=== PATIENT | female | born 1955 | race Caucasian/White ===

== ENCOUNTER 2018-07-20 15:48 | Emergency (ER) | payer MEDICARE, OTHER ==
[~2018-07-20] VITALS: Ht 147.3 cm; Wt 90.7 kg
[~2018-07-20 15:48] MED LIST: ALBU17AE23; BP PILL; CELEXA; CYCL10TA9 PO; ESCI20TA2 PO; FLUT1DIS27 IH; GBPN100C PO; GUAI473L29 PO; HYDR-3583 PO; HYDR1TAB PO; LEVO125T; LEVO175T2 PO; LEXAPRO; LORA1TAB PO; MELO-195 PO; METH4TAB PO; METO25TA PO; MNTL10T PO; MORP15TA8 PO; OXYC-12 PO; PRD20T PO; SULF1TAB38 PO
[2018-07-20] MEDS ORDERED: RT-ALBUTEROL/IPRATROPIUM 3 ML (DUONEB) VIAL ONE (15:53)
[2018-07-20] MEDS ORDERED: methylPREDNISolone 125 MG (Solu-MEDROL) VIAL ONE (15:54)
--- NOTE | 2018-07-20 15:59 | ED Dyspnea ---
General Stated Complaint: SOA Source of Information: Patient Exam Limitations: No Limitations History of Present Illness Date Seen by Provider: Jul 20, 2018 Time Seen by Provider: 15:59 Initial Comments To ER by private vehicle with reports of shortness of breath productive cough for 3-4 days. She does not have a local physician, she "just moved here in [facility]". She took a albuterol nebulizer treatment at home at noon today. Timing/Duration: Increasing Severity: Moderate Associated Symptoms: Cough, Wheezing Allergies and Home Medications Allergies Coded Allergies: NKANo Known Allergies (Verified Allergy, Unknown, 09/29/05) Uncoded Allergies: RUBBING ALCOHOL (Allergy, Unknown, 08/26/05) Home Medications Cyclobenzaprine Hcl 10 Mg Tablet, 10 MG PO BID PRN, (Reported) Escitalopram Oxalate 20 Mg Tablet, 1 EACH PO DAILY, (Reported) Fluticasone/Salmeterol 1 Disk Inhp, 1 PUFF IH BID, (Reported) 1 PUFF IH BID Gabapentin 100 Mg Cap, 200 MG PO TID, (Reported) Levothyroxine Sodium 175 Mcg Tablet, 1 EACH PO DAILY, (Reported) Metoprolol Succinate 25 Mg Tab.sr.24h, 25 MG PO BID, (Reported) Montelukast Sodium 10 Mg Tablet, 1 TAB PO DAILY, (Reported) Morphine Sulfate 15 Mg Tablet, 1 EACH PO Q6HR PRN, (Reported) FOR PAIN Prednisone 20 Mg Tab, 3 TAB PO BID WITH MEALS, (Reported) TAKE THREE TABS TWICE A DAY FRIDAY, FRIDAY, FRIDAY. THEN 2 TABS, TWICE A DAY DAILY. Patient Home Medication List Home Medication List Reviewed: Yes Review of Systems Review of Systems Constitutional: see HPI EENTM: see HPI Respiratory: see HPI, cough, short of breath, wheezing Cardiovascular: no symptoms reported Genitourinary: no symptoms reported Musculoskeletal: no symptoms reported Skin: no symptoms reported Psychiatric/Neurological: No Symptoms Reported Endocrine: No Symptoms Reported Past Sjzqwbu-Fvlgmg-Ghwezu Hx Patient Social History Recent Foreign Travel: No Contact w/Someone Who Travel: No Past Medical History COPD Hepatitis Back Injury, Chronic Back Pain Physical Exam Vital Signs Vital Signs - First Documented 07/20/18 15:53 Temp 96.1 Pulse 74 Resp 20 B/P (MAP) 127/103 (111) Pulse Ox 96 O2 Delivery Room Air Capillary Refill : Height, Weight, BMI Height: 4'11.00" Weight: 154lbs. oz. 69.647955fe; BMI Method:Estimated General Appearance: No Apparent Distress, WD/WN HEENT: PERRL/EOMI, TMs Normal Neck: Full Range of Motion, Normal Inspection Respiratory: Accessory Muscle Use, Decreased Breath Sounds, Wheezing Cardiovascular: Regular Rate, Rhythm, Normal Peripheral Pulses Gastrointestinal: Non Tender, Soft Extremity: Normal Capillary Refill, Normal Inspection, Pedal Edema (1+) Neurologic/Psychiatric: Alert, Oriented x3 Skin: Normal Color, Warm/Dry Progress/Results/Core Measures Results/Orders Lab Results Laboratory Tests Test 07/20/18 16:05 07/20/18 16:40 Range/Units White Blood Count 5.1 4.3-11.0 10^3/uL Red Blood Count 3.61 L 4.35-5.85 10^6/uL Hemoglobin 14.0 11.5-16.0 G/DL Hematocrit 39 35-52 % Mean Corpuscular Volume 108 H 80-99 FL Mean Corpuscular Hemoglobin 39 H 25-34 PG Mean Corpuscular Hemoglobin Concent 36 32-36 G/DL Red Cell Distribution Width 13.7 10.0-14.5 % Platelet Count 118 L 130-400 10^3/uL Mean Platelet Volume 11.2 H 7.4-10.4 FL Neutrophils (%) (Auto) 42 42-75 % Lymphocytes (%) (Auto) 36 12-44 % Monocytes (%) (Auto) 13 H 0-12 % Eosinophils (%) (Auto) 6 0-10 % Basophils (%) (Auto) 3 0-10 % Neutrophils # (Auto) 2.1 1.8-7.8 X 10^3 Lymphocytes # (Auto) 1.8 1.0-4.0 X 10^3 Monocytes # (Auto) 0.7 0.0-1.0 X 10^3 Eosinophils # (Auto) 0.3 0.0-0.3 10^3/uL Basophils # (Auto) 0.2 H 0.0-0.1 10^3/uL Sodium Level 137 135-145 MMOL/L Potassium Level 4.0 3.6-5.0 MMOL/L Chloride Level 104 98-107 MMOL/L Carbon Dioxide Level 20 L 21-32 MMOL/L Anion Gap 13 5-14 MMOL/L Blood Urea Nitrogen 7 7-18 MG/DL Creatinine 1.29 0.60-1.30 MG/DL Estimat Glomerular Filtration Rate 42 BUN/Creatinine Ratio 5 Glucose Level 98 70-105 MG/DL Calcium Level 9.2 8.5-10.1 MG/DL Corrected Calcium 9.4 8.5-10.1 MG/DL Total Bilirubin 1.0 0.1-1.0 MG/DL Aspartate Amino Transf (AST/SGOT) 205 H 5-34 U/L Alanine Aminotransferase (ALT/SGPT) 67 H 0-55 U/L Alkaline Phosphatase 56 40-136 U/L Troponin I < 0.028 <0.028 NG/ML B-Type Natriuretic Peptide 65.4 <100.0 PG/ML Total Protein 8.2 6.4-8.2 GM/DL Albumin 3.8 3.2-4.5 GM/DL Blood Gas Puncture Site R RAD Blood Gas Patient Temperature 96.1 Arterial Blood pH 7.41 7.37-7.43 Arterial Blood Partial Pressure CO2 35 35-45 MMHG Arterial Blood Partial Pressure O2 59 L 79-93 MMHG Arterial Blood HCO3 22 L 23-27 MMOL/L Arterial Blood Total CO2 23.4 21.0-31.0 MMOL/L Arterial Blood Oxygen Saturation 92 L 94-100 % Arterial Blood Base Excess -1.9 -2.5-2.5 MMOL/L Ten Test YES-POS Blood Gas Ventilator Setting NO Blood Gas Inspired Oxygen UNKNOWN My Orders Orders - TONY GIFFORD [employer] TECHNICIAN Albuterol/Ipra Inhalation Soln (Duoneb I (07/20/18 16:00) Svn Small Volume Nebulizer (07/20/18 15:56) Methylprednisolone Sod Succ (Solu-Medrol (07/20/18 16:00) Cbc With Automated Diff (07/20/18 15:59) Comprehensive Metabolic Panel (07/20/18 15:59) BNP (07/20/18 15:59) Troponin I (07/20/18 15:59) Chest 1 View, Ap/Pa Only (07/20/18 15:59) Arterial Blood Gas (07/20/18 16:01) Albuterol Pre-Mix Nebs (Rt) (Proventil (07/20/18 16:30) Svn Small Volume Nebulizer (07/20/18 16:25) Ed Iv/Invasive Line Start (07/20/18 16:26) Ipratropium 0.02% Neb Solution (Atrovent (07/20/18 16:25) Medications Given in ED Current Medications Medications Dose Ordered Sig/Jose Antonio Route Start Time Stop Time Status Last Admin Dose Admin Albuterol/ Ipratropium 3 ml ONCE ONCE INH 07/20/18 16:00 07/20/18 16:01 DC 07/20/18 16:04 3 ML Ipratropium [place] 0.5 mg STK-MED ONCE IH 07/20/18 16:25 07/20/18 16:30 DC 07/20/18 16:41 0.5 MG Methylprednisolone Sodium Succinate 125 mg ONCE ONCE IVP 07/20/18 16:00 07/20/18 16:01 DC 07/20/18 16:05 125 MG Vital Signs/I&O 07/20/18 07/20/18 15:53 16:41 Temp 96.1 Pulse 74 Resp 20 B/P (MAP) 127/103 (111) Pulse Ox 96 92 O2 Delivery Room Air Room Air Departure Communication (Admissions) 1653-feeling much better, this is after an hour-long treatment. Oxygen saturation 89% on room air at this time, it was 96 on arrival. She does have supplemental oxygen to wear at home. I'll prescribe a steroid burst and doxy cycline. Impression Primary Impression: COPD exacerbation Disposition: HOME, SELF-CARE Condition: Stable Departure-Patient Inst. Decision time for Depature: 16:58 Referrals: [facility] [place] (PCP/Family) Primary Care Physician Patient Instructions: Exacerbation of COPD Add. Discharge Instructions: 1. Return to ER for any concerns 2. Steroids as directed 3. Take the albuterol nebulizer through the machine every 4 hours. Follow-up with your doctor later this week. Scripts Doxycycline Hyclate (Doxycycline Hyclate) 100 Mg Tablet 100 MG PO BID, #14 TAB 0 Refills Prov: TONY GIFFORD [employer] TECHNICIAN 07/20/18 Prednisone (Prednisone) 20 Mg Tab 40 MG PO DAILY, #8 TAB 0 Refills Prov: TONY GIFFORD [employer] RETR[employer]IT TECHNICIAN 07/20/18 TONY GIFFORD BUILDING [employer]ERGY RETROFIT TECHNICIAN Jul 20, 2018 15:59
[2018-07-20] MEDS ORDERED: RT-ALBUTEROL/IPRATROPIUM 3 ML (DUONEB) VIAL INH ONE (16:00)
[2018-07-20] MEDS ORDERED: methylPREDNISolone 125 MG (Solu-MEDROL) VIAL IVP ONE (16:00)
[2018-07-20 16:16] LABS: BASOPHILS # (AUTO) 0.2 10^3/uL (0.0-0.1); BASOPHILS % (AUTO) 3 % (0-10); EOSINOPHILS # (AUTO) 0.3 10^3/uL (0.0-0.3); EOSINOPHILS % (AUTO) 6 % (0-10); HEMATOCRIT 39 % (35-52); LYMPHOCYTES # (AUTO) 1.8 X 10^3 (1.0-4.0); LYMPHOCYTES % (AUTO) 36 % (12-44); MEAN CORPUSCULAR HEMOGLOBIN 39 PG (25-34); MEAN CORPUSCULAR HGB CONC 36 G/DL (32-36); MEAN CORPUSCULAR VOLUME 108 FL (80-99); MEAN PLATELET VOLUME 11.2 FL (7.4-10.4); MONOCYTES # (AUTO) 0.7 X 10^3 (0.0-1.0); MONOCYTES % (AUTO) 13 % (0-12); NEUTROPHILS # (AUTO) 2.1 X 10^3 (1.8-7.8); NEUTROPHILS % (AUTO) 42 % (42-75); PLATELET COUNT 118 10^3/uL (130-400); RED CELL DISTRIBUTION WIDTH 13.7 % (10.0-14.5); WHITE BLOOD COUNT 5.1 10^3/uL (4.3-11.0)
[2018-07-20] MEDS ORDERED: RT-IPRATROPIUM (ATROVENT) 0.5MG/2.5ML AMP IH ONE (16:25)
--- NOTE | 2018-07-20 16:25 | Diagnostic Imaging Report ---
INDICATION: Shortness of breath. EXAMINATION: Portable chest at 4:15 p.m. FINDINGS: Heart size and pulmonary vascularity are normal. Lungs are clear. There are no effusions or pneumothoraces. IMPRESSION: Negative chest. Dictated by: Dictated on workstation # [id number]
[2018-07-20] MEDS ORDERED: RT-ALBUTEROL SULF 2.5 MG/3 ML PRE-MIX VIAL INH SCH (16:30)
[2018-07-20 16:40] LABS: ALANINE AMINOTRANSFERASE 67 U/L (0-55); ALBUMIN 3.8 GM/DL (3.2-4.5); ALKALINE PHOSPHATASE 56 U/L (40-136); BUN/CREATININE RATIO 5; CALCIUM 9.2 MG/DL (8.5-10.1); CARBON DIOXIDE 20 MMOL/L (21-32); CHLORIDE 104 MMOL/L (98-107); CREATININE SERUM 1.29 MG/DL (0.60-1.30); GFR ESTIMATED 42; GLUCOSE 98 MG/DL (70-105); SODIUM 137 MMOL/L (135-145); TOTAL PROTEIN 8.2 GM/DL (6.4-8.2)
[2018-07-20 16:44] LABS: ABG BASE EXCESS -1.9 MMOL/L (-2.5-2.5); ABG OXYGEN SATURATION 92 % (94-100); ABG PCO2 35 MMHG (35-45); ABG PH 7.41 (7.37-7.43); ABG PO2 59 MMHG (79-93); ABG TCO2 23.4 MMOL/L (21.0-31.0); ALLENS TEST YES-POS; PATIENT TEMP 96.1; VENTILATOR NO
[2018-07-20] MEDS ORDERED: PRD20T PO (16:59)
[2018-07-20] MEDS ORDERED: DOXY100T2 PO (16:59)
[2018-07-20 18:00] VITALS: BP 112/74
== END 2018-07-20 18:00 | disposition home or self-care (01) ==
LOC: EDUNIT# 15:48 → ER 15:50
DX: J44.1 Chronic obstructive pulmonary disease with (acute) exacerbation (principal); Z87.19 Personal history of other diseases of the digestive system; Z88.8 Allergy status to other drugs, medicaments and biological substances; Z79.51 Long term (current) use of inhaled steroids
CPT/HCPCS: 36415; 71045; 80053; 82805; 83880; 84484; 85025; 94640; 94644; 96374

== ENCOUNTER → 2018-10-14 | Outpatient (CLI) | payer MEDICARE, MEDICAID ==
[~2018-10-14] MED LIST changes: +DOXY100T2 PO
--- NOTE | 2018-10-14 11:58 | Diagnostic Imaging Report ---
PROCEDURE: MRI lumbar spine. TECHNIQUE: Multiplanar/multisequence MRI of the lumbar spine was performed without contrast. INDICATION: Low back pain. FINDINGS: The previous MRI lumbar spine exam performed on 08/17/2014 noted a small 0.6 x 0.2 cm synovial cyst arising from the medial aspect of the L5-S1 facet joint on the left. That finding is again evident on this study although it has diminished in size and now measures only 1.6 x 2.4 cm. On the T2 axial series, there is a small amount of increased signal within the facet joint on the left at this level. This finding is nonspecific but may be related to mild inflammation. As noted on the previous exam, there is moderate degenerative disc disease throughout the lumbar spine. There is no evidence for a high grade central stenosis or significant neuroforaminal narrowing at any level. As noted previously, there is mild narrowing of the neural foramen bilaterally at L3-4, particularly on the right. This finding is quite similar to the prior exam. There is no abnormal signal arising from the cord or the vertebral bodies to indicate an acute abnormality. There is no sign of a paraspinal mass. IMPRESSION: 1. The synovial cyst on the left at L5-S1 seen previously has decreased in size; however, there is now a small amount of fluid within the facet joint itself. This does suggest that there is an element of mild inflammation present. 2. The remainder of the lumbar spine is unchanged when compared to the prior study. There is no new area of spinal stenosis or nerve root encroachment identified. Dictated by: Dictated on workstation # [id number]
== END ==
LOC: RAD 10:18
PROVIDERS: ATTEND Nurse Practitioner Family
DX: M51.37 Other intervertebral disc degeneration, lumbosacral region (principal); M71.38 Other bursal cyst, other site
CPT/HCPCS: 72148

== ENCOUNTER → 2018-11-26 | Outpatient (CLI) | payer MEDICARE, MEDICAID ==
[~2018-11-26] MED LIST changes: +CATHETER FLUSH 10 ML SYR IV PRN; +HOLD METFORMIN - RECEIVED CONTRAST 20 ML VIAL IV SCH; +IOHEXOL 350 MG/ML 100 ML (OMNIPAQUE 350) VIAL IV ONE; +NS 100 ML (IVPB) BAG IV ONE
[2018-11-26 14:29] LABS: ALANINE AMINOTRANSFERASE 43 U/L (0-55); ALBUMIN 3.5 GM/DL (3.2-4.5); ALKALINE PHOSPHATASE 74 U/L (40-136); BILIRUBIN,TOTAL 1.2 MG/DL (0.1-1.0); BUN/CREATININE RATIO 8; CALCIUM 8.8 MG/DL (8.5-10.1); CARBON DIOXIDE 21 MMOL/L (21-32); CHLORIDE 106 MMOL/L (98-107); CREATININE SERUM 0.79 MG/DL (0.60-1.30); GFR ESTIMATED > 60; GLUCOSE 93 MG/DL (70-105); POTASSIUM 3.9 MMOL/L (3.6-5.0); SODIUM 137 MMOL/L (135-145); TOTAL PROTEIN 7.4 GM/DL (6.4-8.2)
--- NOTE | 2018-11-26 15:34 | Diagnostic Imaging Report ---
PROCEDURE: CT neck soft tissue with contrast. TECHNIQUE: Multiple contiguous axial images were obtained through the neck after the administration of contrast. Auto Exposure Controls were utilized during the CT exam to meet ALARA standards for radiation dose reduction. INDICATION: Right-sided neck lump. Patient also complains of neck tenderness as well as hoarseness. A BB marker was placed at the areas of lump in the anterior neck as well as the right neck. COMPARISON: No prior studies are available for comparison. FINDINGS: There is a solid-appearing nodule along the inferior and posterior margin of the right parotid gland measuring 20 mm cephalocaudal x 50 mm AP x 9 mm transverse. This likely accounts for one of the palpable abnormalities. This may lie just outside of the parotid gland and could potentially represent a lymph node. Parotid glands are otherwise unremarkable. Submandibular glands are unremarkable. No thyroid mass is detected. No definite enlarged jugulodigastric or posterior cervical lymph nodes are seen. Posterior nasopharynx and oropharynx are unremarkable. Hypopharynx and larynx are unremarkable. No abnormality is seen at the second area of palpable abnormality in the anterior right paramidline lower neck. No underlying abnormality is seen. IMPRESSION: A solid nodule along the posterior and inferior margin of the parotid gland. This is likely outside of the parotid gland and may represent a slightly enlarged lymph node. Ultrasound would be useful for further evaluation. Remainder of the study is unremarkable. Dictated by: Dictated on workstation # [id number]
== END ==
LOC: RAD 13:45
PROVIDERS: ATTEND Nurse Practitioner Family
DX: K11.8 Other diseases of salivary glands (principal); R49.0 Dysphonia
CPT/HCPCS: 36415; 70491; 80053

== ENCOUNTER 2019-03-02 11:56 | Emergency (ER) | payer MEDICARE, MEDICAID ==
[~2019-03-02] VITALS: Ht 149 cm; Wt 85.0 kg
[~2019-03-02 11:56] MED LIST changes: -CATHETER FLUSH 10 ML SYR IV PRN; -HOLD METFORMIN - RECEIVED CONTRAST 20 ML VIAL IV SCH; -IOHEXOL 350 MG/ML 100 ML (OMNIPAQUE 350) VIAL IV ONE; -NS 100 ML (IVPB) BAG IV ONE
[2019-03-02] MEDS ORDERED: HYDR-4226 PO (12:24)
--- NOTE | 2019-03-02 12:24 | ED EENT ---
History of Present Illness General Chief Complaint: General Problems/Pain Stated Complaint: NECK PAIN Nursing Triage Note: STATES SHE HAD A BX OF HER NECK YESTERDAY AND PAIN IS NOT RELIEVED BY IBUPROFEN OR ALEVE. STATES SHE WOULD HAVE WENT TO THE CLINIC BUT SHE DID NOT THINK THEY WOULD PRESCRIBE ANYTHING FOR PAIN. Source: patient Exam Limitations: no limitations History of Present Illness Date Seen by Provider: Mar 02, 2019 Time Seen by Provider: 12:20 Initial Comments To ER with right sided neck pain. She had a fine-needle aspiration lymph node bi opsy yesterday ultrasound-guided here. She reports pain despite the infrequent use of NSAIDs and frequent use of cold compresses. She is able to swallow fine, states she cannot turn her head to the side without significant pain, when she chews she has a sharp pain that radiates into her ear. Timing/Duration: gradual Severity: moderate Location: other (neck) Prearrival Treatment: over the counter meds Allergies and Home Medications Allergies Coded Allergies: NKANo Known Allergies (Verified Allergy, Unknown, 09/29/05) Uncoded Allergies: RUBBING ALCOHOL (Allergy, Unknown, 08/26/05) Home Medications Cyclobenzaprine Hcl 10 Mg Tablet, 10 MG PO BID PRN, (Reported) Doxycycline Hyclate 100 Mg Tablet, 100 MG PO BID Prescribed by: TONY GIFFORD on 07/20/181658 Escitalopram Oxalate 20 Mg Tablet, 1 EACH PO DAILY, (Reported) Fluticasone/Salmeterol 1 Disk Inhp, 1 PUFF IH BID, (Reported) 1 PUFF IH BID Gabapentin 100 Mg Cap, 200 MG PO TID, (Reported) Levothyroxine Sodium 175 Mcg Tablet, 1 EACH PO DAILY, (Reported) Metoprolol Succinate 25 Mg Tab.sr.24h, 25 MG PO BID, (Reported) Montelukast Sodium 10 Mg Tablet, 1 TAB PO DAILY, (Reported) Morphine Sulfate 15 Mg Tablet, 1 EACH PO Q6HR PRN, (Reported) FOR PAIN Prednisone 20 Mg Tab, 3 TAB PO BID WITH MEALS, (Reported) TAKE THREE TABS TWICE A DAY FRIDAY, FRIDAY, FRIDAY. THEN 2 TABS, TWICE A DAY DAILY. Prednisone 20 Mg Tab, 40 MG PO DAILY Prescribed by: TONY GIFFORD on 07/20/181658 Patient Home Medication List Home Medication List Reviewed: Yes Review of Systems Review of Systems Constitutional: see HPI Eyes: No Symptoms Reported Ears: No Symptoms Reported Nose: no symptoms reported Mouth: no symptoms reported Throat: see HPI, other (right lateral neck) Respiratory: no symptoms reported Cardiovascular: no symptoms reported Gastrointestinal: no symptoms reported Musculoskeletal: no symptoms reported Skin: no symptoms reported Neurological: No Symptoms Reported Hematologic/Lymphatic: No Symptoms Reported Past Oiypahx-Uptata-Iptmoy Hx Patient Social History Alcohol Use: Occasionally Uses Recreational Drug Use: No Smoking Status: Current Everyday Smoker Type Used: Cigarettes Recent Foreign Travel: No Contact w/Someone Who Travel: No Recent Infectious Disease Expo: No Recent Hopitalizations: No Immunizations Up To Date Tetanus Booster (TDap): Unknown Past Medical History Surgeries: Yes (MULTIPLE) Respiratory: Yes COPD Cardiac: No Neurological: No Gastrointestinal: Yes (HEP C POSITIVE) Hepatitis Musculoskeletal: Yes Back Injury, Chronic Back Pain Endocrine: Yes Cancer: No Blood Disorders: Yes Physical Exam Vital Signs Vital Signs - First Documented 03/02/19 12:00 Temp 37.0 Pulse 84 Resp 16 B/P (MAP) 136/90 (105) Pulse Ox 96 O2 Delivery Room Air Height, Weight, BMI Height: 4'10.00" Weight: 200lbs. oz. 90.571917he; 38.00 BMI Method:Stated General Appearance: WD/WN, no apparent distress Eyes: bilateral eye normal inspection, bilateral eye PERRL, bilateral eye EOMI Ears: bilateral ear auricle normal, bilateral ear canal normal, bilateral ear TM normal Mouth/Throat: normal mouth inspection, pharynx normal Neck: non-tender, full range of motion, tender lateral, other (difficulty turning her head to the right side, there is a puncture wound to the lateral aspect of the neck without erythema ecchymosis or drainage, normal appearance. Soft around this without hematoma, tender to palpation.) Respiratory: no respiratory distress, no accessory muscle use Gastrointestinal: normal bowel sounds, non tender Neurologic/Psychiatric: alert, normal mood/affect, oriented x 3 Skin: normal color, warm/dry Progress/Results/Core Measures Results/Orders Vital Signs/I&O 03/02/19 12:00 Temp 37.0 Pulse 84 Resp 16 B/P (MAP) 136/90 (105) Pulse Ox 96 O2 Delivery Room Air Blood Pressure Mean: 105 Departure Impression Primary Impression: Postoperative pain Disposition: 01 HOME, SELF-CARE Condition: Stable Departure-Patient Inst. Decision time for Depature: 12:23 Referrals: [facility] (PCP/Family) Primary Care Physician Patient Instructions: Postoperative Pain (DC) Add. Discharge Instructions: 1. Follow-up with your doctor 2. All discharge instructions reviewed with patient and/or family. Voiced understanding. Scripts Hydrocodone/Acetaminophen ([place] 5-325 Tablet) 1 Each Tablet 1 TAB PO TID for Pain MDD 10 TABS for 7 Days, #5 TAB Prov: TONY GIFFORD APRN 03/02/19 TONY GIFFORD APRN Mar 02, 2019 12:24
[2019-03-02 12:30] VITALS: BP 136/90
== END 2019-03-02 12:30 | disposition home or self-care (01) ==
LOC: EDUNIT# 11:56 → ER 11:57
DX: G89.18 Other acute postprocedural pain (principal); M54.2 Cervicalgia; J44.9 Chronic obstructive pulmonary disease, unspecified; B19.20 Unspecified viral hepatitis C without hepatic coma; F17.210 Nicotine dependence, cigarettes, uncomplicated; Z79.51 Long term (current) use of inhaled steroids; Z79.52 Long term (current) use of systemic steroids
CPT/HCPCS: 99281

== ENCOUNTER 2019-03-09 22:40 | Inpatient (IN) | payer MEDICARE, MEDICAID ==
[~2019-03-09] VITALS: Ht 147.3 cm; Wt 85.7 kg
[~2019-03-09 22:40] MED LIST changes: +HYDR-4226 PO
[2019-03-09] MEDS ORDERED: RT-ALBUTEROL/IPRATROPIUM 3 ML (DUONEB) VIAL INH ONE ×2 (23:15→23:45)
[2019-03-09 23:24] LABS: BASOPHILS # (AUTO) 0.1 10^3/uL (0.0-0.1); BASOPHILS % (AUTO) 1 % (0-10); EOSINOPHILS # (AUTO) 0.1 10^3/uL (0.0-0.3); EOSINOPHILS % (AUTO) 1 % (0-10); HEMATOCRIT 43 % (35-52); HEMOGLOBIN 13.7 G/DL (11.5-16.0); LYMPHOCYTES # (AUTO) 1.4 X 10^3 (1.0-4.0); LYMPHOCYTES % (AUTO) 17 % (12-44); MEAN CORPUSCULAR HEMOGLOBIN 33 PG (25-34); MEAN CORPUSCULAR HGB CONC 32 G/DL (32-36); MEAN CORPUSCULAR VOLUME 103 FL (80-99); MEAN PLATELET VOLUME 10.7 FL (7.4-10.4); MONOCYTES # (AUTO) 0.8 X 10^3 (0.0-1.0); MONOCYTES % (AUTO) 9 % (0-12); NEUTROPHILS % (AUTO) 72 % (42-75); PLATELET COUNT 149 10^3/uL (130-400); RED CELL DISTRIBUTION WIDTH 14.4 % (10.0-14.5); WHITE BLOOD COUNT 8.4 10^3/uL (4.3-11.0)
[2019-03-09] MEDS ORDERED: RT-ALBUTEROL SULF 2.5 MG/3 ML PRE-MIX VIAL INH STA (23:33)
--- NOTE | 2019-03-09 23:41 | ED General ---
General Chief Complaint: General Problems/Pain Stated Complaint: SWALLOWING DIFFICULITY Nursing Triage Note: c/o pain and swelling in neck Nursing Sepsis Screen: No Definite Risk Source of Information: Patient, Old Records Exam Limitations: No Limitations History of Present Illness Date Seen by Provider: Mar 09, 2019 Time Seen by Provider: 23:55 Initial Comments This 64-year-old woman presents to the emergency room with complaints of pain along the lateral aspects of her jaw and into her neck bilaterally, greater on the left. She noticed swelling going up into the maxillary region. 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 She is seeing Dr. Balderas for this and has an appointment in early March for follow-up. Tonight she became frightened because of the worsening pain and swelling. She also felt some difficulty with swallowing. She also appears to be having a COPD exacerbation as she is very tight and wheezy despite taking a nebulizer treatment at home shortly before arrival. Patient also admits to drinking a 24 ounce can of beer tonight and taking two sleep aids. Allergies and Home Medications Allergies Coded Allergies: NKANo Known Allergies (Verified Allergy, Unknown, 09/29/05) Uncoded Allergies: RUBBING ALCOHOL (Allergy, Unknown, 08/26/05) Home Medications Cyclobenzaprine Hcl 10 Mg Tablet, 10 MG PO BID PRN, (Reported) Doxycycline Hyclate 100 Mg Tablet, 100 MG PO BID Prescribed by: TONY GIFFORD on 07/20/18 1659 Escitalopram Oxalate 20 Mg Tablet, 1 EACH PO DAILY, (Reported) Fluticasone/Salmeterol 1 Disk Inhp, 1 PUFF IH BID, (Reported) 1 PUFF IH BID Gabapentin 100 Mg Cap, 200 MG PO TID, (Reported) Hydrocodone/Acetaminophen 1 Each Tablet, 1 TAB PO TID Prescribed by: TONY GIFFORD on 03/02/19 1224 Levothyroxine Sodium 175 Mcg Tablet, 1 EACH PO DAILY, (Reported) Metoprolol Succinate 25 Mg Tab.sr.24h, 25 MG PO BID, (Reported) Montelukast Sodium 10 Mg Tablet, 1 TAB PO DAILY, (Reported) Morphine Sulfate 15 Mg Tablet, 1 EACH PO Q6HR PRN, (Reported) FOR PAIN Prednisone 20 Mg Tab, 3 TAB PO BID WITH MEALS, (Reported) TAKE THREE TABS TWICE A DAY FRIDAY, FRIDAY, FRIDAY. THEN 2 TABS, TWICE A DAY DAILY. Prednisone 20 Mg Tab, 40 MG PO DAILY Prescribed by: TONY GIFFORD on 07/20/18 2330 Patient Home Medication List Home Medication List Reviewed: Yes Review of Systems Review of Systems Constitutional: no symptoms reported EENTM: see HPI Respiratory: no symptoms reported Cardiovascular: no symptoms reported Gastrointestinal: no symptoms reported Genitourinary: no symptoms reported : No Musculoskeletal: no symptoms reported Skin: no symptoms reported Psychiatric/Neurological: See HPI Hematologic/Lymphatic: See HPI Immunological/Allergic: no symptoms reported All Other Systems Reviewed Negative Unless Noted: Yes Past Xmdtkcl-Zgispi-Ovyidw Hx Past Med/Social Hx: Reviewed and Corrections made Patient Social History Alcohol Use: Occasionally Uses Alcohol Beverage of Choice: Beer Type Used: Cigarettes Recent Foreign Travel: No Contact w/Someone Who Travel: No Recent Infectious Disease Expo: No Recent Hopitalizations: No Immunizations Up To Date Tetanus Booster (TDap): Unknown Past Medical History Surgeries: Yes (axillary gland removal) Gallbladder, Hysterectomy, Oophorectomy Respiratory: Yes (uses oxygen at 3 L by nasal cannula) COPD Cardiac: No Neurological: No Female Reproductive Disorders: Endometriosis Genitourinary: No Gastrointestinal: Yes (HEP C POSITIVE) Hepatitis Musculoskeletal: Yes Back Injury, Chronic Back Pain Endocrine: Yes Hypothyroidsim, Lupus Cancer: No Psychosocial: Yes Bipolar, Schizophrenia Blood Disorders: Yes Physical Exam Vital Signs Vital Signs - First Documented 03/09/19 03/09/19 23:00 23:46 Temp 37.6 Pulse 88 Resp 20 B/P (MAP) 154/94 (114) Pulse Ox 98 O2 Delivery Nasal Cannula O2 Flow Rate 3.00 Capillary Refill : Less Than 3 Seconds Height, Weight, BMI Height: 4'10.00" Weight: 200lbs. oz. 90.863410fr; 37.00 BMI Method:Stated General Appearance: WD/WN, Mild Distress, Other (Smells of alcohol) HEENT: PERRL/EOMI, Normal ENT Inspection, Other (swelling and tenderness along the angle of the jaw and extending up into the maxillary area and submandibular area bilaterally, left greater than right) Neck: Other (see above) Respiratory: No Accessory Muscle Use, No Respiratory Distress, Wheezing Cardiovascular: Regular Rate, Rhythm, No Edema, No Murmur Gastrointestinal: Normal Bowel Sounds, Non Tender, Soft Extremity: Normal Inspection, No Pedal Edema Neurologic/Psychiatric: Alert, Oriented x3, No Motor/Sensory Deficits, Normal 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, 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 Norm as Tested Skin: Normal Color, Warm/Dry Progress/Results/Core Measures Suspected Sepsis Recent Fever Within 48 Hours: No Infection Criteria Present: None New/Unexplained Altered Menta: No Sepsis Screen: No Definite Risk SIRS Temperature: Pulse: 88 Respiratory Rate: 20 Laboratory Tests 03/09/19 23:15: White Blood Count 8.4 Blood Pressure 154 /94 Mean: 114 Laboratory Tests 03/09/19 23:15: Creatinine 0.81, Platelet Count 149, Total Bilirubin 0.7 Results/Orders Lab Results Laboratory Tests Test 03/09/19 23:15 Range/Units White Blood Count 8.4 4.3-11.0 10^3/uL Red Blood Count 4.18 L 4.35-5.85 10^6/uL Hemoglobin 13.7 11.5-16.0 G/DL Hematocrit 43 35-52 % Mean Corpuscular Volume 103 H 80-99 FL Mean Corpuscular Hemoglobin 33 25-34 PG Mean Corpuscular Hemoglobin Concent 32 32-36 G/DL Red Cell Distribution Width 14.4 10.0-14.5 % Platelet Count 149 130-400 10^3/uL Mean Platelet Volume 10.7 H 7.4-10.4 FL Neutrophils (%) (Auto) 72 42-75 % Lymphocytes (%) (Auto) 17 12-44 % Monocytes (%) (Auto) 9 0-12 % Eosinophils (%) (Auto) 1 0-10 % Basophils (%) (Auto) 1 0-10 % Neutrophils # (Auto) 6.0 1.8-7.8 X 10^3 Lymphocytes # (Auto) 1.4 1.0-4.0 X 10^3 Monocytes # (Auto) 0.8 0.0-1.0 X 10^3 Eosinophils # (Auto) 0.1 0.0-0.3 10^3/uL Basophils # (Auto) 0.1 0.0-0.1 10^3/uL Sodium Level 139 135-145 MMOL/L Potassium Level 4.0 3.6-5.0 MMOL/L Chloride Level 108 H 98-107 MMOL/L Carbon Dioxide Level 21 21-32 MMOL/L Anion Gap 10 5-14 MMOL/L Blood Urea Nitrogen 10 7-18 MG/DL Creatinine 0.81 0.60-1.30 MG/DL Estimat Glomerular Filtration Rate > 60 BUN/Creatinine Ratio 12 Glucose Level 125 H 70-105 MG/DL Calcium Level 9.0 8.5-10.1 MG/DL Corrected Calcium 9.6 8.5-10.1 MG/DL Total Bilirubin 0.7 0.1-1.0 MG/DL Aspartate Amino Transf (AST/SGOT) 88 H 5-34 U/L Alanine Aminotransferase (ALT/SGPT) 62 H 0-55 U/L Alkaline Phosphatase 90 40-136 U/L Total Protein 7.0 6.4-8.2 GM/DL Albumin 3.3 3.2-4.5 GM/DL Thyroid Stimulating Hormone (TSH) 26.70 H 0.35-4.94 UIU/ML Free Thyroxine 0.69 L 0.70-1.48 NG/DL Serum Alcohol 32 H <10 MG/DL My Orders Orders - KHARI MALLORY MD Alcohol (03/09/19 23:08) Cbc With Automated Diff (03/09/19 23:08) Comprehensive Metabolic Panel (03/09/19 23:08) Ed Iv/Invasive Line Start (03/09/19 23:08) Albuterol/Ipra Inhalation Soln (Duoneb I (03/09/19 23:15) Svn Small Volume Nebulizer (03/09/19 23:08) Thyroid Stimulating Hormone (03/09/19 23:08) Free T4 (Free Thyroxine) (03/09/19 23:08) Chest 1 View, Ap/Pa Only (03/09/19 23:11) Methylprednisolone Sod Succ (Solu-Medrol (03/09/19 23:45) Albuterol Pre-Mix Nebs (Rt) (Proventil (03/09/19 23:33) Albuterol/Ipra Inhalation Soln (Duoneb I (03/09/19 23:45) Svn Small Volume Nebulizer (03/09/19 23:33) Svn Small Volume Nebulizer (03/09/19 23:33) Fentanyl Injection (Sublimaze Injection (03/09/19 23:45) Ketorolac Injection (Toradol Injection) (03/10/19 00:30) Lorazepam Injection (Ativan Injection) (03/10/19 00:30) Medications Given in ED Current Medications Medications Dose Ordered Sig/Jose Antonio Route Start Time Stop Time Status Last Admin Dose Admin Albuterol/ Ipratropium 3 ml ONCE ONCE INH 03/09/19 23:15 03/09/19 23:16 DC 03/09/19 23:45 3 ML Fentanyl Citrate 50 mcg ONCE ONCE IVP 03/09/19 23:45 03/09/19 23:46 DC 03/09/19 23:50 50 MCG Methylprednisolone Sodium Succinate 125 mg ONCE ONCE IVP 03/09/19 23:45 03/09/19 23:46 DC 03/09/19 23:50 125 MG Vital Signs/I&O 03/09/19 03/09/19 03/10/19 23:00 23:46 00:05 Temp 37.6 Pulse 88 Resp 20 B/P (MAP) 154/94 (114) Pulse Ox 98 98 98 O2 Delivery Nasal Cannula Nasal Cannula Nasal Cannula O2 Flow Rate 3.00 3.00 Capillary Refill : Less Than 3 Seconds Blood Pressure Mean: 114 Progress Note : Time: 23:53 Progress Note Patient was seen and examined shortly after arrival. She was very tight and wheezy. DuoNeb treatment was ordered and administered. She was still rather tight and wheezy with modest improvement after nebulizer treatment. An hour-long treatment was then ordered along with Solu-Medrol 125 mg IV. Patient did demonstrate ability to swallow water without choking or aspiration. Chart was reviewed. Labs are pending. Fentanyl was given for pain. Diagnostic Imaging Diagonstic Imaging: Xray Plain Films/CT/US/NM/MRI: chest Comments Chest x-ray viewed by me. Report not yet available. No acute abnormality appreciated. Departure Communication (Admissions) Time/Spoke to Admitting Phy: 00:40 Dr. Nunez Time/Spoke to Consulting Phy: 00:[address] Balderas Impression Primary Impression: COPD exacerbation Additional Impression: Salivary gland tumor Disposition: ADMITTED INPATIENT Condition: Improved Admissions Decision to Admit Reason: Admit from ER (General) Decision to Admit/Date: Mar 10, 2019 Time/Decision to Admit Time: 00:30 Departure-Patient Inst. Referrals: [facility] [place] (PCP/Family) Primary Care Physician KHARI MALLORY MD Mar 09, 2019 23:41
[2019-03-09 23:45] LABS: ALANINE AMINOTRANSFERASE 62 U/L (0-55); ALBUMIN 3.3 GM/DL (3.2-4.5); ALKALINE PHOSPHATASE 90 U/L (40-136); BILIRUBIN,TOTAL 0.7 MG/DL (0.1-1.0); BUN/CREATININE RATIO 12; CARBON DIOXIDE 21 MMOL/L (21-32); CHLORIDE 108 MMOL/L (98-107); CREATININE SERUM 0.81 MG/DL (0.60-1.30); GFR ESTIMATED > 60; GLUCOSE 125 MG/DL (70-105); SODIUM 139 MMOL/L (135-145)
[2019-03-09] MEDS ORDERED: fentaNYL INJECTION 100 MCG/2 ML AMP IVP ONE (23:45)
[2019-03-09] MEDS ORDERED: methylPREDNISolone 125 MG (Solu-MEDROL) VIAL IVP ONE (23:45)
[2019-03-10 00:09] LABS: FREE T4 (FREE THYROXINE) 0.69 NG/DL (0.70-1.48)
[2019-03-10] MEDS ORDERED: LORazepam INJ 2 MG/ML (ATIVAN) VIAL IVP ONE (00:30)
[2019-03-10] MEDS ORDERED: KETOROLAC 30 MG/ML VIAL IVP ONE (00:30)
[2019-03-10 01:47] VITALS: BP 134/73
[2019-03-10] MEDS: NICOTINE 21 MG (NICODERM) PATCH TD SCH ×2 (02:00→20:50)
[2019-03-10] MEDS ORDERED: RT-ALBUTEROL SULF 2.5 MG/3 ML PRE-MIX VIAL IH PRN (02:00)
[2019-03-10] MEDS ORDERED: RT-ALBUTEROL/IPRATROPIUM 3 ML (DUONEB) VIAL INH PRN (03:30)
[2019-03-10 04:00] VITALS: BP 113/77
[2019-03-10] MEDS ORDERED: RT-ALBUTEROL/IPRATROPIUM 3 ML (DUONEB) VIAL INH SCH (06:00)
[2019-03-10] MEDS: methylPREDNISolone 40 MG/ML (Solu-MEDROL) VIAL IV SCH ×3 (06:32→17:32)
[2019-03-10] MEDS: RT-ALBUTEROL/IPRATROPIUM 3 ML (DUONEB) VIAL IH SCH ×5 (06:35→22:48)
[2019-03-10] MEDS ORDERED: FLU QUADRIvalent (5+ YOA) 2019-2020 (AFLURIA) 0.5 ML IM ONE (06:45)
[2019-03-10] MEDS: KETOROLAC 15 MG/ML VIAL IVP PRN ×2 (06:54→12:57)
--- NOTE | 2019-03-10 07:56 | Diagnostic Imaging Report ---
EXAMINATION: Chest 1 view HISTORY: Chest pain COMPARISON: 07/20/2018 FINDINGS: The lungs are clear without edema or pneumonia. No pleural effusion or pneumothorax. Heart size is normal. IMPRESSION: 1. Clear lungs. Dictated by: Dictated on workstation # [id number]
[2019-03-10 08:00] VITALS: BP 116/66
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
[2019-03-10] MEDS ORDERED: IOHEXOL 350 MG/ML 100 ML (OMNIPAQUE 350) VIAL IV ONE (09:15)
[2019-03-10] MEDS ORDERED: HOLD METFORMIN - RECEIVED CONTRAST 20 ML VIAL IV SCH (09:15)
[2019-03-10] MEDS ORDERED: NS 100 ML (IVPB) BAG IV ONE (09:15)
[2019-03-10] MEDS ORDERED: BUDE10.2 INH (09:44)
[2019-03-10] MEDS ORDERED: LEVO112T55 PO (09:44)
[2019-03-10] MEDS ORDERED: RT-ALBUINH INH (09:44)
[2019-03-10] MEDS ORDERED: GABA-488 PO (09:44)
[2019-03-10] MEDS ORDERED: ALBU2.5V4 NEB (09:44)
[2019-03-10] MEDS ORDERED: MONT10TA24 PO (09:44)
[2019-03-10] MEDS ORDERED: DOXY25TA50 PO (09:46)
[2019-03-10] MEDS ORDERED: IBUP-30 PO (09:46)
[2019-03-10] MEDS: ENOXAPARIN 40 MG/0.4 ML (LOVENOX) SYR SC SCH (10:05)
--- NOTE | 2019-03-10 10:12 | History & Physical-Hospitalist ---
History of Present Illness HPI/Chief Complaint CC: SOB HPI: This is a 64yoWF Pt of Lynda Hess who just had a biopsy last week by Dr. Diaz (Interventional radiology at [facility]) for salivary gland mass who remains on 3 Liters of oxygen at home 02/09, but came in with SOB. Found to have exacerbation of COPD, Dr. Quispe was consulted and CT of the neck was obtained to evaluate the biopsy area. Overall he recommended steroids and nebulizer treatments to resume all of her home medication and to be monitored closely. Source: patient Exam Limitations: no limitations Date Seen 03/10/19 Time Seen by a Provider: 09:30 Attending Physician Jess Kim DO [facility] Referring Physician Date of Admission Mar 10, 2019 at 00:42 Home Medications & Allergies Home Medications Reviewed patient Home Medication Reconciliation performed by pharmacy medication reconciliations automotive maintenance technician and/or nursing. Patients Allergies have been reviewed. Allergies Allergies Coded Allergies NKANo Known Allergies (Verified Allergy, Unknown, 09/29/05) Uncoded Allergies RUBBING ALCOHOL ( Allergy, Unknown, 08/26/05) Past Ezcxszd-Deippb-Dcrmub Hx Past Med/Social Hx: Reviewed Nursing Past Med/Soc Hx, Reviewed and Corrections made Patient Social History Marrital Status: single Employed/Student: unemployed Alcohol Use: Occasionally Uses Alcohol Beverage of Choice: Beer Recreational Drug Use: Yes (FORMER ETOH USE OF 10 YRS AGO) Smoking Status: Former Smoker Type Used: Cigarettes Recent Foreign Travel: No Contact w/other who traveled: No Recent Hopitalizations: No Recent Infectious Disease Expo: No Immunizations Up To Date Tetanus Booster (TDap): Unknown Date of Pneumonia Vaccine: Mar 10, 2014 Date of Influenza Vaccine: Mar 10, 2018 Past Medical History Surgeries: Gallbladder, Hysterectomy, Oophorectomy Respiratory: Chronic Bronchitis, COPD, Emphysema, Pneumonia Cardiac: Hypertension Female Reproductive Disorders: Endometriosis Gastrointestinal: Hepatitis Musculoskeletal: Back Injury, Chronic Back Pain Endocrine: Hypothyroidsim, Lupus Psychosocial: Bipolar, Schizophrenia History of Blood Disorders: Yes Review of Systems Constitutional: see HPI EENTM: throat pain, throat swelling Respiratory: cough, dyspnea on exertion, wheezing Physical Exam Physical Exam Vital Signs Vital Signs - First Documented 03/09/19 03/09/19 23:00 23:46 Temp 37.6 Pulse 88 Resp 20 B/P (MAP) 154/94 (114) Pulse Ox 98 O2 Delivery Nasal Cannula O2 Flow Rate 3.00 Capillary Refill : Less Than 3 SecondsLess Than 3 Seconds Height, Weight, BMI Height: 4'10.00" Weight: 200lbs. oz. 90.040271tf; 39.49 BMI Method:Stated General Appearance: No Apparent Distress, Chronically ill Eyes: Right Eye Normal Inspection, Right Eye PERRL HEENT: PERRL/EOMI, Normal ENT Inspection, Pharynx Normal, Moist Mucous Membranes Neck: Full Range of Motion, Normal Inspection, Non Tender Respiratory: Chest Non Tender, No Respiratory Distress, Accessory Muscle Use (during conversation), Decreased Breath Sounds, Rales, Wheezing Cardiovascular: Regular Rate, Rhythm, No Edema, No Gallop, No JVD, No Murmur, Normal Peripheral Pulses Gastrointestinal: Normal Bowel Sounds, No Organomegaly, No Pulsatile Mass, Non Tender, Soft Back: Normal Inspection, No CVA Tenderness, No Vertebral Tenderness Extremity: Normal Capillary Refill, Normal Inspection, Normal Range of Motion, Non Tender, No Calf Tenderness, No Pedal Edema Neurologic/Psychiatric: Alert, Oriented x3, No Motor/Sensory Deficits, Normal Mood/Affect Skin: Normal Color, Warm/Dry Lymphatic: No Adenopathy Results Results/Procedures Labs Laboratory Tests 03/09/19 23:15 Patient resulted labs reviewed. Assessment/Plan Admission Diagnosis Assessment: AECOPD Former smoker SLE Salivary gland mass s/p biopsy Plan: IV steroids Pathology pending CT scan Dr Quispe Admission Status: Inpatient Order (span 2 midnights) Reason for Inpatient Admission: severe copd now with exacerbation Diagnosis/Problems Diagnosis/Problems (1) COPD exacerbation Status: Acute (2) Salivary gland tumor Status: Acute Clinical Quality Measures DVT/VTE Risk/Contraindication: Risk Factor Score Per Nursin RFS Level Per Nursing on Admit: 4+=Very High JESS KIM DO Mar 10, 2019 10:12
[2019-03-10] MEDS ORDERED: DOXYLAMINE SUCCINATE 50 MG PO PRN (10:15)
--- NOTE | 2019-03-10 10:18 | Diagnostic Imaging Report ---
CLINICAL INDICATION: Patient complains of swelling, redness and tenderness in the left neck mass inferior to left ear. EXAM: CT scan of the neck and chest performed with 75 mL of Omnipaque 350 IV contrast. Coronal and sagittal reformatted images are created. Auto Exposure Controls were utilized during the CT exam to meet ALARA standards for radiation dose reduction. All CT scans use one or more of the following dose optimizing techniques: automated exposure control, MA and/or KvP adjustment based on patient size and exam type or iterative reconstruction. COMPARISON: CT scan of the neck with contrast dated 11/26/2018. Chest x-ray dated 07/20/2018. FINDINGS: CT neck: There is interval development of mild prominence of the left parotid gland with mild adjacent fat stranding and thickening of the left platysmas muscle which has developed in the interim. There is no drainable fluid collection seen. This is beneath the left neck/face BB marker. There are no stones or dilated ducts seen. There is slight change in configuration of the lobulated mass in the superficial portion of the posterior aspect of right parotid gland or adjacent to the right parotid gland. This mass currently measures 1.5 cm x 1.3 cm x 1.8 cm (AP x Trans x CC) compared to the prior study measured at 1.5 cm x 0.9 cm x 1.9 cm (AP x Trans x CC). There is no adjacent fat stranding. Otherwise, the remainder of the salivary glands are unremarkable. Remainder of the neck soft tissue structures show no other significant abnormality. The nasopharynx, oropharynx, hypopharynx, and laryngeal soft tissue structures are relatively symmetric and unremarkable. Again seen is small thyroid gland which may be related to posttreatment and postoperative changes or medical condition. The visualized portions of the oral cavity, tongue, sublingual space, and submandibular regions are unremarkable. Limited visualization of intracranial structures are unremarkable. There is no lymphadenopathy. There is atherosclerotic disease involving the proximal bilateral cervical ICA. Cervical spine degenerative disease with vertebral body spurs and facet arthropathy seen. CT chest: There is emphysematous lung disease seen. There is a 4 mm nodule involving the periphery of the lateral aspect of the lingula which is seen on series 2, image 26. Small pleural tag seen in the periphery of the base of the lingula. There is a groundglass 4 mm nodule in the periphery of the middle lobe seen on series 2, image 25. There is mild atelectasis or scarring involving the posterior aspects of both lungs. There is no pneumothorax. There is no mediastinal or hilar lymphadenopathy. There is no axillary lymphadenopathy. A visualized portion of the thoracic aorta are unremarkable. There is diffuse low attenuation changes seen throughout the liver which may be related to fatty infiltration. There are numerous calcifications in the region of the pancreatic head which may be related to sequelae of chronic pancreatitis. Cholecystectomy changes are seen. Remainder of the visualized upper abdominal structures show no significant abnormality. There are degenerative spurs involving the thoracic spine. IMPRESSION: 1: There is an area of nonspecific mild fat stranding, mild prominence of the left parotid gland, and thickening of the left platysmas muscle. There is no drainable fluid collection. There are no parotid gland stones or mass seen. This finding may be related to mild left parotiditis versus cellulitis. 2: Given the differences in technique, there is no significant change to the lobulated mass either within or closely adjacent to the superficial portion of posterior aspect of right parotid gland. Considerations include a primary salivary gland neoplasm such as pleomorphic adenoma. Nonemergent ENT consultation is suggested. 3: The remainder of the neck soft tissue structures are stable and unremarkable for acute finding. 4: Emphysematous lung disease with small lung nodules, as described above. There is no lymphadenopathy. Follow-up chest CT scan in 12 months is suggested to evaluate for stability of the nodules. 5: There are multiple calcifications involving the pancreatic head region which may be related to sequelae of chronic pancreatitis. Dictated by: Dictated on workstation # [id number]
[2019-03-10 12:00] VITALS: BP 118/72
[2019-03-10] MEDS: GABAPENTIN 300 MG (NEURONTIN) CAP PO SCH ×2 (13:58→20:47)
--- NOTE | 2019-03-10 14:22 | Progress Note ---
Standard Progress Note Progress Notes/Assess & Plan Date Seen by a Provider: Mar 10, 2019 Time Seen by a Provider: 12:30 Progress/Assessment & Plan S-Was consulted by ER for left neck pain and swelling. Patient has a history of recent FNA of right neck mass results revealing possible [place] Tumor. Complaints today are of left neck pain and swelling present for multiple weeks that has been worsening. CT completed this morning and shows minimal changed to right mass-tumor. Left shows possible parotiditis with no drainable mass. O- Ears with out infections. Tympanic Membranes intact with no fluid or infection. Nose- Nasal canula in place, mucosa dry. Oral Cavity- dry, tonsils surgically absent. Neck- tenderness was noted to left lateral neck. mild redness and swelling in parotid area. Right side with no abnormality. A- Parotiditis P- The above findings were discussed with Dr. Balderas. The patient is scheduled for an appointment with our office on FNA results on March 20. Right mass is relatively unchanged. Will start Doxycycline 100mg 1 tab BID x 10 days for possible left parotiditis verse cellulitis. Patient states she is unable to take any other antibiotic due to side effects. Advised patient to consume adequate liquids. Follow up with our office as stated above. Final Diagnosis parotiditis verse cellulitis. ANDREY MCDANIELS APRN Mar 10, 2019 14:22
[2019-03-10] MEDS: LORazepam 0.5 MG (ATIVAN) TABLET PO PRN (14:58)
[2019-03-10 15:50] VITALS: BP 122/70
[2019-03-10] MEDS: DOXYCYCLINE 100 MG (VIBRAMYCIN) TABLET PO SCH (17:32)
[2019-03-10 20:00] VITALS: BP 114/64
[2019-03-10] MEDS: fentaNYL INJECTION 100 MCG/2 ML AMP IV PRN (20:47)
[2019-03-10] MEDS: IBUPROFEN TABLET 200 MG TAB PO PRN (20:48)
[2019-03-10] MEDS: RT-ADVAIR HFA 115/21 MCG PER PUFF IH SCH (20:49)
[2019-03-11] VITALS: BP 105/62
[2019-03-11] MEDS: methylPREDNISolone 40 MG/ML (Solu-MEDROL) VIAL IV SCH ×4 (00:20→17:44)
[2019-03-11] MEDS: KETOROLAC 15 MG/ML VIAL IVP PRN ×3 (00:20→17:50)
[2019-03-11] MEDS: RT-ALBUTEROL/IPRATROPIUM 3 ML (DUONEB) VIAL IH SCH ×6 (02:50→22:33)
[2019-03-11] MEDS: DOXYCYCLINE 100 MG (VIBRAMYCIN) TABLET PO SCH ×2 (04:34→17:44)
[2019-03-11 04:37] VITALS: BP_SYST 113; BP_SYST 198; BP_DIAS 61; BP_DIAS 86
[2019-03-11 05:57] LABS: BASOPHILS % (AUTO) 0 % (0-10); EOSINOPHILS % (AUTO) 0 % (0-10); HEMATOCRIT 39 % (35-52); HEMOGLOBIN 12.9 G/DL (11.5-16.0); LYMPHOCYTES # (AUTO) 0.4 X 10^3 (1.0-4.0); LYMPHOCYTES % (AUTO) 4 % (12-44); MEAN CORPUSCULAR HEMOGLOBIN 34 PG (25-34); MEAN CORPUSCULAR HGB CONC 33 G/DL (32-36); MEAN CORPUSCULAR VOLUME 103 FL (80-99); MEAN PLATELET VOLUME 11.2 FL (7.4-10.4); MONOCYTES # (AUTO) 0.4 X 10^3 (0.0-1.0); MONOCYTES % (AUTO) 4 % (0-12); NEUTROPHILS # (AUTO) 10.4 X 10^3 (1.8-7.8); NEUTROPHILS % (AUTO) 93 % (42-75); PLATELET COUNT 129 10^3/uL (130-400); RED CELL DISTRIBUTION WIDTH 14.3 % (10.0-14.5); WHITE BLOOD COUNT 11.2 10^3/uL (4.3-11.0)
[2019-03-11 06:14] LABS: BAND NEUTROPHILS 0 %; BASOPHILS % (MANUAL) 0 %; EOSINOPHILS % (MANUAL) 0 %; LYMPHOCYTES % (MANUAL) 3 %; MONOCYTES % (MANUAL) 2 %; NEUTROPHILS % (MANUAL) 93 %; RBC MORPH NORMAL; REACTIVE LYMPHOCYTES 2 %
[2019-03-11 06:34] LABS: ALBUMIN 3.1 GM/DL (3.2-4.5); BILIRUBIN,TOTAL 0.7 MG/DL (0.1-1.0); CREATININE SERUM 0.97 MG/DL (0.60-1.30); POTASSIUM 4.9 MMOL/L (3.6-5.0); TOTAL PROTEIN 6.6 GM/DL (6.4-8.2)
[2019-03-11] MEDS: fentaNYL INJECTION 100 MCG/2 ML AMP IV PRN ×2 (07:42→20:20)
[2019-03-11] MEDS: GABAPENTIN 300 MG (NEURONTIN) CAP PO SCH ×3 (07:42→20:20)
[2019-03-11] MEDS: MONTELUKAST 10 MG (SINGULAIR) TAB PO SCH (07:43)
[2019-03-11] MEDS: ENOXAPARIN 40 MG/0.4 ML (LOVENOX) SYR SC SCH (07:43)
[2019-03-11] MEDS: LEVOTHYROXINE 112 MCG (LEVOTHROID) TAB PO SCH (07:43)
[2019-03-11] MEDS: LORazepam 0.5 MG (ATIVAN) TABLET PO PRN ×3 (07:55→20:22)
[2019-03-11 08:00] VITALS: BP 130/82
--- NOTE | 2019-03-11 09:27 | Pulmonary Progress Note ---
Subjective Time Seen by a Provider: 09:22 Sepsis Event Evaluation Height, Weight, BMI Height: 4'10.00" Weight: 200lbs. oz. 90.038183ur; 39.49 BMI Method:Stated Exam Exam Vital Signs Date Time Temp Pulse Resp B/P (MAP) Pulse Ox O2 Delivery O2 Flow Rate FiO2 03/11/19 07:09 96 Nasal Cannula 3.00 03/11/19 05:12 36.7 03/11/19 04:37 36.7 66 20 113/61 (78) 96 Nasal Cannula 3.00 03/11/19 04:34 36.6 03/11/19 02:50 91 Nasal Cannula 3.00 03/11/19 01:05 36.6 03/11/19 00:20 36.6 03/11/19 00:00 36.6 84 18 105/62 (76) Nasal Cannula 3.00 03/10/19 22:51 95 Nasal Cannula 3.00 03/10/19 21:30 36.6 03/10/19 21:20 36.6 03/10/19 20:48 36.6 03/10/19 20:47 36.6 03/10/19 20:00 36.6 94 24 114/64 (81) 95 Nasal Cannula 3.00 03/10/19 20:00 95 Nasal Cannula 3.00 03/10/19 18:58 95 Nasal Cannula 3.00 03/10/19 15:50 36.4 87 24 122/70 (87) 96 Nasal Cannula 3.00 03/10/19 14:48 90 Nasal Cannula 3.00 03/10/19 12:00 36.6 88 22 118/72 (87) 94 Nasal Cannula 3.00 03/10/19 11:10 94 Nasal Cannula 3.00 I & O 03/11/19 07:00 Intake Total 3658 ml Output Total 2400 ml Balance 1258 ml Height & Weight Height: 4'10.00" Weight: 200lbs. oz. 90.098331qw; 39.49 BMI Method:Stated General Appearance: No Apparent Distress, Chronically ill HEENT: PERRL/EOMI, Normal ENT Inspection, Pharynx Normal, Moist Mucous Membranes Neck: Full Range of Motion, Normal Inspection, Non Tender Respiratory: Chest Non Tender, No Respiratory Distress, Accessory Muscle Use (during conversation), Decreased Breath Sounds, Rales, Wheezing Cardiovascular: Regular Rate, Rhythm, No Edema, No Gallop, No JVD, No Murmur, Normal Peripheral Pulses Capillary Refill: Less Than 3 Seconds Extremity: Normal Capillary Refill, Normal Inspection, Normal Range of Motion, Non Tender, No Calf Tenderness, No Pedal Edema Neurologic/Psychiatric: Alert, Oriented x3, No Motor/Sensory Deficits, Normal Mood/Affect Skin: Normal Color, Warm/Dry Lymphatic: No Adenopathy Results Lab Laboratory Tests 03/09/19 23:15 03/11/19 05:40 Assessment/Plan Assessment/Plan COPDAE -Solumedrol -Duonebs -oxygen Salivary gland tumer s/p bx -Following with Dr. Balderas Lung nodules -repeat CT in 1yr per radiology recommendations -Will have her f/u in my office 2-3wks after discharge for out pt workup. VERONICA JAY DO Mar 11, 2019 09:27
[2019-03-11] MEDS: RT-ADVAIR HFA 115/21 MCG PER PUFF IH SCH ×2 (10:14→18:00)
--- NOTE | 2019-03-11 10:22 | Progress Note - Hospitalist ---
Subjective HPI/CC On Admission Date Seen by Provider: Mar 11, 2019 Time Seen by Provider: 09:30 CC: SOB HPI: This is a 64yoWF Pt of Lynda Hess who just had a biopsy last week by Dr. Diaz (Interventional radiology at [facility]) for salivary gland mass who remains on 3 Liters of oxygen at home 02/09, but came in with SOB. Found to have exacerbation of COPD, Dr. Quispe was consulted and CT of the neck was obtained to evaluate the biopsy area. Overall he recommended steroids and nebulizer treatments to resume all of her home medication and to be monitored closely. Subjective/Events-last exam Neck pain still continues Exhibiting pain seeking behavior CT scans were obtained and will review those results Nose bleeds so will humidify oxygen now Home meds were all restarted Was still smoking at time of admit, I thought she had already quit, so the patch is maintained and doing pretty well Review of Systems General: Fatigue Pulmonary: Dyspnea, Cough Objective Exam Vital Signs Vital Signs Date Time Temp Pulse Resp B/P (MAP) Pulse Ox O2 Delivery O2 Flow Rate FiO2 03/11/19 20:20 36.6 03/11/19 16:15 85 22 132/61 (84) 97 Nasal Cannula 3.00 Capillary Refill : Less Than 3 SecondsLess Than 3 Seconds General Appearance: No Apparent Distress, WD/WN, Chronically ill Respiratory: No Accessory Muscle Use, No Respiratory Distress, Crackles, Decreased Breath Sounds, Wheezing Cardiovascular: Regular Rate, Rhythm Neurologic/Psychiatric: Alert, Oriented x3, No Motor/Sensory Deficits, Normal Mood/Affect Results/Procedures Lab Laboratory Tests 03/11/19 05:40 Patient resulted labs reviewed. Assessment/Plan Assessment and Plan Assess & Plan/Chief Complaint Assessment: AECOPD Current smoker SLE Salivary gland mass s/p biopsy Plan: IV steroids Pathology pending CT scan Dr Quispe Severe debility, PT/OT consulted Diagnosis/Problems Diagnosis/Problems (1) COPD exacerbation Status: Acute (2) Salivary gland tumor Status: Acute Clinical Quality Measures DVT/VTE Risk/Contraindication: Risk Factor Score Per Nursin RFS Level Per Nursing on Admit: 4+=Very High ANUSHA KIM DO Mar 11, 2019 10:22
[2019-03-11 12:00] VITALS: BP 111/74
[2019-03-11] MEDS: IBUPROFEN TABLET 200 MG TAB PO PRN (12:36)
[2019-03-11 16:15] VITALS: BP 132/61
[2019-03-11] MEDS: NICOTINE 21 MG (NICODERM) PATCH TD SCH (20:22)
[2019-03-12] VITALS: BP 112/59
[2019-03-12] MEDS: LORazepam 0.5 MG (ATIVAN) TABLET PO PRN ×3 (00:39→11:37)
[2019-03-12] MEDS: methylPREDNISolone 40 MG/ML (Solu-MEDROL) VIAL IV SCH ×3 (00:43→11:37)
[2019-03-12] MEDS: RT-ALBUTEROL/IPRATROPIUM 3 ML (DUONEB) VIAL IH SCH ×3 (02:41→10:35)
[2019-03-12] MEDS: DOXYCYCLINE 100 MG (VIBRAMYCIN) TABLET PO SCH (05:24)
[2019-03-12] MEDS: KETOROLAC 15 MG/ML VIAL IVP PRN ×2 (05:24→11:38)
[2019-03-12 05:53] LABS: BASOPHILS % (AUTO) 0 % (0-10); EOSINOPHILS % (AUTO) 0 % (0-10); HEMATOCRIT 38 % (35-52); HEMOGLOBIN 12.8 G/DL (11.5-16.0); LYMPHOCYTES # (AUTO) 0.3 X 10^3 (1.0-4.0); LYMPHOCYTES % (AUTO) 3 % (12-44); MEAN CORPUSCULAR HEMOGLOBIN 34 PG (25-34); MEAN CORPUSCULAR HGB CONC 34 G/DL (32-36); MEAN CORPUSCULAR VOLUME 102 FL (80-99); MONOCYTES # (AUTO) 0.3 X 10^3 (0.0-1.0); MONOCYTES % (AUTO) 3 % (0-12); NEUTROPHILS # (AUTO) 10.3 X 10^3 (1.8-7.8); NEUTROPHILS % (AUTO) 94 % (42-75); PLATELET COUNT 141 10^3/uL (130-400); RED CELL DISTRIBUTION WIDTH 14.5 % (10.0-14.5)
[2019-03-12 06:06] LABS: ALBUMIN 3.3 GM/DL (3.2-4.5); BILIRUBIN,TOTAL 0.6 MG/DL (0.1-1.0); CREATININE SERUM 1.05 MG/DL (0.60-1.30); POTASSIUM 4.5 MMOL/L (3.6-5.0); TOTAL PROTEIN 6.6 GM/DL (6.4-8.2)
--- NOTE | 2019-03-12 06:34 | Pulmonary Progress Note ---
Subjective Time Seen by a Provider: 06:33 Subjective/Events-last exam Pt is feeling better however still wheezy Sepsis Event Evaluation Height, Weight, BMI Height: 4'10.00" Weight: 200lbs. oz. 90.964086dq; 39.49 BMI Method:Stated Exam Exam Vital Signs Date Time Temp Pulse Resp B/P (MAP) Pulse Ox O2 Delivery O2 Flow Rate FiO2 03/12/19 05:51 36.6 03/12/19 05:24 36.6 03/12/19 02:40 96 Nasal Cannula 3.00 03/12/19 00:00 36.6 88 20 112/59 (76) 96 Nasal Cannula 3.00 03/11/19 22:33 95 Nasal Cannula 3.00 03/11/19 20:50 36.6 03/11/19 20:30 96 Nasal Cannula 3.00 03/11/19 20:20 36.6 03/11/19 16:15 36.6 85 22 132/61 (84) 97 Nasal Cannula 3.00 03/11/19 15:24 96 Nasal Cannula 3.00 03/11/19 12:00 36.4 91 20 111/74 (86) 97 Nasal Cannula 3.00 03/11/19 10:14 96 Nasal Cannula 3.00 03/11/19 09:00 97 Nasal Cannula 3.00 03/11/19 08:00 36.5 65 20 130/82 (98) 97 Nasal Cannula 3.00 03/11/19 07:09 96 Nasal Cannula 3.00 I & O 03/12/19 07:00 Intake Total 2860 ml Output Total 3350 ml Balance -490 ml Height & Weight Height: 4'10.00" Weight: 200lbs. oz. 90.390482er; 39.49 BMI Method:Stated General Appearance: No Apparent Distress, WD/WN, Chronically ill HEENT: PERRL/EOMI, Normal ENT Inspection, Pharynx Normal, Moist Mucous Membranes Neck: Full Range of Motion, Normal Inspection, Non Tender Respiratory: No Accessory Muscle Use, No Respiratory Distress, Crackles, Decreased Breath Sounds, Wheezing Cardiovascular: Regular Rate, Rhythm Capillary Refill: Less Than 3 Seconds Extremity: Normal Capillary Refill, Normal Inspection, Normal Range of Motion, Non Tender, No Calf Tenderness, No Pedal Edema Neurologic/Psychiatric: Alert, Oriented x3, No Motor/Sensory Deficits, Normal Mood/Affect Skin: Normal Color, Warm/Dry Lymphatic: No Adenopathy Results Lab Laboratory Tests 03/11/19 05:40 03/12/19 05:33 Assessment/Plan Assessment/Plan COPDAE -Solumedrol -Duonebs -oxygen Salivary gland tumer s/p bx -Following with Dr. Balderas Lung nodules -repeat CT in 1yr per radiology recommendations -Will have her f/u in my office 2-3wks after discharge for out pt workup. VERONICA JAY DO Mar 12, 2019 06:34
[2019-03-12] MEDS: GABAPENTIN 300 MG (NEURONTIN) CAP PO SCH (07:10)
[2019-03-12] MEDS: MONTELUKAST 10 MG (SINGULAIR) TAB PO SCH (07:12)
[2019-03-12] MEDS: LEVOTHYROXINE 112 MCG (LEVOTHROID) TAB PO SCH (07:12)
[2019-03-12] MEDS: ENOXAPARIN 40 MG/0.4 ML (LOVENOX) SYR SC SCH (07:12)
[2019-03-12 08:00] VITALS: BP 124/77
--- NOTE | 2019-03-12 09:29 | Physical Therapy Evaluation ---
PT Evaluation-General Medical Diagnosis Admission Date Mar 10, 2019 at 15:06 Medical Diagnosis: COPD Exacerbation/Salvary Gland Tumors Onset Date: Mar 10, 2019 Therapy Diagnosis Therapy Diagnosis: Deconditioning Height/Weight Height (Feet): 4 Height (Inches): 10.00 Weight (Pounds): 200 Precautions Precautions/Isolations: Fall Prevention, Standard Precautions Weight Bear Status Right Lower Extremity: Right Weight Bearing/Tolerated Left Lower Extremity: Left Weight Bearing/Tolerated Referral Physician: Mayra Reason for Referral: Evaluation/Treatment Medical History Pertinent Medical History: Alcoholism, Hypothroidism, Smoking Additional Medical History Hepatitis C, Schizophrenia, Lupus, Bipolar. Patient currently uses 3L of O2 at home. Current History Patient presented to ER with swallowing difficulties. Reviewed History: Yes Social History Home: Apartment Current Living Status: Alone Entry Into Home: Level Entry PT Steps Into Home: 0 PT Steps Inside Home: 0 Patient uses 3L of O2 at home. Prior Prior Level of Function SCALE: Activities may be completed with or without assistive devices. 0-Tnqdfositn-vywqikd completes the activity by him/herself with no assistance from a helper. 5-Set-up or Clean-up Assistance-helper sets up or cleans up; patient completes activity. Terril assists only prior to or following the activity. 4-Supervision or Touching Assistance-helper provides verbal cues and/or touching/steadying and/or contact guard assistance as patient completes activity. Assistance may be provided throughout the activity or intermittently. 3-Partial/Moderate Assistance-helper does LESS THAN HALF the effort. Terril lifts, holds or supports trunk or limbs, but provides less than half the effort. 2-Substantial/Maximal Assistance-helper does MORE THAN HALF the effort. Terril lifts or holds trunk or limbs and provides more than half the effort. 7-Xvmvzizgn-utynpj does ALL the effort. Patient does none of the effort to complete the activity. Or, the assistance of 2 or more helpers is required for the patient to complete the activity. If activity was not attempted, code reason: 7-Patient Refused. 9-Not Applicable-not attempted and the patient did not perform the activity before the current illness, exacerbation or injury. 10-Not Attempted due to Environmental Limitations-(lack of equipment, weather restraints, etc.). 88-Not Attempted due to Medical Conditions or Safety Concerns. Bed Mobility: 6 Transfers (B,C,W/C): 6 Gait: 6 Indoor Mobility (Ambulation): Independent Prior Device Use: Quad Cane has SK[employer] workers PT Evaluation-Current Subjective Patient is agreeable to therapy. Patient states that she is in the process of getting home health. Patient states that she has exercises eh does regularly in her chair to exercise her lungs and arms. Pain Numeric Pain Scale: 0-No Pain Objective Patient Orientation: Normal For Age Attachments: Oxygen (3L) ROM/Strength ROM Lower Extremities WFL BLE Strength Lower Extremities WFL BLE Integumentary/Posture Integumentary See nursing notes. Bowel Incontinence: No Bladder Incontinence: No Neuromuscular (Tone, Coordination, Reflexes) Grossly intact Sensory Vision: Functional Hearing: Functional Sensation Right Lower Extremit: Intact Sensation Left Lower Extremity: Intact Transfers Roll Left to Right (QC): 6 Sit to Lying (QC): 6 Lying to Sitting/Side of Bed(Q: 6 Sit to Stand (QC): 4 (CGA for safety) Chair/Nhn-vt-Tvclk Xfer(QC): 4 Gait Does the Patient Walk?: Yes Mode of Locomotion: Walk Anticipated Mode of Locomotion: Walk Walk 10 feet (QC): 4 Walk 50 ft with 2 Turns(QC): 4 Walk 150 ft (QC): 4 Distance: 200' Gait Assistive Device: Cane Large Base Quad Comments/Gait Description Patient was shaky during ambulation, patient states this due to not having any alcohol in four days. Patient fatigued quickly and needed multiple standing rest breaks and one seated rest break to catch her breath. Wheelchair Training Does the Pt Use a Wheelchair?: No Balance Sitting Static: Good Sitting Dynamic: Good Standing Static: Good Standing Dynamic: Good Assessment/Needs Patient is shaky during ambulation and fatigues quickly. Patient required multiple standing rest breaks and one seated rest break to catch her breath. Rehab Potential: Fair PT Halfway Goals Halfway Goals PT Video Production Engineer Goals Time Frame: Mar 19, 2019 Roll Left & Right (QC): 6 Sit to Lying (QC): 6 Lying-Sitting on Side/Bed(QC): 6 Sit to Stand (QC): 6 Chair/Bga-da-Xpcam Xfer(QC): 6 Toilet Transfer (QC): 6 Does the Patient Walk: Yes Walk 10 feet (QC): 6 Walk 50ft with 2 Turns (QC): 6 Walk 150 ft (QC): 6 PT Plan Problem List Problem List: Activity Tolerance, Safety, Balance, Gait, Transfer Treatment/Plan Treatment Plan: Continue Plan of Care Treatment Plan: Education, Functional Activity Franny, Gait, Safety, Therapeutic Exercise, Transfers Treatment Duration: Mar 19, 2019 Frequency: 6 times per week Estimated Hrs Per Day: .25 hour per day Patient and/or Family Agrees t: Yes Safety Risks/Education Patient Education: Gait Training, Transfer Techniques Teaching Recipient: Patient Teaching Methods: Discussion Response to Teaching: Reinforcement Needed Time/GCodes Time In: 857 Time Out: 914 Total Billed Treatment Time: 17 Total Billed Treatment 1 visit EVL 17 RAHEL BARNES PT Mar 12, 2019 09:28
--- NOTE | 2019-03-12 10:28 | Occupational Therapy Eval ---
OT Evaluation-General/PLF Medical Diagnosis Admission Date Mar 10, 2019 at 15:06 Medical Diagnosis: COPD Exacerbation/Salvary Gland Tumors Onset Date: Mar 10, 2019 Therapy Diagnosis Therapy Diagnosis: impaired ADLs/ debility Height/Weight Height (Feet): 4 Height (Inches): 10.00 Weight (Pounds): 200 Precautions Precautions/Isolations: Fall Prevention, Standard Precautions Safety Interventions: None Referral Physician: Mayra Referral Reason: Evaluation/Treatment Medical History Pertinent Medical History: Alcoholism, COPD, HTN, Hypothroidism, Smoking Additional Medical History HTN, chronic bronchitis, COPD, emphysema, pneumonia, lupus, hypothyroidism, hepatitis, hysterectomy, oophorectomy, gallbladder surgery, endometriosis, bipolar, schizophrenia, former smoker. Current History Pt had a salivary gland biopsy last week. She uses 3L O2 at home 02/09. She noticed SOB and came to ED on 03/10/2019, with dx of COPD exacerbation. Reviewed History: Yes Social History Home: Apartment ([place]) Current Living Status: Alone Entry Into Home: Level Entry Steps Into Home: 1 (step to sidewalk) Steps Inside Home: 0 ADL-Prior Level of Function SCALE: Activities may be completed with or without assistive devices. 7-Qenrgfabxi-xrzyobs completes the activity by him/herself with no assistance from a helper. 5-Set-up or Clean-up Assistance-helper sets up or cleans up; patient completes activity. Wesley assists only prior to or following the activity. 4-Supervision or Touching Assistance-helper provides verbal cues and/or touching/steadying and/or contact guard assistance as patient completes activity. Assistance may be provided throughout the activity or intermittently. 3-Partial/Moderate Assistance-helper does LESS THAN HALF the effort. Wesley lifts, holds or supports trunk or limbs, but provides less than half the effort. 2-Substantial/Maximal Assistance-helper does MORE THAN HALF the effort. Wesley lifts or holds trunk or limbs and provides more than half the effort. 1-Mldyoscqy-mruhst does ALL the effort. Patient does none of the effort to complete the activity. Or, the assistance of 2 or more helpers is required for the patient to complete the activity. If activity was not attempted, code reason: 7-Patient Refused. 9-Not Applicable-not attempted and the patient did not perform the activity before the current illness, exacerbation or injury. 10-Not Attempted due to Environmental Limitations-(lack of equipment, weather restraints, etc.). 88-Not Attempted due to Medical Conditions or Safety Concerns. ADL PLOF Comments Pt reports being able to complete all ADLs prior to hospitalization, although she experienced increased fatigue requiring multiple rest breaks. She uses O2 24/7 at 3L. She has acquired a hospital bed from a friend or family member. She reports having a tub/shower with a shower chair but she usually takes sponge baths due to her fear of falling when showering alone. Self Care: Needed Some Help Functional Cognition: Independent DME/Equipment: Bedside Commode, Tub/Shower DME/Equipment Comments cane, she also has a walker to use as needed. OT Current Status Subjective Pt laying in bed at start of session, agreeable to OT evaluation this AM. She did not report any pain. After discharge, pt said she is getting skilled workers to come to her house to assist her with showering, cooking, and cleaning. Mental Status/Objective Patient Orientation: Person, Place, Time, Situation Attachments: Oxygen Current Glasses/Contacts: Yes Hearing Aids: No Dentures/Partials: No Hand Dominance: Right Upper Extremity ROM WFL, BUE shoulder flexion to approx 120 degrees. Upper Extremity Coordination WFL, pt is able to shuffle deck of card Upper Extremity Sensation pt did not report any deficits Upper Extremity Strength grossly 3/5 MMT ADL-Treatment Toileting Hygiene (QC): 3 (Per pt report, she used the bathroom earlier this morning, requiring assistance with cleansing buttocks. She reports being able to manage clothing without assistance.) Other Treatments Pt laying in bed at start of session, shuffling a deck of cards on her tray table. She provided information about PLOF and home set up. Pt enjoyed telling stories about her life, difficulty redirecting pt back to evaluation questions. Pt reports completing ADLs this AM, declining further ADLs at this time. She reports being able to do her hair herself but required min A with toileting. Post OT session, pt laying in bed with call light in reach and all needs met with Dr gonzalez. Education OT Patient Education: Correct positioning, Energy conservation, Modified ADL techniques, Progress toward Goal/Update tx plan, Purpose of tx/functional activities Teaching Recipient: Patient Teaching Methods: Discussion Response to Teaching: Verbalize Understanding OT Cottage Parent Goals Assisted Goals Time Frame: Mar 19, 2019 Eating (QC): 6 Oral Hygiene (QC): 5 Toileting Hygiene (QC): 4 Shower/Bathe Self (QC): 4 Upper Body Dressing (QC): 5 Lower Body Dressing (QC): 4 On/Off Footwear (QC): 4 Additional Goals: 1-Demonstrate ADL Tasks, 2-Verbalize Understanding, 3- ImproveStrength/Franny 1=Demonstrate adherence to instructed precautions during ADL tasks. 2=Patient will verbalize/demonstrate understanding of assistive devices/modifications for ADL. 3=Patient will improve strength/tolerance for activity to enable patient to perform ADL's. OT Education/Plan Problem List/Assessment Assessment: Decreased Activ Tolerance, Decreased UE Strength, Impaired I ADL's, Impaired Self-Care Skills Discharge Recommendations Plan/Recommendations: Continue POC Treatment Plan/Plan of Care Treatment,Training & Education: Yes Patient would benefit from OT for education, treatment and training to promote independence in ADL's, mobility, safety and/or upper extremity function for ADL's. Plan of Care: ADL Retraining, Functional Mobility, UE Funct Exercise/Act Treatment Duration: Mar 19, 2019 Frequency: 5 times per week Estimated Hrs Per Day: .25 hour per day Rehab Potential: Fair Time/GCodes Start Time: 10:00 Stop Time: 10:18 Total Time Billed (hr/min): 18 Billed Treatment Time BethKARUNA ADDISON OT Mar 12, 2019 10:28
[2019-03-12] MEDS: RT-ADVAIR HFA 115/21 MCG PER PUFF IH SCH (10:35)
[2019-03-12] MEDS ORDERED: DIAZ2TAB PO (11:09)
[2019-03-12] MEDS ORDERED: NICO1PAT34 TD (11:09)
[2019-03-12] MEDS ORDERED: DOXY100T2 PO (11:09)
[2019-03-12] MEDS ORDERED: PRED10TA22 PO (11:09)
--- NOTE | 2019-03-12 11:10 | D/C HH Face to Face Order ---
D/C Face to Face Orders Reconcile Patient Problems Problems Reviewed?: Yes Instructions for Patient Via [facility], Patient Instructions/FollowUp: [facility] on 03/17/19 at 240 p.m. with Lynda Hess Physician to follow Patient: [facility] Discharge Diet for Home: No Restrictions Patient Problems: COPD Smoker Alcoholism Salivary gland enlargement Patient Data-Allergies,Ht & Wt Patient Allergies: Coded Allergies: NKANo Known Allergies (Verified Allergy, Unknown, 09/29/05) Uncoded Allergies: RUBBING ALCOHOL (Allergy, Unknown, 08/26/05) Height (Feet): 4 Height (Inches): 10.00 Weight (Pounds): 200 Home Health Need/Face to Face Date of Face to Face: Mar 12, 2019 Clinical Findings: Generalized weakness and fatigue, Muscle weakness, Shortness of breath I have seen Pt [id number]: Yes Discharged To: Home Diagnosis/Conditions: COPD Smoker Alcoholism Salivary gland enlargement Patient is Homebound due to: Patel fall risk due to instabilty, Muscle weakness, Shortness of breath/distress Homebound Status Due to the above stated illness, injury or surgical procedure (medical condition or diagnosis) and associated clinical findings, the patient is homebound because of his/her inability to leave home except with aid of a supportive device and/or person AND leaving the home requires a considerable and taxing effort or is medically contraindicated. Pt req the following assistanc: Walker Home Health Nursing Orders Home Health Services Order: Nursing Services, Prick Stitcher-Evaluate & Treat, Physical Therapy-Evaluate & Treat Home Health Infusion Therapy Line Start Date: Mar 09, 2019 Certify Stmt I certify that this patient is under my care and that I, a nurse practitioner or a physician; a assistant director of admissions working with me, had a face to face encounter that - meets the physician face to face encounter requirements with this patient as dated. ANUSHA KIM DO Mar 12, 2019 11:10
--- NOTE | 2019-03-12 11:11 | Discharge Summary ---
Discharge Summary Hospital Course Was the Problem List Reviewed?: Yes Problems/Dx: (1) COPD exacerbation Status: Acute (2) Salivary gland tumor Status: Acute Hospital Course Date of Admission: Mar 10, 2019 at 15:06 Admission Diagnosis : [facility] Date of [facility]charge: 03/12/19 Discharge Diagnosis: AECOPD, Chronic pain, ETOHism, neck soft tissue biopsy Hospital Course: Hospital course: This is a 64yoWF who had an uncomplicated hospital course when she was admitted for exacerbation of COPD, found to have evidence of bacterial bronchitis, Doxycycline and IV steroids were initiated and salivary biopsy was reviewed, no evidence of any cancer, but Dr. Balderas appointment was set up on 03/20/19. Pt required oxygen supplementation as she takes at home, all medications were sent to [facility] and she will have close follow up with Lynda Hess, she did require a little bit of Vallum since she was in a bit of an alcohol withdrawal status and was sent home on a small dose of Ultram for chronic pain. Labs and Pending Lab Test: Laboratory Tests 03/12/19 05:33: White Blood Count 11.0, Red Blood Count 3.76L, Hemoglobin 12.8, Hematocrit 38, Mean Corpuscular Volume 102H, Mean Corpuscular Hemoglobin 34, Mean Corpuscular Hemoglobin Concent 34, Red Cell Distribution Width 14.5, Platelet Count 141, Nneka n Platelet Volume 11.0H, Neutrophils (%) (Auto) 94H, Lymphocytes (%) (Auto) 3L, Monocytes (%) (Auto) 3, Eosinophils (%) (Auto) 0, Basophils (%) (Auto) 0, Neutrophils # (Auto) 10.3H, Lymphocytes # (Auto) 0.3L, Monocytes # (Auto) 0.3, Eosinophils # (Auto) 0.0, Basophils # (Auto) 0.0, Sodium Level 133L, Potassium Level 4.5, Chloride Level 105, Carbon Dioxide Level 21, Anion Gap 7, Blood Urea Nitrogen 22H, Creatinine 1.05, Estimat Glomerular Filtration Rate 53, BUN/Creatinine Ratio 21, Glucose Level 354H, Calcium Level 9.0, Corrected Calcium 9.6, Total Bilirubin 0.6, Aspartate Amino Transf (AST/SGOT) 39H, Alanine Aminotransferase (ALT/SGPT) 51, Alkaline Phosphatase 66, Total Protein 6.6, Albumin 3.3 Microbiology 03/10/19 MRSA Screen - Final, Complete MRSA not isolated Home Meds Active Valium (Diazepam) 2 Mg Tablet 2 Mg PO BID PRN Prednisone 10 Mg Tab.ds.pk 10 Mg PO DAILY Take 6 tabs(60mg)daily,decrease by 1 tab(10MG)daily. Nicoderm Cq (Nicotine) 1 Each Patch.td24 21 Mg TD Q24H Doxycycline Hyclate 100 Mg Tablet 100 Mg PO BID@,17 Reported Sleep Aid (Doxylamine Succinate) 25 Mg Tablet 25-50 Mg PO HS PRN Advil (Ibuprofen) 200 Mg Tablet 600 Mg PO Q8H PRN Albuterol Sulfate 2.5 Mg/3 Ml Vial.neb 2.5 Mg NEB Q2H PRN Proair Hfa (Albuterol Sulfate) 1 Puff Puff 2 Puff INH Q4H PRN Symbicort 160-4.5 Mcg Inhaler (Budesonide/Formoterol Fumarate) 10.2 Gm Hfa.aer.ad 2 Puff INH BID Montelukast Sodium 10 Mg Tablet 10 Mg PO DAILY Gabapentin 300 Mg Capsule 300 Mg PO TID Levothyroxine Sodium 112 Mcg Tablet 112 Mcg PO DAILY Assessment/Pt Instructions [facility] 1 week Discharge Planning: <30 minutes discharge planning Discharge Instructions Discharge Diet: No Restrictions Pneumonia Vaccine Order Indica: Yes Discharge Physical Examination Vital Signs Vital Signs Date Time Temp Pulse Resp B/P (MAP) Pulse Ox O2 Delivery O2 Flow Rate FiO2 03/12/19 10:36 96 Nasal Cannula 3.00 03/12/19 08:00 36.9 88 20 124/77 (93) General Appearance: No Apparent Distress, WD/WN Respiratory: No Accessory Muscle Use, No Respiratory Distress, Rales, Wheezing Cardiovascular: Regular Rate, Rhythm Neurologic/Psychiatric: Alert, Oriented x3, No Motor/Sensory Deficits, Normal Mood/Affect Allergies: Coded Allergies: NKANo Known Allergies (Verified Allergy, Unknown, 09/29/05) Uncoded Allergies: RUBBING ALCOHOL (Allergy, Unknown, 08/26/05) Discharge Summary Date of Admission Mar 10, 2019 at 15:06 Date of Discharge Discharge Date: Mar 12, 2019 Admission Diagnosis Assessment: AECOPD Former smoker SLE Salivary gland mass s/p biopsy Plan: IV steroids Pathology pending CT scan Dr Quispe Discharge Diagnosis Assessment: AECOPD Current smoker SLE Salivary gland mass s/p biopsy Plan: IV steroids Pathology pending CT scan Dr Quispe Severe debility, PT/OT consulted (1) COPD exacerbation Status: Acute (2) Salivary gland tumor Status: Acute Clinical Quality Measures DVT/VTE Risk/Contraindication: Risk Factor Score Per Nursin RFS Level Per Nursing on Admit: 4+=Very High ANUSHA KIM DO Mar 12, 2019 11:11
[2019-03-12] MEDS ORDERED: TRAM-42 PO (11:28)
[2019-03-12 12:15] VITALS: BP 124/77
== END 2019-03-12 12:15 | disposition home health service (06) | DRG 191 ==
LOC: EDUNIT# 22:40 → ER 22:41 → 4TH 03-10 00:42 → OBSVTOIN 03-10 15:06
PROVIDERS: ADMIT Internal Medicine; ATTEND Internal Medicine
DX: J43.9 Emphysema, unspecified (principal); F10.239 Alcohol dependence with withdrawal, unspecified; F17.210 Nicotine dependence, cigarettes, uncomplicated; M54.9 Dorsalgia, unspecified; G89.29 Other chronic pain; B19.20 Unspecified viral hepatitis C without hepatic coma; F31.9 Bipolar disorder, unspecified; F20.9 Schizophrenia, unspecified; E03.9 Hypothyroidism, unspecified; M32.9 Systemic lupus erythematosus, unspecified; R91.1 Solitary pulmonary nodule; D11.9 Benign neoplasm of major salivary gland, unspecified; K11.20 Sialoadenitis, unspecified; I10 Essential (primary) hypertension; J40 Bronchitis, not specified as acute or chronic; Z90.710 Acquired absence of both cervix and uterus; Z87.891 Personal history of nicotine dependence
CPT/HCPCS: 36415; 70491; 71045; 71260; 80053; 80320; 84439; 84443; 85007; 85025; 85027; 87081; 94640; 94760; 96374; 96375; G0378

== ENCOUNTER 2019-05-18 18:05 | Emergency (ER) | payer MEDICARE, MEDICAID ==
[~2019-05-18] VITALS: Ht 149 cm; Wt 93.0 kg
[~2019-05-18 18:05] MED LIST changes: +ALBU2.5V4 NEB; +BUDE10.2 INH; +DIAZ2TAB PO; +DOXY25TA50 PO; +GABA-488 PO; +IBUP-30 PO; +LEVO112T55 PO; +MONT10TA26 PO; +NICO1PAT34 TD; +PRED10TA22 PO; +RT-ALBUINH INH; +TRAM-42 PO
[2019-05-18 18:37] LABS: ABG BASE EXCESS 4.3 MMOL/L (-2.5-2.5); ABG OXYGEN SATURATION 100 % (94-100); ABG PCO2 38 MMHG (35-45); ABG PH 7.48 (7.37-7.43); ABG PO2 148 MMHG (79-93); ABG TCO2 28.9 MMOL/L (21.0-31.0)
[2019-05-18 18:39] LABS: ALLENS TEST YES-POS; BASOPHILS # (AUTO) 0.1 10^3/uL (0.0-0.1); BASOPHILS % (AUTO) 1 % (0-10); EOSINOPHILS # (AUTO) 0.2 10^3/uL (0.0-0.3); EOSINOPHILS % (AUTO) 3 % (0-10); HEMATOCRIT 40 % (35-52); HEMOGLOBIN 13.7 G/DL (11.5-16.0); LYMPHOCYTES # (AUTO) 2.1 X 10^3 (1.0-4.0); LYMPHOCYTES % (AUTO) 25 % (12-44); MEAN CORPUSCULAR HEMOGLOBIN 34 PG (25-34); MEAN CORPUSCULAR HGB CONC 34 G/DL (32-36); MEAN CORPUSCULAR VOLUME 100 FL (80-99); MEAN PLATELET VOLUME 10.8 FL (7.4-10.4); MONOCYTES # (AUTO) 0.8 X 10^3 (0.0-1.0); MONOCYTES % (AUTO) 9 % (0-12); NEUTROPHILS # (AUTO) 5.4 X 10^3 (1.8-7.8); NEUTROPHILS % (AUTO) 63 % (42-75); PLATELET COUNT 122 10^3/uL (130-400); RED CELL DISTRIBUTION WIDTH 15.8 % (10.0-14.5); WHITE BLOOD COUNT 8.6 10^3/uL (4.3-11.0)
[2019-05-18 18:40] LABS: INSPIRED O2 ROOM AIR; PATIENT TEMP 37.2; VENTILATOR NO
--- NOTE | 2019-05-18 18:41 | ED GI ---
General Chief Complaint: Abdominal/GI Problems Stated Complaint: SOB, HX COPD, INTESTINAL ISSUES Nursing Triage Note: PT CO OF ABD PAIN, PT HAS HX OF COPD AND IS SOA. PT STATES ABD DISTENDED AND HURTING. PT STATES HAS BLOOD NOTED IN URINE AND PHLEGM IN BOWEL FOR A FEW DAYS. PT VERY ANXIOUS AT THIS X Sepsis Screen: No Definite Risk Source of Information: Patient Exam Limitations: No Limitations History of Present Illness Date Seen by Provider: May 18, 2019 Time Seen by Provider: 18:09 Initial Comments To ER by private vehicle with reports of abdominal distention and abdominal pain as well as "phlegm" in her bowel movements for a few days. She is reporting some hematuria for a few days as well. No fever no chills, history of COPD and she does seem short of breath but denies being any more short of breath than usual. Timing/Duration: 1-2 Days Severity/Quality: Moderate Location: Generalized Abdomen Radiation: No Radiation Activities at Onset: None Allergies and Home Medications Allergies Coded Allergies: NKANo Known Allergies (Verified Allergy, Unknown, 09/29/05) Uncoded Allergies: RUBBING ALCOHOL (Allergy, Unknown, 08/26/05) Home Medications Albuterol Sulfate 1 Puff Puff, 2 PUFF INH Q4H PRN for SHORTNESS OF BREATH, (Reported) Albuterol Sulfate 2.5 Mg/3 Ml Vial.neb, 2.5 MG NEB Q2H PRN for SHORTNESS OF BREATH, (Reported) Amoxicillin/Potassium Clav 1 Each Tablet, 1 EACH PO BID Prescribed by: TONY GIFFORD on 05/18/191999 Budesonide/Formoterol Fumarate 10.2 Gm Hfa.aer.ad, 2 PUFF INH BID, (Reported) Diazepam 2 Mg Tablet, 2 MG PO BID PRN for ANXIETY Prescribed by: ANUSHA KIM on 03/12/191108 Doxycycline Hyclate 100 Mg Tablet, 100 MG PO BID@ Prescribed by: ANUSHA KIM on 03/12/191108 Doxylamine Succinate 25 Mg Tablet, 25-50 MG PO HS PRN for SLEEP, (Reported) Gabapentin 300 Mg Capsule, 300 MG PO TID, (Reported) Ibuprofen 200 Mg Tablet, 600 MG PO Q8H PRN for PAIN-MILD (1-4), (Reported) Levothyroxine Sodium 112 Mcg Tablet, 112 MCG PO DAILY, (Reported) Montelukast Sodium 10 Mg Tablet, 10 MG PO DAILY, (Reported) Nicotine 1 Each Patch.td24, 21 MG TD Q24H Prescribed by: ANUSHA KIM on 03/12/191108 Oxycodone HCl 5 Mg Tablet, 5 MG PO Q6H PRN for abdominal pain Prescribed by: TONY GIFFORD on 05/18/192000 Prednisone 10 Mg Tab.ds.pk, 10 MG PO DAILY Take 6 tabs(60mg)daily,decrease by 1 tab(10MG)daily. Prescribed by: ANUSHA KIM on 03/12/191108 Tramadol HCl 50 Mg Tablet, 50 MG PO TID PRN for PAIN-MILD (1-4) Prescribed by: ANUSHA KIM on 03/12/19 1128 Patient Home Medication List Home Medication List Reviewed: Yes Review of Systems Review of Systems Constitutional: see HPI; No fever EENTM: No Symptoms Reported Respiratory: See HPI, Cough (chronic and unchanged) Cardiovascular: No Symptoms Reported Gastrointestinal: See HPI, Abdominal Pain, Nausea Genitourinary: No Symptoms Reported Musculoskeletal: no symptoms reported Skin: no symptoms reported Psychiatric/Neurological: No Symptoms Reported Endocrine: No Symptoms Reported Hematologic/Lymphatic: No Symptoms Reported Past Nzdxjgk-Bbozhu-Dvpgtn Hx Patient Social History Alcohol Beverage of Choice: Beer Type Used: Cigarettes Recent Foreign Travel: No Contact w/Someone Who Travel: No Recent Infectious Disease Expo: No Recent Hopitalizations: No Immunizations Up To Date Tetanus Booster (TDap): Unknown Date of Pneumonia Vaccine: Mar 10, 2014 Date of Influenza Vaccine: Mar 10, 2018 Past Medical History Surgeries: Yes (axillary gland removal) Gallbladder, Hysterectomy, Oophorectomy Respiratory: Yes (uses oxygen at 3 L by nasal cannula) COPD Cardiac: No Hypertension Neurological: No Female Reproductive Disorders: Endometriosis Genitourinary: No Gastrointestinal: Yes (HEP C POSITIVE) Hepatitis Musculoskeletal: Yes Back Injury, Chronic Back Pain Endocrine: Yes Hypothyroidsim, Lupus HEENT: No Cancer: No Psychosocial: Yes Bipolar, Schizophrenia Integumentary: No Blood Disorders: Yes Physical Exam Vital Signs Vital Signs - First Documented 05/18/19 18:05 Temp 37.2 Pulse 90 Resp 40 B/P (MAP) 173/102 (125) Pulse Ox 100 O2 Delivery Nasal Cannula O2 Flow Rate 3.00 Capillary Refill : Less Than 3 Seconds Height/Weight/BMI Height: 4'10.00" Weight: 200lbs. oz. [id number]; 41.00 BMI Method:Stated General Appearance: WD/WN, no apparent distress HEENT: PERRL/EOMI, normal ENT inspection Respiratory: normal breath sounds, no respiratory distress, no accessory muscle use Cardiovascular: regular rate, rhythm, no murmur Gastrointestinal: normal bowel sounds, other (firm, tender) Extremities: normal range of motion, non-tender, other (pitting edema 2+ bilateral lower extremities) Neurologic/Psychiatric: alert, normal mood/affect, oriented x 3 Skin: normal color, warm/dry Progress/Results/Core Measures Results/Orders Lab Results Laboratory Tests Test 05/18/19 18:25 05/18/19 19:50 Range/Units White Blood Count 8.6 4.3-11.0 10^3/uL Red Blood Count 3.99 L 4.35-5.85 10^6/uL Hemoglobin 13.7 11.5-16.0 G/DL Hematocrit 40 35-52 % Mean Corpuscular Volume 100 H 80-99 FL Mean Corpuscular Hemoglobin 34 25-34 PG Mean Corpuscular Hemoglobin Concent 34 32-36 G/DL Red Cell Distribution Width 15.8 H 10.0-14.5 % Platelet Count 122 L 130-400 10^3/uL Mean Platelet Volume 10.8 H 7.4-10.4 FL Neutrophils (%) (Auto) 63 42-75 % Lymphocytes (%) (Auto) 25 12-44 % Monocytes (%) (Auto) 9 0-12 % Eosinophils (%) (Auto) 3 0-10 % Basophils (%) (Auto) 1 0-10 % Neutrophils # (Auto) 5.4 1.8-7.8 X 10^3 Lymphocytes # (Auto) 2.1 1.0-4.0 X 10^3 Monocytes # (Auto) 0.8 0.0-1.0 X 10^3 Eosinophils # (Auto) 0.2 0.0-0.3 10^3/uL Basophils # (Auto) 0.1 0.0-0.1 10^3/uL Blood Gas Puncture Site RIGHT RADIAL Blood Gas Patient Temperature 37.2 Arterial Blood pH 7.48 H 7.37-7.43 Arterial Blood Partial Pressure CO2 38 35-45 MMHG Arterial Blood Partial Pressure O2 148 H 79-93 MMHG Arterial Blood HCO3 28 H 23-27 MMOL/L Arterial Blood Total CO2 28.9 21.0-31.0 MMOL/L Arterial Blood Oxygen Saturation 100 94-100 % Arterial Blood Base Excess 4.3 H -2.5-2.5 MMOL/L Ten Test YES-POS Blood Gas Ventilator Setting NO Blood Gas Inspired Oxygen ROOM AIR Sodium Level 136 135-145 MMOL/L Potassium Level 3.9 3.6-5.0 MMOL/L Chloride Level 102 98-107 MMOL/L Carbon Dioxide Level 23 21-32 MMOL/L Anion Gap 11 5-14 MMOL/L Blood Urea Nitrogen 6 L 7-18 MG/DL Creatinine 1.03 0.60-1.30 MG/DL Estimat Glomerular Filtration Rate 54 BUN/Creatinine Ratio 6 Glucose Level 122 H 70-105 MG/DL Calcium Level 8.0 L 8.5-10.1 MG/DL Corrected Calcium 9.0 8.5-10.1 MG/DL Total Bilirubin 2.7 H 0.1-1.0 MG/DL Aspartate Amino Transf (AST/SGOT) 129 H 5-34 U/L Alanine Aminotransferase (ALT/SGPT) 51 0-55 U/L Alkaline Phosphatase 68 40-136 U/L Total Protein 6.9 6.4-8.2 GM/DL Albumin 2.7 L 3.2-4.5 GM/DL Lipase 162 H 8-78 U/L Serum Alcohol < 10 <10 MG/DL My Orders Orders - TONY GIFFORD APRN Alcohol (05/18/19 18:32) Cbc With Automated Diff (05/18/19 18:32) Arterial Blood Gas (05/18/19 18:32) Comprehensive Metabolic Panel (05/18/19 18:32) Lipase (05/18/19 18:32) Ua Culture If Indicated (05/18/19 18:32) Ed Iv/Invasive Line Start (05/18/19 18:32) Ct Abd/Pelvis Wo(Kidney Stone) (05/18/19 18:32) Chest Pa/Lat (2 View) (05/18/19 18:32) Lorazepam Injection (Ativan Injection) (05/18/19 18:45) Lipase (05/18/19 18:51) Oxycodone Immediate Rel Tablet (Oxyir Ta (05/18/19 20:15) Amoxicillin/Clavulanate Tablet (Augmenti (05/18/19 20:15) Vital Signs/I&O 05/18/19 18:05 Temp 37.2 Pulse 90 Resp 40 B/P (MAP) 173/102 (125) Pulse Ox 100 O2 Delivery Nasal Cannula O2 Flow Rate 3.00 Blood Pressure Mean: 125 Departure Communication (Admissions) Family Conversation 29/11-I discussed with her the lab results, colitis, kidney stone and need for follow-up with urology. I was going to use Augmentin but she states that that makes the back of her legs hurt. I then suggested Levaquin and she states "oh that doesn't work for me". We'll avoid metronidazole in addition to that because of her alcohol use, she states she is a history of alcoholism and has been drinking a small amount of alcohol in her orange juice in the mornings. NAME: PORFIRIO FELIZ [facility] REC#: [id number] PT STATUS: REG ER : 1955 PHYSICIAN: TONY GIFFORD RESERVATIONIST ADMIT DATE: 05/18/19/ER Draft Date of Exam:05/18/19 CT ABD/PELVIS WO(KIDNEY STONE) PROCEDURE: CT urinary tract, rule out kidney stone. TECHNIQUE: Multiple contiguous axial images were obtained through the abdomen and pelvis without the use of intravenous contrast. Auto Exposure Controls were utilized during the CT exam to meet ALARA standards for radiation dose reduction. INDICATION: Abdominal distention. Shortness of breath. History of COPD. Abdominal pain. Hematuria. FINDINGS: Lung bases are clear. There is moderate ascites present. The liver is contracted and nodular consistent with cirrhosis. No focal masses are seen. The spleen is not enlarged. Pancreas does show several coarse calcifications within the head and uncinate process. No pancreatic masses are seen. Gallbladder is absent. Bile ducts are not dilated. The adrenal glands are normal. Kidneys show a large stone on the right within the renal pelvis measuring approximately 2.5 cm. There is no hydronephrosis. Renal outlines are smooth. The stomach and small bowel are not distended. No bowel wall thickening. The colon shows normal stool and gas pattern. No evidence of constipation. There are multiple diverticula in the sigmoid colon. There is thickening of the proximal sigmoid colon bowel wall with mild adjacent mesenteric edema. This could represent diverticulitis or infiltrative mass. There is diffuse subcutaneous edema. No intra-abdominal adenopathy. No blastic or lytic bony lesion. There is a small hernia laterally in the right mid abdomen containing a small amount of abdominal fat. There are 2 small periumbilical hernias containing abdominal fat. IMPRESSION: 1. Large nonobstructing calculus right kidney and renal pelvis measuring 2.5 cm. 2. Cirrhotic appearing liver with moderate ascites. 3. Coarse calcifications in the head and uncinate process of the pancreas consistent with chronic pancreatitis. 4. Marked thickening of the proximal sigmoid colon bowel wall. There are multiple diverticula. There is adjacent mesenteric edema. This could represent diverticulitis though infiltrative neoplasm cannot be excluded from this exam. 5. There are several small ventral hernias with intra-abdominal fat present in the hernia sac. Dictated on workstation # [id number] Dict: 05/18/191945 Trans: 05/18/191953 [facility] [id number] Interpreted by: TRESSA OJEDA MD Electronically signed by: Impression Primary Impression: Hematuria Qualified Codes: R31.9 - Hematuria, unspecified Additional Impressions: Ascites Qualified Codes: R18.8 - Other ascites COPD (chronic obstructive pulmonary disease) Qualified Codes: J44.9 - Chronic obstructive pulmonary disease, unspecified Cirrhosis Right renal stone Colitis History of alcoholism Disposition: 01 HOME, SELF-CARE Condition: Stable Departure-Patient Inst. Decision time for Depature: 19:58 Referrals: [facility] [place] Primary Care Physician IQRA OLIVARES MD Patient Instructions: Cirrhosis, Colitis (DC) Add. Discharge Instructions: . 1. Return to ER for any concerns 2. Follow-up with your doctor next week 3. Antibiotics and pain medication as directed. 4. He had a large stone in the right kidney which is likely contributing to the blood in her urine. Call Dr. Olivares tomorrow to make an appointment to be seen. Scripts Levofloxacin (Levaquin) 500 Mg Tablet 500 MG PO DAILY, #5 TAB Prov: TONY GIFFORD RESERVATIONIST 05/18/19 Oxycodone HCl (Oxycodone IR) 5 Mg Tablet 5 MG PO Q6H PRN for abdominal pain for 7 Days, #14 TAB Prov: TONY GIFFORD RESERVATIONIST 05/18/19 Copy Copies To 1: PATRICE MATT PETER J APRN May 18, 2019 18:41
[2019-05-18 18:42] LABS: ALBUMIN 2.7 GM/DL (3.2-4.5); CHLORIDE 102 MMOL/L (98-107); POTASSIUM 3.9 MMOL/L (3.6-5.0); SODIUM 136 MMOL/L (135-145)
[2019-05-18 18:44] LABS: GLUCOSE 122 MG/DL (70-105); TOTAL PROTEIN 6.9 GM/DL (6.4-8.2)
[2019-05-18 18:45] LABS: CARBON DIOXIDE 23 MMOL/L (21-32)
[2019-05-18] MEDS ORDERED: LORazepam INJ 2 MG/ML (ATIVAN) VIAL IVP PRN (18:45)
[2019-05-18 18:46] LABS: BILIRUBIN,TOTAL 2.7 MG/DL (0.1-1.0)
[2019-05-18 18:47] LABS: ALKALINE PHOSPHATASE 68 U/L (40-136)
[2019-05-18 18:48] LABS: CREATININE SERUM 1.03 MG/DL (0.60-1.30); GFR ESTIMATED 54
[2019-05-18 18:49] LABS: BUN/CREATININE RATIO 6
[2019-05-18 18:51] LABS: ALANINE AMINOTRANSFERASE 51 U/L (0-55); LIPASE 164 U/L (8-78)
--- NOTE | 2019-05-18 19:42 | Diagnostic Imaging Report ---
INDICATION: Abdominal pain. COMPARISON with 03/09/2019. FINDINGS: PA and lateral views. The lungs are well-aerated and clear. There is no air-trapping. The heart is not enlarged. No pulmonary edema or hilar adenopathy. No pneumothorax or pleural effusion. No bony abnormalities. IMPRESSION: Normal PA and lateral chest. Dictated by: Dictated on workstation # [id number]
--- NOTE | 2019-05-18 19:55 | Diagnostic Imaging Report ---
PROCEDURE: CT urinary tract, rule out kidney stone. TECHNIQUE: Multiple contiguous axial images were obtained through the abdomen and pelvis without the use of intravenous contrast. Auto Exposure Controls were utilized during the CT exam to meet ALARA standards for radiation dose reduction. INDICATION: Abdominal distention. Shortness of breath. History of COPD. Abdominal pain. Hematuria. FINDINGS: Lung bases are clear. There is moderate ascites present. The liver is contracted and nodular consistent with cirrhosis. No focal masses are seen. The spleen is not enlarged. Pancreas does show several coarse calcifications within the head and uncinate process. No pancreatic masses are seen. Gallbladder is absent. Bile ducts are not dilated. The adrenal glands are normal. Kidneys show a large stone on the right within the renal pelvis measuring approximately 2.5 cm. There is no hydronephrosis. Renal outlines are smooth. The stomach and small bowel are not distended. No bowel wall thickening. The colon shows normal stool and gas pattern. No evidence of constipation. There are multiple diverticula in the sigmoid colon. There is thickening of the proximal sigmoid colon bowel wall with mild adjacent mesenteric edema. This could represent diverticulitis or infiltrative mass. There is diffuse subcutaneous edema. No intra-abdominal adenopathy. No blastic or lytic bony lesion. There is a small hernia laterally in the right mid abdomen containing a small amount of abdominal fat. There are 2 small periumbilical hernias containing abdominal fat. IMPRESSION: 1. Large nonobstructing calculus right kidney and renal pelvis measuring 2.5 cm. 2. Cirrhotic appearing liver with moderate ascites. 3. Coarse calcifications in the head and uncinate process of the pancreas consistent with chronic pancreatitis. 4. Marked thickening of the proximal sigmoid colon bowel wall. There are multiple diverticula. There is adjacent mesenteric edema. This could represent diverticulitis though infiltrative neoplasm cannot be excluded from this exam. 5. There are several small ventral hernias with intra-abdominal fat present in the hernia sac. Dictated by: Dictated on workstation # [id number]
[2019-05-18 19:56] LABS: BILIRUBIN,URINE 2+ (NEGATIVE); CLARITY,URINE TURBID; COLOR,URINE RED; GLUCOSE, URINE (UA) TRACE (NEGATIVE); KETONES,URINE TRACE (NEGATIVE); LEUKOCYTE ESTERASE ,URINE 2+ (NEGATIVE); NITRITE,URINE POSITIVE (NEGATIVE); PH,URINE 6.5 (5-9); PROTEIN,URINE 2+ (NEGATIVE)
[2019-05-18] MEDS ORDERED: OXYC5TAB96 PO (20:00)
[2019-05-18] MEDS ORDERED: AMOX-358 PO (20:00)
[2019-05-18] MEDS ORDERED: LEVO500T2 PO (20:13)
[2019-05-18] MEDS ORDERED: LEVOFLOXACIN 500 MG TAB (LEVAQUIN) PO ONE (20:15)
[2019-05-18] MEDS ORDERED: FUROSEMIDE 40 MG (LASIX) TAB PO ONE (20:15)
[2019-05-18] MEDS ORDERED: AUGMENTIN 875 MG TAB (AMOXICILLIN/CLAVULANATE) PO SCH (20:15)
[2019-05-18 20:27] LABS: RBC,URINE TNTC /HPF
[2019-05-18 20:32] LABS: BACTERIA,URINE TRACE /HPF
[2019-05-18 20:41] VITALS: BP 136/87
== END 2019-05-18 20:42 | disposition home or self-care (01) ==
LOC: EDUNIT# 18:05 → ER 18:08
DX: N20.0 Calculus of kidney (principal); R18.8 Other ascites; J44.9 Chronic obstructive pulmonary disease, unspecified; K74.60 Unspecified cirrhosis of liver; K52.9 Noninfective gastroenteritis and colitis, unspecified; I10 Essential (primary) hypertension; E03.9 Hypothyroidism, unspecified; F31.9 Bipolar disorder, unspecified; Z86.59 Personal history of other mental and behavioral disorders; Z79.52 Long term (current) use of systemic steroids; Z99.81 Dependence on supplemental oxygen
CPT/HCPCS: 36415; 71046; 74176; 80053; 80320; 81000; 82805; 83690; 85025; 87077; 87088

== ENCOUNTER → 2019-05-26 | Outpatient (CLI) | payer MEDICARE, MEDICAID ==
[~2019-05-26] MED LIST changes: +AMOX-358 PO; +FURO20TA4 PO; +HYDR50TA76 PO; +LEVO500T2 PO; +OXYC5TAB96 PO
--- NOTE | 2019-05-26 13:33 | Diagnostic Imaging Report ---
INDICATION: Kidney stone. TECHNIQUE: Abdominal film obtained at 01:14 p.m[address] and compared to CT study of 05/18/2019. FINDINGS: The calcification overlying the right renal pelvis is unchanged compared to the CT study, and measures about 2.8 cm. There are no radiopaque calculi overlying the left renal shadow. There are multiple calcifications overlying the pancreatic head, compatible with chronic pancreatitis. There are surgical clips in the right upper quadrant. The abdominal bowel gas pattern is unremarkable. There are phleboliths in the right side of the pelvis. IMPRESSION: Unremarkable bowel gas pattern. 2.8 cm stone overlying the location of the right renal pelvis has not changed compared to the CT study. There are calcifications overlying the pancreatic head, compatible with chronic pancreatitis. The patient has had previous cholecystectomy. Dictated by: Dictated on workstation # [id number]
== END ==
LOC: RAD 12:56
PROVIDERS: ATTEND Urology
DX: N20.0 Calculus of kidney (principal); K86.89 Other specified diseases of pancreas
CPT/HCPCS: 74018

== ENCOUNTER 2019-05-27 08:26 | Outpatient (CLI) | payer MEDICARE, MEDICAID ==
[~2019-05-27] VITALS: Ht 149.8 cm; Wt 91.8 kg
[~2019-05-27 08:26] MED LIST changes: -FURO20TA4 PO; -HYDR50TA76 PO
[2019-05-27] MEDS ORDERED: FURO20TA4 PO (10:01)
[2019-05-27] MEDS ORDERED: HYDR50TA76 PO (10:01)
== END 2019-05-27 10:44 ==
LOC: PREOP 08:26
PROVIDERS: ATTEND Urology
DX: Z01.818 Encounter for other preprocedural examination (principal)

== ENCOUNTER 2019-06-02 06:30 | Day surgery (SDC) | payer MEDICARE, MEDICAID ==
[2019-06-02] VITALS (10 sets, daily range): BP systolic 86–110; BP diastolic 54–78
[~2019-06-02] VITALS: Ht 149.8 cm; Wt 91.8 kg
[~2019-06-02 06:30] MED LIST changes: +FURO20TA4 PO; +HYDR50TA76 PO
--- OUTSIDE RECORDS SUMMARY | 2019-06-02 06:35 | XMS REPORT ---
Author Author Magaly Muñoz Doctor Organization [facility] Address Unknown Phone Unavailable Care Team Providers Care Surtass Analyst Name Role Phone Migration, Doctor Unavailable Unavailable PROBLEMS Type Condition ICD9-CM Code BHJ06-HB Code Onset Dates Condition S tatus SNOMED Code Problem Cannabis dependence, unspecified abuse 304.30 Active 03718380 Problem Anxiety state, unspecified 300.00 Act vianney [id number] Problem Unspecified hypothyroidism 244.9 Act vianney 00862514 Problem Chronic pancreatitis 577.1 Active 457169575 Problem Chronic kidney disease 585.9 Active 124524473 Problem Other chronic pain 338.29 Active 8 6814183 Problem Hepatitis C 070.70 Active 90351197 Problem Essential hypertension, benign 401.1 Active 3342011 Problem Tear of left glenoid labrum 840.8 Ac tive 354482387 Problem Arthritis 716.90 Active 7304154 Problem Chronic pain 338.29 Active 4436910 1 Problem COPD (chronic obstructive pulmonary disease) 496 Active 42400151 ALLERGIES No Information ENCOUNTERS Encounter Location Date Diagnosis [facility] [address] [id number] [address] [place] [address] Aug, [facility] [address] [id number] [address] [place] [address] Jul, COPD exacerbation J44.1 and Pneumonia due to infectious organism, unspecified laterality, unspecified part of lung J18.9 [facility] [address] [id number] [address] [place] [address] Oct, Shoulder impingement 726.2 [facility] [address] [id number] [address] [place] [address] Aug, SLAP (superior glenoid labru m lesion) 840.7 and Shoulder impingement 726.2 [facility] [address] [id number] [address] [place] [address] Jul, Type 2 superior labrum exten ding from anterior to posterior (SLAP) lesion of left shoulder 840.7 [facility] [address] [id number] [address] [place] [address] June, Unspecified hypothyroidism 2 44.9 [facility] [address] [id number] [address] [place] [address] June, Unspecified hypothyroidism 2 44.9 ; Chronic pain 338.29 ; Arthritis 716.90 ; Chronic kidney disease 585.9 ; Hepatitis C 070.70 ; Tear of left glenoid labrum 840.8 and COPD (chronic obstructive pulmonary disease) 496 [facility] [address] [id number] [address] [place] [address] June, Laceration 879.8 [facility] [address] [facility] [id number] [address] [place] [address] June, Osteoarthritis 715.90 and Ch ronic obstructive airway disease 496 [facility] [address] [id number] [address] [place] [address] May, [facility] [address] [id number] [address] [place] [address] May, [facility] [address] [id number] [address] [place] [address] Apr, [facility] [address] [id number] [address] [place] [address] Apr, [facility] [address] [id number] [address] [place] [address] Apr, [facility] [address] [id number] [address] [place] [phone] Apr, [facility] [address] [facility] [id number] [address] [place] [address] Oct, [facility] [address] [id number] [address] [place] [phone] Oct, [facility] [address] [id number] [address] [place] [address], [place] [address] 10 Nov, 2012 [facility] [address] [id number] [address] [place] [address], [place] [address] Nov, [facility] [address] [id number] [address] [place] [address], [place] [address] 10 Nov, 2012 [facility] [address] [id number] [address] [place] [address], [place] [address] Nov, [facility] [address] [id number] [address] [place] [address], [place] [address] 16 Sep, 2012 [facility] [address] [id number] [address] [place] [address], [place] [address] May, [facility] [address] [id number] [address] [place] [address], [place] [address] Mar, [facility] [address] [id number] [address] [place] [address], [place] [address] Feb, [facility] [address] [id number] [address] [place] [address], [place] [address] Feb, [facility] [address] [id number] [address] [place] [address], [place] [address] Feb, [facility] [address] [id number] [address] [place] [address], [place] [address] Jan, [facility] [address] [id number] [address] [place] [address], [place] [address] Jan, [facility] [address] [id number] [address] [place] [address], [place] [address] Dec, [facility] [address] [id number] [address] [place] [address], [place] [address] Dec, [facility] [address] [id number] [address] [place] [address], [place] [address] Nov, [facility] [address] [id number] [address] [place] [address], [place] [address] Nov, [facility] [address] [id number] [address] [place] [address], [place] [address] 23 Nov, 2011 [facility] [address] [id number] [address] [place] [address], [place] [address] 19 Nov, 2011 [facility] [address] [id number] [address] [place] [address], [place] [address] 19 Nov, 2011 [facility] [address] [id number] [address] [place] [address], [place] [address] 18 Nov, 2011 [facility] [address] [id number] [address] [place] [address], [place] [address] 10 Nov, 2011 [facility] [address] [id number] [address] [place] [address], [place] [address] 10 Nov, 2011 [facility] [address] [id number] [address] [place] [address], [place] [address] 03 Nov, 2011 [facility] [address] [id number] [address] [place] [address], [place] [address] 27 Sep, 2011 [facility] [address] [id number] [address] [place] [address], [place] [address] 17 Sep, 2011 [facility] [address] [id number] [address] [place] [address], [place] [address] 10 Oct, 2011 [facility] [address] [id number] [address] [place] [address], [place] [address] 07 Sep, 2011 [facility] [address] [id number] [address] [place] [address] 06 Oct, 2011 [facility] [address] [id number] [address] [place] [address], [place] [address] 29 Sep, 2011 [facility] [address] [id number] [address] [place] [address], [place] [address] 22 Sep, 2011 [facility] [address] [id number] [address] [place] [address], [place] [address] 16 Sep, 2011 [facility] [address] [id number] [address] [place] [address] Sep, [facility] [address] [id number] [address] [place] [address], [place] [address] Sep, [facility] [address] [id number] [address] [place] [address], [place] [address] Sep, [facility] [address] [id number] [address] [place] [address], [place] [address] Sep, [facility] [address] [id number] [address] [place] [address], [place] [address] Sep, [facility] [address] [id number] [address] [place] [address], [place] [address] Sep, [facility] [address] [id number] [address] [place] [address], [place] [address] June, [facility] [address] [id number] [address] [place] [address], [place] [address] June, [facility] [address] [id number] [address] [place] [address], [place] [address] Mar, [facility] [address] [id number] [address] [place] [address], [place] [address] Feb, [facility] [address] [id number] [address] [place] [address], [place] [address] Feb, [facility] [address] [id number] [address] [place] [address], [place] [address] Feb, [facility] [address] [id number] [address] [place] [address], [place] [address] Feb, [facility] [address] [id number] [address] [place] [address], [place] [address] Oct, [facility] [address] [id number] [address] [place] [address], [place] [address] Jul, [facility] [address] [id number] [address] [place] [address], [place] [address] Dec, [facility] [address] [facility] [id number] [address] [place] [address] 11 Mar, 2009 [facility] [address] [facility] [id number] [address] [place] [address] Nov, [facility] [address] [facility] [id number] [address] [place] [address] Nov, [facility] [address] [facility] [id number] [address] [place] [address] Oct, IMMUNIZATIONS No Known Immunizations SOCIAL HISTORY Never Assessed REASON FOR VISIT PLAN OF CARE VITAL SIGNS Height 60 in 2014-04-19 Weight 169.38 lbs 2014-04-19 Temperature 97.7 degrees Fahrenheit 2014-04-19 Heart Rate 79 bpm 2014-04-19 Respiratory Rate 20 2014-04-19 Blood pressure systolic 131 mmHg 2014-04-19 Blood pressure diastolic 78 mmHg 2014-04-19 MEDICATIONS Unknown Medications RESULTS No Results PROCEDURES No Known procedures INSTRUCTIONS MEDICATIONS ADMINISTERED No Known Medications MEDICAL (GENERAL) HISTORY Type Description Date Medical History hepatitis C- no prior treatment (Genoty pe 3 per pt) Medical History Hypothyroidism-1992 Medical History chronic pain-- knees and lower back oste oarthritis Medical History hx Lupus Medical History hx of pancreatitis Medical History COPD Medical History HTN Medical History Bipolar Disorder/Schizophrenia Medical History Gout Medical History Staghorn calculus R kidney Medical History Colon polyps Medical History R shoulder pain - rotator cu ff impingement; Type 2 slap tear of the glenoid labrum w/ partial tearing of the L biceps tendon anchor Surgical History hysterectomy, total with heron ateral salpingo-oophorectomy (BSO) - for endometriosis 1995 Surgical History Sweat Glands removed (axillary) Surgical History Colonoscopy w/ polypectomy x3 02/16/14 Surgical History cholecytectomy ([facility]) 2005 Hospitalization History Excaberation of COPD 10/2010
--- OUTSIDE RECORDS SUMMARY | 2019-06-02 06:35 | XMS REPORT ---
Author Author Magaly MCMANUS Organization [facility] [place] Address [address] [place] [address] Care Team Providers Care Repair Cameraman Name Role Phone SUE MCMANUS Unavailable PROBLEMS Type Condition ICD9-CM Code JWP42-JF Code Onset Dates Condition S tatus SNOMED Code Problem Chronic obstructive pulmonary disease, unspecified COPD ty pe J44.9 Active 91986573 Problem Hepatitis C virus infection without hepatic coma, unspecified chronicity B19.20 Active 23778251 Problem Tobacco abuse Z72.0 Active 659149 000 Problem Acquired hypothyroidism E03.9 Active 822044024 Problem Degenerative disc disease at L5-S1 level M51.36 Active 38557373 Problem Alcohol abuse F10.10 Active 753701 05 Problem Other chronic pain G89.29 Active 8 6600872 Problem Chronic diastolic congestive heart failure I50.32 Active 284160266 Problem Lupus M32.9 Active 499217218 Problem Chronic kidney disease, unspecified N18.9 Active 154141975 Problem Hypothyroidism, unspecified E03.9 Ac tive 12844598 Problem Primary osteoarthritis of right knee M17.11 Active [id number] Problem Anxiety F41.9 Active 74778973 ALLERGIES No Information ENCOUNTERS Encounter Location Date Diagnosis [facility] [place] [address] [facility] [id number] [address] [place] [phone] 07 May, 2019 [facility] [place] [address] [facility] [id number] [address] [place] [phone] May, [facility] [place] [address] [facility] [id number] [address] [place] [phone] Apr, Chronic diastolic congestive heart failure I50.32 [facility] [place] [address] [facility] [id number] [address] [place] [phone] 04 Apr, 2019 [facility] [place] [address] [facility] [id number] [address] [place] [phone] 28 Mar, 2019 Chronic diastolic congestive heart failure I50.32 ; Tobacco abuse Z72.0 and Alcohol abuse F10.10 [facility] [place] [address] [facility] [id number] [address] [place] [phone] 12 Mar, 2019 Bronchitis J40 and Edema, un specified type R60.9 [facility] [place] [address] [place] [id number] [address] [place] [phone] 07 Mar, 2019 Chronic obstructive pulmonar y disease, unspecified COPD type J44.9 ; Peripheral edema R60.9 ; 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 ; Anxiety F41.9 ; Chronic kidney disease, unspecified N18.9 and Alcohol abuse F10.10 [place] [address] [facility] [id number] [address] [place] [phone] 05 Mar, 2019 [facility] [place] [address] [place] [id number] [place] [address] Mar, [facility] [place] [address] [place] [id number] [address] [place] [phone] Feb, [facility] [place] [address] [place] [id number] [address] [place] [phone] Feb, Bronchitis J40 and Chronic o bstructive pulmonary disease, unspecified COPD type J44.9 [facility] [place] [address] [place] [id number] [address] [place] [phone] Feb, Anxiety F41.9 [facility] [address] [facility] [id number] [address] [place] [phone] Jan, Bronchitis J40 and Edema, un specified type R60.9 [facility] [place] [address] [facility] [id number] [address] [place] [phone] Jan, [facility] [place] [address] [place] [id number] [address] [place] [phone] Dec, [facility] [place] [address] [place] [id number] [address] [place] [phone] Dec, Neck swelling R22.1 [facility] [place] [address] [facility] [id number] [address] [place] [phone] Nov, Neck swelling R22.1 [facility] [place] [address] [facility] [id number] [address] [place] [phone] Nov, Neck swelling R22.1 [facility] [place] [address] [facility] [id number] [address] [place] [phone] Nov, [facility] [place] [address] [facility] [id number] [address] [place] [phone] Nov, [facility] [place] [address] [facility] [id number] [address] [place] [phone] Nov, Chronic kidney disease, unsp ecified N18.9 [facility] [place] [address] [facility] [id number] [address] [place] [phone] Nov, Degenerative disc disease at L5-S1 level M51.36 ; Acquired hypothyroidism E03.9 ; Hepatitis C virus infection without hepatic coma, unspecified chronicity B19.20 ; Hoarseness, persistent R49.0 and Primary osteoarthritis of right knee M17.11 [facility] [place] [address] [facility] [id number] [address] [place] [phone] Oct, Neck swelling R22.1 ; Acquir ed hypothyroidism E03.9 ; Chronic obstructive pulmonary disease, unspecified COPD type J44.9 ; Degenerative disc disease at L5-S1 level M51.36 and Lupus M32.9 [facility] [place] [address] [facility] [id number] [address] [place] [phone] Oct, Lupus M32.9 ; Hypothyroidism , unspecified E03.9 and Unspecified viral hepatitis C without hepatic coma B19.20 [facility] [place] [address] [facility] [id number] [address] [place] [phone] Oct, [facility] [place] [address] [facility] [id number] [address] [place] [phone] Sep, [facility] [place] [address] [facility] [id number] [address] [place] [phone] Sep, Acquired hypothyroidism E03. 9 ; Chronic obstructive pulmonary disease, unspecified COPD type J44.9 ; Degenerative disc disease at L5-S1 level M51.36 ; Lupus M32.9 and Neck swelling R22.1 [place] [address] [address] Sep, Hypothyroidism, unspecified E03.9 ; Unspecified viral hepatitis C without hepatic coma B19.20 and Chronic kidney disease, unspecified N18.9 [place] [address] [address] Aug, Chronic obstructive pulmonar y disease, unspecified COPD type J44.9 ; Acquired hypothyroidism E03.9 ; Long-term use of high-risk medication Z79.899 ; Hepatitis C virus infection without hepatic coma, unspecified chronicity B19.20 and Tobacco abuse Z72.[address] [phone] Aug, Chronic obstructive pulmonar y disease, unspecified COPD type J44.9 ; Tobacco abuse Z72.0 ; Acquired hypothyroidism E03.9 ; Long-term use of high- risk medication Z79.899 and Hepatitis C virus infection without hepatic coma, unspecified chronicity B19.20 [facility] [address] [place] [id number] [address] [place] [phone] Jul, COPD exacerbation J44.1 and Pneumonia due to infectious organism, unspecified laterality, unspecified part of lung J18.9 [place] [address] [phone] Oct, Shoulder impingement 726.[address] [address] Aug, SLAP (superior glenoid labru m lesion) 840.7 and Shoulder impingement 726.[address] [address] Jul, Type 2 superior labrum exten ding from anterior to posterior (SLAP) lesion of left shoulder 840.7 [facility] [place] [address] [id number] [address] [place] [phone] June, Unspecified hypothyroidism 2 44.9 [facility] [place] [address] [id number] [address] [place] [phone] June, Unspecified hypothyroidism 2 44.9 ; Chronic pain 338.29 ; Arthritis 716.90 ; Chronic kidney disease 585.9 ; Hepatitis C 070.70 ; Tear of left glenoid labrum 840.8 and COPD (chronic obstructive pulmonary disease) 496 [facility] [place] [address] [id number] [address] [place] [phone] June, Laceration 879.8 [facility] [place] [address] [id number] [address] [place] [phone] June, Osteoarthritis 715.90 and Ch ronic obstructive airway disease 496 [facility] [place] [address] [id number] [address] [place] [phone] May, [facility] [place] [address] [id number] [address] [place] [phone] May, [facility] [place] [address] [id number] [address] [place] [phone] Apr, [facility] [place] [address] [id number] [address] [place] [phone] Apr, [facility] [place] [address] [id number] [address] [place] [phone] Apr, [facility] [place] [address] [id number] [address] [place] [phone] Apr, [facility] [place] [address] [id number] [address] [place] [phone] Oct, [facility] [place] [address] [id number] [address] [place] [phone] Oct, [facility] [place] [address] [id number] [address] [place] [phone] Nov, [facility] [address] [id number] [address] [place] [address], [place] [address] Nov, [facility] [address] [id number] [address] [place] [address], [place] [address] Nov, [facility] [address] [id number] [address] [place] [address], [place] [address] Nov, [facility] [address] [id number] [address] [place] [address], [place] [address] Sep, [facility] [address] [id number] [address] [place] [address], [place] [address] May, [facility] [address] [id number] [address] [place] [address], [place] [address] Mar, [facility] [address] [id number] [address] [place] [address], [place] [address] Feb, [facility] [address] [id number] [address] [place] [address], [place] [address] Feb, [facility] [address] [id number] [address] [place] [address], [place] [address] Feb, [facility] [address] [id number] [address] [place] [address], [place] [address] Jan, [facility] [address] [id number] [address] [place] [address], [place] [address] Jan, [facility] [address] [id number] [address] [place] [address], [place] [address] Dec, [facility] [address] [id number] [address] [place] [address], [place] [address] Dec, [facility] [address] [id number] [address] [place] [address], [place] [address] Nov, [facility] [address] [id number] [address] [place] [address], [place] [address] Nov, [facility] [address] [id number] [address] [place] [address], [place] [address] 23 Nov, 2011 [facility] [address] [id number] [address] [place] [address], [place] [address] 19 Nov, 2011 [facility] [address] [id number] [address] [place] [address], [place] [address] 19 Nov, 2011 [facility] [address] [id number] [address] [place] [address], [place] [address] 18 Nov, 2011 [facility] [address] [id number] [address] [place] [address], [place] [address] 10 Nov, 2011 [facility] [address] [id number] [address] [place] [address], [place] [address] 10 Nov, 2011 [facility] [address] [id number] [address] [place] [address], [place] [address] 03 Nov, 2011 [facility] [address] [id number] [address] [place] [address], [place] [address] 27 Sep, 2011 [facility] [address] [id number] [address] [place] [address], [place] [address] 17 Sep, 2011 [facility] [address] [id number] [address] [place] [address], [place] [address] 10 Oct, 2011 [facility] [address] [id number] [address] [place] [address], [place] [address] 07 Sep, 2011 [facility] [address] [id number] [address] [place] [address], [place] [address] 06 Oct, 2011 [facility] [address] [id number] [address] [place] [address], [place] [address] 29 Sep, 2011 [facility] [address] [id number] [address] [place] [address], [place] [address] 22 Sep, 2011 [facility] [address] [id number] [address] [place] [address], [place] [address] 16 Sep, 2011 [facility] [address] [id number] [address] [place] [address], [place] [address] Sep, [facility] [address] [id number] [address] [place] [address], [place] [address] Sep, [facility] [address] [id number] [address] [place] [address], [place] [address] Sep, [facility] [address] [id number] [address] [place] [address], [place] [address] Sep, [facility] [address] [id number] [address] [place] [address], [place] [address] Sep, [facility] [address] [id number] [address] [place] [address], [place] [address] Sep, [facility] [address] [id number] [address] [place] [address], [place] [address] June, [facility] [address] [id number] [address] [place] [address], [place] [address] June, [facility] [address] [id number] [address] [place] [address], [place] [address] Mar, [facility] [address] [id number] [address] [place] [address], [place] [address] Feb, [facility] [address] [id number] [address] [place] [address], [place] [address] Feb, [facility] [address] [id number] [address] [place] [address], [place] [address] Feb, [facility] [address] [id number] [address] [place] [address], [place] [address] Feb, [facility] [address] [id number] [address] [place] [address], [place] [address] Oct, [facility] [address] [id number] [address] [place] [address], [place] [address] Jul, [facility] [address] [id number] [address] [place] [address], [place] [address] Dec, [facility] [address] [id number] [address] [place] [phone] 11 Mar, 2009 [facility] [place] [address] [facility] [id number] [address] [place] [phone] 13 Nov, 2008 [facility] [place] [address] [facility] [id number] [address] [place] [phone] 13 Nov, 2008 [facility] [place] [address] [facility] [id number] [address] [place] [address] 10 Oct, 2008 IMMUNIZATIONS No Known Immunizations SOCIAL HISTORY Never Assessed REASON FOR VISIT PLAN OF CARE VITAL SIGNS MEDICATIONS Unknown Medications RESULTS No Results PROCEDURES [...] tearing of the L biceps tendon anchor Medical History COPD Surgical History hysterectomy, total with heron ateral salpingo-oophorectomy (BSO) - for endometriosis 1995 Surgical History Sweat Glands removed (axillary) Surgical History Colonoscopy w/ polypectomy x3 02/16/14 Surgical History cholecytectomy ([facility]) 2005 Hospitalization History Excaberation of COPD 10/2010 Hospitalization History COPD and salavary gland tumors 03/01 19
--- OUTSIDE RECORDS SUMMARY | 2019-06-02 06:35 | XMS REPORT ---
Author Author Magaly Muñoz Doctor Organization [facility] Address Unknown Phone Unavailable Care Team Providers Care Foreman/[employer] Name Role Phone Migration, Doctor Unavailable Unavailable PROBLEMS Type Condition ICD9-CM Code ZGU59-MB Code Onset Dates Condition S tatus SNOMED Code Problem Cannabis dependence, unspecified abuse 304.30 Active 60819043 Problem Anxiety state, unspecified 300.00 Act vianney 523787346 Problem Unspecified hypothyroidism 244.9 Act vianney 33208838 Problem Chronic pancreatitis 577.1 Active 077254807 Problem Chronic kidney disease 585.9 Active 169788620 Problem Other chronic pain 338.29 Active 8 2970079 Problem Hepatitis C 070.70 Active 59827134 Problem Essential hypertension, benign 401.1 Active 2202855 Problem Tear of left glenoid labrum 840.8 Ac tive 219620400 Problem Arthritis 716.90 Active 2208950 Problem Chronic pain 338.29 Active 8929906 1 Problem COPD (chronic obstructive pulmonary disease) 496 Active 07240137 ALLERGIES No Information ENCOUNTERS Encounter Location Date Diagnosis [facility] [address] [id number] [address] [place] [address] Aug, [facility] [address] [id number] [address] [place] [address] Jul, COPD exacerbation J44.1 and Pneumonia due to infectious organism, unspecified laterality, unspecified part of lung J18.9 [facility] [address] [id number] [address] [place] [address] Oct, Shoulder impingement 726.2 [facility] [address] [id number] [address] [place] [address] Aug, SLAP (superior glenoid labru m lesion) 840.7 and Shoulder impingement 726.2 [facility] [address] [id number] [address] [place] [address] Jul, Type 2 superior labrum exten ding from anterior to posterior (SLAP) lesion of left shoulder 840.7 [facility] [address] [id number] [address] [place] [address] June, Unspecified hypothyroidism 2 44.9 [facility] [address] [id number] [address] [place] [address] June, Unspecified hypothyroidism 2 44.9 ; Chronic pain 338.29 ; Arthritis 716.90 ; Chronic kidney disease 585.9 ; Hepatitis C 070.70 ; Tear of left glenoid labrum 840.8 and COPD (chronic obstructive pulmonary disease) 496 [facility] [address] [id number] [address] [place] [address] June, Laceration 879.8 [facility] [address] [facility] [id number] [address] [place] [address] June, Osteoarthritis 715.90 and Ch ronic obstructive airway disease 496 [facility] [address] [id number] [address] [place] [address] May, [facility] [address] [id number] [address] [place] [address] May, [facility] [address] [id number] [address] [place] [address] Apr, [facility] [address] [id number] [address] [place] [address] Apr, [facility] [address] [id number] [address] [place] [address] Apr, [facility] [address] [id number] [address] [place] [address] Apr, [facility] [address] [facility] [id number] [address] [place] [address] Oct, [facility] [address] [id number] [address] [place] [address] Oct, [facility] [address] [id number] [address] [place] [address], [place] [address] 10 Nov, 2012 [facility] [address] [id number] [address] [place] [address], [place] [address] Nov, [facility] [address] [id number] [address] [place] [address], [place] [address] 10 Nov, 2012 [facility] [address] [id number] [address] [place] [address], [place] [address] Nov, [facility] [address] [id number] [address] [place] [address], [place] [address] 16 Sep, 2012 [facility] [address] [id number] [address] [place] [address], [place] [address] May, [facility] [address] [id number] [address] [place] [address], [place] [address] Mar, [facility] [address] [id number] [address] [place] [address], [place] [address] Feb, [facility] [address] [id number] [address] [place] [address], [place] [address] Feb, [facility] [address] [id number] [address] [place] [address], [place] [address] Feb, [facility] [address] [id number] [address] [place] [address], [place] [address] Jan, [facility] [address] [id number] [address] [place] [address], [place] [address] Jan, [facility] [address] [id number] [address] [place] [address], [place] [address] Dec, [facility] [address] [id number] [address] [place] [address], [place] [address] Dec, [facility] [address] [id number] [address] [place] [address], [place] [address] Nov, [facility] [address] [id number] [address] [place] [address], [place] [address] Nov, [facility] [address] [id number] [address] [place] [address], [place] [address] 23 Nov, 2011 [facility] [address] [id number] [address] [place] [address], [place] [address] 19 Nov, 2011 [facility] [address] [id number] [address] [place] [address], [place] [address] 19 Nov, 2011 [facility] [address] [id number] [address] [place] [address], [place] [address] 18 Nov, 2011 [facility] [address] [id number] [address] [place] [address], [place] [address] 10 Nov, 2011 [facility] [address] [id number] [address] [place] [address], [place] [address] 10 Nov, 2011 [facility] [address] [id number] [address] [place] [address], [place] [address] 03 Nov, 2011 [facility] [address] [id number] [address] [place] [address], [place] [address] 27 Sep, 2011 [facility] [address] [id number] [address] [place] [address], [place] [address] 17 Sep, 2011 [facility] [address] [id number] [address] [place] [address], [place] [address] 10 Oct, 2011 [facility] [address] [id number] [address] [place] [address], [place] [address] 07 Sep, 2011 [facility] [address] [id number] [address] [place] [address] 06 Oct, 2011 [facility] [address] [id number] [address] [place] [address], [place] [address] 29 Sep, 2011 [facility] [address] [id number] [address] [place] [address], [place] [address] 22 Sep, 2011 [facility] [address] [id number] [address] [place] [address], [place] [address] 16 Sep, 2011 [facility] [address] [id number] [address] [place] [address] Sep, [facility] [address] [id number] [address] [place] [address], [place] [address] Sep, [facility] [address] [id number] [address] [place] [address], [place] [address] Sep, [facility] [address] [id number] [address] [place] [address], [place] [address] Sep, [facility] [address] [id number] [address] [place] [address], [place] [address] Sep, [facility] [address] [id number] [address] [place] [address], [place] [address] Sep, [facility] [address] [id number] [address] [place] [address], [place] [address] June, [facility] [address] [id number] [address] [place] [address], [place] [address] June, [facility] [address] [id number] [address] [place] [address], [place] [address] Mar, [facility] [address] [id number] [address] [place] [address], [place] [address] Feb, [facility] [address] [id number] [address] [place] [address], [place] [address] Feb, [facility] [address] [id number] [address] [place] [address], [place] [address] Feb, [facility] [address] [id number] [address] [place] [address], [place] [address] Feb, [facility] [address] [id number] [address] [place] [address], [place] [address] Oct, [facility] [address] [id number] [address] [place] [address], [place] [address] Jul, [facility] [address] [id number] [address] [place] [address], [place] [address] Dec, [facility] [address] [facility] [id number] [address] [place] [address] 11 Mar, 2009 [facility] [address] [facility] [id number] [address] [place] [address] Nov, [facility] [address] [facility] [id number] [address] [place] [address] Nov, [facility] [address] [facility] [id number] [address] [place] [address] 10 Oct, 2008 IMMUNIZATIONS No Known Immunizations [...]
--- OUTSIDE RECORDS SUMMARY | 2019-06-02 06:35 | XMS REPORT ---
Author Author Magaly Muñoz Doctor Organization [facility] Address Unknown Phone Unavailable Care Team Providers Care Counsellors Name Role Phone Migration, Doctor Unavailable Unavailable PROBLEMS Type Condition ICD9-CM Code [id number] Code Onset Dates Condition S tatus SNOMED Code Problem Chronic obstructive pulmonary disease, unspecified COPD ty pe J44.9 Active 24037004 Problem Hepatitis C virus infection without hepatic coma, unspecified chronicity B19.20 Active 39437358 Problem Tobacco abuse Z72.0 Active 001529 000 Problem Acquired hypothyroidism E03.9 Active 952081272 Problem Degenerative disc disease at L5-S1 level M51.36 Active 76244465 Problem Alcohol abuse F10.10 Active 519103 05 Problem Other chronic pain G89.29 Active 8 7013409 Problem Chronic diastolic congestive heart failure I50.32 Active 658787627 Problem Lupus M32.9 Active 471278295 Problem Chronic kidney disease, unspecified N18.9 Active 623686407 Problem Hypothyroidism, unspecified E03.9 Ac tive 87469932 Problem Primary osteoarthritis of right knee M17.11 Active 712343129200574 Problem Anxiety F41.9 Active 53799230 ALLERGIES No Information ENCOUNTERS Encounter Location Date Diagnosis [place] [address] [address] 09 Apr, 2019 Chronic diastolic congestive heart failu re I50.32 [place] [address] [address] 04 Apr, 2019 [place] [address] [address] 28 Mar, 2019 Chronic diastolic congestive heart failu re I50.32 ; Tobacco abuse Z72.0 and Alcohol abuse F10.10 [place] [address] [address] 12 Mar, 2019 Bronchitis J40 and Edema, unspecified ty pe R60.9 [place] [address] [address] 07 Mar, 2019 Chronic obstructive pulmonary disease, u nspecified COPD type J44.9 ; Peripheral edema R60.9 ; 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 [address] [address] 05 Mar, 2019 [facility] [address] [address] [address], [address] [facility] [address] [address] Feb, [place] [address] [address] 14 Feb, 2019 Bronchitis J40 and Chronic obstructive p ulmonary disease, unspecified COPD type J44.9 [place] [address] [address] Feb, Anxiety F41.9 [facility] [address] [facility] [id number] [address] [place] [address] Jan, Bronchitis J40 and Edema, un specified type R60.9 [place] [address] [address] Jan, [place] [address] [address] Dec, [place] [address] [address] Dec, Neck swelling R22.1 [place] [address] [address] Nov, Neck swelling R22.1 [place] [address] [address] Nov, Neck swelling R22.1 [place] [address] [address] Nov, [place] [address] [address] 15 Nov, 2018 [place] [address] [address] Nov, Chronic kidney disease, unspecified N18. 9 [place] [address] [address] Nov, Degenerative disc disease at L5-S1 level M51.36 ; Acquired hypothyroidism E03.9 ; Hepatitis C virus infection without hepatic coma, unspecified chronicity B19.20 ; Hoarseness, persistent R49.0 and Primary osteoarthritis of right knee M17.11 [place] [address] [address] Oct, Neck swelling R22.1 ; Acquired hypothyro idism E03.9 ; Chronic obstructive pulmonary disease, unspecified COPD type J44.9 ; Degenerative disc disease at L5-S1 level M51.36 and Lupus M32.9 [place] [address] [address] Oct, Lupus M32.9 ; Hypothyroidism, unspecifie d E03.9 and Unspecified viral hepatitis C without hepatic coma B19.20 [place] [address] [address] Oct, [place] [address] [address] Sep, [place] [address] [address] Sep, Acquired hypothyroidism E03.9 ; Chronic obstructive pulmonary disease, unspecified COPD type J44.9 ; Degenerative disc disease at L5-S1 level M51.36 ; Lupus M32.9 and Neck swelling R22.1 [place] [address] [address] Sep, Hypothyroidism, unspecified E03.9 ; Unsp ecified viral hepatitis C without hepatic coma B19.20 and Chronic kidney disease, unspecified N18.9 [place] [address] [address] Aug, Chronic obstructive pulmonary disease, u nspecified COPD type J44.9 ; Acquired hypothyroidism E03.9 ; Long-term use of high-risk medication Z79.899 ; Hepatitis C virus infection without hepatic coma, unspecified chronicity B19.20 and Tobacco abuse Z72.0 [facility] [address] [place] [address] Aug, Chronic obstructive pulmonary disease, u nspecified COPD type J44.9 ; Tobacco abuse Z72.0 ; Acquired hypothyroidism E03.9 ; Long-term use of high-risk medication Z79.899 and Hepatitis C virus infection without hepatic coma, unspecified chronicity B19.20 [facility] [address] [facility] [id number] [address] [place] [address] Jul, COPD exacerbation J44.1 and Pneumonia due to infectious organism, unspecified laterality, unspecified part of lung J18.[address] [address] Oct, Shoulder impingement 726.[address] [address] Aug, SLAP (superior glenoid labrum lesion) 84 0.7 and Shoulder impingement 726.[address] [address] Jul, Type 2 superior labrum extending from an terior to posterior (SLAP) lesion of left shoulder 840.7 [place] [address] [address] June, Unspecified hypothyroidism 244.[address] [address] June, Unspecified hypothyroidism 244.9 ; Chron ic pain 338.29 ; Arthritis 716.90 ; Chronic kidney disease 585.9 ; Hepatitis C 070.70 ; Tear of left glenoid labrum 840.8 and COPD (chronic obstructive pulmonary disease) [address] [id number] [place] [address] 14 Jun, 2014 Laceration 879.8 [facility] [address] [id number] [place] [address] June, Osteoarthritis 715.90 and Chronic obstru ctive airway disease 496 [facility] [address] [id number] [place] [address] 14 May, 2014 [facility] [address] [id number] [place] [address] 13 May, 2014 [facility] [address] [id number] [place] [address] 10 Apr, 2014 [facility] [address] [id number] [place] [address] 10 Apr, 2014 [facility] [address] [id number] [place] [address] 10 Apr, 2014 [facility] [id number] [place] [address] 10 Apr, 2014 [facility] [address] [id number] [place] [address] 11 Oct, 2013 [facility] [id number] [place] [address] 11 Oct, 2013 [facility] [address] [id number] [place] [address] 10 Nov, 2012 [facility] [id number] [place] [address] 10 Nov, 2012 [facility] [address] [id number] [place] [address] 10 Nov, 2012 [facility] [id number] [place] [address] 10 Nov, 2012 [facility] [address] [id number] [place] [address] 16 Sep, 2012 [facility] [address] [id number] [place] [address] 30 May, 2012 [facility] [address] [id number] [place] [address] Mar, [facility] [address] [id number] [place] [address] Feb, [facility] [address] [id number] [place] [address] Feb, [facility] [address] [id number] [place] [address] Feb, [facility] [address] [id number] [place] [address] Jan, [facility] [address] [id number] [place] [address] Jan, [facility] [address] [id number] [place] [address] Dec, [facility] [address] [place] [id number] [place] [address] Dec, [facility] [id number] [place] [address] Nov, [facility] [address] [id number] [place] [address] 30 Nov, 2011 [facility] [id number] [place] [address] Nov, [facility] [address] [id number] [place] [address] Nov, [facility] [address] [id number] [place] [address] Nov, [facility] [address] [id number] [place] [address] 18 Nov, 2011 [facility] [address] [id number] [place] [address] Nov, [facility] [address] [id number] [place] [address] Nov, [facility] [address] [place] [id number] [place] [address] Nov, [facility] [address] [id number] [place] [address] 27 Oct, 2011 [facility] [address] [id number] [place] [address] 17 Oct, 2011 [facility] [address] [id number] [place] [address] 10 Oct, 2011 [facility] [address] [id number] [place] [address] 07 Oct, 2011 [facility] [address] [facility] [id number] [place] [address] 06 Oct, 2011 [facility] [address] [id number] [place] [address] 29 Sep, 2011 [facility] [address] [id number] [place] [address] Sep, [facility] [address] [id number] [place] [address] 16 Sep, 2011 [facility] [address] [id number] [place] [address] 15 Sep, 2011 [facility] [address] [id number] [place] [address] 13 Sep, 2011 [facility] [address] [id number] [place] [address] 08 Sep, 2011 [facility] [address] [id number] [place] [address] Sep, [facility] [address] [id number] [place] [address] Sep, [facility] [address] [id number] [place] [address] Sep, [facility] [address] [id number] [place] [address] June, [facility] [address] [id number] [place] [address] June, [facility] [address] [place] [address] [id number] [place] [address] [address], [address] [facility] [address] [address] Feb, [facility] [address] [address] Feb, [facility] [address] [address] Feb, [facility] [address] [address] Feb, [facility] [address] [address] Oct, [facility] [address] [address] Jul, [facility] [address] [address] Dec, [facility] [address] [address] Mar, [facility] [address] [address] Nov, [facility] [address] [address] Nov, [facility] [address] [address] 10 Oct, 2008 IMMUNIZATIONS No Known Immunizations [...] History COPD and salavary gland tumors 03/01 20
--- OUTSIDE RECORDS SUMMARY | 2019-06-02 06:35 | XMS REPORT ---
Author Author [employer] Organization [employer]. Address [address] [address] Care Team Providers Care Loan Closer Name Role Phone JENNIFER BEARD Unavailable Unavailable Migration, Doctor Unavailable Unavailable Migration, Doctor Unavailable Unavailable Migration, Doctor Unavailable Unavailable Migration, Doctor Unavailable Unavailable Migration, Doctor Unavailable Unavailable Migration, Doctor Unavailable Unavailable Migration, Doctor Unavailable Unavailable Migration, Doctor Unavailable Unavailable Migration, Doctor Unavailable Unavailable Migration, Doctor Unavailable Unavailable Migration, Doctor Unavailable Unavailable Migration, Doctor Unavailable Unavailable Migration, Doctor Unavailable Unavailable TONY GIFFORD APRN Unavailable Unavailable SHAWNEE RAY, KHARI Fuentes Unavailable Unavailable TONY GIFFORD APRN Unavailable Unavailable MADCHARLEE Bravo Unavailable Unavailable DOUGLAS RENAE Unavailable Unavailable DOUGLAS RENAE PREPRESS MANAGER Unavailable Unavailable DARYL RAY, MATT Raygoza Unavailable Unavailable JONATHON RAY, IZABELLA Silva Unavailable Unavailable KIM DO, ANUSHA S Unavailable Unavailable KIM DO, ANUSHA S Unavailable Unavailable Unavailable Unavailable FAUSTINO DODSON, KHARI Eller Unavailable Unavailable SUE POTTS Unavailable Unavailable NOLVIA RAY, ORTIZ Bravo Unavailable Unavailable SHAKA MCGRATH, PATRICE Yo Unavailable Unavailable SUNNY RAY, KALPESH Bravo Unavailable Unavailable ELIO RAY, DAVIE Mckeon Unavailable Unavailable Migration, Doctor Unavailable Unavailable SUE MCMANUS Unavailable Allergies Normalized Allergy Reported Date of Reaction(s) Care Provider Facility Allergy Type classification allergen Allergy Onset MA (8 Unclassified NKANo Known 09-29-2005 - no information LEONARDO CARDENAS [facility] Via sources.) Allergies [facility] (62682) no information Unclassified RUBBING 08-26-2005 - no informatio kelly GIFFORD [facility] Via (20 sources.) ALCOHOL [facility] (27339) Medications The data below is from unstructured sourcesNo Known Medications Unknown Medications Unknown Medications Unknown Medications Unknown Medications Unknown Medications Unknown Medications Unknown Medications Unknown Medications Unknown Medications Unknown Medications Unknown Medications Unknown Medications Unknown Medications Unknown Medications Unknown Medications Unknown Medications Unknown Medications Unknown Medications Unknown Medications Unknown Medications Unknown Medications Unknown Medications Unknown Medications No Known Medications No Known Medications No Known Medications No Known Medications No Known Medications No Known Medications No Known Medications No Known Medications No Known Medications No Known Medications No Known Medications No Known Medications No Known Medications No Known Medications No Known Medications No Known Medications No Known Medications No Known Medications No Known Medications No Known Medications No Known Medications No Known Medications Unknown Medications No Known Medications Problems Problem Normalized Date of Normalized Normalized Provider Fac ility Classification Problem(s) Problem Problem Problem Sta tus Onset/Resoluti Duration on Abdominal pain Abdominal 04-13-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 ORTIZ BAILEY [facility] Via (2 sources.) pain, other , [facility] [place] specified site Hospital - [place] ([id number]) Residual Acquired 03-18-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 ANUSHA KIM [facility] Via codes; absence of DO [place] unclassified both cervix Hospital - (18 sources.) and uterus [place] (75098) Alcohol-relate Alcohol 03-18-2019 - Chronic Active ANUSHA COLLINS [facility] Via d disorders dependence DO [facility] (20 sources.) with Hospital - withdrawal, [place] unspecified ([address]37) Translations: [ Alcohol abuse, - Alcohol abuse F10.10] Allergic Allergy status 03-22-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 TONY LEDEZMA [facility] Via reactions (20 to other [place] sources.) drugs, Hospital - medicaments [place] and biological (12890) substances status Other and Benign 03-18-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 ANUSHA KIM [facility] Via 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 (18 gland, [place] sources.) unspecified (20225) Mood disorders Bipolar 03-18-2019 - Chronic Active PATRICE Garcias , [facility] Via (19 sources.) disorder, DO [place] unspecified Hospital - Translations: [place] [ BIPOLAR ([id number]) DISORDER, UNSPECIFIED] Chronic Bronchitis, 03-18-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 ANUSHA KIM [facility] Via obstructive not specified DO [place] pulmonary as acute or Hospital - disease and chronic [place] bronchiectasis Translations: (72542) (20 sources.) [ - Bronchitis J40] Other nervous Chronic pain 03-22-2019 - Chronic Active MATT BRITO [facility] Via system syndrome [facility] [place] disorders (20 Hospital - sources.) [place] ([id number]) Other bone Disorder of 04-13-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 KHARI [place] [facility] Via disease and bone and , [place] musculoskeleta cartilage, Hospital - l deformities unspecified [place] (1 source.) (51293) Lymphadenitis Localized 03-22-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 IZABELLA LOPEZ [facility] Via (13 sources.) enlarged lymph , [facility] [place] nodes Hospital - [place] (33021) Other lobsterman 03-22-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 TONY GIFFORD [facility] Via aftercare (20 (current) use [place] sources.) of inhaled Hospital - steroids [place] (04893) Other lobsterman 03-22-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 TONY GIFFORD , [facility] Via aftercare (13 (current) use PREPRESS MANAGER [place] sources.) of systemic Hospital - steroids [place] (31047) Other Long-term 03-22-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 MATT BRITO [facility] Via aftercare (20 (current) use [place] sources.) of other Hospital - medications [place] (41771) Spondylosis; Lumbago 03-18-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 MATT Barclay , [facility] Via intervertebral Translations: MD [place] morgan [ BACKACHE Hospital - disorders; NOS, [place] other back CERVICALGIA, (58572) problems (20 DORSALGIA, sources.) UNSPECIFIED] Other nervous Other acute 03-22-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 TONY SOLARES , [facility] Via system postprocedural PREPRESS MANAGER [place] disorders (13 pain Hospital - sources.) [place] (28920) Other Other bursal 03-22-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 DOUGLAS OC , [facility] Via connective cyst, other PREPRESS MANAGER [place] tissue disease site Hospital - (17 sources.) [place] (53712) Other nervous Other chronic 03-18-2019 - Chronic Active ANUSHA KIM , [facility] Via system pain DO [place] disorders (18 Hospital - sources.) [place] (85431) Diseases of Other diseases 03-18-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 DOUGLAS OC , [facility] Via mouth; of salivary PREPRESS MANAGER [place] excluding glands Hospital - dental (30 Translations: [place] sources.) [ (72528) SIALOADENITIS, UNSPECIFIED] Spondylosis; Other 03-22-2019 - Chronic Active MATT Barclay , [facility] Via intervertebral intervertebral MD [place] morgan disc Hospital - disorders; degeneration, [place] other back lumbosacral (89283) problems (37 region sources.) Translations: [ LUMB/LUMBOSAC DISC DEGEN, LUMBOSACRAL SPONDYLOSIS, Degenerative disc disease at L5-S1 level, - Degenerative disc disease at L5-S1 level M51.36] Other Pain in joint, 04-13-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 SUE JEFFREYL , [facility] Via non-traumatic pelvic region PRINTING SCREEN ASSEMBLER [facility] joint and thigh Hospital - disorders (1 [place] source.) (15732) Other Pain in joint, 03-22-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 TONY LEDEZMA , [facility] Via non-traumatic shoulder PREPRESS MANAGER [facility] joint region Hospital - disorders (20 [place] sources.) (02624) Screening and Personal 03-18-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 ANUSHA GRIFFITH ER , [facility] Via history of history of DO [facility] mental health nicotine Hospital - and substance dependence [place] abuse codes (26415) (18 sources.) Other Personal 03-22-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 TONY GIFFORD [facility] Via gastrointestin history of [place] al disorders other diseases Hospital - (20 sources.) of the [place] digestive (54721) system Schizophrenia Schizophrenia, 03-18-2019 - Chronic Active NORI MATT , [facility] Via and other unspecified DO [place] psychotic Translations: Hospital - disorders (19 [ [place] sources.) SCHIZOPHRENIA (12300) NOS-UNSPEC] Other lower Shortness of 04-13-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 DAVIE BONILLAOR , [facility] Via respiratory breath [place] disease (1 Hospital - source.) [place] (06422) Other lower Shortness of 03-22-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 TONY IBRAHIM [facility] Via respiratory breath [place] disease (20 Hospital - sources.) [place] (79136) Other lower Solitary 03-18-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 ANUSHA KIM , [facility] Via respiratory pulmonary DO [place] disease (18 nodule Hospital - sources.) [place] (67196) Other Synovial cyst, 03-22-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 MATT OLIVAREZ , [facility] Via connective unspecified MD [place] tissue disease Hospital - (20 sources.) [place] (73268) Systemic lupus Systemic lupus 03-18-2019 - Chronic Active ERAN QUINTANILLA , [facility] Via erythematosus erythematosus, DO [place] and connective unspecified Hospital - tissue Translations: [place] disorders (20 [ SYST LUPUS (43912) sources.) ERYTHEMATOSIS, - Lupus M32.9] Urinary tract Urinary tract 04-13-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 ORTIZ DE SOUZA [facility] Via infections (2 infection, , [place] sources.) site not Hospital - specified [place] Translations: (76637) [ PYELONEPHRITIS NOS] Procedures The data below is from unstructured sources No Known procedures No Known procedures No Known procedures No Known procedures No Known procedures No Known procedures No Known procedures No Known procedures No Known procedures No Known procedures No Known procedures No Known procedures No Known procedures No Known procedures No Known procedures No Known procedures No Known procedures No Known procedures No Known procedures No Known procedures No Known procedures No Known procedures No Known procedures No Known procedures No Known procedures Immunizations The data below is from unstructured sources No Known Immunizations No Known Immunizations No Known Immunizations No Known Immunizations No Known Immunizations No Known Immunizations No Known Immunizations No Known Immunizations No Known Immunizations No Known Immunizations No Known Immunizations No Known Immunizations No Known Immunizations No Known Immunizations No Known Immunizations No Known Immunizations No Known Immunizations No Known Immunizations No Known Immunizations No Known Immunizations No Known Immunizations No Known Immunizations No Known Immunizations No Known Immunizations No Known Immunizations Results Test Name Value Interpretation Reference Range Date Time Fa cility (Normalized) (Normalized) (Medline Reference) No panel information on 2019-04-09 Albumin 3.1 g/dL (L) 3.4 - 5.4 g/dL [facility] [Mass/Vol] [facility] (79369) Albumin/Globulin 0.9 {ratio} (L) 1 - 2.5 {ratio} [facility] [Mass ratio] [facility] (21843) ALP [Catalytic 82 U/L (N) 44 - 147 U/L [facility] activity/Vol] [facility] (11294) ALT [Catalytic 44 U/L (H) 4 - 40 U/L [facility] activity/Vol] [facility] (29699) AST [Catalytic 88 U/L (H) 10 - 34 U/L [facility] activity/Vol] [facility] (37215) Bilirubin 1.4 mg/dL (H) 0.1 - 1.2 mg/dL [facility] [Mass/Vol] [facility] (47791) Calcium 9.0 mg/dL (N) 8.5 - 10.2 mg/dL [facility] [Mass/Vol] [facility] (70688) Chloride 103 mmol/L (N) 95 - 106 mmol/L [facility] [Moles/Vol] [facility] (14180) CO2 [Moles/Vol] 28 mmol/L (N) 23 - 29 mmol/L [facility] (71880) Creatinine 0.85 mg/dL (N) [facility] [Mass/Vol] [facility] (15362) GFR/1.73 sq M 85 (N) 90 - 120 [facility] predicted among mL/min/{1.73_m2} mL/min/{1.73_m2} [facility] f [facility] blacks MDRD [facility] (S/P/Bld) [Vol (40877) rate/Area] GFR/1.73 sq 73 (N) 90 - 120 [facility] M.predicted MDRD mL/min/{1.73_m2} mL/min/{1.73_m2} [facility] (S/P/Bld) [Vol [facility] rate/Area] (37869) Globulin (S) 3.4 g/dL (N) 2 - 3.5 g/dL [facility] [Mass/Vol] [facility] (05838) Glucose 143 mg/dL (H) 60 - 125 mg/dL [facility] [Mass/Vol] [facility] (72723) Natriuretic 262 pg/mL (H) 0 - 100 pg/mL [facility] peptide B (Bld) [facility] [Mass/Vol] [facility] (41947) Potassium 4.0 mmol/L (N) 3.7 - 5.2 mmol/L [facility] [Moles/Vol] [facility] (40111) Protein 6.5 g/dL (N) 6.4 - 8.3 g/dL [facility] [Mass/Vol] [facility] (66023) Sodium 138 mmol/L (N) 135 - 145 mmol/L [facility] [Moles/Vol] [facility] (80837) Urea nitrogen 6 mg/dL (L) 7 - 20 mg/dL [facility] [Mass/Vol] [facility] (35144) Urea 7 mg/mg (N) 6 - 22 mg/mg [facility] nitrogen/Creatin [facility] [Mass ratio] [facility] (60118) No panel information on 2019-03-19 Albumin 3.4 g/dL (L) 3.4 - 5.4 g/dL [facility] [Mass/Vol] [facility] (03784) Albumin/Globulin 1.3 {ratio} (N) 1 - 2.5 {ratio} Comm [facility] [Mass ratio] [facility] (53879) ALP [Catalytic 79 U/L (N) 44 - 147 U/L [facility] activity/Vol] [facility] (27071) ALT [Catalytic 77 U/L (H) 4 - 40 U/L [facility] activity/Vol] [facility] (06964) AST [Catalytic 87 U/L (H) 10 - 34 U/L [facility] activity/Vol] [facility] (11812) Bilirubin 1.0 mg/dL (N) 0.1 - 1.2 mg/dL [facility] [Mass/Vol] [facility] (72309) Calcium 9.0 mg/dL (N) 8.5 - 10.2 mg/dL [facility] [Mass/Vol] [facility] (11966) Chloride 102 mmol/L (N) 95 - 106 mmol/L [facility] [Moles/Vol] [facility] (68702) CO2 [Moles/Vol] 28 mmol/L (N) 23 - 29 mmol/L [facility] (53816[facility] Creatinine 1.11 mg/dL (H) [facility] [Mass/Vol] [facility] (27918) GFR/1.73 sq M 61 (N) 90 - 120 [facility] predicted among mL/min/{1.73_m2} mL/min/{1.73_m2} [place] MDRD [facility] (S/P/Bld) [Vol (71827) rate/Area] GFR/1.73 sq 53 (L) 90 - 120 [facility] M.predicted MDRD mL/min/{1.73_m2} mL/min/{1.73_m2} [facility] (S/P/Bld) [Vol [facility] rate/Area] (76264) Globulin (S) 2.6 g/dL (N) 2 - 3.5 g/dL [facility] [Mass/Vol] [facility] (96323) Glucose 129 mg/dL (H) 60 - 125 mg/dL [facility] [Mass/Vol] [facility] (36211) Natriuretic 210 pg/mL (H) 0 - 100 pg/mL [facility] peptide B (Bld) [facility] [Mass/Vol] [facility] (85463) Potassium 3.7 mmol/L (N) 3.7 - 5.2 mmol/L [facility] [Moles/Vol] [facility] (55612) Protein 6.0 g/dL (L) 6.4 - 8.3 g/dL [facility] [Mass/Vol] [facility] (85659) Sodium 137 mmol/L (N) 135 - 145 mmol/L [facility] [Moles/Vol] [facility] (92316) Urea nitrogen 20 mg/dL (N) 7 - 20 mg/dL [facility] [Mass/Vol] [facility] (30026) Urea 18 mg/mg (N) 6 - 22 mg/mg [facility] nitrogen/Creatin [facility] [Mass ratio] [facility] (69249) No panel information on 2018-11-02 COMMENT no information (no code) [facility] (54781) CRP [Mass/Vol] 4.8 mg/L (N) 0 - 8 mg/L [facility] (81244) ESR (Bld) 25 mm/h (N) [facility] [Velocity] [facility] (28042) HAV IgM IA Ql NON-REACTIVE (N) [facility] (23934) HBV core IgM IA NON-REACTIVE (N) [facility] (79555) HBV surface Ag NON-REACTIVE (N) [facility] IA Ql [facility] (71293) HCV Ab IA Ql REACTIVE (A) [facility] (87937) HCV Ab 24.90 {ratio} (H) 0 - 3 {ratio} [facility] Signal/Cutoff IA [facility] [Rel units/Vol] [facility] (94921) HCV genotype 3 (no code) [facility] HIPOLITO+probe Nom [facility] (91425) HCV RNA 4.87 (H) [facility] HIPOLITO+probe [[facility] units/Vol] [facility] (16196) HCV RNA 5.36 (H) [facility] HIPOLITO+probe [[facility] units/Vol] [facility] (08505) HCV RNA 01060 (H) [facility] HIPOLITO+probe Qn [facility] (73737) HCV RNA 651785 (H) [facility] HIPOLITO+probe Qn [facility] (22965) Nuclear Ab IF Ql no information (N) [facility] (S) [facility] (57317) Rheumatoid [IU]/mL (N) 0 - 15 [IU]/mL [facility] factor Qn [facility] (16830) TSH Qn 53.93 m[IU]/L (H) 0.4 - 4 m[IU]/L [facility] (77589) No panel information on 2018-09-03 Albumin 3.9 g/dL (N) 3.4 - 5.4 g/dL [facility] [Mass/Vol] [facility] (53426) Albumin/Globulin 1.1 {ratio} (N) 1 - 2.5 {ratio} Comm [facility] [Mass ratio] [facility] (98076) ALP [Catalytic 59 U/L (N) 44 - 147 U/L [facility] activity/Vol] [facility] (02485) ALT [Catalytic 64 U/L (H) 4 - 40 U/L [facility] activity/Vol] [facility] (69289) AST [Catalytic 162 U/L (H) 10 - 34 U/L [facility] activity/Vol] [facility] (32707) Bilirubin 1.5 mg/dL (H) 0.1 - 1.2 mg/dL [facility] [Mass/Vol] [facility] (41584) Calcium 9.5 mg/dL (N) 8.5 - 10.2 mg/dL [facility] [Mass/Vol] [facility] (44959) Chloride 106 mmol/L (N) 95 - 106 mmol/L [facility] [Moles/Vol] [facility] (34947) Cholesterol 170 mg/dL (N) 180 - 200 mg/dL [facility] [Mass/Vol] [facility] (31818) Cholesterol in 50 mg/dL (L) [facility] HDL [Mass/Vol] [facility] (23828) Cholesterol in 105 mg/dL (H) 0 - 100 mg/dL [facility] LDL [Mass/Vol] [facility] (04524) Cholesterol non 120 mg/dL (N) [facility] HDL [Mass/Vol] [facility] (92247) Cholesterol.tota 3.4 {ratio} (N) [facility] lt l/Cholesterol in [facility] HDL [Mass ratio] [facility] (28542) CO2 [Moles/Vol] 26 mmol/L (N) 23 - 29 mmol/L [facility] (60781) Creatinine 1.18 mg/dL (H) [facility] h [Mass/Vol] [facility] (13932) Free T4 0.1 ng/dL (L) 0.9 - 2.2 ng/dL [facility] [Mass/Vol] [facility] (47499) GFR/1.73 sq M 57 (L) 90 - 120 [facility] predicted among mL/min/{1.73_m2} mL/min/{1.73_m2} [place] MDRD [facility] (S/P/Bld) [Vol (98825) rate/Area] GFR/1.73 sq 49 (L) 90 - 120 [facility] M.predicted MDRD mL/min/{1.73_m2} mL/min/{1.73_m2} [facility] (S/P/Bld) [Vol [facility] rate/Area] (92410) Globulin (S) 3.5 g/dL (N) 2 - 3.5 g/dL [facility] [Mass/Vol] [facility] (60437) Glucose 99 mg/dL (N) 60 - 125 mg/dL [facility] [Mass/Vol] [facility] (58744) Potassium 4.2 mmol/L (N) 3.7 - 5.2 mmol/L [facility] [Moles/Vol] [facility] (17073) Protein 7.4 g/dL (N) 6.4 - 8.3 g/dL [facility] [Mass/Vol] [facility] (05117) Sodium 139 mmol/L (N) 135 - 145 mmol/L [facility] [Moles/Vol] [facility] (68200) Triglyceride 63 mg/dL (N) 0 - 150 mg/dL [facility] [Mass/Vol] [facility] (01812) TSH Qn 145.76 m[IU]/L (H) 0.4 - 4 m[IU]/L [facility] (65101[facility] Urea nitrogen 9 mg/dL (N) 7 - 20 mg/dL [facility] [Mass/Vol] [facility] (76042) Urea 8 mg/mg (N) 6 - 22 mg/mg [facility] alth nitrogen/Creatin [facility] [Mass ratio] [facility] (57946) Vital Signs No Information Interventions No Information Plan of Treatment No Information Goals No Information Social History No Information Functional Status No Information Mental Status No Information Encounters Encounter Normalized Encounter Encounter Diagnosis Care Provi chrissie Organization Date Type 03-09-2019 Emergency department no information no name (no danilo ne) no organization name patient visit (no phone) 03-02-2019 Emergency department no information TONY MAZA (no [facility] [place] - patient visit phone) [facility] 03-02-2019 (no phone) 07-20-2018 Emergency department no information no name (no danilo ne) no organization name - patient visit (no phone) 07-20-2018 07-20-2018 Emergency department no information TONY KEYN (no [facility] Via [place] - patient visit phone) [facility] 07-20-2018 (no phone) 06-10-2014 Emergency department no information no name (no danilo ne) no organization name - patient visit (no phone) 06-10-2014 06-10-2014 Emergency department no information TONY KEYN (no [facility] [place] - patient visit phone) [facility] 06-10-2014 (no phone) 11-19-2011 Emergency department no information DAVIE BALLARD MD (no [facility] [place] - patient visit phone) [facility] 11-19-2011 (no phone) 10-30-2010 Emergency department no information DAVIE BALLARD MD (no [facility] [place] - patient visit phone) [facility] 10-30-2010 (no phone) 06-28-2010 Emergency department no information ORTIZ DE SOUZA MD (no [facility] [place] - patient visit phone) [facility] 06-28-2010 (no phone) 03-10-2019 Evaluation and no information ANUSHA KIM DO (no [facility] Via [place] - management of phone) [facility] 03-12-2019 inpatient (no phone) 03-09-2019 Evaluation and no information ANUSHA KIM DO (no [facility] Via [place] management of phone) [facility] inpatient (no phone) 03-09-2019 Evaluation and no information ANUSHA KIM DO (no [facility] Via [place] management of phone) [facility] inpatient (no phone) 11-02-2010 Evaluation and no information PATRICE MATT DO (no [facility] Via [place] - management of phone) [facility] 11-07-2010 inpatient (no phone) 04-09-2019 Patient encounter no information DOUGLAS D OC (no [facility] phone[facility] (no phone) (no [facility] [place] (no phone) 03-19-2019 Patient encounter no information DOUGLAS D OC (no [facility] procedure phone) (no phone) (no [facility] phone) [place] (no phone) 03-10-2019 Patient encounter no information ANUSHA KIM DO (no [facility] [place] - procedure phone) [facility] 03-12-2019 (no phone) 03-02-2019 Patient encounter no information no name (no phone) no organization name procedure (no phone) 03-01-2019 Patient encounter no information IZABELLA HOLT MD (no [facility] [place] procedure phone) [facility] (no phone) 12-17-2018 Patient encounter no information no name (no phone) no organization name procedure (no phone) 11-26-2018 Patient encounter no information no name (no phone) no organization name procedure (no phone) 11-26-2018 Patient encounter no information DOUGLAS Ioana RENAE PREPRESS MANAGER (no [facility] procedure phone) [facility] (no phone) 11-17-2018 Patient encounter no information no name (no phone) no organization name procedure (no phone) 11-02-2018 Patient encounter no information no name (no phone) no organization name procedure (no phone) 11-02-2018 Patient encounter no information no name (no phone) no organization name procedure (no phone) 10-14-2018 Patient encounter no information no name (no phone) no organization name procedure (no phone) 10-14-2018 Patient encounter no information DOUGLAS Ioana RENAE PREPRESS MANAGER (no [facility] procedure phone) [facility] (no phone) 09-29-2018 Patient encounter no information no name (no phone) no organization name procedure (no phone) 09-03-2018 Patient encounter no information no name (no phone) no organization name procedure (no phone) 09-03-2018 Patient encounter no information no name (no phone) no organization name procedure (no phone) 08-25-2018 Patient encounter no information no name (no phone) no organization name procedure (no phone) 07-20-2018 Patient encounter no information no name (no phone) no organization name procedure (no phone) 07-20-2018 Patient encounter no information no name (no phone) no organization name procedure (no phone) 07-20-2018 Patient encounter no information no name (no phone) no organization name procedure (no phone) 09-26-2014 Patient encounter no information MATT BRITO MD (no [facility] - procedure phone) [facility] 09-26-2014 (no phone) 08-17-2014 Patient encounter no information no name (no phone) no organization name procedure (no phone) 08-17-2014 Patient encounter no information MATT BRITO MD (no [facility] procedure phone) [facility] (no phone) 02-16-2014 Patient encounter no information (no phone) Edi pressley [facility] (no phone) 09-18-2011 Patient encounter no information KHARI DODSON (no [facility] procedure phone) [facility] damian PRINTING 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 ASSEMBLER (no phone) (no phone) Medical Equipment No Information Payers No Information History general Narrative - Reported Note Type Note Facility History general Narrative - Reported Type Medical hepatitis C- no prior treat ment (Genotype 3 per pt) History Medical Hypothyroidism-1992 History Medical chronic pain-- knees and lo wer back osteoarthritis History Medical hx Lupus History Medical hx of pancreatitis History Medical COPD History Medical HTN History Medical Bipolar Disorder/Schizophre marisa History Medical Gout History Medical Staghorn calculus R kidney History Medical Colon polyps History Medical R shoulder pain - rotator c uff impingement; Type 2 slap tear of the glenoid History labrum w/ partial tearing o f the L biceps tendon anchor Medical COPD History Surgical hysterectomy, total with bilateral salp ingo-oophorectomy (BSO) - for 1995 History endometriosis Surgical Sweat Glands removed (axill annabelle) History Surgical Colonoscopy w/ polypectomy x3 02/16/14 History Surgical cholecytectomy ([facility]) 2005 History Hospitaliz Excaberation of COPD 10/2010 ation History Hospitaliz 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 FOR RECORDS PERTAINING TO PATIENTS WHO ARE OR HAVE BEEN ENROLLED IN A CHEMICAL D EPENDENCY/SUBSTANCE ABUSE PROGRAM, SOME INFORMATION MAY BE OMITTED. This clinica l summary was aggregated from multiple sources. Caution should be exercised in using it in the provision of clinical care. This summary normalizes information from multiple sources, and as a consequence, information in this document may ma terially change the coding, format and clinical context of patient data. In ania tion, data may be omitted in some cases. CLINICAL DECISIONS SHOULD BE BASED ON T HE PRIMARY CLINICAL RECORDS. [employer] provides no warranty or guara ntee of the accuracy or completeness of information in this document.The followi information is based on time limited clinical information UNRECOGNIZED CONTENT PROVIDED BELOW FOR UNRECOGNIZED SECTION REASON FOR VISIT PTO-YltCZD-YsnPEF-FlgHTU-OzxDLE-QbeHAP-VerDDB-IrgAXY-LoqFON-FupXGV-VxhQUG-Odb UNRECOGNIZED CONTENT PROVIDED BELOW FOR UNRECOGNIZED SECTION MEDICAL (GENERAL) HISTORY Type Description Date Medical History hepatitis C- no prio r treatment (Genotype 3 per pt) Medical History Hypothyroidism-1992 Medical History chronic pain-- knees and lower back osteoarthritis Medical History hx Lupus Medical History hx of pancreatitis Medical History COPD Medical History HTN Medical History Bipolar Disorder/Jose Antonio izophrenia Medical History Gout Medical History Staghorn calculus R kidney Medical History Colon polyps Medical History R shoulder pain - ro tator cuff impingement; Type 2 slap tear of the glenoid labrum w/ partial tearing of the L biceps tendon anchor Surgical History hysterectomy, total with bilateral salpingo- oophorectomy (BSO) - for endometriosis 1995 Surgical History Sweat Glands remove d (axillary) Surgical History Colonoscopy w/ poly pectomy x3 02/16/14 Surgical History cholecytectomy ([facility]) 2005 Hospitalization History Excaberation of COPD 10/2010
--- OUTSIDE RECORDS SUMMARY | 2019-06-02 06:35 | XMS REPORT ---
Author Author Magaly Muñoz Doctor Organization [facility] Address Unknown Phone Unavailable Care Team Providers Care Fish Hatchery Laborer Name Role Phone Migration, Doctor Unavailable Unavailable PROBLEMS Type Condition ICD9-CM Code BDI13-RX Code Onset Dates Condition S tatus SNOMED Code Problem Cannabis dependence, unspecified abuse 304.30 Active 84681087 Problem Anxiety state, unspecified 300.00 Act vianney 311092029 Problem Unspecified hypothyroidism 244.9 Act vianney 82235466 Problem Chronic pancreatitis 577.1 Active 427616911 Problem Chronic kidney disease 585.9 Active 512545796 Problem Other chronic pain 338.29 Active 8 3613366 Problem Hepatitis C 070.70 Active 10011386 Problem Essential hypertension, benign 401.1 Active 7416627 Problem Tear of left glenoid labrum 840.8 Ac tive 463420000 Problem Arthritis 716.90 Active 5236790 Problem Chronic pain 338.29 Active 2346581 1 Problem COPD (chronic obstructive pulmonary disease) 496 Active 47977398 ALLERGIES No Information ENCOUNTERS Encounter Location Date Diagnosis [place] [address] [place] [id number] [place] [id number] Oct, Shoulder impingement 726.2 [place] [address] [place] [id number] [address] [place] [id number] Aug, SLAP (superior glenoid labru m lesion) 840.7 and Shoulder impingement 726.[address] [place] [address] [facility] [id number] [address] [place] [id number] Jul, Type 2 superior labrum exten ding from anterior to posterior (SLAP) lesion of left shoulder 840.7 [place] [address] [place] [id number] [address] [place] [id number] June, Unspecified hypothyroidism 2 44.9 [place] [address] [place] [id number] [address] [place] [id number] June, Unspecified hypothyroidism 2 44.9 ; Chronic pain 338.29 ; Arthritis 716.90 ; Chronic kidney disease 585.9 ; Hepatitis C 070.70 ; Tear of left glenoid labrum 840.8 and COPD (chronic obstructive pulmonary disease) 496 [facility] [address] [id number] [address] [place] [address] June, Laceration 879.8 [facility] [address] [id number] [address] [place] [phone] June, Osteoarthritis 715.90 and Ch ronic obstructive airway disease 496 [facility] [address] [id number] [address] [place] [address] May, [facility] [address] [id number] [address] [place] [phone] May, [facility] [address] [id number] [address] [place] [phone] Apr, [facility] [address] [id number] [address] [place] [address] Apr, [facility] [address] [id number] [address] [place] [phone] Apr, [facility] [address] [facility] [id number] [address] [place] [address] Apr, [facility] [address] [id number] [address] [place] [id number] Oct, [facility] [address] [id number] [address] [place] [id number] Oct, [facility] [address] [id number] [address] [place] [address] Nov, [facility] [address] [id number] [address] [place] [phone] Nov, [facility] [address] [facility] [id number] [address] [place] [address] Nov, [facility] [address] [id number] [address] [place] [address], [place] [id number] 10 Nov, 2012 [facility] [address] [id number] [address] [place] [address], [place] [address] Sep, [facility] [address] [id number] [address] [place] [address], [place] [address] May, [facility] [address] [id number] [address] [place] [address], [place] [address] Mar, [facility] [address] [id number] [address] [place] [address], [place] [address] Feb, [facility] [address] [id number] [address] [place] [address], [place] [address] Feb, [facility] [address] [id number] [address] [place] [address], [place] [address] Feb, [facility] [address] [id number] [address] [place] [address], [place] [address] Jan, [facility] [address] [id number] [address] [place] [address], [place] [address] Jan, [facility] [address] [id number] [address] [place] [address], [place] [address] Dec, [facility] [address] [id number] [address] [place] [address], [place] [address] Dec, [facility] [address] [id number] [address] [place] [address], [place] [address] Nov, [facility] [address] [id number] [address] [place] [address], [place] [address] Nov, [facility] [address] [id number] [address] [place] [address], [place] [address] Nov, [facility] [address] [id number] [address] [place] [address], [place] [address] Nov, [facility] [address] [id number] [address] [place] [address], [place] [id number] 19 Nov, 2011 [facility] [address] [id number] [address] [place] [address], [place] [address] 18 Nov, 2011 [facility] [address] [id number] [address] [place] [address], [place] [id number] 10 Nov, 2011 [facility] [address] [id number] [address] [place] [address], [place] [id number] 10 Nov, 2011 [facility] [address] [id number] [address] [place] [address], [place] [id number] 03 Nov, 2011 [facility] [address] [id number] [address] [place] [address], [place] [id number] 27 Sep2011 [facility] [address] [id number] [address] [place] [address], [place] [id number] 17 Oct, 2011 [facility] [address] [id number] [address] [place] [address], [place] [id number] 10 Oct, 2011 [facility] [address] [id number] [address] [place] [address], [place] [id number] 07 Oct, 2011 [facility] [address] [id number] [address] [place] [address], [place] [id number] 06 Oct, 2011 [facility] [address] [id number] [address] [place] [address], [place] [id number] 29 Sep, 2011 [facility] [address] [id number] [address] [place] [address], [place] [id number] 22 Sep, 2011 [facility] [address] [id number] [address] [place] [address], [place] [id number] 16 Sep, 2011 [facility] [address] [id number] [address] [place] [address], [place] [id number] 15 Sep, 2011 [facility] [address] [id number] [address] [place] [address], [place] [id number] 13 Sep, 2011 [facility] [address] [id number] [address] [place] [address], [place] [id number] 08 Sep, 2011 [facility] [address] [id number] [address] [place] [address], [place] [address] Sep, [facility] [address] [id number] [address] [place] [address], [place] [address] Sep, [facility] [address] [id number] [address] [place] [address], [place] [address] Sep, [facility] [address] [id number] [address] [place] [address], [place] [address] June, [facility] [address] [id number] [address] [place] [address], [place] [address] June, [facility] [address] [id number] [address] [place] [address], [place] [address] Mar, [facility] [address] [id number] [address] [place] [address], [place] [id number] Feb, [facility] [address] [id number] [address] [place] [address], [place] [address] Feb, [facility] [address] [id number] [address] [place] [address], [place] [id number] Feb, [facility] [address] [id number] [address] [place] [address], [place] [address] Feb, [facility] [address] [id number] [address] [place] [address], [place] [address] Oct, [facility] [address] [id number] [address] [place] [address], [place] [id number] Jul, [facility] [address] [id number] [address] [place] [address], [place] [address] Dec, [facility] [address] [id number] [address] [place] [address], [place] [id number] 11 Mar, 2009 [facility] [address] [id number] [address] [place] [address], [place] [id number] 13 Nov, 2008 [facility] [address] [id number] [address] [place] [address], [place] [id number] 13 Nov, 2008 [facility] [address] [facility] [id number] [address] [place] [address] 10 Oct, 2008 IMMUNIZATIONS No Known Immunizations SOCIAL HISTORY Never Assessed REASON FOR VISIT EMR-[facility] PLAN OF CARE VITAL SIGNS MEDICATIONS Unknown [...]
--- OUTSIDE RECORDS SUMMARY | 2019-06-02 06:36 | XMS REPORT ---
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 Name Role Phone Migration, Doctor Unavailable Unavailable PROBLEMS Type Condition ICD9-CM Code DVP88-XI Code Onset Dates Condition S tatus SNOMED Code Problem Cannabis dependence, unspecified abuse 304.30 Active [id number] Problem Anxiety state, unspecified 300.00 Act vianney 989291957 Problem Unspecified hypothyroidism 244.9 Act vianney 55802922 Problem Chronic pancreatitis 577.1 Active 192246415 Problem Chronic kidney disease 585.9 Active 312464605 Problem Other chronic pain 338.29 Active 8 7282566 Problem Hepatitis C 070.70 Active 61235281 Problem Essential hypertension, benign 401.1 Active 1051930 Problem Tear of left glenoid labrum 840.8 Ac tive 008668449 Problem Arthritis 716.90 Active 1031609 Problem Chronic pain 338.29 Active 5529290 1 Problem COPD (chronic obstructive pulmonary disease) 496 Active 02698225 ALLERGIES No Information ENCOUNTERS Encounter Location Date Diagnosis [place] [address] [address] [place] [id number] [address] [place] [address] Oct, Shoulder impingement 726.2 [place] [address] [place] [id number] [address] [place] [address] Aug, SLAP (superior glenoid labru m lesion) 840.7 and Shoulder impingement 726.2 [place] [address] [address] [facility] [id number] [address] [place] [address] Jul, Type 2 superior labrum exten ding from anterior to posterior (SLAP) lesion of left shoulder 840.7 [place] [address] [address] [place] [id number] [address] [place] [address] June, Unspecified hypothyroidism 2 44.9 [place] [address] [address] [place] [id number] [address] [place] [address] June, Unspecified hypothyroidism 2 44.9 ; Chronic pain 338.29 ; Arthritis 716.90 ; Chronic kidney disease 585.9 ; Hepatitis C 070.70 ; Tear of left glenoid labrum 840.8 and COPD (chronic obstructive pulmonary disease) 496 [facility] [address] [id number] [address] [place] [address] June, Laceration 879.8 [facility] [address] [id number] [address] [place] [address] June, Osteoarthritis 715.90 and Ch ronic obstructive airway disease 496 [facility] [address] [id number] [address] [place] [address] May, [facility] [address] [id number] [address] [place] [address] May, [facility] [address] [id number] [address] [place] [address] Apr, [facility] [address] [id number] [address] [place] [address] Apr, [facility] [address] [id number] [address] [place] [address] Apr, [facility] [address] [facility] [id number] [address] [place] [address] Apr, [facility] [address] [id number] [address] [place] [address] Oct, [facility] [address] [id number] [address] [place] [address] Oct, [facility] [address] [id number] [address] [place] [address] Nov, [facility] [address] [id number] [address] [place] [address] Nov, [facility] [address] [facility] [id number] [address] [place] [address] Nov, [facility] [address] [id number] [address] [place] [address], [place] [address] 10 Nov, 2012 [facility] [address] [id number] [address] [place] [address], [place] [address] Sep, [facility] [address] [id number] [address] [place] [address], [place] [address] May, [facility] [address] [id number] [address] [place] [address], [place] [address] Mar, [facility] [address] [id number] [address] [place] [address], [place] [address] Feb, [facility] [address] [id number] [address] [place] [place] [address], [place] [address] Feb, [facility] [address] [id number] [address] [place] [address], [place] [address] Feb, [facility] [address] [id number] [address] [place] [address], [place] [address] Jan, [facility] [address] [id number] [address] [place] [address], [place] [address] Jan, [facility] [address] [id number] [address] [place] [address], [place] [address] Dec, [facility] [address] [id number] [address] [place] [address], [place] [address] Dec, [facility] [address] [id number] [address] [place] [address], [place] [address] Nov, [facility] [address] [id number] [address] [place] [place] [address], [place] [address] Nov, [facility] [address] [id number] [address] [place] [address], [place] [address] Nov, [facility] [address] [id number] [address] [place] [address], [place] [address] Nov, [facility] [address] [id number] [address] [place] [address], [place] [address] 19 Nov, 2011 [facility] [address] [id number] [address] [place] [address], [place] [address] 18 Nov, 2011 [facility] [address] [id number] [address] [place] [address], [place] [address] 10 Nov, 2011 [facility] [address] [id number] [address] [place] [address], [place] [address] 10 Nov, 2011 [facility] [address] [id number] [address] [place] [address], [place] [address] 03 Nov, 2011 [facility] [address] [id number] [address] [place] [place] [address], [place] [address] 27 Sep2011 [facility] [address] [id number] [address] [place] [address], [place] [address] 17 Oct, 2011 [facility] [address] [id number] [address] [place] [address], [place] [address] 10 Oct, 2011 [facility] [address] [id number] [address] [place] [address], [place] [address] 07 Oct, 2011 [facility] [address] [id number] [address] [place] [address], [place] [address] 06 Oct, 2011 [facility] [address] [id number] [address] [place] [address], [place] [address] 29 Sep, 2011 [facility] [address] [id number] [address] [place] [address], [place] [address] 22 Sep, 2011 [facility] [address] [id number] [address] [place] [address], [place] [address] 16 Sep, 2011 [facility] [address] [id number] [address] [place] [address], [place] [address] 15 Sep, 2011 [facility] [address] [id number] [address] [place] [address], [place] [address] 13 Sep, 2011 [facility] [address] [id number] [address] [place] [address], [place] [address] 08 Sep, 2011 [facility] [address] [id number] [address] [place] [address], [place] [address] Sep, [facility] [address] [id number] [address] [place] [address], [place] [address] Sep, [facility] [address] [id number] [address] [place] [address], [place] [address] Sep, [facility] [address] [id number] [address] [place] [address], [place] [address] June, [facility] [address] [id number] [address] [place] [address], [place] [address] June, [facility] [address] [id number] [address] [place] [address], [place] [address] Mar, [facility] [address] [id number] [address] [place] [address], [place] [address] Feb, [facility] [address] [id number] [address] [place] [address], [place] [address] Feb, [facility] [address] [id number] [address] [place] [address], [place] [address] Feb, [facility] [address] [id number] [address] [place] [address], [place] [address] Feb, [facility] [address] [id number] [address] [place] [address], [place] [address] Oct, [facility] [address] [id number] [address] [place] [address], [place] [address] Jul, [facility] [address] [id number] [address] [place] [address], [place] [address] Dec, [facility] [address] [id number] [address] [place] [address], [place] [address] 11 Mar, 2009 [facility] [address] [id number] [address] [place] [address], [place] [address] 13 Nov, 2008 [facility] [address] [id number] [address] [place] [address], [place] [address] 13 Nov, 2008 [facility] [address] [facility] [id number] [address] [place] [address] 10 Oct, 2008 IMMUNIZATIONS No Known Immunizations SOCIAL HISTORY Never Assessed REASON FOR VISIT [place] [place] VITAL SIGNS MEDICATIONS Unknown [...]
--- OUTSIDE RECORDS SUMMARY | 2019-06-02 06:36 | XMS REPORT ---
Author Author Magaly Muñoz Doctor Organization [facility] Address Unknown Phone Unavailable Care Team Providers Care Junior Staff Accountant Name Role Phone Migration, Doctor Unavailable Unavailable PROBLEMS Type Condition ICD9-CM Code GMN13-VY Code Onset Dates Condition S tatus SNOMED Code Problem Cannabis dependence, unspecified abuse 304.30 Active 24412419 Problem Anxiety state, unspecified 300.00 Act vianney 280044502 Problem Unspecified hypothyroidism 244.9 Act vianney 71935924 Problem Chronic pancreatitis 577.1 Active 623651880 Problem Chronic kidney disease 585.9 Active 742168141 Problem Other chronic pain 338.29 Active 8 3203022 Problem Hepatitis C 070.70 Active 85368973 Problem Essential hypertension, benign 401.1 Active 7482953 Problem Tear of left glenoid labrum 840.8 Ac tive 769932335 Problem Arthritis 716.90 Active 0383200 Problem Chronic pain 338.29 Active 8901571 1 Problem COPD (chronic obstructive pulmonary disease) 496 Active 59281543 ALLERGIES No Information ENCOUNTERS Encounter Location Date Diagnosis [place] [address] [address] [place] [id number] [address] [place] [address] Oct, Shoulder impingement 726.2 [place] [address] [address] [place] [id number] [address] [place] [address] Aug, SLAP (superior glenoid labru m lesion) 840.7 and Shoulder impingement 726.2 [place] [address] [address] [facility] [id number] [address] [place] [address] Jul, Type 2 superior labrum exten ding from anterior to posterior (SLAP) lesion of left shoulder 840.7 [place] [address] [address] [place] [id number] [address] [place] [address] June, Unspecified hypothyroidism 2 44.9 [place] [address] [address] [place] [id number] [address] [place] [address] June, Unspecified hypothyroidism 2 44.9 ; Chronic pain 338.29 ; Arthritis 716.90 ; Chronic kidney disease 585.9 ; Hepatitis C 070.70 ; Tear of left glenoid labrum 840.8 and COPD (chronic obstructive pulmonary disease) [address] [facility] [address] [id number] [address] [place] [address] June, Laceration 879.8 [facility] [address] [id number] [address] [place] [address] June, Osteoarthritis 715.90 and Ch ronic obstructive airway disease [address] [facility] [address] [id number] [address] [place] [address] May, [facility] [address] [id number] [address] [place] [address] May, [facility] [address] [id number] [address] [place] [address] Apr, [facility] [address] [id number] [address] [place] [address] Apr, [facility] [address] [id number] [address] [place] [address] Apr, [facility] [address] [facility] [id number] [address] [place] [address] Apr, [facility] [address] [id number] [address] [place] [address] Oct, [facility] [address] [id number] [address] [place] [address] Oct, [facility] [address] [id number] [address] [place] [address] Nov, [facility] [address] [id number] [address] [place] [address] Nov, [facility] [address] [facility] [id number] [address] [place] [address] Nov, [facility] [address] [id number] [address] [place] [address], [place] [address] 10 Nov, 2012 [facility] [address] [id number] [address] [place] [address], [place] [address] Sep, [facility] [address] [id number] [address] [place] [address], [place] [address] May, [facility] [address] [id number] [address] [place] [address], [place] [address] Mar, [facility] [address] [id number] [address] [place] [address], [place] [address] Feb, [facility] [address] [id number] [address] [place] [address], [place] [address] Feb, [facility] [address] [id number] [address] [place] [address], [place] [address] Feb, [facility] [address] [id number] [address] [place] [address], [place] [address] Jan, [facility] [address] [id number] [address] [place] [address], [place] [address] Jan, [facility] [address] [id number] [address] [place] [address], [place] [address] Dec, [facility] [address] [id number] [address] [place] [address], [place] [address] Dec, [facility] [address] [id number] [address] [place] [address], [place] [address] Nov, [facility] [address] [id number] [address] [place] [address], [place] [address] Nov, [facility] [address] [id number] [address] [place] [address], [place] [address] Nov, [facility] [address] [id number] [address] [place] [address], [place] [address] Nov, [facility] [address] [id number] [address] [place] [address], [place] [address] 19 Nov, 2011 [facility] [address] [id number] [address] [place] [address], [place] [address] 18 Nov, 2011 [facility] [address] [id number] [address] [place] [address], [place] [address] 10 Nov, 2011 [facility] [address] [id number] [address] [place] [address], [place] [address] 10 Nov, 2011 [facility] [address] [id number] [address] [place] [address], [place] [address] 03 Nov, 2011 [facility] [address] [id number] [address] [place] [address], [place] [address] 27 Sep2011 [facility] [address] [id number] [address] [place] [address], [place] [address] 17 Oct, 2011 [facility] [address] [id number] [address] [place] [address], [place] [address] 10 Oct, 2011 [facility] [address] [id number] [address] [place] [address], [place] [address] 07 Oct, 2011 [facility] [address] [id number] [address] [place] [address], [place] [address] 06 Oct, 2011 [facility] [address] [id number] [address] [place] [address], [place] [address] 29 Sep, 2011 [facility] [address] [id number] [address] [place] [address], [place] [address] 22 Sep, 2011 [facility] [address] [id number] [address] [place] [address], [place] [address] 16 Sep, 2011 [facility] [address] [id number] [address] [place] [address], [place] [address] 15 Sep, 2011 [facility] [address] [id number] [address] [place] [address], [place] [address] 13 Sep, 2011 [facility] [address] [id number] [address] [place] [address], [place] [address] 08 Sep, 2011 [facility] [address] [id number] [address] [place] [address], [place] [address] Sep, [facility] [address] [id number] [address] [place] [address], [place] [address] Sep, [facility] [address] [id number] [address] [place] [address], [place] [address] Sep, [facility] [address] [id number] [address] [place] [address], [place] [address] June, [facility] [address] [id number] [address] [place] [address], [place] [address] June, [facility] [address] [id number] [address] [place] [address], [place] [address] Mar, [facility] [address] [id number] [address] [place] [address], [place] [address] Feb, [facility] [address] [id number] [address] [place] [address], [place] [address] Feb, [facility] [address] [id number] [address] [place] [address], [place] [address] Feb, [facility] [address] [id number] [address] [place] [address], [place] [address] Feb, [facility] [address] [id number] [address] [place] [address], [place] [address] Oct, [facility] [address] [id number] [address] [place] [address], [place] [address] Jul, [facility] [address] [id number] [address] [place] [address], [place] [address] Dec, [facility] [address] [id number] [address] [place] [address], [place] [address] 11 Mar, 2009 [facility] [address] [id number] [address] [place] [address], [place] [address] 13 Nov, 2008 [facility] [address] [id number] [address] [place] [address], [place] [address] [address], [address] [facility] [address] [facility] [id number] [address] [place] [address] 10 Oct, 2008 IMMUNIZATIONS No Known Immunizations SOCIAL HISTORY Never Assessed REASON FOR VISIT EMR-[facility] [place] PLAN OF CARE VITAL SIGNS MEDICATIONS Unknown [...]
--- OUTSIDE RECORDS SUMMARY | 2019-06-02 06:36 | XMS REPORT ---
Author Author Magaly Muñoz Doctor Organization [facility] Address Unknown Phone Unavailable Care Team Providers Care Supervising Editor Trailer Name Role Phone Migration, Doctor Unavailable Unavailable PROBLEMS Type Condition ICD9-CM Code AUT09-RN Code Onset Dates Condition S tatus SNOMED Code Problem Cannabis dependence, unspecified abuse 304.30 Active 54673697 Problem Anxiety state, unspecified 300.00 Act vianney [id number] Problem Unspecified hypothyroidism 244.9 Act vianney 01437129 Problem Chronic pancreatitis 577.1 Active 031462942 Problem Chronic kidney disease 585.9 Active 256125669 Problem Other chronic pain 338.29 Active 8 4253928 Problem Hepatitis C 070.70 Active 49315888 Problem Essential hypertension, benign 401.1 Active 7723207 Problem Tear of left glenoid labrum 840.8 Ac tive 501464704 Problem Arthritis 716.90 Active 2923154 Problem Chronic pain 338.29 Active 4736374 1 Problem COPD (chronic obstructive pulmonary disease) 496 Active 46621596 ALLERGIES No Information ENCOUNTERS Encounter Location Date Diagnosis [place] [address] [place] [id number] [address] [place] [address] Oct, Shoulder impingement 726.2 [place] [address] [place] [id number] [address] [place] [address] Aug, SLAP (superior glenoid labru m lesion) 840.7 and Shoulder impingement 726.2 [place] [address] [address] [facility] [id number] [address] [place] [address] Jul, Type 2 superior labrum exten ding from anterior to posterior (SLAP) lesion of left shoulder 840.7 [place] [address] [place] [id number] [address] [place] [address] June, Unspecified hypothyroidism 2 44.9 [place] [address] [place] [id number] [address] [place] [address] June, Unspecified hypothyroidism 2 44.9 ; Chronic pain 338.29 ; Arthritis 716.90 ; Chronic kidney disease 585.9 ; Hepatitis C 070.70 ; Tear of left glenoid labrum 840.8 and COPD (chronic obstructive pulmonary disease) 496 [facility] [address] [id number] [address] [place] [address] June, Laceration 879.8 [facility] [address] [id number] [address] [place] [address] June, Osteoarthritis 715.90 and Ch ronic obstructive airway disease 496 [facility] [address] [id number] [address] [place] [address] May, [facility] [address] [id number] [address] [place] [address] May, [facility] [address] [id number] [address] [place] [address] Apr, [facility] [address] [id number] [address] [place] [address] Apr, [facility] [address] [id number] [address] [place] [address] Apr, [facility] [address] [facility] [id number] [address] [place] [address] Apr, [facility] [address] [id number] [address] [place] [address] Oct, [facility] [address] [id number] [address] [place] [address] Oct, [facility] [address] [id number] [address] [place] [address] Nov, [facility] [address] [id number] [address] [place] [address] Nov, [facility] [address] [facility] [id number] [address] [place] [address] Nov, [facility] [address] [id number] [address] [place] [address], [place] [address] 10 Nov, 2012 [facility] [address] [id number] [address] [place] [address], [place] [address] Sep, [facility] [address] [id number] [address] [place] [address], [place] [address] May, [facility] [address] [id number] [address] [place] [address], [place] [address] Mar, [facility] [address] [id number] [address] [place] [address], [place] [address] Feb, [facility] [address] [id number] [address] [place] [address], [place] [address] Feb, [facility] [address] [id number] [address] [place] [address], [place] [address] Feb, [facility] [address] [id number] [address] [place] [address], [place] [address] Jan, [facility] [address] [id number] [address] [place] [address], [place] [address] Jan, [facility] [address] [id number] [address] [place] [address], [place] [address] Dec, [facility] [address] [id number] [address] [place] [address], [place] [address] Dec, [facility] [address] [id number] [address] [place] [address], [place] [address] Nov, [facility] [address] [id number] [address] [place] [address], [place] [address] Nov, [facility] [address] [id number] [address] [place] [address], [place] [address] Nov, [facility] [address] [id number] [address] [place] [address], [place] [address] Nov, [facility] [address] [id number] [address] [place] [address], [place] [address] 19 Nov, 2011 [facility] [address] [id number] [address] [place] [address], [place] [address] 18 Nov, 2011 [facility] [address] [id number] [address] [place] [address], [place] [address] 10 Nov, 2011 [facility] [address] [id number] [address] [place] [address], [place] [address] 10 Nov, 2011 [facility] [address] [id number] [address] [place] [address], [place] [address] 03 Nov, 2011 [facility] [address] [id number] [address] [place] [address], [place] [address] 27 Sep2011 [facility] [address] [id number] [address] [place] [address], [place] [address] 17 Oct, 2011 [facility] [address] [id number] [address] [place] [address], [place] [address] 10 Oct, 2011 [facility] [address] [id number] [address] [place] [address], [place] [address] 07 Oct, 2011 [facility] [address] [id number] [address] [place] [address], [place] [address] 06 Oct, 2011 [facility] [address] [id number] [address] [place] [address], [place] [address] 29 Sep, 2011 [facility] [address] [id number] [address] [place] [address], [place] [address] 22 Sep, 2011 [facility] [address] [id number] [address] [place] [address], [place] [address] 16 Sep, 2011 [facility] [address] [id number] [address] [place] [address], [place] [address] 15 Sep, 2011 [facility] [address] [id number] [address] [place] [address], [place] [address] 13 Sep, 2011 [facility] [address] [id number] [address] [place] [address], [place] [address] 08 Sep, 2011 [facility] [address] [id number] [address] [place] [address], [place] [address] Sep, [facility] [address] [id number] [address] [place] [address], [place] [address] Sep, [facility] [address] [id number] [address] [place] [address], [place] [address] Sep, [facility] [address] [id number] [address] [place] [address], [place] [address] June, [facility] [address] [id number] [address] [place] [address], [place] [address] June, [facility] [address] [id number] [address] [place] [address], [place] [address] Mar, [facility] [address] [id number] [address] [place] [address], [place] [address] Feb, [facility] [address] [id number] [address] [place] [address], [place] [address] Feb, [facility] [address] [id number] [address] [place] [address], [place] [address] Feb, [facility] [address] [id number] [address] [place] [address], [place] [address] Feb, [facility] [address] [id number] [address] [place] [address], [place] [address] Oct, [facility] [address] [id number] [address] [place] [address], [place] [address] Jul, [facility] [address] [id number] [address] [place] [address], [place] [address] Dec, [facility] [address] [id number] [address] [place] [address], [place] [address] 11 Mar, 2009 [facility] [address] [id number] [address] [place] [address], [place] [address] 13 Nov, 2008 [facility] [address] [id number] [address] [place] [address], [place] [address] 13 Nov, 2008 [facility] [address] [facility] [id number] [address] [place] [address] 10 Oct, 2008 IMMUNIZATIONS No Known Immunizations SOCIAL HISTORY Never Assessed REASON FOR VISIT EMR-[facility] PLAN OF CARE VITAL [...]
--- OUTSIDE RECORDS SUMMARY | 2019-06-02 06:36 | XMS REPORT ---
Author Author Magaly Muñoz Doctor Organization [facility] Address Unknown Phone Unavailable Care Team Providers Care Director Drug Safety Name Role Phone Migration, Doctor Unavailable Unavailable PROBLEMS Type Condition ICD9-CM Code WDX36-DA Code Onset Dates Condition S tatus SNOMED Code Problem Cannabis dependence, unspecified abuse 304.30 Active 19911798 Problem Anxiety state, unspecified 300.00 Act vianney [id number] Problem Unspecified hypothyroidism 244.9 Act vianney 97429376 Problem Chronic pancreatitis 577.1 Active 020133805 Problem Chronic kidney disease 585.9 Active 717654686 Problem Other chronic pain 338.29 Active 8 7159236 Problem Hepatitis C 070.70 Active 07108723 Problem Essential hypertension, benign 401.1 Active 9319724 Problem Tear of left glenoid labrum 840.8 Ac tive 485152581 Problem Arthritis 716.90 Active 7722596 Problem Chronic pain 338.29 Active 9701655 1 Problem COPD (chronic obstructive pulmonary disease) 496 Active 13141978 ALLERGIES No Information ENCOUNTERS Encounter Location Date Diagnosis [place] [address] [place] [id number] [address] [place] [address] Oct, Shoulder impingement 726.2 [place] [address] [place] [id number] [address] [place] [address] Aug, SLAP (superior glenoid labru m lesion) 840.7 and Shoulder impingement 726.2 [place] [address] [address] [facility] [id number] [address] [place] [address] Jul, Type 2 superior labrum exten ding from anterior to posterior (SLAP) lesion of left shoulder 840.7 [place] [address] [place] [id number] [address] [place] [address] June, Unspecified hypothyroidism 2 44.9 [place] [address] [place] [id number] [address] [place] [address] June, Unspecified hypothyroidism 2 44.9 ; Chronic pain 338.29 ; Arthritis 716.90 ; Chronic kidney disease 585.9 ; Hepatitis C 070.70 ; Tear of left glenoid labrum 840.8 and COPD (chronic obstructive pulmonary disease) 496 [facility] [address] [id number] [address] [place] [address] June, Laceration 879.8 [facility] [address] [id number] [address] [place] [address] June, Osteoarthritis 715.90 and Ch ronic obstructive airway disease 496 [facility] [address] [id number] [address] [place] [address] May, [facility] [address] [id number] [address] [place] [address] May, [facility] [address] [id number] [address] [place] [address] Apr, [facility] [address] [id number] [address] [place] [address] Apr, [facility] [address] [id number] [address] [place] [address] Apr, [facility] [address] [facility] [id number] [address] [place] [address] Apr, [facility] [address] [id number] [address] [place] [address] Oct, [facility] [address] [id number] [address] [place] [address] Oct, [facility] [address] [id number] [address] [place] [address] Nov, [facility] [address] [id number] [address] [place] [address] Nov, [facility] [address] [facility] [id number] [address] [place] [address] Nov, [facility] [address] [id number] [address] [place] [address], [place] [address] 10 Nov, 2012 [facility] [address] [id number] [address] [place] [address], [place] [address] Sep, [facility] [address] [id number] [address] [place] [address], [place] [address] May, [facility] [address] [id number] [address] [place] [address], [place] [address] Mar, [facility] [address] [id number] [address] [place] [address], [place] [address] Feb, [facility] [address] [id number] [address] [place] [address], [place] [address] Feb, [facility] [address] [id number] [address] [place] [address], [place] [address] Feb, [facility] [address] [id number] [address] [place] [address], [place] [address] Jan, [facility] [address] [id number] [address] [place] [address], [place] [address] Jan, [facility] [address] [id number] [address] [place] [address], [place] [address] Dec, [facility] [address] [id number] [address] [place] [address], [place] [address] Dec, [facility] [address] [id number] [address] [place] [address], [place] [address] Nov, [facility] [address] [id number] [address] [place] [address], [place] [address] Nov, [facility] [address] [id number] [address] [place] [address], [place] [address] Nov, [facility] [address] [id number] [address] [place] [address], [place] [address] Nov, [facility] [address] [id number] [address] [place] [address], [place] [address] 19 Nov, 2011 [facility] [address] [id number] [address] [place] [address], [place] [address] 18 Nov, 2011 [facility] [address] [id number] [address] [place] [address], [place] [address] 10 Nov, 2011 [facility] [address] [id number] [address] [place] [address], [place] [address] 10 Nov, 2011 [facility] [address] [id number] [address] [place] [address], [place] [address] 03 Nov, 2011 [facility] [address] [id number] [address] [place] [address], [place] [address] 27 Sep2011 [facility] [address] [id number] [address] [place] [address], [place] [address] 17 Oct, 2011 [facility] [address] [id number] [address] [place] [address], [place] [address] 10 Oct, 2011 [facility] [address] [id number] [address] [place] [address], [place] [address] 07 Oct, 2011 [facility] [address] [id number] [address] [place] [address], [place] [address] 06 Oct, 2011 [facility] [address] [id number] [address] [place] [address], [place] [address] 29 Sep, 2011 [facility] [address] [id number] [address] [place] [address], [place] [address] 22 Sep, 2011 [facility] [address] [id number] [address] [place] [address], [place] [address] 16 Sep, 2011 [facility] [address] [id number] [address] [place] [address], [place] [address] 15 Sep, 2011 [facility] [address] [id number] [address] [place] [address], [place] [address] 13 Sep, 2011 [facility] [address] [id number] [address] [place] [address], [place] [address] 08 Sep, 2011 [facility] [address] [id number] [address] [place] [address], [place] [address] Sep, [facility] [address] [id number] [address] [place] [address], [place] [address] Sep, [facility] [address] [id number] [address] [place] [address], [place] [address] Sep, [facility] [address] [id number] [address] [place] [address], [place] [address] June, [facility] [address] [id number] [address] [place] [address], [place] [address] June, [facility] [address] [id number] [address] [place] [address], [place] [address] Mar, [facility] [address] [id number] [address] [place] [address], [place] [address] Feb, [facility] [address] [id number] [address] [place] [address], [place] [address] Feb, [facility] [address] [id number] [address] [place] [address], [place] [address] Feb, [facility] [address] [id number] [address] [place] [address], [place] [address] Feb, [facility] [address] [id number] [address] [place] [address], [place] [address] Oct, [facility] [address] [id number] [address] [place] [address], [place] [address] Jul, [facility] [address] [id number] [address] [place] [address], [place] [address] Dec, [facility] [address] [id number] [address] [place] [address], [place] [address] 11 Mar, 2009 [facility] [address] [id number] [address] [place] [address], [place] [address] 13 Nov, 2008 [facility] [address] [id number] [address] [place] [address], [place] [address] 13 Nov, 2008 [facility] [address] [facility] [id number] [address] [place] [address] 10 Oct, 2008 IMMUNIZATIONS No Known Immunizations SOCIAL HISTORY Never Assessed REASON FOR VISIT [place] [place] VITAL SIGNS MEDICATIONS Unknown [...]
--- OUTSIDE RECORDS SUMMARY | 2019-06-02 06:36 | XMS REPORT ---
Author Author Magaly BEARD Organization [employer] Address Unknown Phone Unavailable Care Team Providers Care Nuclear Medical Technologist Name Role Phone JENNIFER BEARD CP Unavailable Allergies No Known Allergies Problems Problem Type Condition ICD-9 Code Onset Dates Condition Statu s Problem Unspecified hypothyroidism 244.9 A ctive Problem Anxiety state, unspecified 300.00 A ctive Problem Chronic pancreatitis 577.1 Active Problem Arthritis 716.90 Active Problem Chronic kidney disease 585.9 Activ e Problem Chronic pain 338.29 Active Problem COPD (chronic obstructive pulmonary disease) 496 Active Problem Essential hypertension, benign 401.1 Active Problem Hepatitis C 070.70 Active Problem Tear of left glenoid labrum 840.8 Active Assessment Shoulder impingement 726.2 Active Problem Other chronic pain 338.29 Active Problem Cannabis dependence, unspecified abuse 304.30 Active Medications No Known Medications Procedures Procedure Coding System Code Date DEPO MEDROL 80 MG/ML CPT-4 J1040 Oct 20 15 Office Visit, Est Pt., Level 2 CPT-4 40863 S ept 2014 DRAIN/INJECT, JOINT/BURSA CPT-4 06669 Oct 112014 Vital Signs Date/Time: Oct 20, 2014 Blood Pressure Diastolic 86 mmHg Blood Pressure Systolic 124 mmHg Height 60 in Results Name Result Date Reference Range Unit Abnormali ty Flag JOINT INJECTION-INTERMEDIATE JOINT (specify site) Summary Purpose [employer] Submission
--- OUTSIDE RECORDS SUMMARY | 2019-06-02 06:36 | XMS REPORT ---
Author Author Magaly Muñoz Doctor Organization [facility] Address Unknown Phone Unavailable Care Team Providers Care Cellophane Worker Name Role Phone Migration, Doctor Unavailable Unavailable PROBLEMS Type Condition ICD9-CM Code [id number] Code Onset Dates Condition S tatus SNOMED Code Problem Cannabis dependence, unspecified abuse 304.30 Active 86022457 Problem Anxiety state, unspecified 300.00 Act vianney [id number] Problem Unspecified hypothyroidism 244.9 Act vianney 08529282 Problem Chronic pancreatitis 577.1 Active 626972650 Problem Chronic kidney disease 585.9 Active 809367211 Problem Other chronic pain 338.29 Active 8 0343647 Problem Hepatitis C 070.70 Active 36506267 Problem Essential hypertension, benign 401.1 Active 4647341 Problem Tear of left glenoid labrum 840.8 Ac tive 423785762 Problem Arthritis 716.90 Active 2065915 Problem Chronic pain 338.29 Active 8376148 1 Problem COPD (chronic obstructive pulmonary disease) 496 Active 17544840 ALLERGIES No Information ENCOUNTERS Encounter Location Date Diagnosis [place] [address] [address] [place] [id number] [address] [place] [address] Oct, Shoulder impingement 726.2 [place] [address] [address] [place] [id number] [address] [place] [address] Aug, SLAP (superior glenoid labru m lesion) 840.7 and Shoulder impingement 726.2 [place] [address] [address] [facility] [id number] [address] [place] [address] Jul, Type 2 superior labrum exten ding from anterior to posterior (SLAP) lesion of left shoulder 840.7 [place] [address] [address] [place] [id number] [address] [place] [address] June, Unspecified hypothyroidism 2 44.9 [place] [address] [address] [place] [id number] [address] [place] [address] June, Unspecified hypothyroidism 2 44.9 ; Chronic pain 338.29 ; Arthritis 716.90 ; Chronic kidney disease 585.9 ; Hepatitis C 070.70 ; Tear of left glenoid labrum 840.8 and COPD (chronic obstructive pulmonary disease) 496 [facility] [address] [id number] [address] [place] [address] June, Laceration 879.8 [facility] [address] [id number] [address] [place] [address] June, Osteoarthritis 715.90 and Ch ronic obstructive airway disease 496 [facility] [address] [id number] [address] [place] [address] May, [facility] [address] [id number] [address] [place] [address] May, [facility] [address] [id number] [address] [place] [address] Apr, [facility] [address] [id number] [address] [place] [address] Apr, [facility] [address] [id number] [address] [place] [address] Apr, [facility] [address] [facility] [id number] [address] [place] [address] Apr, [facility] [address] [id number] [address] [place] [address] Oct, [facility] [address] [id number] [address] [place] [address] Oct, [facility] [address] [id number] [address] [place] [address] Nov, [facility] [address] [id number] [address] [place] [address] Nov, [facility] [address] [facility] [id number] [address] [place] [address] Nov, [facility] [address] [id number] [address] [place] [address], [place] [address] 10 Nov, 2012 [facility] [address] [id number] [address] [place] [address], [place] [address] Sep, [facility] [address] [id number] [address] [place] [address], [place] [address] May, [facility] [address] [id number] [address] [place] [address], [place] [address] Mar, [facility] [address] [id number] [address] [place] [address], [place] [address] Feb, [facility] [address] [id number] [address] [place] [address], [place] [address] Feb, [facility] [address] [id number] [address] [place] [address], [place] [address] Feb, [facility] [address] [id number] [address] [place] [address], [place] [address] Jan, [facility] [address] [id number] [address] [place] [address], [place] [address] Jan, [facility] [address] [id number] [address] [place] [address], [place] [address] Dec, [facility] [address] [id number] [address] [place] [address], [place] [address] Dec, [facility] [address] [id number] [address] [place] [address], [place] [address] Nov, [facility] [address] [id number] [address] [place] [address], [place] [address] Nov, [facility] [address] [id number] [address] [place] [address], [place] [address] Nov, [facility] [address] [id number] [address] [place] [address], [place] [address] Nov, [facility] [address] [id number] [address] [place] [address], [place] [address] 19 Nov, 2011 [facility] [address] [id number] [address] [place] [address], [place] [address] 18 Nov, 2011 [facility] [address] [id number] [address] [place] [address], [place] [address] 10 Nov, 2011 [facility] [address] [id number] [address] [place] [address], [place] [address] 10 Nov, 2011 [facility] [address] [id number] [address] [place] [address], [place] [address] 03 Nov, 2011 [facility] [address] [id number] [address] [place] [address], [place] [address] 27 Sep2011 [facility] [address] [id number] [address] [place] [address], [place] [address] 17 Oct, 2011 [facility] [address] [id number] [address] [place] [address], [place] [address] 10 Oct, 2011 [facility] [address] [id number] [address] [place] [address], [place] [address] 07 Oct, 2011 [facility] [address] [id number] [address] [place] [address], [place] [address] 06 Oct, 2011 [facility] [address] [id number] [address] [place] [address], [place] [address] 29 Sep, 2011 [facility] [address] [id number] [address] [place] [address], [place] [address] 22 Sep, 2011 [facility] [address] [id number] [address] [place] [address], [place] [address] 16 Sep, 2011 [facility] [address] [id number] [address] [place] [address], [place] [address] 15 Sep, 2011 [facility] [address] [id number] [address] [place] [address], [place] [address] 13 Sep, 2011 [facility] [address] [id number] [address] [place] [address], [place] [address] 08 Sep, 2011 [facility] [address] [id number] [address] [place] [address], [place] [address] Sep, [facility] [address] [id number] [address] [place] [address], [place] [address] Sep, [facility] [address] [id number] [address] [place] [address], [place] [address] Sep, [facility] [address] [id number] [address] [place] [address], [place] [address] June, [facility] [address] [id number] [address] [place] [address], [place] [address] June, [facility] [address] [id number] [address] [place] [address], [place] [address] Mar, [facility] [address] [id number] [address] [place] [address], [place] [address] Feb, [facility] [address] [id number] [address] [place] [address], [place] [address] Feb, [facility] [address] [id number] [address] [place] [address], [place] [address] Feb, [facility] [address] [id number] [address] [place] [address], [place] [address] Feb, [facility] [address] [id number] [address] [place] [address], [place] [address] Oct, [facility] [address] [id number] [address] [place] [address], [place] [address] Jul, [facility] [address] [id number] [address] [place] [address], [place] [address] Dec, [facility] [address] [id number] [address] [place] [address], [place] [address] 11 Mar, 2009 [facility] [address] [id number] [address] [place] [address], [place] [address] 13 Nov, 2008 [facility] [address] [id number] [address] [place] [address], [place] [address] 13 Nov, 2008 [facility] [address] [facility] [id number] [address] [place] [address] 10 Oct, 2008 IMMUNIZATIONS No Known Immunizations SOCIAL HISTORY Never Assessed REASON FOR VISIT [place] [place] VITAL [...]
--- OUTSIDE RECORDS SUMMARY | 2019-06-02 06:36 | XMS REPORT ---
Author Author Magaly Muñoz Doctor Organization [facility] Address Unknown Phone Unavailable Care Team Providers Care Clinical Genetics Laboratory Chief Name Role Phone Migration, Doctor Unavailable Unavailable PROBLEMS Type Condition ICD9-CM Code SZT43-VV Code Onset Dates Condition S tatus SNOMED Code Problem Cannabis dependence, unspecified abuse 304.30 Active 00107826 Problem Anxiety state, unspecified 300.00 Act vianney [id number] Problem Unspecified hypothyroidism 244.9 Act vianney 94208442 Problem Chronic pancreatitis 577.1 Active 059848828 Problem Chronic kidney disease 585.9 Active 975340201 Problem Other chronic pain 338.29 Active 8 0931562 Problem Hepatitis C 070.70 Active 26534017 Problem Essential hypertension, benign 401.1 Active 9648513 Problem Tear of left glenoid labrum 840.8 Ac tive 328111868 Problem Arthritis 716.90 Active 8981527 Problem Chronic pain 338.29 Active 9873627 1 Problem COPD (chronic obstructive pulmonary disease) 496 Active 38685382 ALLERGIES No Information ENCOUNTERS Encounter Location Date Diagnosis [place] [address] [address] [place] [id number] [address] [place] [address] Oct, Shoulder impingement 726.2 [place] [address] [address] [place] [id number] [address] [place] [address] Aug, SLAP (superior glenoid labru m lesion) 840.7 and Shoulder impingement 726.2 [place] [address] [facility] [id number] [address] [place] [address] Jul, Type 2 superior labrum exten ding from anterior to posterior (SLAP) lesion of left shoulder 840.7 [place] [address] [address] [place] [id number] [address] [place] [address] June, Unspecified hypothyroidism 2 44.9 [place] [address] [address] [place] [id number] [address] [place] [address] June, Unspecified hypothyroidism 2 44.9 ; Chronic pain 338.29 ; Arthritis 716.90 ; Chronic kidney disease 585.9 ; Hepatitis C 070.70 ; Tear of left glenoid labrum 840.8 and COPD (chronic obstructive pulmonary disease) 496 [facility] [address] [id number] [address] [place] [address] June, Laceration 879.8 [facility] [address] [id number] [address] [place] [address] June, Osteoarthritis 715.90 and Ch ronic obstructive airway disease 496 [facility] [address] [id number] [address] [place] [address] May, [facility] [address] [id number] [address] [place] [address] May, [facility] [address] [id number] [address] [place] [address] Apr, [facility] [address] [id number] [address] [place] [address] Apr, [facility] [address] [id number] [address] [place] [address] Apr, [facility] [address] [id number] [address] [place] [address] Apr, [facility] [address] [id number] [address] [place] [address] Oct, [facility] [address] [id number] [address] [place] [address] Oct, [facility] [address] [id number] [address] [place] [address] Nov, [facility] [address] [id number] [address] [place] [address] Nov, [facility] [address] [facility] [id number] [address] [place] [address] Nov, [facility] [address] [id number] [address] [place] [address], [place] [address] 10 Nov, 2012 [facility] [address] [id number] [address] [place] [address], [place] [address] Sep, [facility] [address] [id number] [address] [place] [address], [place] [address] May, [facility] [address] [id number] [address] [place] [address], [place] [address] Mar, [facility] [address] [id number] [address] [place] [address], [place] [address] Feb, [facility] [address] [id number] [address] [place] [address], [place] [address] Feb, [facility] [address] [id number] [address] [place] [address], [place] [address] Feb, [facility] [address] [id number] [address] [place] [address], [place] [address] Jan, [facility] [address] [id number] [address] [place] [address], [place] [address] Jan, [facility] [address] [id number] [address] [place] [address], [place] [address] Dec, [facility] [address] [id number] [address] [place] [address], [place] [address] Dec, [facility] [address] [id number] [address] [place] [address], [place] [address] Nov, [facility] [address] [id number] [address] [place] [address], [place] [address] Nov, [facility] [address] [id number] [address] [place] [address], [place] [address] Nov, [facility] [address] [id number] [address] [place] [address], [place] [address] Nov, [facility] [address] [id number] [address] [place] [address], [place] [address] 19 Nov, 2011 [facility] [address] [id number] [address] [place] [address], [place] [address] 18 Nov, 2011 [facility] [address] [id number] [address] [place] [address], [place] [address] 10 Nov, 2011 [facility] [address] [id number] [address] [place] [address], [place] [address] 10 Nov, 2011 [facility] [address] [id number] [address] [place] [address], [place] [address] 03 Nov, 2011 [facility] [address] [id number] [address] [place] [address], [place] [address] 27 Sep2011 [facility] [address] [id number] [address] [place] [address], [place] [address] 17 Oct, 2011 [facility] [address] [id number] [address] [place] [address], [place] [address] 10 Oct, 2011 [facility] [address] [id number] [address] [place] [address], [place] [address] 07 Oct, 2011 [facility] [address] [id number] [address] [place] [address], [place] [address] 06 Oct, 2011 [facility] [address] [id number] [address] [place] [address], [place] [address] 29 Sep, 2011 [facility] [address] [id number] [address] [place] [address], [place] [address] 22 Sep, 2011 [facility] [address] [id number] [address] [place] [address], [place] [address] 16 Sep, 2011 [facility] [address] [id number] [address] [place] [address], [place] [address] 15 Sep, 2011 [facility] [address] [id number] [address] [place] [address], [place] [address] 13 Sep, 2011 [facility] [address] [id number] [address] [place] [address], [place] [address] 08 Sep, 2011 [facility] [address] [id number] [address] [place] [address], [place] [address] Sep, [facility] [address] [id number] [address] [place] [address], [place] [address] Sep, [facility] [address] [id number] [address] [place] [address], [place] [address] Sep, [facility] [address] [id number] [address] [place] [address], [place] [address] June, [facility] [address] [id number] [address] [place] [address], [place] [address] June, [facility] [address] [id number] [address] [place] [address], [place] [address] Mar, [facility] [address] [id number] [address] [place] [address], [place] [address] Feb, [facility] [address] [id number] [address] [place] [address], [place] [address] Feb, [facility] [address] [id number] [address] [place] [address], [place] [address] Feb, [facility] [address] [id number] [address] [place] [address], [place] [address] Feb, [facility] [address] [id number] [address] [place] [address], [place] [address] Oct, [facility] [address] [id number] [address] [place] [address], [place] [address] Jul, [facility] [address] [id number] [address] [place] [address], [place] [address] Dec, [facility] [address] [id number] [address] [place] [address], [place] [address] 11 Mar, 2009 [facility] [address] [id number] [address] [place] [address], [place] [address] 13 Nov, 2008 [facility] [address] [id number] [address] [place] [address], [place] [address] 13 Nov, 2008 [facility] [address] [id number] [address] [place] [address] 10 Oct, 2008 IMMUNIZATIONS No Known Immunizations SOCIAL HISTORY Never Assessed REASON FOR VISIT EMR-[facility] [place] PLAN OF CARE VITAL SIGNS MEDICATIONS Unknown [...]
--- OUTSIDE RECORDS SUMMARY | 2019-06-02 06:36 | XMS REPORT ---
Author Author Magaly Muñoz Doctor Organization [facility] Address Unknown Phone Unavailable Care Team Providers Care Aluminum Boat Assembly Supervisor Name Role Phone Migration, Doctor Unavailable Unavailable PROBLEMS Type Condition ICD9-CM Code OBV95-GP Code Onset Dates Condition S tatus SNOMED Code Problem Cannabis dependence, unspecified abuse 304.30 Active 31795959 Problem Anxiety state, unspecified 300.00 Act vianney [id number] Problem Unspecified hypothyroidism 244.9 Act vianney 55948853 Problem Chronic pancreatitis 577.1 Active 013655916 Problem Chronic kidney disease 585.9 Active 511998115 Problem Other chronic pain 338.29 Active 8 0152698 Problem Hepatitis C 070.70 Active 13988782 Problem Essential hypertension, benign 401.1 Active 5180570 Problem Tear of left glenoid labrum 840.8 Ac tive 493648803 Problem Arthritis 716.90 Active 2202981 Problem Chronic pain 338.29 Active 0660618 1 Problem COPD (chronic obstructive pulmonary disease) 496 Active 12465521 ALLERGIES No Information ENCOUNTERS Encounter Location Date Diagnosis [place] [address] [address] [place] [id number] [address] [place] [address] Oct, Shoulder impingement 726.2 [place] [address] [address] [place] [id number] [address] [place] [address] Aug, SLAP (superior glenoid labru m lesion) 840.7 and Shoulder impingement 726.2 [place] [address] [address] [facility] [id number] [address] [place] [address] Jul, Type 2 superior labrum exten ding from anterior to posterior (SLAP) lesion of left shoulder 840.7 [place] [address] [address] [place] [id number] [address] [place] [address] June, Unspecified hypothyroidism 2 44.9 [place] [address] [address] [place] [id number] [address] [place] [address] June, Unspecified hypothyroidism 2 44.9 ; Chronic pain 338.29 ; Arthritis 716.90 ; Chronic kidney disease 585.9 ; Hepatitis C 070.70 ; Tear of left glenoid labrum 840.8 and COPD (chronic obstructive pulmonary disease) 496 [facility] [address] [id number] [address] [place] [address] June, Laceration 879.8 [facility] [address] [id number] [address] [place] [address] June, Osteoarthritis 715.90 and Ch ronic obstructive airway disease 496 [facility] [address] [id number] [address] [place] [address] May, [facility] [address] [id number] [address] [place] [address] May, [facility] [address] [id number] [address] [place] [address] Apr, [facility] [address] [id number] [address] [place] [address] Apr, [facility] [address] [id number] [address] [place] [address] Apr, [facility] [address] [facility] [id number] [address] [place] [address] Apr, [facility] [address] [id number] [address] [place] [address] Oct, [facility] [address] [id number] [address] [place] [address] Oct, [facility] [address] [id number] [address] [place] [address] Nov, [facility] [address] [id number] [address] [place] [address] Nov, [facility] [address] [facility] [id number] [address] [place] [address] Nov, [facility] [address] [id number] [address] [place] [address], [place] [address] 10 Nov, 2012 [facility] [address] [id number] [address] [place] [address], [place] [address] Sep, [facility] [address] [id number] [address] [place] [address], [place] [address] May, [facility] [address] [id number] [address] [place] [address], [place] [address] Mar, [facility] [address] [id number] [address] [place] [address], [place] [address] Feb, [facility] [address] [id number] [address] [place] [address], [place] [address] Feb, [facility] [address] [id number] [address] [place] [address], [place] [address] Feb, [facility] [address] [id number] [address] [place] [address], [place] [address] Jan, [facility] [address] [id number] [address] [place] [address], [place] [address] Jan, [facility] [address] [id number] [address] [place] [address], [place] [address] Dec, [facility] [address] [id number] [address] [place] [address], [place] [address] Dec, [facility] [address] [id number] [address] [place] [address], [place] [address] Nov, [facility] [address] [id number] [address] [place] [address], [place] [address] Nov, [facility] [address] [id number] [address] [place] [address], [place] [address] Nov, [facility] [address] [id number] [address] [place] [address], [place] [address] Nov, [facility] [address] [id number] [address] [place] [address], [place] [address] 19 Nov, 2011 [facility] [address] [id number] [address] [place] [address], [place] [address] 18 Nov, 2011 [facility] [address] [id number] [address] [place] [address], [place] [address] 10 Nov, 2011 [facility] [address] [id number] [address] [place] [address], [place] [address] 10 Nov, 2011 [facility] [address] [id number] [address] [place] [address], [place] [address] 03 Nov, 2011 [facility] [address] [id number] [address] [place] [address], [place] [address] 27 Sep2011 [facility] [address] [id number] [address] [place] [address], [place] [address] 17 Oct, 2011 [facility] [address] [id number] [address] [place] [address], [place] [address] 10 Oct, 2011 [facility] [address] [id number] [address] [place] [address], [place] [address] 07 Oct, 2011 [facility] [address] [id number] [address] [place] [address], [place] [address] 06 Oct, 2011 [facility] [address] [id number] [address] [place] [address], [place] [address] 29 Sep, 2011 [facility] [address] [id number] [address] [place] [address], [place] [address] 22 Sep, 2011 [facility] [address] [id number] [address] [place] [address], [place] [address] 16 Sep, 2011 [facility] [address] [id number] [address] [place] [address], [place] [address] 15 Sep, 2011 [facility] [address] [id number] [address] [place] [address], [place] [address] 13 Sep, 2011 [facility] [address] [id number] [address] [place] [address], [place] [address] 08 Sep, 2011 [facility] [address] [id number] [address] [place] [address], [place] [address] Sep, [facility] [address] [id number] [address] [place] [address], [place] [address] Sep, [facility] [address] [id number] [address] [place] [address], [place] [address] Sep, [facility] [address] [id number] [address] [place] [address], [place] [address] June, [facility] [address] [id number] [address] [place] [address], [place] [address] June, [facility] [address] [id number] [address] [place] [address], [place] [address] Mar, [facility] [address] [id number] [address] [place] [address], [place] [address] Feb, [facility] [address] [id number] [address] [place] [address], [place] [address] Feb, [facility] [address] [id number] [address] [place] [address], [place] [address] Feb, [facility] [address] [id number] [address] [place] [address], [place] [address] Feb, [facility] [address] [id number] [address] [place] [address], [place] [address] Oct, [facility] [address] [id number] [address] [place] [address], [place] [address] Jul, [facility] [address] [id number] [address] [place] [address], [place] [address] Dec, [facility] [address] [id number] [address] [place] [address], [place] [address] 11 Mar, 2009 [facility] [address] [id number] [address] [place] [address], [place] [address] 13 Nov, 2008 [facility] [address] [id number] [address] [place] [address], [place] [address] 13 Nov, 2008 [facility] [address] [facility] [id number] [address] [place] [address] 10 Oct, 2008 IMMUNIZATIONS No Known Immunizations SOCIAL HISTORY Never Assessed [place]IT [place] [place]
--- OUTSIDE RECORDS SUMMARY | 2019-06-02 06:36 | XMS REPORT ---
Author Author Magaly Muñoz Doctor Organization [facility] Address Unknown Phone Unavailable Care Team Providers Care Oil Recovery Unit Operator Name Role Phone Migration, Doctor Unavailable Unavailable PROBLEMS Type Condition ICD9-CM Code ULQ26-QI Code Onset Dates Condition S tatus SNOMED Code Problem Cannabis dependence, unspecified abuse 304.30 Active 34987077 Problem Anxiety state, unspecified 300.00 Act vianney [id number] Problem Unspecified hypothyroidism 244.9 Act vianney 03576602 Problem Chronic pancreatitis 577.1 Active 434300396 Problem Chronic kidney disease 585.9 Active 767294203 Problem Other chronic pain 338.29 Active 8 8772238 Problem Hepatitis C 070.70 Active 83599162 Problem Essential hypertension, benign 401.1 Active 2645796 Problem Tear of left glenoid labrum 840.8 Ac tive 448105587 Problem Arthritis 716.90 Active 3291918 Problem Chronic pain 338.29 Active 1947149 1 Problem COPD (chronic obstructive pulmonary disease) 496 Active 26135439 ALLERGIES No Information ENCOUNTERS Encounter Location Date Diagnosis [place] [address] [address] [place] [id number] [address] [place] [address] Oct, Shoulder impingement 726.2 [place] [address] [address] [place] [id number] [address] [place] [address] Aug, SLAP (superior glenoid labru m lesion) 840.7 and Shoulder impingement 726.2 [place] [address] [address] [facility] [id number] [address] [place] [address] Jul, Type 2 superior labrum exten ding from anterior to posterior (SLAP) lesion of left shoulder 840.7 [place] [address] [place] [id number] [address] [place] [address] June, Unspecified hypothyroidism 2 44.9 [place] [address] [place] [id number] [address] [place] [address] June, Unspecified hypothyroidism 2 44.9 ; Chronic pain 338.29 ; Arthritis 716.90 ; Chronic kidney disease 585.9 ; Hepatitis C 070.70 ; Tear of left glenoid labrum 840.8 and COPD (chronic obstructive pulmonary disease) 496 [facility] [address] [id number] [address] [place] [address] June, Laceration 879.8 [facility] [address] [id number] [address] [place] [address] June, Osteoarthritis 715.90 and Ch ronic obstructive airway disease 496 [facility] [address] [id number] [address] [place] [address] May, [facility] [address] [id number] [address] [place] [address] May, [facility] [address] [id number] [address] [place] [address] Apr, [facility] [address] [id number] [address] [place] [address] Apr, [facility] [address] [id number] [address] [place] [address] Apr, [facility] [address] [facility] [id number] [address] [place] [address] Apr, [facility] [address] [id number] [address] [place] [address] Oct, [facility] [address] [id number] [address] [place] [address] Oct, [facility] [address] [id number] [address] [place] [address] Nov, [facility] [address] [id number] [address] [place] [address] Nov, [facility] [address] [facility] [id number] [address] [place] [address] Nov, [facility] [address] [id number] [address] [place] [address], [place] [address] 10 Nov, 2012 [facility] [address] [id number] [address] [place] [address], [place] [address] Sep, [facility] [address] [id number] [address] [place] [address], [place] [address] May, [facility] [address] [id number] [address] [place] [address], [place] [address] Mar, [facility] [address] [id number] [address] [place] [address], [place] [address] Feb, [facility] [address] [id number] [address] [place] [address], [place] [address] Feb, [facility] [address] [id number] [address] [place] [address], [place] [address] Feb, [facility] [address] [id number] [address] [place] [address], [place] [address] Jan, [facility] [address] [id number] [address] [place] [address], [place] [address] Jan, [facility] [address] [id number] [address] [place] [address], [place] [address] Dec, [facility] [address] [id number] [address] [place] [address], [place] [address] Dec, [facility] [address] [id number] [address] [place] [address], [place] [address] Nov, [facility] [address] [id number] [address] [place] [address], [place] [address] Nov, [facility] [address] [id number] [address] [place] [address], [place] [address] Nov, [facility] [address] [id number] [address] [place] [address], [place] [address] Nov, [facility] [address] [id number] [address] [place] [address], [place] [address] 19 Nov, 2011 [facility] [address] [id number] [address] [place] [address], [place] [address] 18 Nov, 2011 [facility] [address] [id number] [address] [place] [address], [place] [address] 10 Nov, 2011 [facility] [address] [id number] [address] [place] [address], [place] [address] 10 Nov, 2011 [facility] [address] [id number] [address] [place] [address], [place] [address] 03 Nov, 2011 [facility] [address] [id number] [address] [place] [address], [place] [address] 27 Sep2011 [facility] [address] [id number] [address] [place] [address], [place] [address] 17 Oct, 2011 [facility] [address] [id number] [address] [place] [address], [place] [address] 10 Oct, 2011 [facility] [address] [id number] [address] [place] [address], [place] [address] 07 Oct, 2011 [facility] [address] [id number] [address] [place] [address], [place] [address] 06 Oct, 2011 [facility] [address] [id number] [address] [place] [address], [place] [address] 29 Sep, 2011 [facility] [address] [id number] [address] [place] [address], [place] [address] 22 Sep, 2011 [facility] [address] [id number] [address] [place] [address], [place] [address] 16 Sep, 2011 [facility] [address] [id number] [address] [place] [address], [place] [address] 15 Sep, 2011 [facility] [address] [id number] [address] [place] [address], [place] [address] 13 Sep, 2011 [facility] [address] [id number] [address] [place] [address], [place] [address] 08 Sep, 2011 [facility] [address] [id number] [address] [place] [address], [place] [address] Sep, [facility] [address] [id number] [address] [place] [address], [place] [address] Sep, [facility] [address] [id number] [address] [place] [address], [place] [address] Sep, [facility] [address] [id number] [address] [place] [address], [place] [address] June, [facility] [address] [id number] [address] [place] [address], [place] [address] June, [facility] [address] [id number] [address] [place] [address], [place] [address] Mar, [facility] [address] [id number] [address] [place] [address], [place] [address] Feb, [facility] [address] [id number] [address] [place] [address], [place] [address] Feb, [facility] [address] [id number] [address] [place] [address], [place] [address] Feb, [facility] [address] [id number] [address] [place] [address], [place] [address] Feb, [facility] [address] [id number] [address] [place] [address], [place] [address] Oct, [facility] [address] [id number] [address] [place] [address], [place] [address] Jul, [facility] [address] [id number] [address] [place] [address], [place] [address] Dec, [facility] [address] [id number] [address] [place] [address], [place] [address] 11 Mar, 2009 [facility] [address] [id number] [address] [place] [address], [place] [address] 13 Nov, 2008 [facility] [address] [id number] [address] [place] [address], [place] [address] 13 Nov, 2008 [facility] [address] [facility] [id number] [address] [place] [address] 10 Oct, 2008 IMMUNIZATIONS No Known Immunizations SOCIAL HISTORY Never Assessed REASON FOR VISIT EMR-[facility] [place] C[place] VITAL SIGNS MEDICATIONS Unknown [...]
--- OUTSIDE RECORDS SUMMARY | 2019-06-02 06:36 | XMS REPORT ---
Author Author Magaly Muñoz Doctor Organization [facility] Address Unknown Phone Unavailable Care Team Providers Care Brazer Electronic Name Role Phone Migration, Doctor Unavailable Unavailable PROBLEMS Type Condition ICD9-CM Code [id number] Code Onset Dates Condition S tatus SNOMED Code Problem Cannabis dependence, unspecified abuse 304.30 Active 58740241 Problem Anxiety state, unspecified 300.00 Act vianney 379052110 Problem Unspecified hypothyroidism 244.9 Act vianney 75568351 Problem Chronic pancreatitis 577.1 Active 527809862 Problem Chronic kidney disease 585.9 Active 088463267 Problem Other chronic pain 338.29 Active 8 4339140 Problem Hepatitis C 070.70 Active 27381224 Problem Essential hypertension, benign 401.1 Active 6979631 Problem Tear of left glenoid labrum 840.8 Ac tive 939803578 Problem Arthritis 716.90 Active 0781777 Problem Chronic pain 338.29 Active 4118984 1 Problem COPD (chronic obstructive pulmonary disease) 496 Active 37422774 ALLERGIES No Information ENCOUNTERS Encounter Location Date Diagnosis [place] [address] [address] [place] [id number] [address] [place] [address] Oct, Shoulder impingement 726.2 [place] [address] [address] [place] [id number] [address] [place] [address] Aug, SLAP (superior glenoid labru m lesion) 840.7 and Shoulder impingement 726.2 [place] [address] [address] [facility] [id number] [address] [place] [phone] Jul, Type 2 superior labrum exten ding from anterior to posterior (SLAP) lesion of left shoulder 840.7 [place] [address] [address] [place] [id number] [address] [place] [phone] June, Unspecified hypothyroidism 2 44.9 [place] [address] [address] [place] [id number] [address] [place] [address] June, Unspecified hypothyroidism 2 44.9 ; Chronic pain 338.29 ; Arthritis 716.90 ; Chronic kidney disease 585.9 ; Hepatitis C 070.70 ; Tear of left glenoid labrum 840.8 and COPD (chronic obstructive pulmonary disease) 496 [facility] [address] [id number] [address] [place] [address] June, Laceration 879.8 [facility] [address] [id number] [address] [place] [address] June, Osteoarthritis 715.90 and Ch ronic obstructive airway disease 496 [facility] [address] [id number] [address] [place] [phone] May, [facility] [address] [id number] [address] [place] [address] May, [facility] [address] [id number] [address] [place] [phone] Apr, [facility] [address] [id number] [address] [place] [address] Apr, [facility] [address] [id number] [address] [place] [id number] Apr, [facility] [address] [facility] [id number] [address] [place] [address] Apr, [facility] [address] [id number] [address] [place] [phone] Oct, [facility] [address] [id number] [address] [place] [phone] Oct, [facility] [address] [id number] [address] [place] [phone] Nov, [facility] [address] [id number] [address] [place] [phone] Nov, [facility] [address] [facility] [id number] [address] [place] [phone] Nov, [facility] [address] [id number] [address] [place] [address], [place] [address] 10 Nov, 2012 [facility] [address] [id number] [address] [place] [address], [place] [address] Sep, [facility] [address] [id number] [address] [place] [address], [place] [address] May, [facility] [address] [id number] [address] [place] [address], [place] [address] Mar, [facility] [address] [id number] [address] [place] [address], [place] [address] Feb, [facility] [address] [id number] [address] [place] [address], [place] [address] Feb, [facility] [address] [id number] [address] [place] [address], [place] [address] Feb, [facility] [address] [id number] [address] [place] [address], [place] [address] Jan, [facility] [address] [id number] [address] [place] [address], [place] [address] Jan, [facility] [address] [id number] [address] [place] [address], [place] [address] Dec, [facility] [address] [id number] [address] [place] [address], [place] [address] Dec, [facility] [address] [id number] [address] [place] [address], [place] [address] Nov, [facility] [address] [id number] [address] [place] [address], [place] [address] Nov, [facility] [address] [id number] [address] [place] [address], [place] [address] Nov, [facility] [address] [id number] [address] [place] [address], [place] [address] Nov, [facility] [address] [id number] [address] [place] [address], [place] [address] 19 Nov, 2011 [facility] [address] [id number] [address] [place] [address], [place] [address] 18 Nov, 2011 [facility] [address] [id number] [address] [place] [address], [place] [address] 10 Nov, 2011 [facility] [address] [id number] [address] [place] [address], [place] [address] 10 Nov, 2011 [facility] [address] [id number] [address] [place] [address], [place] [address] 03 Nov, 2011 [facility] [address] [id number] [address] [place] [address], [place] [address] 27 Sep2011 [facility] [address] [id number] [address] [place] [address], [place] [address] 17 Oct, 2011 [facility] [address] [id number] [address] [place] [address], [place] [address] 10 Oct, 2011 [facility] [address] [id number] [address] [place] [address], [place] [address] 07 Oct, 2011 [facility] [address] [id number] [address] [place] [address], [place] [address] 06 Oct, 2011 [facility] [address] [id number] [address] [place] [address], [place] [address] 29 Sep, 2011 [facility] [address] [id number] [address] [place] [address], [place] [address] 22 Sep, 2011 [facility] [address] [id number] [address] [place] [address], [place] [address] 16 Sep, 2011 [facility] [address] [id number] [address] [place] [address], [place] [address] 15 Sep, 2011 [facility] [address] [id number] [address] [place] [address], [place] [address] 13 Sep, 2011 [facility] [address] [id number] [address] [place] [address], [place] [address] 08 Sep, 2011 [facility] [address] [id number] [address] [place] [address], [place] [address] Sep, [facility] [address] [id number] [address] [place] [address], [place] [address] Sep, [facility] [address] [id number] [address] [place] [address], [place] [address] Sep, [facility] [address] [id number] [address] [place] [address], [place] [address] June, [facility] [address] [id number] [address] [place] [address], [place] [address] June, [facility] [address] [id number] [address] [place] [address], [place] [address] Mar, [facility] [address] [id number] [address] [place] [address], [place] [address] Feb, [facility] [address] [id number] [address] [place] [address], [place] [address] Feb, [facility] [address] [id number] [address] [place] [address], [place] [address] Feb, [facility] [address] [id number] [address] [place] [address], [place] [address] Feb, [facility] [address] [id number] [address] [place] [address], [place] [address] Oct, [facility] [address] [id number] [address] [place] [address], [place] [address] Jul, [facility] [address] [id number] [address] [place] [address], [place] [address] Dec, [facility] [address] [id number] [address] [place] [address], [place] [address] 11 Mar, 2009 [facility] [address] [id number] [address] [place] [address], [place] [address] 13 Nov, 2008 [facility] [address] [id number] [address] [place] [address], [place] [address] 13 Nov, 2008 [facility] [address] [facility] [id number] [address] [place] [address] 10 Oct, 2008 IMMUNIZATIONS No Known Immunizations SOCIAL HISTORY Never Assessed REASON FOR VISIT [facility] PLAN OF CARE [...]
--- OUTSIDE RECORDS SUMMARY | 2019-06-02 06:36 | XMS REPORT ---
Author Author Magaly Muñoz Doctor Organization [facility] Address Unknown Phone Unavailable Care Team Providers Care Cleaning Maid Name Role Phone Migration, Doctor Unavailable Unavailable PROBLEMS Type Condition ICD9-CM Code CCO99-UL Code Onset Dates Condition S tatus SNOMED Code Problem Cannabis dependence, unspecified abuse 304.30 Active 19162021 Problem Anxiety state, unspecified 300.00 Act vianney [id number] Problem Unspecified hypothyroidism 244.9 Act vianney 38086224 Problem Chronic pancreatitis 577.1 Active 705158235 Problem Chronic kidney disease 585.9 Active 338646148 Problem Other chronic pain 338.29 Active 8 8777110 Problem Hepatitis C 070.70 Active 55903511 Problem Essential hypertension, benign 401.1 Active 0489764 Problem Tear of left glenoid labrum 840.8 Ac tive 605639138 Problem Arthritis 716.90 Active 6644220 Problem Chronic pain 338.29 Active 3983340 1 Problem COPD (chronic obstructive pulmonary disease) 496 Active 49622348 ALLERGIES No Information ENCOUNTERS Encounter Location Date Diagnosis [place] [address] [address] [place] [id number] [address] [place] [address] Oct, Shoulder impingement 726.2 [place] [address] [address] [place] [id number] [address] [place] [address] Aug, SLAP (superior glenoid labru m lesion) 840.7 and Shoulder impingement 726.2 [place] [address] [address] [facility] [id number] [address] [place] [address] Jul, Type 2 superior labrum exten ding from anterior to posterior (SLAP) lesion of left shoulder 840.7 [place] [address] [address] [place] [id number] [address] [place] [address] June, Unspecified hypothyroidism 2 44.9 [place] [address] [address] [place] [id number] [address] [place] [address] June, Unspecified hypothyroidism 2 44.9 ; Chronic pain 338.29 ; Arthritis 716.90 ; Chronic kidney disease 585.9 ; Hepatitis C 070.70 ; Tear of left glenoid labrum 840.8 and COPD (chronic obstructive pulmonary disease) 496 [facility] [address] [id number] [address] [place] [address] June, Laceration 879.8 [facility] [address] [id number] [address] [place] [address] June, Osteoarthritis 715.90 and Ch ronic obstructive airway disease 496 [facility] [address] [id number] [address] [place] [address] May, [facility] [address] [id number] [address] [place] [address] May, [facility] [address] [id number] [address] [place] [address] Apr, [facility] [address] [id number] [address] [place] [address] Apr, [facility] [address] [id number] [address] [place] [address] Apr, [facility] [address] [facility] [id number] [address] [place] [address] Apr, [facility] [address] [id number] [address] [place] [address] Oct, [facility] [address] [id number] [address] [place] [address] Oct, [facility] [address] [id number] [address] [place] [address] Nov, [facility] [address] [id number] [address] [place] [address] Nov, [facility] [address] [facility] [id number] [address] [place] [address] Nov, [facility] [address] [id number] [address] [place] [address], [place] [address] 10 Nov, 2012 [facility] [address] [id number] [address] [place] [address], [place] [address] Sep, [facility] [address] [id number] [address] [place] [address], [place] [address] May, [facility] [address] [id number] [address] [place] [address], [place] [address] Mar, [facility] [address] [id number] [address] [place] [address], [place] [address] Feb, [facility] [address] [id number] [address] [place] [address], [place] [address] Feb, [facility] [address] [id number] [address] [place] [address], [place] [address] Feb, [facility] [address] [id number] [address] [place] [address], [place] [address] Jan, [facility] [address] [id number] [address] [place] [address], [place] [address] Jan, [facility] [address] [id number] [address] [place] [address], [place] [address] Dec, [facility] [address] [id number] [address] [place] [address], [place] [address] Dec, [facility] [address] [id number] [address] [place] [address], [place] [address] Nov, [facility] [address] [id number] [address] [place] [address], [place] [address] Nov, [facility] [address] [id number] [address] [place] [address], [place] [address] Nov, [facility] [address] [id number] [address] [place] [address], [place] [address] Nov, [facility] [address] [id number] [address] [place] [address], [place] [address] 19 Nov, 2011 [facility] [address] [id number] [address] [place] [address], [place] [address] 18 Nov, 2011 [facility] [address] [id number] [address] [place] [address], [place] [address] 10 Nov, 2011 [facility] [address] [id number] [address] [place] [address], [place] [address] 10 Nov, 2011 [facility] [address] [id number] [address] [place] [address], [place] [address] 03 Nov, 2011 [facility] [address] [id number] [address] [place] [address], [place] [address] 27 Sep2011 [facility] [address] [id number] [address] [place] [address], [place] [address] 17 Oct, 2011 [facility] [address] [id number] [address] [place] [address], [place] [address] 10 Oct, 2011 [facility] [address] [id number] [address] [place] [address], [place] [address] 07 Oct, 2011 [facility] [address] [id number] [address] [place] [address], [place] [address] 06 Oct, 2011 [facility] [address] [id number] [address] [place] [address], [place] [address] 29 Sep, 2011 [facility] [address] [id number] [address] [place] [address], [place] [address] 22 Sep, 2011 [facility] [address] [id number] [address] [place] [address], [place] [address] 16 Sep, 2011 [facility] [address] [id number] [address] [place] [address], [place] [address] 15 Sep, 2011 [facility] [address] [id number] [address] [place] [address], [place] [address] 13 Sep, 2011 [facility] [address] [id number] [address] [place] [address], [place] [address] 08 Sep, 2011 [facility] [address] [id number] [address] [place] [address], [place] [address] Sep, [facility] [address] [id number] [address] [place] [address], [place] [address] Sep, [facility] [address] [id number] [address] [place] [address], [place] [address] Sep, [facility] [address] [id number] [address] [place] [address], [place] [address] June, [facility] [address] [id number] [address] [place] [address], [place] [address] June, [facility] [address] [id number] [address] [place] [address], [place] [address] Mar, [facility] [address] [id number] [address] [place] [address], [place] [address] Feb, [facility] [address] [id number] [address] [place] [address], [place] [address] Feb, [facility] [address] [id number] [address] [place] [address], [place] [address] Feb, [facility] [address] [id number] [address] [place] [address], [place] [address] Feb, [facility] [address] [id number] [address] [place] [address], [place] [address] Oct, [facility] [address] [id number] [address] [place] [address], [place] [address] Jul, [facility] [address] [id number] [address] [place] [address], [place] [address] Dec, [facility] [address] [id number] [address] [place] [address], [place] [address] 11 Mar, 2009 [facility] [address] [id number] [address] [place] [address], [place] [address] 13 Nov, 2008 [facility] [address] [id number] [address] [place] [address], [place] [address] Nov, [facility] [address] [facility] [id number] [address] [place] [address] Oct, IMMUNIZATIONS No Known Immunizations SOCIAL HISTORY Never Assessed REASON FOR VISIT [facility] PLAN OF CARE VITAL SIGNS MEDICATIONS Medication Instructions Dosage Frequency Start Date End Date Duration S tatus Singulair 10 mg 1 tablet by Oral route 1 time per day Apr, Active Allopurinol 100 mg 1 tablet by Oral route 1 time per day Apr, Active Synthroid 175 mcg 1 tablet by Oral route 1 time per day Nov, Active Clindamycin HCl 300 mg 1 capsule by Oral route every 1 2 hours for 7 day(s) Nov, Active Doxycycline Hyclate 100 mg take 1 tablet (100 mg) by oral route 2 times per day for 7 days Oct, Active Advair Diskus 250 mcg-50 mcg 1 puffs by Inhalation route every 12 hoursonce a day Nov, Active MS Contin 30 mg 0.5-1 Tablet by Oral route 2 times per day 1/2 im the a.m. and 1 tablet at bedtime. Apr, Active RESULTS No Results PROCEDURES No Known procedures [...]
--- OUTSIDE RECORDS SUMMARY | 2019-06-02 06:37 | XMS REPORT | Continuity of Care Document ---
Author Organization Unknown Address Unknown Phone Unavailable Allergies Active Description Code Type Severity Reaction Onset Reported/Identified Relationship to Patient Clinical Status Yes RUBBING ALCOHOL RUBBING ALCOHOL Unknown N/A 08/26/2005 Yes NKANo Known Allergies NKA Miscellaneous Allergy Unknown N/A 09/29/2005 Yes rubbing alcohol OA 10/20/2008 Yes rubbing alcohol OA N/A N/A 10/20/2008 Yes amoxicillin [id number] Drug Aller gy Unknown Hives 05/27/2019 Yes clavulanic acid [id number] D rug Allergy Unknown Hives 05/27/2019 Yes levofloxacin [id number] Drug Allergy Unknown Hives 05/27/2019 Yes theophylline [id number] Drug Allergy Unknown Hives 05/27/2019 Medications There is no data. Problems Date Dx Coded Attending Type Code Diagnosis Diagnosed By 10/20/2008 PATRICE MATT DO 070.54 HEPATITIS, C VIRUS - CHRONIC 10/20/2008 PATRICE MATT DO 305.1 NICOTINE DEPENDENCE 10/20/2008 PATRICE MATT DO 493.90 ASTHMA 10/20/2008 PATRICE MATT DO 786.2 Cough 10/20/2008 070.54 HEP ATITIS, C VIRUS - CHRONIC 10/20/2008 305.1 MIKI DONG DEPENDENCE 10/20/2008 493.90 ASTHMA 10/20/2008 786.2 Cough 10/20/2008 PATRICE MATT DO 070.54 HEPATITIS, C VIRUS - CHRONIC 10/20/2008 PATRICE MATT DO 305.1 NICOTINE DEPENDENCE 10/20/2008 PATRICE MATT DO 493.90 ASTHMA 10/20/2008 PATRICE MATT DO 786.2 Cough 11/22/2008 PATRICE MATT DO 338 PAIN, NOT ELSEWHERE CLASSIFIED 11/22/2008 338 PAIN, NOT ELSEWHERE CLASSIFIED 11/22/2008 PATRICE MATT DO 338 PAIN, NOT ELSEWHERE CLASSIFIED 03/23/2009 PATRICE MATT DO 070.70 Unspecified Viral Hepatitis C Without Hepatic Coma 03/23/2009 070.70 Uns pecified Viral Hepatitis C Without Hepatic Coma 03/23/2009 PATRICE MATT DO 070.70 Unspecified Viral Hepatitis C Without Hepatic Coma 05/03/2009 PATRICE MATT DO 477.9 Rhinitis 05/03/2009 PATRICE MATT DO 709.9 Skin Lesions 05/03/2009 477.9 Rhinitis 05/03/2009 709.9 Skin Lesions 05/03/2009 PATRICE MATT DO 477.9 Rhinitis 05/03/2009 PATRICE MATT DO 709.9 Skin Lesions 04/06/2010 PATRICE MATT DO 311 DEPRESSIVE DISORDER NOT ELSEWHERE CLASSIFIED 04/06/2010 311 DEPRES SIVE DISORDER NOT ELSEWHERE CLASSIFIED 04/06/2010 PATRICE MATT DO 311 DEPRESSIVE DISORDER NOT ELSEWHERE CLASSIFIED 04/08/2010 PATRICE MATT DO 304.30 Cannabis Dependence Unspecified Use 04/08/2010 304.30 Can nabis Dependence Unspecified Use 04/08/2010 PATRICE MATT DO 304.30 Cannabis Dependence Unspecified Use 06/28/2010 Ot 599.0 URIN TRACT INFECTION NOS 06/28/2010 Ot 789.09 ABD OMINAL PAIN, OTHER SPECIFIED SITE 07/05/2010 PATRICE MATT DO 599.0 Urinary Tract Infection Site Not Specified 07/05/2010 599.0 Urin crys Tract Infection Site Not Specified 07/05/2010 PATRICE MATT DO 599.0 Urinary Tract Infection Site Not Specified 07/25/2010 PATRICE MATT DO 491.9 BRONCHITIS, CHRONIC UNSPEC 07/25/2010 PATRICE MATT DO 724.3 Sciatica 07/25/2010 491.9 BRON CHITIS, CHRONIC UNSPEC 07/25/2010 724.3 Sciatica 07/25/2010 PATRICE MATT DO 491.9 BRONCHITIS, CHRONIC UNSPEC 07/25/2010 PATRICE MATT DO 724.3 Sciatica 09/12/2010 PATRICE MATT DO 110.4 Dermatophytosis Of Foot 09/12/2010 PATRICE MATT DO 789.01 Abdominal Pain Right Upper Quadrant 09/12/2010 110.4 Derm atophytosis Of Foot 09/12/2010 789.01 Abd ominal Pain Right Upper Quadrant 09/12/2010 PATRICE MATT DO 110.4 Dermatophytosis Of Foot 09/12/2010 PATRICE MATT DO 789.01 Abdominal Pain Right Upper Quadrant 10/30/2010 Ot 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 10/30/2010 Ot 491.21 OBS TR CHRONIC BRONCHITIS, W (ACUTE) EXAC 10/30/2010 Ot 786.05 DEMOND RTNESS OF BREATH 11/07/2010 Ot 070.70 UNS PECIFIED VIRAL HEPATITIS C WITHOUT HE 11/07/2010 Ot 244.9 HYPO THYROIDISM NOS 11/07/2010 Ot 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 11/07/2010 Ot 296.80 BIP OLAR DISORDER, UNSPECIFIED 11/07/2010 Ot 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 11/07/2010 Ot 401.9 HYPE RTENSION NOS 11/07/2010 Ot 491.21 OBS TR CHRONIC BRONCHITIS, W (ACUTE) EXAC 11/07/2010 Ot 710.0 SYST LUPUS ERYTHEMATOSIS 03/08/2011 PATRICE MATT DO 244.9 HYPOTHYROIDISM 03/08/2011 PATRICE MATT DO 304.30 Cannabis Dependence Unspecified Use 03/08/2011 PATRICE MATT DO 728.85 Muscle Spasm 03/08/2011 244.9 HYPO THYROIDISM 03/08/2011 304.30 Can nabis Dependence Unspecified Use 03/08/2011 728.85 Mus alexis Spasm 03/08/2011 PATRICE MATT DO 244.9 HYPOTHYROIDISM 03/08/2011 PATRICE MATT DO 304.30 Cannabis Dependence Unspecified Use 03/08/2011 PATRICE MATT DO 728.85 Muscle Spasm 09/14/2011 PATRICE MATT DO 300.00 ANXIETY STATE UNSPECIFIED 09/14/2011 PATRICE MATT DO 401.1 HYPERTENSION, BENIGN ESSENTIAL 09/14/2011 PATRICE MATT DO 709.9 Unspecified Disorder Of Skin And Subcutaneous Tissue 09/14/2011 PATRICE MATT DO 719.45 PAIN IN JOINT INVOLVING PELVIC REGION AND THIGH 09/14/2011 PATRICE MATT DO V58.69 LONG-TERM (CURRENT) USE OF OTHER MEDICATIONS 09/14/2011 300.00 ANX IETY STATE UNSPECIFIED 09/14/2011 401.1 HYPE RTENSION, BENIGN ESSENTIAL 09/14/2011 709.9 Unsp ecified Disorder Of Skin And Subcutaneous Tissue 09/14/2011 719.45 EARL N IN JOINT INVOLVING PELVIC REGION AND THIGH 09/14/2011 V58.69 LUNA G-TERM (CURRENT) USE OF OTHER MEDICATIONS 09/14/2011 PATRICE MATT DO 300.00 ANXIETY STATE UNSPECIFIED 09/14/2011 PATRICE MATT DO K 401.1 HYPERTENSION, BENIGN ESSENTIAL 09/14/2011 MATT PATRICE MCGRATH K 709.9 Unspecified Disorder Of Skin And Subcutaneous Tissue 09/14/2011 PATRICE MATT DO K 719.45 PAIN IN JOINT INVOLVING PELVIC REGION AND THIGH 09/14/2011 MATT PATRICE MCGRATH V58.69 LONG-TERM (CURRENT) USE OF OTHER MEDICATIONS 09/25/2011 PATRICE MATT DO K 577.1 CHRONIC PANCREATITIS 09/25/2011 577.1 FAST FOOD FRY COOK SADIA PANCREATITIS 09/25/2011 PATRICE MATT DO K 577.1 CHRONIC PANCREATITIS 11/19/2011 Ot 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 11/19/2011 Ot 789.09 ABD OMINAL PAIN, OTHER SPECIFIED SITE 02/07/2012 PATRICE MATT DO K 338.29 OTHER CHRONIC PAIN 02/07/2012 NORI MATT DOA K 599.70 HEMATURIA UNSPECIFIED 02/07/2012 NORI MATT DOA K 787.91 DIARRHEA 02/07/2012 NORI MATT DOA K V65.42 COUNSELING - SMOKING CESSATION 02/07/2012 SHAKA MCGRATH PATRICE K 338.29 OTHER CHRONIC PAIN 02/07/2012 SHAKA MCGRATH PATRICE K 599.70 HEMATURIA UNSPECIFIED 02/07/2012 NORI MATT DOA K 787.91 DIARRHEA 02/07/2012 NORI MATT DOA K V65.42 COUNSELING - SMOKING CESSATION 06/10/2014 Ot 733.90 06/10/2014 Ot 719.45 06/10/2014 Ot V58.69 06/10/2014 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[employer]MODULE ASSEMBLY Ot 070.70 UNSPECIFIED VIRAL HEPATITIS C WITHOUT HE 06/10/2014 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[employer] ASSEMBLY Ot 304.90 DRUG DEPEND NOS-UNSPEC 06/10/2014 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[employer]MODULE ASSEMBLY Ot 719.41 JOINT PAIN-SHLDER 06/10/2014 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[employer]MODULE ASSEMBLY Ot 724 .5 BACKACHE NOS 07/29/2014 Ot 733.90 07/29/2014 Ot 719.45 07/29/2014 Ot V58.69 09/26/2014 MATT BRITO MD Ot 338. 4 CHRONIC PAIN SYNDROME 09/26/2014 MATT BRITO MD Ot 721. 3 LUMBOSACRAL SPONDYLOSIS 09/26/2014 MATT BRITO MD Ot 722. 52 LUMB/LUMBOSAC DISC DEGEN 09/26/2014 MATT BRITO MD, Ot V58. 69 OTH MED,LT,CURRENT USE 07/20/2018 MATT BRITO MD Ot 724. 2 LUMBAGO 07/20/2018 MATT BRITO MD Ot 727. 40 SYNOVIAL CYST NOS 07/20/2018 MATT BRITO MD Ot 724. 2 LUMBAGO 07/20/2018 MATT BRITO MD, Ot 727. 40 SYNOVIAL CYST NOS 07/20/2018 TONY GIFFORD APRN Ot J44 .1 CHRONIC OBSTRUCTIVE PULMONARY DISEASE W 07/20/2018 TONY GIFFORD APRN Ot R06.02 SHORTNESS OF BREATH 07/20/2018 TONY GIFFORD APRN Ot Z79.51 DIRECTOR ORACLE (CURRENT) USE OF INHALED STERO 07/20/2018 TONY GIFFORD APRN Ot Z87.19 PERSONAL HISTORY OF OTHER DISEASES OF 07/20/2018 TONY GIFFORD APRN Ot Z88 .8 ALLERGY STATUS TO OTH DRUG/MEDS/BIOL SUB 07/20/2018 MATT BRITO MD Ot 724. 2 LUMBAGO 07/20/2018 MATT BRITO MD Ot 727. 40 SYNOVIAL CYST NOS 07/23/2018 TONY GIFFORD APRN Ot J44 .1 CHRONIC OBSTRUCTIVE PULMONARY DISEASE W 07/23/2018 TONY GIFFORD APRN Ot R06.02 SHORTNESS OF BREATH 07/23/2018 TONY GIFFORD APRN Ot Z79.51 [facility] (CURRENT) USE OF INHALED STERO 07/23/2018 TONY GIFFORD APRN Ot Z87.19 PERSONAL HISTORY OF OTHER DISEASES OF TH 07/23/2018 TONY GIFFORD APRN Ot Z88 .8 ALLERGY STATUS TO OTH DRUG/MEDS/BIOL SUB 09/11/2018 MATT BRITO MD Ot 724. 2 LUMBAGO 09/11/2018 MATT BRITO MD Ot 727. 40 SYNOVIAL CYST NOS 10/07/2018 MATT BRITO MD Ot 724. 2 LUMBAGO 10/07/2018 MATT BRITO MD Ot 727. 40 SYNOVIAL CYST NOS 10/16/2018 OC, DOUGLAS D SUPERVISOR [employer]MODULE ASSEMBLY Ot M51.37 OTHER INTERVERTEBRAL DISC DEGENERATION, 10/16/2018 OC, DOUGLAS D SUPERVISOR [employer]MODULE ASSEMBLY Ot M71.38 OTHER BURSAL CYST, OTHER SITE 11/06/2018 OC, DOUGLAS D SUPERVISOR [employer] ASSEMBLY Ot M51.37 OTHER INTERVERTEBRAL DISC DEGENERATION, 11/06/2018 OC, DOUGLAS D SUPERVISOR [employer]MODULE ASSEMBLY Ot M71.38 OTHER BURSAL CYST, OTHER SITE 11/19/2018 MATT BRITO MD Ot 724. 2 LUMBAGO 11/19/2018 MATT BRITO MD Ot 727. 40 SYNOVIAL CYST NOS 11/19/2018 OC, DOUGLAS D SUPERVISOR [employer]MODULE ASSEMBLY Ot M51.37 OTHER INTERVERTEBRAL DISC DEGENERATION, 11/19/2018 OC, DOUGLAS D SUPERVISOR [employer]MODULE ASSEMBLY Ot M71.38 OTHER BURSAL CYST, OTHER SITE 11/30/2018 OC, DOUGLAS D SUPERVISOR [employer]MODULE ASSEMBLY Ot K11 .8 OTHER DISEASES OF SALIVARY GLANDS 11/30/2018 OC, DOUGLAS D SUPERVISOR [employer]MODULE ASSEMBLY Ot R49 .0 DYSPHONIA 12/10/2018 OC, DOUGLAS D SUPERVISOR [employer]MODULE ASSEMBLY Ot K11 .8 OTHER DISEASES OF SALIVARY GLANDS 12/10/2018 OC, DOUGLAS D SUPERVISOR [employer]MODULE ASSEMBLY Ot R49 .0 DYSPHONIA 03/01/2019 MATT BRITO MD Ot 724. 2 LUMBAGO 03/01/2019 MATT BRITO MD Ot 727. 40 SYNOVIAL CYST NOS 03/01/2019 OC, DOUGLAS D SUPERVISOR KEYMODULE ASSEMBLY Ot M51.37 OTHER INTERVERTEBRAL DISC DEGENERATION, 03/01/2019 OC, DOUGLAS D SUPERVISOR KEYMODULE ASSEMBLY Ot M71.38 OTHER BURSAL CYST, OTHER SITE 03/01/2019 OC, DOUGLAS D SUPERVISOR KEYMODULE ASSEMBLY Ot K11 .8 OTHER DISEASES OF SALIVARY GLANDS 03/01/2019 OC, DOUGLAS D SUPERVISOR KEYMODULE ASSEMBLY Ot R49 .0 DYSPHONIA 03/01/2019 MATT BRITO MD Ot 724. 2 LUMBAGO 03/01/2019 MATT BRITO MD Ot 727. 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 2 LUMBAGO 03/01/2019 MATT BRITO MD Ot 727. 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 2 LUMBAGO 03/02/2019 MATT BRITO MD Ot 727. 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 DISC DEGENERATION, 03/02/2019 KING DOUGLAS D SUPERVISOR KEYMODULE ASSEMBLY Ot M71.38 OTHER BURSAL CYST, OTHER SITE 03/02/2019 KING DOUGLAS D SUPERVISOR KEYMODULE ASSEMBLY Ot K11 .8 OTHER DISEASES OF SALIVARY GLANDS 03/02/2019 OC DOUGLAS D SUPERVISOR KEYMODULE ASSEMBLY Ot R49 .0 DYSPHONIA 03/02/2019 OTNY GIFFORD APRN Ot B19.20 UNSPECIFIED VIRAL HEPATITIS C WITHOUT HE 03/02/2019 TONY GIFFORD APRN Ot F17.210 NICOTINE DEPENDENCE, CIGARETTES, UNCOMPL 03/02/2019 TONY GIFFORD APRN Ot G89.18 OTHER ACUTE POSTPROCEDURAL PAIN 03/02/2019 TONY GIFFORD APRN Ot J44 .9 CHRONIC OBSTRUCTIVE PULMONARY DISEASE, U 03/02/2019 TONY GIFFORD APRN Ot M54 .2 CERVICALGIA 03/02/2019 TONY GIFFORD APRN Ot Z79.51 [facility] (CURRENT) USE OF INHALED STERO 03/02/2019 TONY GIFFORD APRN Ot Z79.52 DIRECTOR ORACLE (CURRENT) USE OF SYSTEMIC STER 03/02/2019 MATT BRITO MD Ot 724. 2 LUMBAGO 03/02/2019 MATT BRTIO MD Ot 727. 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 DISC DEGENERATION, 03/02/2019 DIO RENAETA D SUPERVISOR KEYMODULE ASSEMBLY Ot M71.38 OTHER BURSAL CYST, OTHER SITE 03/02/2019 DIO RENAETA D SUPERVISOR KEYMODULE ASSEMBLY Ot K11 .8 OTHER DISEASES OF SALIVARY GLANDS 03/02/2019 DIO RENAETA D SUPERVISOR KEYMODULE ASSEMBLY Ot R49 .0 DYSPHONIA 03/08/2019 TONY GIFFORD APRN Ot B19.20 UNSPECIFIED VIRAL HEPATITIS C WITHOUT HE 03/08/2019 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KEYMODULE ASSEMBLY Ot F17.210 NICOTINE DEPENDENCE, CIGARETTES, UNCOMPL 03/08/2019 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KEYMODULE ASSEMBLY Ot G89.18 OTHER ACUTE POSTPROCEDURAL PAIN 03/08/2019 TONY GIFFORD APRN Ot J44 .9 CHRONIC OBSTRUCTIVE PULMONARY DISEASE, U 03/08/2019 TONY GIFFORD APRN Ot M54 .2 CERVICALGIA 03/08/2019 TONY GIFFORD APRN Ot Z79.51 [facility] (CURRENT) USE OF INHALED STERO 03/08/2019 TONY GIFFORD APRN Ot Z79.52 DIRECTOR ORACLE (CURRENT) USE OF SYSTEMIC STER 03/09/2019 IZABELLA HOLT MD Ot R59 .0 LOCALIZED ENLARGED LYMPH NODES 03/09/2019 MATT BRITO MD Ot 724. 2 LUMBAGO 03/09/2019 MATT BRITO MD Ot 727. 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 2 LUMBAGO 03/10/2019 MATT BRITO MD Ot 727. 40 SYNOVIAL CYST NOS 03/10/2019 DIO RENAETA D SUPERVISOR KEYMODULE ASSEMBLY Ot M51.37 OTHER INTERVERTEBRAL DISC DEGENERATION, 03/10/2019 OCDIOTA D SUPERVISOR KEYMODULE ASSEMBLY Ot M71.38 OTHER BURSAL CYST, OTHER SITE 03/10/2019 OC, DOUGLAS D SUPERVISOR KEYMODULE ASSEMBLY Ot K11 .8 OTHER DISEASES OF SALIVARY GLANDS 03/10/2019 OC, DOUGLAS D SUPERVISOR KEYMODULE ASSEMBLY Ot R49 .0 DYSPHONIA 03/10/2019 IZABELLA HOLT MD P Ot R59 .0 LOCALIZED ENLARGED LYMPH NODES 03/10/2019 MATT BRITO MD Ot 724. 2 LUMBAGO 03/10/2019 MATT BRITO MD Ot 727. 40 SYNOVIAL CYST NOS 03/10/2019 OC, DOUGLAS D SUPERVISOR KEYMODULE ASSEMBLY Ot M51.37 OTHER INTERVERTEBRAL DISC DEGENERATION, 03/10/2019 OC, DOUGLAS D SUPERVISOR KEYMODULE ASSEMBLY Ot M71.38 OTHER BURSAL CYST, OTHER SITE 03/10/2019 OC, DOUGLAS D SUPERVISOR KEYMODULE ASSEMBLY Ot K11 .8 OTHER DISEASES OF SALIVARY GLANDS 03/10/2019 OC, DOUGLAS D SUPERVISOR KEYMODULE ASSEMBLY Ot R49 .0 DYSPHONIA 03/10/2019 IZABELLA HOLT MD Ot R59 .0 LOCALIZED ENLARGED LYMPH NODES 03/10/2019 MATT BRITO MD Ot 724. 2 LUMBAGO 03/10/2019 MATT BRITO MD Ot 727. 40 SYNOVIAL CYST NOS 03/10/2019 OC, DOUGLAS D SUPERVISOR KEYMODULE ASSEMBLY Ot M51.37 OTHER INTERVERTEBRAL DISC DEGENERATION, 03/10/2019 OC, DOUGLAS D SUPERVISOR KEYMODULE ASSEMBLY Ot M71.38 OTHER BURSAL CYST, OTHER SITE 03/10/2019 OC, DOUGLAS D SUPERVISOR KEYMODULE ASSEMBLY Ot K11 .8 OTHER DISEASES OF SALIVARY GLANDS 03/10/2019 OC, DOUGLAS D SUPERVISOR KEYMODULE ASSEMBLY Ot R49 .0 DYSPHONIA 03/10/2019 IZABELLA HOLT MD P Ot R59 .0 LOCALIZED ENLARGED LYMPH NODES 03/10/2019 IZABELLA HOLT MD P Ot R59 .0 LOCALIZED ENLARGED LYMPH NODES 03/10/2019 IZABELLA HOLT MD P Ot R59 .0 LOCALIZED ENLARGED LYMPH NODES 03/11/2019 MATT BRITO MD Ot 724. 2 LUMBAGO 03/11/2019 MATT BRITO MD Ot 727. 40 SYNOVIAL CYST NOS 03/11/2019 OC, DOUGLAS D SUPERVISOR KEYMODULE ASSEMBLY Ot M51.37 OTHER INTERVERTEBRAL DISC DEGENERATION, 03/11/2019 OC, DOUGLAS D SUPERVISOR KEYMODULE ASSEMBLY Ot M71.38 OTHER BURSAL CYST, OTHER SITE 03/11/2019 OC, DOUGLAS D SUPERVISOR KEYMODULE ASSEMBLY Ot K11 .8 OTHER DISEASES OF SALIVARY GLANDS 03/11/2019 OC, DOUGLAS D SUPERVISOR KEYMODULE ASSEMBLY Ot R49 .0 DYSPHONIA 03/11/2019 IZABELLA HOLT MD Ot R59 .0 LOCALIZED ENLARGED LYMPH NODES 03/11/2019 MATT BRITO MD Ot 724. 2 LUMBAGO 03/11/2019 DARYL RAY, MATT Raygoza Ot 727. 40 SYNOVIAL CYST NOS 03/11/2019 DIO RENAETA D SUPERVISOR KEYMODULE ASSEMBLY Ot M51.37 OTHER INTERVERTEBRAL DISC DEGENERATION, 03/11/2019 KING DOUGLAS D SUPERVISOR KEYMODULE ASSEMBLY Ot M71.38 OTHER BURSAL CYST, OTHER SITE 03/11/2019 KING DOUGLAS D SUPERVISOR KEYMODULE ASSEMBLY Ot K11 .8 OTHER DISEASES OF SALIVARY GLANDS 03/11/2019 OC DOUGLAS D SUPERVISOR KEYMODULE ASSEMBLY Ot R49 .0 DYSPHONIA 03/11/2019 IZABELLA HOLT MD Ot R59 .0 LOCALIZED ENLARGED LYMPH NODES 03/11/2019 MATT BRITO MD Ot 724. 2 LUMBAGO 03/11/2019 MATT BRITO MD Ot 727. 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, 03/12/2019 JULIO DO, ANUSHA Ot E03.9 HYPOTHYROIDISM, UNSPECIFIED 03/12/2019 JULIO DO, ANUSHA Ot F10.23 9 ALCOHOL DEPENDENCE WITH WITHDRAWAL, UNSP 03/12/2019 JULIO DO, ANUSHA Ot F17.21 0 NICOTINE DEPENDENCE, CIGARETTES, UNCOMPL 03/12/2019 JULIO DO, ANUSHA Ot F20.9 SCHIZOPHRENIA, UNSPECIFIED 03/12/2019 KIM DO, ANUSHA Ot F31.9 BIPOLAR DISORDER, UNSPECIFIED 03/12/2019 JULIO MCGRATH, ANUSHA Ot G89.29 OTHER CHRONIC PAIN 03/12/2019 JULIO DO, ANUSHA Ot I10 ESSENTIAL (PRIMARY) HYPERTENSION 03/12/2019 KIM DO, ANUSHA Ot J40 BRONCHITIS, NOT SPECIFIED ACUTE OR CH 03/12/2019 JULIO DO ANUSHA Ot J43.9 EMPHYSEMA, UNSPECIFIED 03/12/2019 KIM DO, ANUSHA Ot K11.20 SIALOADENITIS, UNSPECIFIED 03/12/2019 KIM DO, ANUSHA Ot M32.9 SYSTEMIC LUPUS ERYTHEMATOSUS, UNSPECIFIE 03/12/2019 KIM DO ANUSHA Ot M54.9 DORSALGIA, UNSPECIFIED 03/12/2019 KIM DO, ANUSHA Ot R91.1 SOLITARY PULMONARY NODULE 03/12/2019 JULIO DO, ANUSHA Ot Z87.89 1 PERSONAL HISTORY OF NICOTINE DEPENDENCE 03/12/2019 JULIO MCGRATH ANUSHA Ot Z90.71 0 ACQUIRED ABSENCE OF BOTH CERVIX AND UTER 03/16/2019 DARYL RAY, MATT Raygoza Ot 724. 2 LUMBAGO 03/16/2019 DARYL RAY, MATT Raygoza Ot 727. 40 SYNOVIAL CYST NOS 03/16/2019 DOUGLAS RENAE SUPERVISOR KEYMODULE ASSEMBLY Ot M51.37 OTHER INTERVERTEBRAL DISC DEGENERATION, 03/16/2019 DOUGLAS RENAE SUPERVISOR KEYMODULE ASSEMBLY Ot M71.38 OTHER BURSAL CYST, OTHER SITE 03/16/2019 DOUGLAS RENAE SUPERVISOR KEYMODULE ASSEMBLY Ot K11 .8 OTHER DISEASES OF SALIVARY GLANDS 03/16/2019 DOUGLAS RENAE SUPERVISOR KEYMODULE ASSEMBLY Ot R49 .0 DYSPHONIA 03/16/2019 JONATHON RAY, IZABELLA Silva Ot R59 .0 LOCALIZED ENLARGED LYMPH NODES 03/16/2019 JONATHON RAY, IZABELLA Silva Ot R59 .0 LOCALIZED ENLARGED LYMPH NODES 03/22/2019 JULIO MCGRATH ANUSHA Ot B19.20 UNSPECIFIED VIRAL HEPATITIS C WITHOUT HE 03/22/2019 JULIO MCGRATH, ANUSHA Ot 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, 03/22/2019 JULIO MCGRATH, ANUSHA Ot E03.9 HYPOTHYROIDISM, UNSPECIFIED 03/22/2019 JULIO DO ANUSHA Ot F10.23 9 ALCOHOL DEPENDENCE WITH WITHDRAWAL, UNSP 03/22/2019 JULIO DO, ANUSHA Ot F17.21 0 NICOTINE DEPENDENCE, CIGARETTES, UNCOMPL 03/22/2019 JULIO DO ANUSHA Ot F20.9 SCHIZOPHRENIA, UNSPECIFIED 03/22/2019 JULIO DO ANUSHA Ot F31.9 BIPOLAR DISORDER, UNSPECIFIED 03/22/2019 KIM DO, ANUSHA Ot G89.29 OTHER CHRONIC PAIN 03/22/2019 KIM DO, ANUSHA Ot I10 ESSENTIAL (PRIMARY) HYPERTENSION 03/22/2019 KIM DO, ANUSHA Ot J40 BRONCHITIS, NOT SPECIFIED ACUTE OR CH 03/22/2019 KIM DO, ANUSHA Ot J43.9 EMPHYSEMA, UNSPECIFIED 03/22/2019 KIM DO, ANUSHA Ot K11.20 SIALOADENITIS, UNSPECIFIED 03/22/2019 KIM DO, ANUSHA Ot M32.9 SYSTEMIC LUPUS ERYTHEMATOSUS, UNSPECIFIE 03/22/2019 KIM DO, ANUSHA Ot M54.9 DORSALGIA, UNSPECIFIED 03/22/2019 KIM DO, ANUSHA Ot R91.1 SOLITARY PULMONARY NODULE 03/22/2019 KIM DO, ANUSHA Ot Z87.89 1 PERSONAL HISTORY OF NICOTINE DEPENDENCE 03/22/2019 KIM DO, ANUSHA Ot Z90.71 0 ACQUIRED ABSENCE OF BOTH CERVIX AND UTER 03/22/2019 DARYL RAY, MATT Raygoza Ot 724. 2 LUMBAGO 03/22/2019 DARYL RAY, MATT Raygoza Ot 727. 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, 03/22/2019 KIM DO, ANUSHA Ot E03.9 HYPOTHYROIDISM, UNSPECIFIED 03/22/2019 KIM DO, ANUSHA Ot F10.23 9 ALCOHOL DEPENDENCE WITH WITHDRAWAL, UNSP 03/22/2019 KIM DO, ANUSHA Ot F17.21 0 NICOTINE DEPENDENCE, CIGARETTES, UNCOMPL 03/22/2019 KIM DO, ANUSHA Ot F20.9 SCHIZOPHRENIA, UNSPECIFIED 03/22/2019 KIM DO, ANUSHA Ot F31.9 BIPOLAR DISORDER, UNSPECIFIED 03/22/2019 KIM DO, ANUSHA Ot G89.29 OTHER CHRONIC PAIN 03/22/2019 KIM DO, ANUSHA Ot I10 ESSENTIAL (PRIMARY) HYPERTENSION 03/22/2019 KIM DO, ANUSHA Ot J40 BRONCHITIS, NOT SPECIFIED ACUTE OR CH 03/22/2019 KIM DO, ANUSHA Ot J43.9 EMPHYSEMA, UNSPECIFIED 03/22/2019 KIM DO, ANUSHA Ot K11.20 SIALOADENITIS, UNSPECIFIED 03/22/2019 KIM DO, ANUSHA Ot M32.9 SYSTEMIC LUPUS ERYTHEMATOSUS, UNSPECIFIE 03/22/2019 KIM DO, ANUSHA Ot M54.9 DORSALGIA, UNSPECIFIED 03/22/2019 KIM DO, ANUSHA Ot R91.1 SOLITARY PULMONARY NODULE 03/22/2019 KIM DO, ANUSHA Ot Z87.89 1 PERSONAL HISTORY OF NICOTINE DEPENDENCE 03/22/2019 KIM DO, ANUSHA Ot Z90.71 0 ACQUIRED ABSENCE OF BOTH CERVIX AND UTER 03/22/2019 KIM DO, ANUSHA Ot B19.20 UNSPECIFIED VIRAL HEPATITIS C WITHOUT HE 03/22/2019 KIM DO, ANUSHA Ot 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, 03/22/2019 KIM DO, ANUSHA Ot E03.9 HYPOTHYROIDISM, UNSPECIFIED 03/22/2019 KIM DO, ANUSHA Ot F10.23 9 ALCOHOL DEPENDENCE WITH WITHDRAWAL, UNSP 03/22/2019 KIM DO, ANUSHA Ot F17.21 0 NICOTINE DEPENDENCE, CIGARETTES, UNCOMPL 03/22/2019 KIM DO, ANUSHA Ot F20.9 SCHIZOPHRENIA, UNSPECIFIED 03/22/2019 KIM DO, ANUSHA Ot F31.9 BIPOLAR DISORDER, UNSPECIFIED 03/22/2019 KIM DO, ANUSHA Ot G89.29 OTHER CHRONIC PAIN 03/22/2019 KIM DO, ANUSHA Ot I10 ESSENTIAL (PRIMARY) HYPERTENSION 03/22/2019 KIM DO, ANUSHA Ot J40 BRONCHITIS, NOT SPECIFIED ACUTE OR CH 03/22/2019 KIM DO, ANUSHA Ot J43.9 EMPHYSEMA, UNSPECIFIED 03/22/2019 KIM DO, ANUSHA Ot K11.20 SIALOADENITIS, UNSPECIFIED 03/22/2019 KIM DO, ANUSHA Ot M32.9 SYSTEMIC LUPUS ERYTHEMATOSUS, UNSPECIFIE 03/22/2019 KIM DO, ANUSHA Ot M54.9 DORSALGIA, UNSPECIFIED 03/22/2019 KIM DO, ANUSHA Ot R91.1 SOLITARY PULMONARY NODULE 03/22/2019 JULIO MCGRATH, ANUSHA Ot Z87.89 1 PERSONAL HISTORY OF NICOTINE DEPENDENCE 03/22/2019 JULIO MCGRATH, ANUSHA Ot Z90.71 0 ACQUIRED ABSENCE OF BOTH CERVIX AND UTER 04/13/2019 Ot 733.90 BON E CARTILAGE DIS NOS 04/13/2019 Ot 719.45 LEXIE NT PAIN-PELVIS 04/13/2019 Ot V58.69 OTH MED,LT,CURRENT USE 04/13/2019 DARYL RAY, MATT Raygoza Ot 724. 2 LUMBAGO 04/13/2019 DARYL RAY, MATT Raygoza Ot 727. 40 SYNOVIAL CYST NOS 05/20/2019 TONY GIFFORD APRN Ot E03 .9 HYPOTHYROIDISM, UNSPECIFIED 05/20/2019 TONY GIFFORD APRN Ot F31 .9 BIPOLAR DISORDER, UNSPECIFIED 05/20/2019 TONY GIFFORD APRN Ot I10 ESSENTIAL (PRIMARY) HYPERTENSION 05/20/2019 TONY GIFFORD APRN Ot J44 .9 CHRONIC OBSTRUCTIVE PULMONARY DISEASE, U 05/20/2019 TONY GIFFORD APRN Ot K52 .9 NONINFECTIVE GASTROENTERITIS AND COLITIS 05/20/2019 TONY GIFFORD APRN Ot K74.60 UNSPECIFIED CIRRHOSIS OF LIVER 05/20/2019 TONY GIFFORD APRN Ot N20 .0 CALCULUS OF KIDNEY 05/20/2019 TONY GIFFORD APRN Ot R18 .8 OTHER ASCITES 05/20/2019 TONY GIFFORD APRN Ot R31 .9 HEMATURIA, UNSPECIFIED 05/20/2019 TONY GIFFORD APRN Ot Z79.52 [facility] (CURRENT) USE OF SYSTEMIC STER 05/20/2019 TONY GIFFORD APRN Ot Z86.59 PERSONAL HISTORY OF OTHER MENTAL AND BEH 05/20/2019 TONY GIFFORD APRN Ot Z99.81 DEPENDENCE ON SUPPLEMENTAL OXYGEN 05/27/2019 IQRA OLIVARES MD Ot 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 05/27/2019 IQRA OLIVARES MD Ot N20.0 CALCULUS OF KIDNEY 05/28/2019 IQRA OLIVARES MD, Ot Z01.8 18 ENCOUNTER FOR OTHER PREPROCEDURAL EXAMIN 05/31/2019 IQRA OLIVARES MD, Ot 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 05/31/2019 IQRA OLIVARES MD, Ot N20.0 CALCULUS OF KIDNEY Procedures Code Description Performed By Per formed On 51.23 LAPA ROSCOPIC CHOLECYSTECTOMY 08/30/2005 87.53 INTR AOPER CHOLANGIOGRAM 08/30/2005 94.65 DRUG DETOXIFICATION 09/28/2005 94.62 ALCO HOL DETOXIFICATION 09/29/2005 52770 UA W / CULTURE IF INDICATED 02/07/2012 IQRA WHITESIDE 02/09/2012 Results Test Result Range Complete blood count (CBC) with automate d white blood cell (WBC) differential - 07/20/18 16:05 Blood leukocytes automated count (number/volume) 5.1 10*3/uL 4.3-11.0 Blood erythrocytes automated count (number/volume) 3.61 10*6/uL 4.35-5.85 Venous blood hemoglobin measurement (mass/volume) 14.0 g/dL 11.5-16.0 Blood hematocrit (volume fraction) 39 % 35-52 Automated erythrocyte mean corpuscular volume 108 [foz_us] 80-99 Automated erythrocyte mean corpuscular h emoglobin (mass per erythrocyte) 39 pg 25-34 Automated erythrocyte mean corpuscular h emoglobin concentration measurement (mass/volume) 36 g/dL 32-36 Automated erythrocyte distribution width ratio 13. 7 % 10.0- 14.5 Automated blood platelet count (count/volume) 118 10*3/uL 130-400 Automated blood platelet mean volume measurement 11.2 [foz_us] 7.4-10.4 Automated blood neutrophils/100 leukocytes 42 % 42-75 Automated blood lymphocytes/100 leukocytes 36 % 12-44 Blood monocytes/100 leukocytes 13 % 0-12 Automated blood eosinophils/100 leukocytes 6 % 0-10 Automated blood basophils/100 leukocytes 3 % 0-10 Blood neutrophils automated count (number/volume) 2.1 10*3 1.8-7.8 Blood lymphocytes automated count (number/volume) 1.8 10*3 1.0-4.0 Blood monocytes automated count (number/volume) 0. 7 10*3 0.0-1.0 Automated eosinophil count 0.3 10*3/uL 0 .0-0.3 Automated blood basophil count (count/volume) 0.2 10*3/uL 0.0-0.1 Comprehensive metabolic panel - 07/20/18 16:05 Serum or plasma sodium measurement (moles/volume) 137 mmol/L 135-145 Serum or plasma potassium measurement (moles/volume) 4.0 mmol/L 3.6-5.0 Serum or plasma chloride measurement (moles/volume) 104 mmol/L 98-107 Carbon dioxide 20 mmol/L 21-32 Serum or plasma anion gap determination (moles/volume) 13 mmol/L 5-14 Serum or plasma urea nitrogen measurement (mass/volume ) 7 mg/dL 7-18 Serum or plasma creatinine measurement (mass/volume) 1.29 mg/dL 0.60-1.30 Serum or plasma urea nitrogen/creatinine mass ratio 5 NRG Serum or plasma creatinine measurement w ith calculation of estimated glomerular filtration rate 42 NRG Serum or plasma glucose measurement (mass/volume) 98 mg/dL 70-105 Serum or plasma calcium measurement (mass/volume) 9.2 mg/dL 8.5-10.1 Serum or plasma total bilirubin measurement (mass/volu me) 1.0 mg/dL 0.1-1.0 Serum or plasma alkaline phosphatase jhony surement (enzymatic activity/volume) 56 U/L 40-136 Serum or plasma aspartate aminotransfera se measurement (enzymatic activity/volume) 205 U/L 5-34 Serum or plasma alanine aminotransferase measurement (enzymatic activity/volume) 67 U/L 0-55 Serum or plasma protein measurement (mass/volume) 8.2 g/dL 6.4-8.2 Serum or plasma albumin measurement (mass/volume) 3.8 g/dL 3.2-4.5 CALCIUM CORRECTED 9.4 mg/dL 8.5-10.1 Serum or plasma troponin i.cardiac measu rement (mass/volume) - 07/20/18 16:05 Serum or plasma troponin i.cardiac measurement (mass/v olume) < ng/mL <0.028 Serum or plasma lithium measurement (mol es/volume) - 07/20/18 16:05 BNP level 65.4 pg/mL <100.0 Arterial blood gas measurement - 9 16:40 Blood pCO2 35 mm[Hg] 35-45 Blood pO2 59 mm[Hg] 79-93 Arterial blood bicarbonate measurement (moles/volume) 22 mmol/L 23-27 Arterial blood base excess by calculation -1.9 mmo l/L -2.5-2.5 Arterial blood oxygen saturation measurement 92 % 94-100 * Inhaled oxygen flow rate UNKNOWN NRG Arterial blood pH measurement with patient temperature correction 7.41 7.37-7.43 Arterial blood carbon dioxide, total measurement (mole s/volume) 23.4 mmol/L 21.0-31.0 Body site R RAD NRG Assessment of wrist artery patency prior to arterial p uncture YES-POS NRG Setting of ventilation mode NO NR G Measurement of body temperature 96.1 NRG CMP - 09/03/18 11:25 GLUCOSE 99 mg/dL 65-99 UREA NITROGEN (BUN) 9 mg/dL 7-25 CREATININE 1.18 mg/dL 0.50-0.99 eGFR NON-AFR. CITIZEN [place] 49 mL/min/1.73m2 > OR = 60 eGFR 57 mL/min/1.73m2 > OR = 60 BUN/CREATININE RATIO 8 (calc) 6-22 SODIUM 139 mmol/L 135-146 POTASSIUM 4.2 mmol/L 3.5-5.3 CHLORIDE 106 mmol/L 98-110 CARBON DIOXIDE 26 mmol/L 20-32 CALCIUM 9.5 mg/dL 8.6-10.4 PROTEIN, TOTAL 7.4 g/dL 6.1-8.1 ALBUMIN 3.9 g/dL 3.6-5.1 GLOBULIN 3.5 g/dL (calc) 1.9-3.7 ALBUMIN/GLOBULIN RATIO 1.1 (calc) 1.0-2. 5 BILIRUBIN, TOTAL 1.5 mg/dL 0.2-1.2 ALKALINE PHOSPHATASE 59 U/L 33-130 AST 162 U/L 10-35 ALT 64 U/L 6-29 HCV RNA, QUANTITATIVE REAL TIME PCR - 13:14 HCV RNA, QUANTITATIVE REAL TIME PCR 56638 IU/mL NOT DETECTED HCV RNA, QUANTITATIVE REAL TIME PCR 4.87 Log IU/mL NOT DETECTED COMMENT NRG HEP C, GENOTYPE-APPROVAL REQUIRED - 10/12 04/28 13:14 HEPATITIS C VIRAL RNA GENOTYPE, LIPA(R) 3 See Report Comprehensive metabolic panel - 11/26/18 14:05 Serum or plasma sodium measurement (moles/volume) 137 mmol/L 135-145 Serum or plasma potassium measurement (moles/volume) 3.9 mmol/L 3.6-5.0 Serum or plasma chloride measurement (moles/volume) 106 mmol/L 98-107 Carbon dioxide 21 mmol/L 21-32 Serum or plasma anion gap determination (moles/volume) 10 mmol/L 5-14 Serum or plasma urea nitrogen measurement (mass/volume ) 6 mg/dL 7-18 Serum or plasma creatinine measurement (mass/volume) 0.79 mg/dL 0.60-1.30 Serum or plasma urea nitrogen/creatinine mass ratio 8 NRG Serum or plasma creatinine measurement w ith calculation of estimated glomerular filtration rate > NRG Serum or plasma glucose measurement (mass/volume) 93 mg/dL 70-105 Serum or plasma calcium measurement (mass/volume) 8.8 mg/dL 8.5-10.1 Serum or plasma total bilirubin measurement (mass/volu me) 1.2 mg/dL 0.1-1.0 Serum or plasma alkaline phosphatase jhony surement (enzymatic activity/volume) 74 U/L 40-136 Serum or plasma aspartate aminotransfera se measurement (enzymatic activity/volume) 105 U/L 5-34 Serum or plasma alanine aminotransferase measurement (enzymatic activity/volume) 43 U/L 0-55 Serum or plasma protein measurement (mass/volume) 7.4 g/dL 6.4-8.2 Serum or plasma albumin measurement (mass/volume) 3.5 g/dL 3.2-4.5 CALCIUM CORRECTED 9.2 mg/dL 8.5-10.1 PT panel in platelet poor plasma by coag ulation assay - 03/01/19 13:30 Prothrombin time (PT) in platelet poor plasma by coagu lation assay 16.3 s 12.2-14.7 INR in platelet poor plasma or blood by coagulation as say 1.3 0.8-1.4 Complete blood count (CBC) with automate d white blood cell (WBC) differential - 03/09/19 23:15 Blood leukocytes automated count (number/volume) 8.4 10*3/uL 4.3-11.0 Blood erythrocytes automated count (number/volume) 4.18 10*6/uL 4.35-5.85 Venous blood hemoglobin measurement (mass/volume) 13.7 g/dL 11.5-16.0 Blood hematocrit (volume fraction) 43 % 35-52 Automated erythrocyte mean corpuscular volume 103 [foz_us] 80-99 Automated erythrocyte mean corpuscular h emoglobin (mass per erythrocyte) 33 pg 25-34 Automated erythrocyte mean corpuscular h emoglobin concentration measurement (mass/volume) 32 g/dL 32-36 Automated erythrocyte distribution width ratio 14. 4 % 10.0- 14.5 Automated blood platelet count (count/volume) 149 10*3/uL 130-400 Automated blood platelet mean volume measurement 10.7 [foz_us] 7.4-10.4 Automated blood neutrophils/100 leukocytes 72 % 42-75 Automated blood lymphocytes/100 leukocytes 17 % 12-44 Blood monocytes/100 leukocytes 9 % 0-12 Automated blood eosinophils/100 leukocytes 1 % 0-10 Automated blood basophils/100 leukocytes 1 % 0-10 Blood neutrophils automated count (number/volume) 6.0 10*3 1.8-7.8 Blood lymphocytes automated count (number/volume) 1.4 10*3 1.0-4.0 Blood monocytes automated count (number/volume) 0. 8 10*3 0.0-1.0 Automated eosinophil count 0.1 10*3/uL 0 .0-0.3 Automated blood basophil count (count/volume) 0.1 10*3/uL 0.0-0.1 Comprehensive metabolic panel - 03/09/19 23:15 Serum or plasma sodium measurement (moles/volume) 139 mmol/L 135-145 Serum or plasma potassium measurement (moles/volume) 4.0 mmol/L 3.6-5.0 Serum or plasma chloride measurement (moles/volume) 108 mmol/L 98-107 Carbon dioxide 21 mmol/L 21-32 Serum or plasma anion gap determination (moles/volume) 10 mmol/L 5-14 Serum or plasma urea nitrogen measurement (mass/volume ) 10 mg/dL 7-18 Serum or plasma creatinine measurement (mass/volume) 0.81 mg/dL 0.60-1.30 Serum or plasma urea nitrogen/creatinine mass ratio 12 NRG Serum or plasma creatinine measurement w ith calculation of estimated glomerular filtration rate > NRG Serum or plasma glucose measurement (mass/volume) 125 mg/dL 70-105 Serum or plasma calcium measurement (mass/volume) 9.0 mg/dL 8.5-10.1 Serum or plasma total bilirubin measurement (mass/volu me) 0.7 mg/dL 0.1-1.0 Serum or plasma alkaline phosphatase jhony surement (enzymatic activity/volume) 90 U/L 40-136 Serum or plasma aspartate aminotransfera se measurement (enzymatic activity/volume) 88 U/L 5-34 Serum or plasma alanine aminotransferase measurement (enzymatic activity/volume) 62 U/L 0-55 Serum or plasma protein measurement (mass/volume) 7.0 g/dL 6.4-8.2 Serum or plasma albumin measurement (mass/volume) 3.3 g/dL 3.2-4.5 CALCIUM CORRECTED 9.6 mg/dL 8.5-10.1 THYROID STIMULATING HORMONE - 03/09/19 2 3:15 THYROID STIMULATING HORMONE 26.70 u[iU]/mL 0.35-4.94 Serum or plasma thyroxine (T4) free bashir urement (mass/volume) - 03/09/19 23:15 Serum or plasma thyroxine (T4) free measurement (mass/ volume) 0.69 ng/dL 0.70-1.48 Serum or plasma ethanol measurement (mas s/volume) - 03/09/19 23:15 Serum or plasma ethanol measurement (mass/volume) 32 mg/dL <10 Methicillin resistant Staphylococcus aur eus (MRSA) screening culture - 03/10/19 10:15 Methicillin resistant Staphylococcus aureus (MRSA) scr eening culture NEG NRG Complete blood count (CBC) with automate d white blood cell (WBC) differential - 03/11/19 05:40 Blood leukocytes automated count (number/volume) 11.2 10*3/uL 4.3-11.0 Blood erythrocytes automated count (number/volume) 3.81 10*6/uL 4.35-5.85 Venous blood hemoglobin measurement (mass/volume) 12.9 g/dL 11.5-16.0 Blood hematocrit (volume fraction) 39 % 35-52 Automated erythrocyte mean corpuscular volume 103 [foz_us] 80-99 Automated erythrocyte mean corpuscular h emoglobin (mass per erythrocyte) 34 pg 25-34 Automated erythrocyte mean corpuscular h emoglobin concentration measurement (mass/volume) 33 g/dL 32-36 Automated erythrocyte distribution width ratio 14. 3 % 10.0- 14.5 Automated blood platelet count (count/volume) 129 10*3/uL 130-400 Automated blood platelet mean volume measurement 11.2 [foz_us] 7.4-10.4 Automated blood neutrophils/100 leukocytes 93 % 42-75 Automated blood lymphocytes/100 leukocytes 4 % 12-44 Blood monocytes/100 leukocytes 4 % 0-12 Automated blood eosinophils/100 leukocytes 0 % 0-10 Automated blood basophils/100 leukocytes 0 % 0-10 Blood neutrophils automated count (number/volume) 10.4 10*3 1.8-7.8 Blood lymphocytes automated count (number/volume) 0.4 10*3 1.0-4.0 Blood monocytes automated count (number/volume) 0. 4 10*3 0.0-1.0 Automated eosinophil count 0.0 10*3/uL 0 .0-0.3 Automated blood basophil count (count/volume) 0.0 10*3/uL 0.0-0.1 Manual absolute plasma cell count - 02/12 05:40 Blood monocytes/100 leukocytes 2 % NRG Manual blood segmented neutrophils/100 leukocytes 93 % NRG Blood band neutrophils/100 leukocytes 0 % NRG Manual blood lymphocytes/100 leukocytes 3 % NRG Manual eosinophils/100 leukocytes in nose 0 % NRG Manual blood basophils/100 leukocytes 0 % NRG Blood lymphocytes variant/100 leukocytes 2 % NRG Blood erythrocyte morphology finding identification [facility] Comprehensive metabolic panel - 03/11/19 05:40 Serum or plasma sodium measurement (moles/volume) 131 mmol/L 135-145 Serum or plasma potassium measurement (moles/volume) 4.9 mmol/L 3.6-5.0 Serum or plasma chloride measurement (moles/volume) 104 mmol/L 98-107 Carbon dioxide 17 mmol/L 21-32 Serum or plasma anion gap determination (moles/volume) 10 mmol/L 5-14 Serum or plasma urea nitrogen measurement (mass/volume ) 16 mg/dL 7-18 Serum or plasma creatinine measurement (mass/volume) 0.97 mg/dL 0.60-1.30 Serum or plasma urea nitrogen/creatinine mass ratio 16 NRG Serum or plasma creatinine measurement w ith calculation of estimated glomerular filtration rate 58 NRG Serum or plasma glucose measurement (mass/volume) 342 mg/dL 70-105 Serum or plasma calcium measurement (mass/volume) 9.0 mg/dL 8.5-10.1 Serum or plasma total bilirubin measurement (mass/volu me) 0.7 mg/dL 0.1-1.0 Serum or plasma alkaline phosphatase jhony surement (enzymatic activity/volume) 69 U/L 40-136 Serum or plasma aspartate aminotransfera se measurement (enzymatic activity/volume) 56 U/L 5-34 Serum or plasma alanine aminotransferase measurement (enzymatic activity/volume) 55 U/L 0-55 Serum or plasma protein measurement (mass/volume) 6.6 g/dL 6.4-8.2 Serum or plasma albumin measurement (mass/volume) 3.1 g/dL 3.2-4.5 CALCIUM CORRECTED 9.7 mg/dL 8.5-10.1 Complete blood count (CBC) with automate d white blood cell (WBC) differential - 03/12/19 05:33 Blood leukocytes automated count (number/volume) 11.0 10*3/uL 4.3-11.0 Blood erythrocytes automated count (number/volume) 3.76 10*6/uL 4.35-5.85 Venous blood hemoglobin measurement (mass/volume) 12.8 g/dL 11.5-16.0 Blood hematocrit (volume fraction) 38 % 35-52 Automated erythrocyte mean corpuscular volume 102 [foz_us] 80-99 Automated erythrocyte mean corpuscular h emoglobin (mass per erythrocyte) 34 pg 25-34 Automated erythrocyte mean corpuscular h emoglobin concentration measurement (mass/volume) 34 g/dL 32-36 Automated erythrocyte distribution width ratio 14. 5 % 10.0- 14.5 Automated blood platelet count (count/volume) 141 10*3/uL 130-400 Automated blood platelet mean volume measurement 11.0 [foz_us] 7.4-10.4 Automated blood neutrophils/100 leukocytes 94 % 42-75 Automated blood lymphocytes/100 leukocytes 3 % 12-44 Blood monocytes/100 leukocytes 3 % 0-12 Automated blood eosinophils/100 leukocytes 0 % 0-10 Automated blood basophils/100 leukocytes 0 % 0-10 Blood neutrophils automated count (number/volume) 10.3 10*3 1.8-7.8 Blood lymphocytes automated count (number/volume) 0.3 10*3 1.0-4.0 Blood monocytes automated count (number/volume) 0. 3 10*3 0.0-1.0 Automated eosinophil count 0.0 10*3/uL 0 .0-0.3 Automated blood basophil count (count/volume) 0.0 10*3/uL 0.0-0.1 Comprehensive metabolic panel - 03/12/19 05:33 Serum or plasma sodium measurement (moles/volume) 133 mmol/L 135-145 Serum or plasma potassium measurement (moles/volume) 4.5 mmol/L 3.6-5.0 Serum or plasma chloride measurement (moles/volume) 105 mmol/L 98-107 Carbon dioxide 21 mmol/L 21-32 Serum or plasma anion gap determination (moles/volume) 7 mmol/L 5-14 Serum or plasma urea nitrogen measurement (mass/volume ) 22 mg/dL 7-18 Serum or plasma creatinine measurement (mass/volume) 1.05 mg/dL 0.60-1.30 Serum or plasma urea nitrogen/creatinine mass ratio 21 NRG Serum or plasma creatinine measurement w ith calculation of estimated glomerular filtration rate 53 NRG Serum or plasma glucose measurement (mass/volume) 354 mg/dL 70-105 Serum or plasma calcium measurement (mass/volume) 9.0 mg/dL 8.5-10.1 Serum or plasma total bilirubin measurement (mass/volu me) 0.6 mg/dL 0.1-1.0 Serum or plasma alkaline phosphatase jhony surement (enzymatic activity/volume) 66 U/L 40-136 Serum or plasma aspartate aminotransfera se measurement (enzymatic activity/volume) 39 U/L 5-34 Serum or plasma alanine aminotransferase measurement (enzymatic activity/volume) 51 U/L 0-55 Serum or plasma protein measurement (mass/volume) 6.6 g/dL 6.4-8.2 Serum or plasma albumin measurement (mass/volume) 3.3 g/dL 3.2-4.5 CALCIUM CORRECTED 9.6 mg/dL 8.5-10.1 CMP - 03/19/19 15:50 GLUCOSE 129 mg/dL 65-99 UREA NITROGEN (BUN) 20 mg/dL 7-25 CREATININE 1.11 mg/dL 0.50-0.99 eGFR NON-AFR. CITIZEN [place] 53 mL/min/1.73m2 > OR = 60 eGFR 61 mL/min/1.73m2 > OR = 60 BUN/CREATININE RATIO 18 (calc) 6-22 SODIUM 137 mmol/L 135-146 POTASSIUM 3.7 mmol/L 3.5-5.3 CHLORIDE 102 mmol/L 98-110 CARBON DIOXIDE 28 mmol/L 20-32 CALCIUM 9.0 mg/dL 8.6-10.4 PROTEIN, TOTAL 6.0 g/dL 6.1-8.1 ALBUMIN 3.4 g/dL 3.6-5.1 GLOBULIN 2.6 g/dL (calc) 1.9-3.7 ALBUMIN/GLOBULIN RATIO 1.3 (calc) 1.0-2. 5 BILIRUBIN, TOTAL 1.0 mg/dL 0.2-1.2 ALKALINE PHOSPHATASE 79 U/L 37-153 AST 87 U/L 10-35 ALT 77 U/L - BNP - 03/19/19 15:50 B TYPE NATRIURETIC PEPTIDE (BNP) 210 pg/mL <100 CMP - 04/09/19 11:37 GLUCOSE 143 mg/dL 65-99 UREA NITROGEN (BUN) 6 mg/dL 7-25 CREATININE 0.85 mg/dL 0.50-0.99 eGFR NON-AFR. CITIZ[place] 73 mL/min/1.73m2 > OR = 60 eGFR 85 mL/min/1.73m2 > OR = 60 BUN/CREATININE RATIO 7 (calc) 6-22 SODIUM 138 mmol/L 135-146 POTASSIUM 4.0 mmol/L 3.5-5.3 CHLORIDE 103 mmol/L 98-110 CARBON DIOXIDE 28 mmol/L 20-32 CALCIUM 9.0 mg/dL 8.6-10.4 PROTEIN, TOTAL 6.5 g/dL 6.1-8.1 ALBUMIN 3.1 g/dL 3.6-5.1 GLOBULIN 3.4 g/dL (calc) 1.9-3.7 ALBUMIN/GLOBULIN RATIO 0.9 (calc) 1.0-2. 5 BILIRUBIN, TOTAL 1.4 mg/dL 0.2-1.2 ALKALINE PHOSPHATASE 82 U/L 37-153 AST 88 U/L 10-35 ALT 44 U/L - BNP - 04/09/19 11:37 B TYPE NATRIURETIC PEPTIDE (BNP) 262 pg/mL <100 Arterial blood gas measurement - 0 18:25 Blood pCO2 38 mm[Hg] 35-45 Blood pO2 148 mm[Hg] 79-93 Arterial blood bicarbonate measurement (moles/volume) 28 mmol/L 23-27 Arterial blood base excess by calculation 4.3 mmol /L -2.5-2.5 Arterial blood oxygen saturation measurement 100 % 94-100 * Inhaled oxygen flow rate ROOM AIR NRG Arterial blood pH measurement with patient temperature correction 7.48 7.37-7.43 Arterial blood carbon dioxide, total measurement (mole s/volume) 28.9 mmol/L 21.0-31.0 Body site RIGHT RADIAL NRG Assessment of wrist artery patency prior to arterial p uncture YES-POS NRG Setting of ventilation mode NO NR G Measurement of body temperature 37.2 NRG Comprehensive metabolic panel - 05/18/19 18:25 Serum or plasma sodium measurement (moles/volume) 136 mmol/L 135-145 Serum or plasma potassium measurement (moles/volume) 3.9 mmol/L 3.6-5.0 Serum or plasma chloride measurement (moles/volume) 102 mmol/L 98-107 Carbon dioxide 23 mmol/L 21-32 Serum or plasma anion gap determination (moles/volume) 11 mmol/L 5-14 Serum or plasma urea nitrogen measurement (mass/volume ) 6 mg/dL 7-18 Serum or plasma creatinine measurement (mass/volume) 1.03 mg/dL 0.60-1.30 Serum or plasma urea nitrogen/creatinine mass ratio 6 NRG Serum or plasma creatinine measurement w ith calculation of estimated glomerular filtration rate 54 NRG Serum or plasma glucose measurement (mass/volume) 122 mg/dL 70-105 Serum or plasma calcium measurement (mass/volume) 8.0 mg/dL 8.5-10.1 Serum or plasma total bilirubin measurement (mass/volu me) 2.7 mg/dL 0.1-1.0 Serum or plasma alkaline phosphatase jhony surement (enzymatic activity/volume) 68 U/L 40-136 Serum or plasma aspartate aminotransfera se measurement (enzymatic activity/volume) 129 U/L 5-34 Serum or plasma alanine aminotransferase measurement (enzymatic activity/volume) 51 U/L 0-55 Serum or plasma protein measurement (mass/volume) 6.9 g/dL 6.4-8.2 Serum or plasma albumin measurement (mass/volume) 2.7 g/dL 3.2-4.5 CALCIUM CORRECTED 9.0 mg/dL 8.5-10.1 Complete blood count (CBC) with automate d white blood cell (WBC) differential - 05/18/19 18:25 Blood leukocytes automated count (number/volume) 8.6 10*3/uL 4.3-11.0 Blood erythrocytes automated count (number/volume) 3.99 10*6/uL 4.35-5.85 Venous blood hemoglobin measurement (mass/volume) 13.7 g/dL 11.5-16.0 Blood hematocrit (volume fraction) 40 % 35-52 Automated erythrocyte mean corpuscular volume 100 [foz_us] 80-99 Automated erythrocyte mean corpuscular h emoglobin (mass per erythrocyte) 34 pg 25-34 Automated erythrocyte mean corpuscular h emoglobin concentration measurement (mass/volume) 34 g/dL 32-36 Automated erythrocyte distribution width ratio 15. 8 % 10.0- 14.5 Automated blood platelet count (count/volume) 122 10*3/uL 130-400 Automated blood platelet mean volume measurement 10.8 [foz_us] 7.4-10.4 Automated blood neutrophils/100 leukocytes 63 % 42-75 Automated blood lymphocytes/100 leukocytes 25 % 12-44 Blood monocytes/100 leukocytes 9 % 0-12 Automated blood eosinophils/100 leukocytes 3 % 0-10 Automated blood basophils/100 leukocytes 1 % 0-10 Blood neutrophils automated count (number/volume) 5.4 10*3 1.8-7.8 Blood lymphocytes automated count (number/volume) 2.1 10*3 1.0-4.0 Blood monocytes automated count (number/volume) 0. 8 10*3 0.0-1.0 Automated eosinophil count 0.2 10*3/uL 0 .0-0.3 Automated blood basophil count (count/volume) 0.1 10*3/uL 0.0-0.1 Lipase - 05/18/19 18:25 Lipase 164 U/L 8-78 Serum or plasma ethanol measurement (mas s/volume) - 05/18/19 18:25 Serum or plasma ethanol measurement (mass/volume) < mg/dL <10 Lipase - 05/18/19 18:25 Lipase 162 U/L 8-78 Complete urinalysis with reflex to cultu re - 05/18/19 19:50 Urine color determination RED NRG Urine clarity determination TURBID NR G Urine pH measurement by test strip 6.5 5-9 Specific gravity of urine by test strip 1.025 1.016-1.022 Urine protein assay by test strip, semi-quantitative 2+ NEGATIVE Urine glucose detection by automated test strip TR DARLING NEGATIVE Erythrocytes detection in urine sediment by light micr oscopy 3+ NEGATIVE Urine ketones detection by automated test strip TR DARLING NEGATIVE Urine nitrite detection by test strip POSITIVE NEGATIVE Urine total bilirubin detection by test strip 2+ NEGATIVE Urine urobilinogen measurement by automated test strip (mass/volume) >= mg/dL < = 1.0 Urine leukocyte esterase detection by dipstick 2+ NEGATIVE Automated urine sediment erythrocyte cou nt by microscopy (number/high power field) TNTC NRG Automated urine sediment leukocyte count by microscopy (number/high power field) [HPF] NRG Bacteria detection in urine sediment by light microsco py TRACE NRG Crystals detection in urine sediment by light microsco py NONE NRG Casts detection in urine sediment by light microscopy NONE NRG Mucus detection in urine sediment by light microscopy NEGATIVE NRG Complete urinalysis with reflex to culture YES NRG Bacterial urine culture - 05/18/19 19:50 Bacterial urine culture [id number] NRG COLONY COUNT 50,000 CFU/ML NRG SUSCEPTIBILITY NO FURTHER TESTING NRG Encounters ACCT No. Visit Date/Time Discharge Status Pt. Type Provider Facility Loc./Unit Complaint [id number] 04/09/2019 11:00:00 04/09/2019 23:59: 59 CLS Outpatient DOUGLAS RENAE [facility] [id number] 04/09/2019 11:00:00 Document Registration [id number] 03/19/2019 14:40:00 Document Registration [id number] 11/02/2018 12:20:00 Document Registration [id number] 09/03/2018 10:20:00 Document Registration [id number] 05/27/2019 08:26:00 10:44:00 DIS Outpatient IQRA OLIVARES MD [facility] PREOP RIGHT RENAL STONE [id number] 05/26/2019 12:56:00 23:59:59 CLS Outpatient IQRA OLIVARES MD [facility] RAD RT RENAL STONES [id number] 05/18/2019 18:08:00 20:42:00 DIS Outpatient TONY GIFFORD APRN [facility] ER SOB, HX COPD, INTESTINA L ISSUES [id number] 03/10/2019 15:06:00 12:15:00 DIS Inpatient JULIO MCGRATH, ANUSHA [facility] 4TH COPD EXACERBATION,SALAV CRYS GLAND TUMORS [id number] 03/02/2019 11:57:00 12:30:00 DIS Emergency 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 [facility] ER NECK PAIN [id number] 03/01/2019 12:19:00 23:59:59 CLS Outpatient JONATHON RAY, IZABELLA Silva [facility] SDC ENLARGED RT UPPER CERVI SENAIT LYMPH NODE [id number] 11/26/2018 13:45:00 23:59:59 CLS Outpatient DOUGLAS RENAE [employer] [facility] RAD HOARSENESS [id number] 10/14/2018 10:18:00 23:59:59 CLS Outpatient DOUGLAS RENAE [employer] [facility] RAD DEGENERATIVE DISC DISEA SE [id number] 07/20/2018 15:50:00 019 18:00:00 DIS Emergency 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 [facility] ER SOA [id number] 09/26/2014 13:11:00 015 14:34:00 DIS Outpatient MATT BRITO MD [facility] CARD DDD [id number] 08/17/2014 09:39:00 015 23:59:59 CLS Outpatient MATT BRITO MD [facility] RAD LOW BACK PAIN [id number] 06/10/2014 14:30:00 015 15:24:00 DIS Emergency 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[employer] [facility] ER ALL OVER PAIN, OUT OF M EDS [id number] 06/02/2019 07:30:00 P DEANN OLIVARES MD, IQRA Mckeon [facility] SDC RIGHT RENAL STONE [id number] 04/13/2019 07:07:00 Document Registration [id number] 04/13/2019 07:07:00 Document Registration [id number] 04/13/2019 07:07:00 Document Registration [id number] 11/19/2011 15:51:00 Document Registration [id number] 09/18/2011 12:23:00 Document Registration [id number] 09/18/2011 12:15:00 Document Registration [id number] 11/02/2010 09:28:00 Document Registration [id number] 10/30/2010 18:57:00 Document Registration [id number] 06/28/2010 20:22:00 Document Registration [id number] 09/29/2005 14:30:00 Document Registration [id number] 09/28/2005 20:41:00 Document Registration [id number] 08/26/2005 08:29:00 Document Registration [id number] 04/19/2014 15:32:00 04/19/2014 23:59: 59 CLS Outpatient PATRICE MATT DO [id number] 02/07/2012 14:26:00 02/07/2012 23:59: 59 CLS Outpatient PATRICE MATT DO [id number] 10/28/2011 18:13:00 10/28/2011 23:59:5 9 CLS Outpatient
[2019-06-02] MEDS ORDERED: LACTATED RINGERS 1,000 ML IV PRN (06:39)
[2019-06-02] MEDS ORDERED: cefTRIAXone FOR IV USE 1,000 MG in WATER (STERILE) FOR INJECTION 10 ML IV ONE (06:45)
[2019-06-02] MEDS ORDERED: proPOfol 200 MG/20 ML (DIPRIVAN) VIAL IV ONE (06:50)
[2019-06-02] MEDS ORDERED: ONDANSETRON 4 MG/2 ML (SDV) Z0FRAN ONE (06:50)
[2019-06-02] MEDS ORDERED: ROCURONIUM 10 MG/ML 5 ML SYRINGE IV ONE (06:50)
[2019-06-02] MEDS ORDERED: LIDOCAINE PF 2% 5 ML (XYLOCAINE) VIAL ONE (06:50)
[2019-06-02] MEDS ORDERED: MIDAZOLAM 2 MG/2 ML (VERSED) VIAL ONE (06:51)
[2019-06-02] MEDS ORDERED: SEVOFLURANE (ULTANE) 15 ML INHAL SOLN ONE ×4 (06:51→07:32)
[2019-06-02] MEDS ORDERED: fentaNYL INJECTION 100 MCG/2 ML AMP ONE (06:51)
--- NOTE | 2019-06-02 07:00 | NUR ---
dr. madrigal on floor and informed of amoxicillin and levaquin allergies. states to just watch patient. patients states amoxicillin makes legs itch.
--- NOTE | 2019-06-02 07:01 | Progress Note-Pre Operative ---
Pre-Operative Progress Note H&P Reviewed The H&P was reviewed, patient examined and no changes noted. Date Seen by Provider: Jun 02, 2019 Time Seen by Provider: 07: Date H&P Reviewed: Jun 02, 2019 Time H&P Reviewed: 07:01 Pre-Operative Diagnosis: RT RENAL PELVIC STONE IQRA OLIVARES MD Jun 02, 2019 07:01
[2019-06-02] MEDS ORDERED: cefTRIAXone 1,000 MG IV (ROCEPHIN) VIAL ONE ×2 (07:04)
[2019-06-02] MEDS ORDERED: WATER (STERILE) FOR INJECTION 10 ML ONE (07:04)
[2019-06-02] MEDS ORDERED: CATHETER FLUSH 10 ML SYR IV PRN (07:30)
--- NOTE | 2019-06-02 07:42 | Progress Note-Post Operative ---
Post-Operative Progess Note Surgeon (s)/Clinical Research Manager (s) Surgeon IQRA OLIVARES MD Clinical Research Manager: NONE Pre-Operative Diagnosis RT RENAL PELVIC STONE Post-Operative Diagnosis SAME Procedure & Operative Findings Date of Procedure 06/02/19 Procedure Performed/Findings CYSTOSCOPY, RT RENAL STONE MANIPULATION, INSERTION OF STENT AND RT ESWL Anesthesia Type GENERAL Estimated Blood Loss Estimated blood loss (mL): NONE Specimens/Packing Specimens Removed NONE Packing: NONE IQRA OLIVARES MD Jun 02, 2019 07:42
--- NOTE | 2019-06-02 07:44 | Discharge Inst-Urology ---
Discharge Inst-Urology Reconcile Patient Problems Problems Reviewed?: Yes Final Diagnosis RT RENAL STONE Patient Instructions/Follow Up Plan/Assessment/Instructions Please make appointment to been seen in office Tuesday 06/13, KUB prior to it KUB on way home Post ESWL instructions Increase oral fluids for 48 hours and then as needed. Diet and Activity as tolerated. If questions or concerns contact your physician Or seek help at emergency department. IQRA OLIVARES MD Jun 02, 2019 07:44
[2019-06-02] MEDS ORDERED: SUGAMMADEX 500 MG/5 ML VIAL (BRIDION) IV ONE (07:57)
[2019-06-02] MEDS ORDERED: KETOROLAC 30 MG/ML VIAL ONE (07:58)
[2019-06-02] MEDS ORDERED: FUROSEMIDE 40 MG/4 ML INJ (LASIX) ONE (07:58)
--- NOTE | 2019-06-02 08:07 | OPERATIVE REPORT ---
DATE OF SERVICE: 06/02/2019 PREOPERATIVE DIAGNOSIS: Right renal pelvic stone. POSTOPERATIVE DIAGNOSIS: Right renal pelvic stone. OPERATIONS PERFORMED: Cystoscopy, right renal stone manipulation and insertion of right stent and right ESWL. SURGEON: Junaid Olivares MD. ANESTHESIA: General. COMPLICATIONS: None. DESCRIPTION OF PROCEDURE: Under satisfactory general anesthesia, the patient in lithotomy position on the ESWL table, genitalia were prepped and draped in the usual sterile fashion. Cystoscope was introduced in the bladder. The right ureteral orifice was visualized. A 6-Jamaican 26 cm double-J stent was passed all the way past the stone. The guidewire was removed and a stent was seen Jeing nicely proximally fluoroscopically and distally endoscopically. Bladder was evacuated and the patient was put supine. The stone was localized and shocks were delivered at kV of 6, a total of 3000 shocks were given. There was some evidence of fragmentation on the outside of the stone working our way inside. The patient received 40 mg of Lasix and 30 mg of Toradol IV. She tolerated the procedure and anesthesia well and was sent to the recovery room in stable condition. PLAN: We will see her back in a couple of weeks to get a KUB and if we have good results, we will proceed for a second ESWL the following day. Job ID: [id number] DocumentID: [id number] Dictated Date: 06/02/2019 07:57:47 Appointment Manager Date: 06/02/2019 08:07:03 Dictated By: JUNAID OLIVARES MD [facility]
[2019-06-02] MEDS ORDERED: ONDANSETRON 4 MG/2 ML (SDV) Z0FRAN IVP PRN (08:30)
[2019-06-02] MEDS ORDERED: MEPERIDINE (DEMEROL) INJ 50 MG/ML IVP ONE (08:30)
[2019-06-02] MEDS ORDERED: morphine INJ 10 MG/ML 1ML (SYR OR VIAL) IVP ONE (08:30)
[2019-06-02] MEDS ORDERED: PHENAZOPYRIDINE 100 MG (PYRIDIUM) TABLET ONE (09:20)
[2019-06-02] MEDS ORDERED: PHENAZOPYRIDINE 100 MG (PYRIDIUM) TABLET PO ONE (09:30)
[2019-06-02] MEDS ORDERED: TMSL.4C PO (09:35)
[2019-06-02] MEDS ORDERED: TRM50T PO (09:35)
[2019-06-02] MEDS ORDERED: NITR-65 PO ×2 (09:35→11:19)
[2019-06-02] MEDS ORDERED: PHEN-640 PO (09:35)
--- NOTE | 2019-06-02 10:16 | Anesthesia-General Post-Op ---
General Patient Condition Mental Status/LOC: Same as Preop Cardiovascular: Satisfactory Nausea/Vomiting: Absent Respiratory: Satisfactory Pain: Controlled Complications: Absent Post Op Complications Complications None Follow Up Care/Instructions Patient Instructions None needed. Anesthesia/Patient Condition Patient Condition Patient is doing well, no complaints, stable vital signs, no apparent adverse anesthesia problems. No complications reported per nursing. HAL FITCH CRNA Jun 02, 2019 10:16
--- NOTE | 2019-06-02 12:47 | Diagnostic Imaging Report ---
INDICATION: Nephrolithiasis. EXAMINATION: KUB at 10:29 AM. FINDINGS: There are punctate calcifications in the region of the head and body of the pancreas suggesting chronic pancreatitis. There is a calculus projecting over the right renal pelvis. There is a right double-J ureteral stent in place. The bowel gas pattern is normal. The gallbladder appears to be surgically absent. IMPRESSION: The right double-J ureteral stent appears to be in appropriate position. Dictated by: Dictated on workstation # [id number]
== END 2019-06-02 10:40 | disposition home or self-care (01) ==
LOC: SDC 06:30
PROVIDERS: ATTEND Urology
DX: N20.0 Calculus of kidney (principal); I10 Essential (primary) hypertension; M32.9 Systemic lupus erythematosus, unspecified; J44.9 Chronic obstructive pulmonary disease, unspecified; G47.33 Obstructive sleep apnea (adult) (pediatric); K74.60 Unspecified cirrhosis of liver; M19.90 Unspecified osteoarthritis, unspecified site; F17.210 Nicotine dependence, cigarettes, uncomplicated; F31.9 Bipolar disorder, unspecified; F41.9 Anxiety disorder, unspecified; F20.9 Schizophrenia, unspecified; Z88.8 Allergy status to other drugs, medicaments and biological substances; Z88.1 Allergy status to other antibiotic agents; Z88.0 Allergy status to penicillin; Z79.891 Long term (current) use of opiate analgesic; Z79.899 Other long term (current) drug therapy; Z99.89 Dependence on other enabling machines and devices; Z90.710 Acquired absence of both cervix and uterus; Z90.49 Acquired absence of other specified parts of digestive tract; Z83.3 Family history of diabetes mellitus; Z80.52 Family history of malignant neoplasm of bladder; Z80.42 Family history of malignant neoplasm of prostate; Z80.8 Family history of malignant neoplasm of other organs or systems
CPT/HCPCS: 74018; 87081

== ENCOUNTER 2019-06-11 07:00 | Outpatient (RCR) | payer MEDICARE, MEDICAID ==
[~2019-06-11 07:00] MED LIST changes: +NITR-65 PO; +PHEN-640 PO; +TMSL.4C PO; +TRM50T PO
== END 2019-06-14 16:05 | disposition home or self-care (01) ==
LOC: PREOP 07:00 → EDSTATUS 09:30 → PREOP 06-14 16:05
PROVIDERS: ATTEND Urology
DX: Z01.818 Encounter for other preprocedural examination (principal)
CPT/HCPCS: 87635

== ENCOUNTER 2019-06-15 09:08 | Day surgery (SDC) | payer MEDICARE, MEDICAID ==
[2019-06-15] VITALS (9 sets, daily range): BP systolic 96–121; BP diastolic 51–83
[~2019-06-15] VITALS: Ht 151 cm; Wt 89.8 kg
[2019-06-15] MEDS ORDERED: cefTRIAXone FOR IV USE 1,000 MG in WATER (STERILE) FOR INJECTION 10 ML IV ONE (09:15)
[2019-06-15] MEDS ORDERED: LACTATED RINGERS 1,000 ML IV PRN (09:15)
[2019-06-15] MEDS ORDERED: CATHETER FLUSH 10 ML SYR IV PRN (09:30)
[2019-06-15] MEDS ORDERED: fentaNYL INJECTION 100 MCG/2 ML AMP ONE (10:00)
[2019-06-15] MEDS ORDERED: MIDAZOLAM 2 MG/2 ML (VERSED) VIAL ONE (10:00)
[2019-06-15] MEDS ORDERED: PHENYLEPHRINE 100 MCG/ML 10 ML (ANESTHESIA) SYR ONE (10:15)
[2019-06-15] MEDS ORDERED: FUROSEMIDE 40 MG/4 ML INJ (LASIX) ONE (10:26)
[2019-06-15] MEDS ORDERED: DEXAMETHASONE 10 MG/ML (DECADRON) 1 ML VIAL ONE (10:26)
[2019-06-15] MEDS ORDERED: KETOROLAC 30 MG/ML VIAL ONE (10:26)
[2019-06-15] MEDS ORDERED: SEVOFLURANE (ULTANE) 15 ML INHAL SOLN ONE (10:26)
[2019-06-15] MEDS ORDERED: LIDOCAINE PF 2% 5 ML (XYLOCAINE) VIAL ONE (10:26)
[2019-06-15] MEDS ORDERED: ONDANSETRON 4 MG/2 ML (SDV) Z0FRAN ONE (10:26)
[2019-06-15] MEDS ORDERED: proPOfol 200 MG/20 ML (DIPRIVAN) VIAL IV ONE (10:26)
--- NOTE | 2019-06-15 10:32 | Progress Note-Pre Operative ---
Pre-Operative Progress Note H&P Reviewed The H&P was reviewed, patient examined and no changes noted. Date Seen by Provider: June 15, 2019 Time Seen by Provider: 10:00 Date H&P Reviewed: June 15, 2019 Time H&P Reviewed: 10:00 Pre-Operative Diagnosis: RT RENAL STONE IQRA OLIVARES MD June 15, 2019 10:32
--- NOTE | 2019-06-15 10:33 | Progress Note-Post Operative ---
Post-Operative Progess Note Surgeon (s)/Gate Operator (s) Surgeon IQRA OLIVARES MD Gate Operator: NONE Pre-Operative Diagnosis RT RENAL STONE Post-Operative Diagnosis SAME Procedure & Operative Findings Date of Procedure 06/15/19 Procedure Performed/Findings RT ESWL Anesthesia Type GENERAL Estimated Blood Loss Estimated blood loss (mL): NONE Specimens/Packing Specimens Removed NONE Packing: NONE IQRA OLIVARES MD June 15, 2019 10:32
--- NOTE | 2019-06-15 10:35 | Discharge Inst-Urology ---
Discharge Inst-Urology Reconcile Patient Problems Problems Reviewed?: Yes Final Diagnosis RT RENAL STONE Patient Instructions/Follow Up Plan/Assessment/Instructions Please make appointment to been seen in office Tuesday 06/27, KUB prior to it. KUB on way home Post ESWL instructions Increase oral fluids for 48 hours and then as needed. Diet and Activity as tolerated. If questions or concerns contact your physician Or seek help at emergency department. IQRA OLIVARES MD June 15, 2019 10:35
--- NOTE | 2019-06-15 11:05 | Diagnostic Imaging Report ---
EXAMINATION: Supine abdomen at 929h. INDICATION: Nephrolithiasis The prior exam of 06/02/2019 noted a ureteral stent in place on the right as well as a 1.7 x 2.8 cm calculus projected over the right renal pelvis. Those findings are again evident on this study and essentially no different. The calcifications in the head of the pancreas seen previously are also unchanged. There is gas in both large and small bowel in a nonspecific fashion. There is no sign of bowel obstruction. There is no mass or organomegaly noted. Surgical clips are again seen in the right upper quadrant. The osseous structures are intact. IMPRESSION: The large calculus overlying the right renal pelvis and the ureteral stent right seen previously are again evident and appear stable. No new abnormality has developed otherwise. Dictated by: Dictated on workstation # [id number]
[2019-06-15] MEDS ORDERED: ONDANSETRON 4 MG/2 ML (SDV) Z0FRAN IVP PRN (11:15)
[2019-06-15] MEDS ORDERED: morphine INJ 10 MG/ML 1ML (SYR OR VIAL) IVP ONE (11:15)
--- NOTE | 2019-06-15 14:01 | Diagnostic Imaging Report ---
EXAMINATION: Supine abdomen at 12:54 PM. INDICATION: Nephrolithiasis. FINDINGS: The exam performed earlier today at 9:29 AM noted a 2.8 x 1.7 cm calcification overlying the right renal pelvis. In the interval since the prior exam, that calculus has been fragmented. There are now numerous small calcifications overlying the right renal pelvis. There is also a 10 mm calcification adjacent to the proximal ureteral stent just superior to the level of the right sacral promontory. There may be a few smaller calcifications adjacent to the distal portion of the stent. The overall appearance of the abdomen is otherwise no different. IMPRESSION: The large calculus overlying the right renal pelvis seen previously has been fragmented. The ureteral stent on the right remains in place. A followup exam should be considered for further evaluation. Dictated by: Dictated on workstation # [id number]
--- NOTE | 2019-06-15 14:43 | Anesthesia-General Post-Op ---
General Patient Condition Mental Status/LOC: Same as Preop Cardiovascular: Satisfactory Nausea/Vomiting: Absent Respiratory: Satisfactory Pain: Controlled Complications: Absent Post Op Complications Complications None Follow Up Care/Instructions Patient Instructions None needed. Anesthesia/Patient Condition Patient Condition Patient was seen after the procedure and she was doing well, no complaints, stable vital signs, no apparent adverse anesthesia problems. DESTINY CUADRA DO June 15, 2019 14:43
--- NOTE | 2019-06-15 15:39 | OPERATIVE REPORT ---
DATE OF SERVICE: 06/15/2019 PREOPERATIVE DIAGNOSIS: Right renal stone. POSTOPERATIVE DIAGNOSIS: Right renal stone. OPERATION PERFORMED: Right ESWL. SURGEON: Junaid Olivares MD. ANESTHESIA: General. COMPLICATIONS: None. DESCRIPTION OF PROCEDURE: Under satisfactory general anesthesia, the patient in supine position on the ESWL table, the right renal stone was localized. Shocks were delivered at a kV of 6. As we progressed, the stone was fragmenting in many places and continued fragments at a time. A total of 3000 shocks were delivered with quite a bit of fragmentation of the stone. The patient received 40 mg of Lasix, 30 mg of Toradol IV at the end of the procedure. She tolerated the procedure and anesthesia well and she was sent to recovery room in stable condition. PLAN: We will see the results in a couple of weeks. We will have to probably bring her back again for another procedure and may be supplement with percutaneous if needed. This was fully explained to the patient preoperatively. Job ID: [id number] DocumentID: [id number] Dictated Date: 06/15/2019 10:55:50 Plastics Fabrication Supervisor Date: 06/15/2019 15:39:11 Dictated By: JUNAID OLIVARES MD
== END 2019-06-15 13:05 | disposition home or self-care (01) ==
LOC: SDC 09:08
PROVIDERS: ATTEND Urology
DX: N20.0 Calculus of kidney (principal); I10 Essential (primary) hypertension; G47.33 Obstructive sleep apnea (adult) (pediatric); J44.9 Chronic obstructive pulmonary disease, unspecified; F41.9 Anxiety disorder, unspecified; F31.9 Bipolar disorder, unspecified; F20.9 Schizophrenia, unspecified; F17.290 Nicotine dependence, other tobacco product, uncomplicated; Z79.899 Other long term (current) drug therapy; Z88.8 Allergy status to other drugs, medicaments and biological substances; Z99.89 Dependence on other enabling machines and devices; Z88.1 Allergy status to other antibiotic agents; Z90.710 Acquired absence of both cervix and uterus
CPT/HCPCS: 74018; 87081

== ENCOUNTER 2019-06-25 07:41 | Outpatient (RCR) | payer MEDICARE, MEDICAID ==
[~2019-06-25] VITALS: Ht 149.8 cm; Wt 91.8 kg
== END 2019-06-25 16:00 | disposition home or self-care (01) ==
LOC: PREOP 07:41
PROVIDERS: ATTEND Urology
DX: Z01.818 Encounter for other preprocedural examination (principal); Z11.59 Encounter for screening for other viral diseases; N20.0 Calculus of kidney
CPT/HCPCS: 87635

== ENCOUNTER → 2019-06-28 | Outpatient (CLI) | payer MEDICARE, MEDICAID ==
--- NOTE | 2019-06-28 15:16 | Diagnostic Imaging Report ---
INDICATION: Nephrolithiasis, extracorporal shockwave lithotripsy. TECHNIQUE: Single supine view of the abdomen at 2:05 PM. CORRELATION STUDY: 06/15/2019. FINDINGS: A right ureteral stent remains in place. Multiple stones are noted in and around the proximal aspect of the stent largely over the expected location of the renal hilum. There has been interval migration inferiorly into the proximal stent with several stones present. The largest stone is likely at the expected location of the UPJ measuring approximately 12 mm. Additional calcifications over the mid stent on the prior study now appear to be over the mid to distal aspect of the stent. Cholecystectomy clips in the right upper quadrant. An additional regional grouping of calcifications is noted over the right aspect of T12 and L1 favoring probable calcific densities over the proximal pancreas, consistent with calcific pancreatitis. The overlying bowel gas pattern appears generally unremarkable. IMPRESSION: Change in the location of multiple calcifications over the right proximal ureteral stent. Several calcifications have now migrated over the expected location of the ureter superimposed over the stent. Dictated by: Dictated on workstation # [id number]
== END ==
LOC: RAD 13:39
PROVIDERS: ATTEND Urology
DX: N20.1 Calculus of ureter (principal); Z98.890 Other specified postprocedural states
CPT/HCPCS: 74018

== ENCOUNTER 2019-06-30 07:03 | Day surgery (SDC) | payer MEDICARE, MEDICAID ==
[2019-06-30] VITALS (14 sets, daily range): BP systolic 77–117; BP diastolic 52–85
[~2019-06-30] VITALS: Ht 150 cm; Wt 91.8 kg
--- OUTSIDE RECORDS SUMMARY | 2019-06-30 07:10 | XMS REPORT | Continuity of Care Document ---
Author Organization Unknown Address Unknown Phone Unavailable Allergies Active Description Code Type Severity Reaction Onset Reported/Identified Relationship to Patient Clinical Status Yes RUBBING ALCOHOL RUBBING ALCOHOL Unknown N/A 08/26/2005 Yes NKANo Known Allergies NKA Miscellaneous Allergy Unknown N/A 09/29/2005 Yes rubbing alcohol OA 10/20/2008 Yes rubbing alcohol OA N/A N/A 10/20/2008 Yes amoxicillin [id number] Drug Aller gy Unknown Hives 05/27/2019 Yes clavulanic acid [id number] D rug Allergy Unknown Hives 05/27/2019 Yes levofloxacin [id number] Drug Allergy Unknown Hives 05/27/2019 Yes theophylline [id number] Drug Allergy Unknown Hives 05/27/2019 Yes amoxicillin [id number] Drug Aller gy Unknown Hives, Pt has r 06/02/2019 Medications There is no data. Problems Date Dx Coded Attending Type Code Diagnosis Diagnosed By 01/10/1604 ELISE RAY, IQRA Mckeon Ot Z01.8 18 ENCOUNTER FOR OTHER PREPROCEDURAL EXAMIN 10/20/2008 PATRICE MATT DO 070.54 HEPATITIS, C [...] Without Hepatic Coma 03/23/2009 PATRICE MATT DO K 070.70 Unspecified Viral Hepatitis C Without Hepatic Coma 05/03/2009 PATRICE MATT DO 477.9 Rhinitis 05/03/2009 PATRICE MATT DO K 709.9 Skin Lesions 05/03/2009 477.9 Rhinitis 05/03/2009 709.9 Skin Lesions 05/03/2009 PATRICE MATT DO 477.9 Rhinitis 05/03/2009 PATRICE MATT DO K 709.9 Skin Lesions 04/06/2010 PATRICE MATT DO K 311 DEPRESSIVE DISORDER NOT ELSEWHERE CLASSIFIED 04/06/2010 311 DEPRES SIVE DISORDER NOT ELSEWHERE CLASSIFIED 04/06/2010 PATRICE MATT DO 311 DEPRESSIVE DISORDER NOT ELSEWHERE CLASSIFIED 04/08/2010 PATRICE MATT DO 304.30 Cannabis Dependence Unspecified Use 04/08/2010 304.30 Can nabis Dependence Unspecified Use 04/08/2010 PATRICE MATT DO K 304.30 Cannabis Dependence Unspecified Use 06/28/2010 Ot [...] BRONCHITIS, CHRONIC UNSPEC 07/25/2010 PATRICE MATT DO K 724.3 Sciatica 07/25/2010 491.9 BRON CHITIS, CHRONIC UNSPEC 07/25/2010 724.3 Sciatica 07/25/2010 PATRICE MATT DO K 491.9 BRONCHITIS, CHRONIC UNSPEC 07/25/2010 NORI MATT DOA K 724.3 Sciatica 09/12/2010 PATRICE MATT DO 110.4 Dermatophytosis Of Foot 09/12/2010 PATRICE MATT DO 789.01 Abdominal Pain Right Upper Quadrant 09/12/2010 110.4 Derm atophytosis Of Foot 09/12/2010 789.01 Abd ominal Pain Right Upper Quadrant 09/12/2010 PATRICE MATT DO 110.4 Dermatophytosis Of Foot 09/12/2010 PATRICE MATT DO 789.01 Abdominal Pain Right Upper Quadrant 10/30/2010 Ot 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 10/30/2010 Ot 491.21 OBS TR CHRONIC BRONCHITIS, W (ACUTE) EXAC 10/30/2010 Ot 786.05 DEMOND RTNESS OF BREATH 11/07/2010 Ot 070.70 UNS PECIFIED VIRAL HEPATITIS C WITHOUT HE 11/07/2010 Ot 244.9 HYPO THYROIDISM NOS 11/07/2010 Ot 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 11/07/2010 Ot 296.80 BIP OLAR DISORDER, UNSPECIFIED 11/07/2010 Ot 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 11/07/2010 Ot 401.9 HYPE RTENSION [...] G-TERM (CURRENT) USE OF OTHER MEDICATIONS 09/14/2011 NORI MATT DOA K 300.00 ANXIETY STATE UNSPECIFIED 09/14/2011 NORI MATT DOA K 401.1 HYPERTENSION, BENIGN ESSENTIAL 09/14/2011 SHAKA MCGRAHT PATRICE K 709.9 Unspecified Disorder Of Skin And Subcutaneous Tissue 09/14/2011 SHAKA MCGRATH PATRICE K 719.45 PAIN IN JOINT INVOLVING PELVIC REGION AND THIGH 09/14/2011 NORI MATT DOA K V58.69 LONG-TERM (CURRENT) USE OF OTHER MEDICATIONS 09/25/2011 NORI MATT DOA K 577.1 CHRONIC PANCREATITIS 09/25/2011 577.1 TIPPLE TENDER SADIA PANCREATITIS 09/25/2011 NORI MATT DOA K 577.1 CHRONIC PANCREATITIS 11/19/2011 Ot 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 11/19/2011 Ot 789.09 ABD OMINAL PAIN, OTHER SPECIFIED SITE 02/07/2012 SHAKA MCGRATH PATRICE K 338.29 OTHER CHRONIC PAIN 02/07/2012 SHAKA MCGRATH PATRICE K 599.70 HEMATURIA UNSPECIFIED 02/07/2012 SHAKA MCGRATH PATRICE K 787.91 DIARRHEA 02/07/2012 SHAKA MCGRATH PATRICE K V65.42 COUNSELING - SMOKING CESSATION 02/07/2012 SHAKA MCGRATH PATRICE K 338.29 OTHER CHRONIC PAIN 02/07/2012 SHAKA MCGRATH PATRICE K 599.70 HEMATURIA UNSPECIFIED 02/07/2012 MATT DO PATRICE K 787.91 DIARRHEA 02/07/2012 MATT DO PATRICE K V65.42 COUNSELING - SMOKING CESSATION 06/10/2014 Ot 733.90 06/10/2014 Ot 719.45 06/10/2014 Ot V58.69 06/10/2014 TONY GIFFORD APRN Ot 070.70 UNSPECIFIED VIRAL HEPATITIS C WITHOUT HE 06/10/2014 TONY GIFFORD APRN Ot 304.90 DRUG DEPEND NOS-UNSPEC 06/10/2014 TONY GIFFORD APRN Ot 719.41 JOINT PAIN-SHLDER 06/10/2014 TONY GIFFORD APRN Ot 724 .5 BACKACHE NOS 07/29/2014 Ot [...] BREATH 07/20/2018 TONY GIFFORD APRN Ot Z79.51 PENITENTIARY (CURRENT) USE OF INHALED STERO 07/20/2018 TONY GIFFORD APRN Ot Z87.19 PERSONAL HISTORY OF OTHER DISEASES OF TH 07/20/2018 TONY GIFFORD APRN Ot Z88 .8 ALLERGY STATUS TO OT DRUG/MEDS/BIOL SUB 07/20/2018 MATT BRITO MD Ot 724. 2 LUMBAGO 07/20/2018 MATT BRITO MD Ot 727. 40 SYNOVIAL CYST NOS 07/23/2018 TONY GIFFORD APRN Ot J44 .1 CHRONIC OBSTRUCTIVE PULMONARY DISEASE W 07/23/2018 TONY GIFFORD APRN Ot R06.02 SHORTNESS OF BREATH 07/23/2018 TONY GIFFORD APRN Ot Z79.51 KING MAKER (CURRENT) USE OF INHALED STERO 07/23/2018 TONY GIFFORD APRN Ot Z87.19 PERSONAL HISTORY OF OTHER DISEASES OF TH 07/23/2018 TONY GIFFORD APRN Ot Z88 .8 ALLERGY STATUS TO OT DRUG/MEDS/BIOL SUB 09/11/2018 MATT BRITO MD Ot 724. 2 LUMBAGO 09/11/2018 MATT BRITO MD Ot 727. 40 SYNOVIAL CYST NOS 10/07/2018 MATT BRITO MD Ot 724. 2 LUMBAGO 10/07/2018 MATT BRITO MD Ot 727. 40 SYNOVIAL CYST NOS 10/16/2018 OC, DOUGLAS D TABLE INSPECTOR Ot M51.37 OTHER INTERVERTEBRAL DISC DEGENERATION, 10/16/2018 OC, DOUGLAS D TABLE INSPECTOR Ot M71.38 OTHER BURSAL CYST, OTHER SITE 11/06/2018 OC, DOUGLAS D TABLE INSPECTOR Ot M51.37 OTHER INTERVERTEBRAL DISC DEGENERATION, 11/06/2018 OC, DOUGLAS D TABLE INSPECTOR Ot M71.38 OTHER BURSAL CYST, OTHER SITE 11/19/2018 MATT BRITO MD Ot 724. 2 LUMBAGO 11/19/2018 MATT BRITO MD Ot 727. 40 SYNOVIAL CYST NOS 11/19/2018 OC, DOUGLAS D TABLE INSPECTOR Ot M51.37 OTHER INTERVERTEBRAL DISC DEGENERATION, 11/19/2018 OC, DOUGLAS D TABLE INSPECTOR Ot M71.38 OTHER BURSAL CYST, OTHER SITE 11/30/2018 OC, DOUGLAS D TABLE INSPECTOR Ot K11 .8 OTHER DISEASES OF SALIVARY GLANDS 11/30/2018 OC, DOUGLAS D TABLE INSPECTOR Ot R49 .0 DYSPHONIA 12/10/2018 OC, DOUGLAS D TABLE INSPECTOR Ot K11 .8 OTHER DISEASES OF SALIVARY GLANDS 12/10/2018 OC, DOUGLAS D TABLE INSPECTOR Ot R49 .0 DYSPHONIA 03/01/2019 MATT BRITO MD Ot 724. 2 LUMBAGO 03/01/2019 MATT BRITO MD Ot 727. 40 SYNOVIAL CYST NOS 03/01/2019 OC, DOUGLAS D TABLE INSPECTOR Ot M51.37 OTHER INTERVERTEBRAL DISC DEGENERATION, 03/01/2019 OC, DOUGLAS D TABLE INSPECTOR Ot M71.38 OTHER BURSAL CYST, OTHER SITE 03/01/2019 OC, DOUGLAS D TABLE INSPECTOR Ot K11 .8 OTHER DISEASES OF SALIVARY GLANDS 03/01/2019 OC DOUGLAS D TABLE INSPECTOR Ot R49 .0 DYSPHONIA 03/01/2019 MATT BRITO MD Ot 724. 2 LUMBAGO 03/01/2019 MATT BRITO MD Ot 727. 40 SYNOVIAL CYST NOS 03/01/2019 KING DOUGLAS D TABLE INSPECTOR Ot M51.37 OTHER INTERVERTEBRAL DISC DEGENERATION, 03/01/2019 KING DOUGLAS D TABLE INSPECTOR Ot M71.38 OTHER BURSAL CYST, OTHER SITE 03/01/2019 KING DOUGLAS D TABLE INSPECTOR Ot K11 .8 OTHER DISEASES OF SALIVARY GLANDS 03/01/2019 KING DOUGLAS D TABLE INSPECTOR Ot R49 .0 DYSPHONIA 03/01/2019 MATT BRITO MD Ot 724. 2 LUMBAGO 03/01/2019 MATT BRITO MD Ot 727. 40 SYNOVIAL CYST NOS 03/01/2019 KING DOUGLAS D TABLE INSPECTOR Ot M51.37 OTHER INTERVERTEBRAL DISC DEGENERATION, 03/01/2019 DIO RENAETA D TABLE INSPECTOR Ot M71.38 OTHER BURSAL CYST, OTHER SITE 03/01/2019 DIO RENAETA D TABLE INSPECTOR Ot K11 .8 OTHER DISEASES OF SALIVARY GLANDS 03/01/2019 DIO RENAETA D TABLE INSPECTOR Ot R49 .0 DYSPHONIA 03/02/2019 MATT BRITO MD Ot 724. 2 LUMBAGO 03/02/2019 MATT BRITO MD Ot 727. 40 SYNOVIAL CYST NOS 03/02/2019 KING DOUGLAS D TABLE INSPECTOR Ot M51.37 OTHER INTERVERTEBRAL DISC DEGENERATION, 03/02/2019 DIO RENAETA D TABLE INSPECTOR Ot M71.38 OTHER BURSAL CYST, OTHER SITE 03/02/2019 KING DOUGLAS D TABLE INSPECTOR Ot K11 .8 OTHER DISEASES OF SALIVARY GLANDS 03/02/2019 DIO ERNAETA D TABLE INSPECTOR Ot R49 .0 DYSPHONIA 03/02/2019 TONY GIFFORD APRN Ot B19.20 UNSPECIFIED VIRAL HEPATITIS C WITHOUT HE 03/02/2019 TONY GIFFORD APRN Ot F17.210 NICOTINE DEPENDENCE, CIGARETTES, UNCOMPL 03/02/2019 TONY GIFFORD APRN Ot G89.18 OTHER ACUTE POSTPROCEDURAL PAIN 03/02/2019 TONY GIFFORD APRN Ot J44 .9 CHRONIC OBSTRUCTIVE PULMONARY DISEASE, U 03/02/2019 TONY GIFFORD APRN Ot M54 .2 CERVICALGIA 03/02/2019 TONY GIFFORD APRN Ot Z79.51 KING MAKER (CURRENT) USE OF INHALED STERO 03/02/2019 TONY GIFFORD APRN Ot Z79.52 PENITENTIARY (CURRENT) USE OF SYSTEMIC STER 03/02/2019 MATT BRITO MD Ot 724. 2 LUMBAGO 03/02/2019 MATT BRITO MD Ot 727. 40 SYNOVIAL CYST NOS 03/02/2019 DIO RENAEDOUG Triplett TABLE INSPECTOR Ot M51.37 OTHER INTERVERTEBRAL DISC DEGENERATION, 03/02/2019 DOUGLAS RENAE TABLE INSPECTOR Ot M71.38 OTHER BURSAL CYST, OTHER SITE 03/02/2019 DOUGLAS RENAE TABLE INSPECTOR Ot K11 .8 OTHER DISEASES OF SALIVARY GLANDS 03/02/2019 DOUGLAS RENAE TABLE INSPECTOR Ot R49 .0 DYSPHONIA 03/08/2019 TONY GIFFORD APRN Ot B19.20 UNSPECIFIED VIRAL HEPATITIS C WITHOUT HE 03/08/2019 TONY GIFFORD APRN Ot F17.210 NICOTINE DEPENDENCE, CIGARETTES, UNCOMPL 03/08/2019 TONY GIFFORD APRN Ot G89.18 OTHER ACUTE POSTPROCEDURAL PAIN 03/08/2019 TONY GIFFORD APRN Ot J44 .9 CHRONIC OBSTRUCTIVE PULMONARY DISEASE, U 03/08/2019 TONY GIFFORD APRN Ot M54 .2 CERVICALGIA 03/08/2019 TONY GIFFORD APRN Ot Z79.51 KING MAKER (CURRENT) USE OF INHALED STERO 03/08/2019 TONY GIFFORD APRN Ot Z79.52 KING MAKER (CURRENT) USE OF SYSTEMIC STER 03/09/2019 IZABELLA HOLT MD Ot R59 .0 LOCALIZED ENLARGED LYMPH NODES 03/09/2019 MATT BRITO MD Ot 724. 2 LUMBAGO 03/09/2019 MATT BRITO MD Ot 727. 40 SYNOVIAL CYST NOS 03/09/2019 OC DOUGLAS Triplett TABLE INSPECTOR Ot M51.37 OTHER INTERVERTEBRAL DISC DEGENERATION, 03/09/2019 DOUGLAS RENAE TABLE INSPECTOR Ot M71.38 OTHER BURSAL CYST, OTHER SITE 03/09/2019 DOUGLAS RENAE TABLE INSPECTOR Ot K11 .8 OTHER DISEASES OF SALIVARY GLANDS 03/09/2019 DOUGLAS RENAE TABLE INSPECTOR Ot R49 .0 DYSPHONIA 03/09/2019 IZABELLA HOLT MD Ot R59 .0 LOCALIZED ENLARGED LYMPH NODES 03/10/2019 MATT BRITO MD Ot 724. 2 LUMBAGO 03/10/2019 MATT BRITO MD Ot 727. 40 SYNOVIAL CYST NOS 03/10/2019 KING DOUGLAS D TABLE INSPECTOR Ot M51.37 OTHER INTERVERTEBRAL DISC DEGENERATION, 03/10/2019 OC DOUGLAS D TABLE INSPECTOR Ot M71.38 OTHER BURSAL CYST, OTHER SITE 03/10/2019 KING DOUGLAS D TABLE INSPECTOR Ot K11 .8 OTHER DISEASES OF SALIVARY GLANDS 03/10/2019 KING DOUGLAS D TABLE INSPECTOR Ot R49 .0 DYSPHONIA 03/10/2019 IZABELLA HOLT MD P Ot R59 .0 LOCALIZED ENLARGED LYMPH NODES 03/10/2019 MATT BRITO MD Ot 724. 2 LUMBAGO 03/10/2019 MATT BRITO MD Ot 727. 40 SYNOVIAL CYST NOS 03/10/2019 KING DOUGLAS D TABLE INSPECTOR Ot M51.37 OTHER INTERVERTEBRAL DISC DEGENERATION, 03/10/2019 KING DOUGLAS D TABLE INSPECTOR Ot M71.38 OTHER BURSAL CYST, OTHER SITE 03/10/2019 KING DOUGLAS D TABLE INSPECTOR Ot K11 .8 OTHER DISEASES OF SALIVARY GLANDS 03/10/2019 KING DOUGLAS D TABLE INSPECTOR Ot R49 .0 DYSPHONIA 03/10/2019 IZABELLA HOLT MD P Ot R59 .0 LOCALIZED ENLARGED LYMPH NODES 03/10/2019 MATT BRITO MD Ot 724. 2 LUMBAGO 03/10/2019 MATT BRITO MD Ot 727. 40 SYNOVIAL CYST NOS 03/10/2019 KING DOUGLAS D TABLE INSPECTOR Ot M51.37 OTHER INTERVERTEBRAL DISC DEGENERATION, 03/10/2019 KING DOUGLAS D TABLE INSPECTOR Ot M71.38 OTHER BURSAL CYST, OTHER SITE 03/10/2019 KING DOUGLAS D TABLE INSPECTOR Ot K11 .8 OTHER DISEASES OF SALIVARY GLANDS 03/10/2019 KING DOUGLAS D TABLE INSPECTOR Ot R49 .0 DYSPHONIA 03/10/2019 IZABELLA HOLT MD P Ot R59 .0 LOCALIZED ENLARGED LYMPH NODES 03/10/2019 IZABELLA HOLT MD Ot R59 .0 LOCALIZED ENLARGED LYMPH NODES 03/10/2019 IZABELLA HOLT MD P Ot R59 .0 LOCALIZED ENLARGED LYMPH NODES 03/11/2019 MATT BRITO MD Ot 724. 2 LUMBAGO 03/11/2019 MATT BRITO MD Ot 727. 40 SYNOVIAL CYST NOS 03/11/2019 OC DOUGLAS D TABLE INSPECTOR Ot M51.37 OTHER INTERVERTEBRAL DISC DEGENERATION, 03/11/2019 DIO RENAETA D TABLE INSPECTOR Ot M71.38 OTHER BURSAL CYST, OTHER SITE 03/11/2019 DIO RENAETA D TABLE INSPECTOR Ot K11 .8 OTHER DISEASES OF SALIVARY GLANDS 03/11/2019 KING DOUGLAS D TABLE INSPECTOR Ot R49 .0 DYSPHONIA 03/11/2019 IZABELLA HOLT MD Ot R59 .0 LOCALIZED ENLARGED LYMPH NODES 03/11/2019 MATT BRITO MD Ot 724. 2 LUMBAGO 03/11/2019 MATT BRITO MD Ot 727. 40 SYNOVIAL CYST NOS 03/11/2019 KING DOUGLAS D TABLE INSPECTOR Ot M51.37 OTHER INTERVERTEBRAL DISC DEGENERATION, 03/11/2019 KING DOUGLAS D TABLE INSPECTOR Ot M71.38 OTHER BURSAL CYST, OTHER SITE 03/11/2019 DIO RENAETA D TABLE INSPECTOR Ot K11 .8 OTHER DISEASES OF SALIVARY GLANDS 03/11/2019 KING DOUGLAS D TABLE INSPECTOR Ot R49 .0 DYSPHONIA 03/11/2019 IZABELLA HOLT MD Ot R59 .0 LOCALIZED ENLARGED LYMPH NODES 03/11/2019 MATT BRITO MD Ot 724. 2 LUMBAGO 03/11/2019 MATT BRITO MD Ot 727. 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, 03/12/2019 JULIO MCGRATH ANUSHA Ot E03.9 HYPOTHYROIDISM, UNSPECIFIED 03/12/2019 JULIO MCGRATH ANUSHA Ot F10.23 9 ALCOHOL DEPENDENCE WITH WITHDRAWAL, UNSP 03/12/2019 JULIO MCGRATH ANUSHA Ot F17.21 0 NICOTINE DEPENDENCE, CIGARETTES, UNCOMPL 03/12/2019 JULIO MCGRATH ANUSHA Ot F20.9 SCHIZOPHRENIA, UNSPECIFIED 03/12/2019 JULIO MCGRATH ANUSHA Ot F31.9 BIPOLAR DISORDER, UNSPECIFIED 03/12/2019 JULIO MCGRATH ANUSHA Ot G89.29 OTHER CHRONIC PAIN 03/12/2019 JULIO MCGRATH ANUSHA Ot I10 ESSENTIAL (PRIMARY) HYPERTENSION 03/12/2019 JULIO MCGRATH ANUSHA Ot J40 BRONCHITIS, NOT SPECIFIED ACUTE OR CH 03/12/2019 JULIO MCGRATH ANUSHA Ot J43.9 EMPHYSEMA, UNSPECIFIED 03/12/2019 KIM DO ANUSHA Ot K11.20 SIALOADENITIS, UNSPECIFIED 03/12/2019 KIM DO ANUSHA Ot M32.9 SYSTEMIC LUPUS ERYTHEMATOSUS, UNSPECIFIE 03/12/2019 JULIO MCGRATH ANUSHA Ot M54.9 DORSALGIA, UNSPECIFIED 03/12/2019 JULIO MCGRATH ANUSHA Ot R91.1 SOLITARY PULMONARY NODULE 03/12/2019 JULIO MCGRATH ANUSHA Ot Z87.89 1 PERSONAL HISTORY OF NICOTINE DEPENDENCE 03/12/2019 JULIO MCGRATH ANUSHA Ot Z90.71 0 ACQUIRED ABSENCE OF BOTH CERVIX AND UTER 03/16/2019 DARYL RAY, MATT Raygoza Ot 724. 2 LUMBAGO 03/16/2019 DARYL RAY, MATT Raygoza Ot 727. 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, 03/22/2019 JULIO MCGRATH ANUSHA Ot E03.9 HYPOTHYROIDISM, UNSPECIFIED 03/22/2019 JULIO MCGRATH ANUSHA Ot F10.23 9 ALCOHOL DEPENDENCE WITH [...] 40 SYNOVIAL CYST NOS 03/22/2019 DOUGLAS RENAE TABLE INSPECTOR Ot M51.37 OTHER INTERVERTEBRAL DISC DEGENERATION, 03/22/2019 DOUGLAS RENAE TABLE INSPECTOR Ot M71.38 OTHER BURSAL CYST, OTHER SITE 03/22/2019 DOUGLAS RENAE TABLE INSPECTOR Ot K11 .8 OTHER DISEASES OF SALIVARY GLANDS 03/22/2019 DOUGLAS RENAE TABLE INSPECTOR Ot R49 .0 DYSPHONIA 03/22/2019 JONATHON RAY, IZABELLA Silva Ot R59 .0 LOCALIZED ENLARGED LYMPH NODES 03/22/2019 JULIO MCGRATH, ANUSHA Ot B19.20 UNSPECIFIED VIRAL HEPATITIS C WITHOUT HE 03/22/2019 KIM DO, ANUSHA Ot 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 2 LUMBAGO 04/13/2019 MATT BRITO MD Ot 727. 40 SYNOVIAL CYST NOS 05/18/2019 TONY GIFFORD APRN Ot E03 .9 HYPOTHYROIDISM, UNSPECIFIED 05/18/2019 TONY GIFFORD APRN Ot F31 .9 BIPOLAR DISORDER, UNSPECIFIED 05/18/2019 TONY GIFFORD APRN Ot I10 ESSENTIAL (PRIMARY) HYPERTENSION 05/18/2019 TONY GIFFORD APRN Ot J44 .9 CHRONIC OBSTRUCTIVE PULMONARY DISEASE, U 05/18/2019 TONY GIFFORD APRN Ot K52 .9 NONINFECTIVE GASTROENTERITIS AND COLITIS 05/18/2019 TONY GIFFORD APRN Ot K74.60 UNSPECIFIED CIRRHOSIS OF LIVER 05/18/2019 TONY GIFFORD APRN Ot N20 .0 CALCULUS OF KIDNEY 05/18/2019 TONY GIFFORD APRN Ot R18 .8 OTHER ASCITES 05/18/2019 TONY GIFFORD APRN Ot R31 .9 HEMATURIA, UNSPECIFIED 05/18/2019 TONY GIFFORD APRN Ot Z79.52 KING MAKER (CURRENT) USE OF SYSTEMIC STER 05/18/2019 TONY GIFFORD APRN Ot Z86.59 PERSONAL HISTORY OF OTHER MENTAL AND BEH 05/18/2019 TONY GIFFORD APRN Ot Z99.81 DEPENDENCE ON SUPPLEMENTAL OXYGEN 05/20/2019 TONY GIFFORD APRN Ot E03 .9 [...] UNSPECIFIED 05/20/2019 TONY GIFFORD APRN Ot Z79.52 PENITENTIARY (CURRENT) USE OF SYSTEMIC STER 05/20/2019 TONY GIFFORD APRN Ot Z86.59 PERSONAL HISTORY OF OTHER MENTAL AND BEH 05/20/2019 TONY GIFFORD APRN Ot Z99.81 DEPENDENCE ON SUPPLEMENTAL OXYGEN 05/27/2019 IQRA OLIVARES MD Ot 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 05/27/2019 IQRA OLIVARES MD Ot N20.0 CALCULUS OF KIDNEY 05/28/2019 IQRA OLIVARES MD Ot Z01.8 18 ENCOUNTER FOR OTHER PREPROCEDURAL EXAMIN 05/31/2019 IQRA OLIVARES MD Ot 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 05/31/2019 IQRA OLIVARES MD Ot N20.0 CALCULUS OF KIDNEY 06/02/2019 IQRA OLIVARES MD Ot F17.2 10 NICOTINE DEPENDENCE, CIGARETTES, UNCOMPL 06/02/2019 IQRA OLIVARES MD Ot F20.9 SCHIZOPHRENIA, UNSPECIFIED 06/02/2019 IQRA OLIVARES MD Ot F31.9 BIPOLAR DISORDER, UNSPECIFIED 06/02/2019 IRQA OLIVARES MD Ot F41.9 ANXIETY DISORDER, UNSPECIFIED 06/02/2019 IQRA OLIVARES MD Ot G47.3 3 OBSTRUCTIVE SLEEP APNEA (ADULT) (PEDIATR 06/02/2019 IQRA OLIVARES MD, Ot I10 ESSENTIAL (PRIMARY) HYPERTENSION 06/02/2019 IQRA OLIVARES MD, Ot J44.9 CHRONIC OBSTRUCTIVE PULMONARY DISEASE, U 06/02/2019 IQRA OLIVARES MD, Ot K74.6 0 UNSPECIFIED CIRRHOSIS OF LIVER 06/02/2019 IQRA OLIVARES MD, Ot M19.9 0 UNSPECIFIED OSTEOARTHRITIS, UNSPECIFIED 06/02/2019 IQRA OLIVARES MD, Ot M32.9 SYSTEMIC LUPUS ERYTHEMATOSUS, UNSPECIFIE 06/02/2019 IQRA OLIVARES MD, Ot N20.0 CALCULUS OF KIDNEY 06/02/2019 IQRA OLIVARES MD, Ot Z79.8 91 PENITENTIARY (CURRENT) USE OF OPIATE ANALGE 06/02/2019 IQRA OLIVARES MD, Ot Z79.8 99 OTHER PENITENTIARY (CURRENT) DRUG THERAPY 06/02/2019 IQRA OLIVARES MD, Ot Z80.4 2 FAMILY HISTORY OF MALIGNANT NEOPLASM OF 06/02/2019 IQRA OLIVARES MD, Ot Z80.5 2 FAMILY HISTORY OF MALIGNANT NEOPLASM OF 06/02/2019 IQRA OLIVARES MD, Ot Z80.8 FAMILY HISTORY OF MALIGNANT NEOPLASM OF 06/02/2019 IQRA OLIVARES MD, Ot Z83.3 FAMILY HISTORY OF DIABETES MELLITUS 06/02/2019 IQRA OLIVARES MD Ot Z88.0 ALLERGY STATUS TO PENICILLIN 06/02/2019 IQRA OLIVARES MD, Ot Z88.1 ALLERGY STATUS TO OTHER ANTIBIOTIC AGENT 06/02/2019 IQRA OLIVARES MD, Ot Z88.8 ALLERGY STATUS TO OTH DRUG/MEDS/BIOL SUB 06/02/2019 IQRA OLIVARES MD, Ot Z90.4 9 ACQUIRED ABSENCE OF OTHER SPECIFIED PART 06/02/2019 IQRA OLIVARES MD, Ot 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 06/02/2019 IQRA OLIVARES MD, Ot Z99.8 9 DEPENDENCE ON OTHER ENABLING MACHINES AN 06/04/2019 IQRA OLIVARES MD, Ot F17.2 10 NICOTINE DEPENDENCE, CIGARETTES, UNCOMPL 06/04/2019 IQRA OLIVARES MD, Ot F20.9 SCHIZOPHRENIA, UNSPECIFIED 06/04/2019 IQRA OLIVARES MD Ot F31.9 BIPOLAR DISORDER, UNSPECIFIED 06/04/2019 IQRA OLIVARES MD, Ot F41.9 ANXIETY DISORDER, UNSPECIFIED 06/04/2019 IQRA OLIVARES MD, Ot G47.3 3 OBSTRUCTIVE SLEEP APNEA (ADULT) (PEDIATR 06/04/2019 IQRA OLIVARES MD Ot I10 ESSENTIAL (PRIMARY) HYPERTENSION 06/04/2019 IQRA OLIVARES MD, Ot J44.9 CHRONIC OBSTRUCTIVE PULMONARY DISEASE, U 06/04/2019 IQRA OLIVARES MD, Ot K74.6 0 UNSPECIFIED CIRRHOSIS OF LIVER 06/04/2019 IQRA OLIVARES MD, Ot M19.9 0 UNSPECIFIED OSTEOARTHRITIS, UNSPECIFIED 06/04/2019 IQRA OLIVARES MD, Ot M32.9 SYSTEMIC LUPUS ERYTHEMATOSUS, UNSPECIFIE 06/04/2019 IQRA OLIVARES MD, Ot N20.0 CALCULUS OF KIDNEY 06/04/2019 IQRA OLIVARES MD Ot Z79.8 91 KING MAKER (CURRENT) USE OF OPIATE ANALGE 06/04/2019 IQRA OLIVARES MD Ot Z79.8 99 OTHER KING MAKER (CURRENT) DRUG THERAPY 06/04/2019 IQRA OLIVARES MD Ot Z80.4 2 FAMILY HISTORY OF MALIGNANT NEOPLASM OF 06/04/2019 IQRA OLIVARES MD Ot Z80.5 2 FAMILY HISTORY OF MALIGNANT NEOPLASM OF 06/04/2019 IQRA OLIVARES MD Ot Z80.8 FAMILY HISTORY OF MALIGNANT NEOPLASM OF 06/04/2019 IQRA OLIVARES MD, Ot Z83.3 FAMILY HISTORY OF DIABETES MELLITUS 06/04/2019 IQRA OLIVARES MD Ot Z88.0 ALLERGY STATUS TO PENICILLIN 06/04/2019 IQRA OLIVARES MD Ot Z88.1 ALLERGY STATUS TO OTHER ANTIBIOTIC AGENT 06/04/2019 IQRA OLIVARES MD, Ot Z88.8 ALLERGY STATUS TO OTH DRUG/MEDS/BIOL SUB 06/04/2019 IQRA OLIVARES MD, Ot Z90.4 9 ACQUIRED ABSENCE OF OTHER SPECIFIED PART 06/04/2019 IQRA OLIVARES MD Ot 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 06/04/2019 IQRA OLIVARES MD Ot Z99.8 9 DEPENDENCE ON OTHER ENABLING MACHINES AN 06/07/2019 IQRA OLIVARES MD Ot 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 06/07/2019 IQRA OLIVARES MD Ot N20.0 CALCULUS OF KIDNEY 06/08/2019 IQRA OLIVARES MD Ot F17.2 10 NICOTINE DEPENDENCE, CIGARETTES, UNCOMPL 06/08/2019 IQRA OLIVARES MD Ot F20.9 SCHIZOPHRENIA, UNSPECIFIED 06/08/2019 IQRA OLIVARES MD Ot F31.9 BIPOLAR DISORDER, UNSPECIFIED 06/08/2019 IQRA OLIVARES MD Ot F41.9 ANXIETY DISORDER, UNSPECIFIED 06/08/2019 IQRA OLIVARES MD Ot G47.3 3 OBSTRUCTIVE SLEEP APNEA (ADULT) (PEDIATR 06/08/2019 IQRA OLIVARES MD Ot I10 ESSENTIAL (PRIMARY) HYPERTENSION 06/08/2019 IQRA OLIVARES MD Ot J44.9 CHRONIC OBSTRUCTIVE PULMONARY DISEASE, U 06/08/2019 IQRA OLIVARES MD Ot K74.6 0 UNSPECIFIED CIRRHOSIS OF LIVER 06/08/2019 IQRA OLIVARES MD Ot M19.9 0 UNSPECIFIED OSTEOARTHRITIS, UNSPECIFIED 06/08/2019 IQRA OLIVARES MD Ot M32.9 SYSTEMIC LUPUS ERYTHEMATOSUS, UNSPECIFIE 06/08/2019 IQRA OLIVARES MD Ot N20.0 CALCULUS OF KIDNEY 06/08/2019 IQRA OLIVARES MD Ot Z79.8 91 PENITENTIARY (CURRENT) USE OF OPIATE ANALGE 06/08/2019 IQRA OLIVARES MD Ot Z79.8 99 OTHER KING MAKER (CURRENT) DRUG THERAPY 06/08/2019 IQRA OLIVARES MD Ot Z80.4 2 FAMILY HISTORY OF MALIGNANT NEOPLASM OF 06/08/2019 IQRA OLIVARES MD Ot Z80.5 2 FAMILY HISTORY OF MALIGNANT NEOPLASM OF 06/08/2019 IQRA OLIVARES MD Ot Z80.8 FAMILY HISTORY OF MALIGNANT NEOPLASM OF 06/08/2019 IQRA OLIVARES MD Ot Z83.3 FAMILY HISTORY OF DIABETES MELLITUS 06/08/2019 IQRA OLIVARES MD Ot Z88.0 ALLERGY STATUS TO PENICILLIN 06/08/2019 IQRA OLIVARES MD Ot Z88.1 ALLERGY STATUS TO OTHER ANTIBIOTIC AGENT 06/08/2019 IQRA OLIVARES MD Ot Z88.8 ALLERGY STATUS TO OTH DRUG/MEDS/BIOL SUB 06/08/2019 IQRA OLIVARES MD Ot Z90.4 9 ACQUIRED ABSENCE OF OTHER SPECIFIED PART 06/08/2019 IQRA OLIVARES MD Ot 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 06/08/2019 IQRA OLIVARES MD Ot Z99.8 9 DEPENDENCE ON OTHER ENABLING MACHINES AN 06/15/2019 IQRA OLIVARES MD Ot F17.2 90 NICOTINE DEPENDENCE, OTHER TOBACCO PRODU 06/15/2019 IQRA OLIVARES MD Ot F20.9 SCHIZOPHRENIA, UNSPECIFIED 06/15/2019 IQRA OLIVARES MD Ot F31.9 BIPOLAR DISORDER, UNSPECIFIED 06/15/2019 IQRA OLIVARES MD Ot F41.9 ANXIETY DISORDER, UNSPECIFIED 06/15/2019 IQRA OLIVARES MD Ot G47.3 3 OBSTRUCTIVE SLEEP APNEA (ADULT) (PEDIATR 06/15/2019 IQRA OLIVARES MD Ot I10 ESSENTIAL (PRIMARY) HYPERTENSION 06/15/2019 IQRA OLIVARES MD Ot J44.9 CHRONIC OBSTRUCTIVE PULMONARY DISEASE, U 06/15/2019 IQRA OLIVARES MD Ot N20.0 CALCULUS OF KIDNEY 06/15/2019 IQRA OLIVARES MD Ot Z79.8 99 OTHER PENITENTIARY (CURRENT) DRUG THERAPY 06/15/2019 IQRA OLIVARES MD Ot Z88.1 ALLERGY STATUS TO OTHER ANTIBIOTIC AGENT 06/15/2019 IQRA OLIVARES MD Ot Z88.8 ALLERGY STATUS TO OTH DRUG/MEDS/BIOL SUB 06/15/2019 IQRA OLIVARES MD Ot 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 06/15/2019 IQRA OLIVARES MD Ot Z99.8 9 DEPENDENCE ON OTHER ENABLING MACHINES AN 06/17/2019 IQRA OLIVARES MD Ot F17.2 90 NICOTINE DEPENDENCE, OTHER TOBACCO PRODU 06/17/2019 IQRA OLIVARES MD Ot F20.9 SCHIZOPHRENIA, UNSPECIFIED 06/17/2019 IQRA OLIVARES MD Ot F31.9 BIPOLAR DISORDER, UNSPECIFIED 06/17/2019 IQRA OLIVARES MD Ot F41.9 ANXIETY DISORDER, UNSPECIFIED 06/17/2019 IQRA OLIVARES MD Ot G47.3 3 OBSTRUCTIVE SLEEP APNEA (ADULT) (PEDIATR 06/17/2019 IQRA OLIVARES MD Ot I10 ESSENTIAL (PRIMARY) HYPERTENSION 06/17/2019 IQRA OLIVARES MD Ot J44.9 CHRONIC OBSTRUCTIVE PULMONARY DISEASE, U 06/17/2019 IQRA OLIVARES MD Ot N20.0 CALCULUS OF KIDNEY 06/17/2019 IQRA OLIVARES MD Ot Z79.8 99 OTHER KING MAKER (CURRENT) DRUG THERAPY 06/17/2019 IQRA OLIVARES MD, Ot Z88.1 ALLERGY STATUS TO OTHER ANTIBIOTIC AGENT 06/17/2019 IQRA OLIVARES MD, Ot Z88.8 ALLERGY STATUS TO OTH DRUG/MEDS/BIOL SUB 06/17/2019 IQRA OLIVARES MD, Ot 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 06/17/2019 IQRA OLIVARES MD Ot Z99.8 9 DEPENDENCE ON OTHER ENABLING MACHINES AN 06/18/2019 IQRA OLIVARES MD Ot F17.2 90 NICOTINE DEPENDENCE, OTHER TOBACCO PRODU 06/18/2019 IQRA OLIVARES MD, Ot F20.9 SCHIZOPHRENIA, UNSPECIFIED 06/18/2019 IQRA OLIVARES MD, Ot F31.9 BIPOLAR DISORDER, UNSPECIFIED 06/18/2019 IQRA OLIVARES MD, Ot F41.9 ANXIETY DISORDER, UNSPECIFIED 06/18/2019 IQRA OLIVARES MD, Ot G47.3 3 OBSTRUCTIVE SLEEP APNEA (ADULT) (PEDIATR 06/18/2019 IQRA OLIVARES MD Ot I10 ESSENTIAL (PRIMARY) HYPERTENSION 06/18/2019 IQRA OLIVARES MD, Ot J44.9 CHRONIC OBSTRUCTIVE PULMONARY DISEASE, U 06/18/2019 IQRA OLIVARES MD Ot N20.0 CALCULUS OF KIDNEY 06/18/2019 IQRA OLIVARES MD Ot Z79.8 99 OTHER PENITENTIARY (CURRENT) DRUG THERAPY 06/18/2019 IQRA OLIVARES MD Ot Z88.1 ALLERGY STATUS TO OTHER ANTIBIOTIC AGENT 06/18/2019 IQRA OLIVARES MD Ot Z88.8 ALLERGY STATUS TO OTH DRUG/MEDS/BIOL SUB 06/18/2019 IQRA OLIVARES MD Ot 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 06/18/2019 IQRA OLIVARES MD, Ot Z99.8 9 DEPENDENCE ON OTHER ENABLING MACHINES AN Procedures Code Description Performed By Per formed On 51.23 LAPA ROSCOPIC CHOLECYSTECTOMY 08/30/2005 87.53 INTR AOPER CHOLANGIOGRAM 08/30/2005 94.65 DRUG DETOXIFICATION 09/28/2005 94.62 ALCO HOL DETOXIFICATION 09/29/2005 96246 UA W / CULTURE IF INDICATED 02/07/2012 [...] 7-25 CREATININE 1.18 mg/dL 0.50-0.99 eGFR NON-AFR. ARGENTINE 49 mL/min/1.73m2 > OR = 60 eGFR [...] 13:14 HCV RNA, QUANTITATIVE REAL TIME PCR 01363 IU/mL NOT DETECTED HCV RNA, QUANTITATIVE REAL [...] NRG Blood erythrocyte morphology finding identification [facility] Comprehensive metabolic panel - 03/11/19 05:40 Serum [...] 7-25 CREATININE 1.11 mg/dL 0.50-0.99 eGFR NON-AFR. ARGENTINE 53 mL/min/1.73m2 > OR = 60 eGFR [...] AST 87 U/L 10-35 ALT 77 U/L 08-08 BNP - 03/19/19 15:50 B TYPE NATRIURETIC PEPTIDE (BNP) 210 pg/mL <100 CMP - 04/09/19 11:37 GLUCOSE 143 mg/dL 65-99 UREA NITROGEN (BUN) 6 mg/dL 7-25 CREATININE 0.85 mg/dL 0.50-0.99 eGFR NON-AFR. ARGENTINE 73 mL/min/1.73m2 > OR = 60 eGFR [...] AST 88 U/L 10-35 ALT 44 U/L 08-08 BNP 04/09/19 11:37 B TYPE NATRIURETIC PEPTIDE (BNP) [...] culture - 05/18/19 19:50 Bacterial urine culture [id number] NRG COLONY COUNT 50,000 CFU/ML NRG SUSCEPTIBILITY NO FURTHER TESTING NRG Methicillin resistant Staphylococcus aur eus (MRSA) screening culture - 06/02/19 06:50 Methicillin resistant Staphylococcus aureus (MRSA) scr eening culture NEG NRG Coronavirus SARS-CoV-2 SO 2018 0 14:30 Coronavirus Ab [Units/volume] in Serum Negative Negative Methicillin resistant Staphylococcus aur eus (MRSA) screening culture - 06/15/19 10:00 Methicillin resistant Staphylococcus aureus (MRSA) scr eening culture NEG NRG Coronavirus SARS-CoV-2 SO 2018 0 12:55 Coronavirus Ab [Units/volume] in Serum Negative Negative Encounters ACCT No. Visit Date/Time Discharge Status Pt. Type Provider Facility Loc./Unit Complaint [id number] 04/09/2019 11:00:00 04/09/2019 23:59: 59 CLS [id number] 04/09/2019 11:00:00 Document Registration [id number] 03/19/2019 14:40:00 Document Registration [id number] 11/02/2018 12:20:00 Document Registration [id number] 09/03/2018 10:20:00 Document Registration [id number] 06/25/2019 07:41:00 16:00:00 DIS Outpatient IQRA OLIVARES MD [facility] PREOP RIGHT ESWL [id number] 06/15/2019 09:08:00 13:05:00 DIS Outpatient IQRA OLIVARES MD [facility] SDC RIGHT KIDNEY STONE [id number] 06/11/2019 07:00:00 16:05:00 DIS Outpatient IQRA OLIVARES MD [facility] PREOP RIGHT ESWL [id number] 06/02/2019 06:30:00 10:40:00 DIS Outpatient IQRA OLIVARES MD Via [facility] RIGHT RENAL STONE [id number] 05/27/2019 08:26:00 10:44:00 DIS Outpatient IQRA OLIVARES MD [facility] PREOP RIGHT RENAL STONE [id number] 05/26/2019 12:56:00 23:59:59 CLS Outpatient IQRA OLIVARES MD [facility] RAD RT RENAL STONES [id number] 05/18/2019 18:08:00 20:42:00 DIS Emergency TONY GIFFORD APRN [facility] ER SOB, HX COPD, INTESTINA L ISSUES [id number] 03/10/2019 15:06:00 12:15:00 DIS Inpatient ANUSHA KIM DO, V ia [facility] 4TH COPD EXACERBATION,SALAV CRYS GLAND TUMORS [id number] 03/02/2019 11:57:00 12:30:00 DIS Emergency TONY GIFFORD APRN [facility] ER NECK PAIN [id number] 03/01/2019 12:19:00 23:59:59 CLS Outpatient JONATHON RAY, IZABELLA Silva [facility] SDC ENLARGED RT UPPER CERVI SENAIT LYMPH NODE [id number] 11/26/2018 13:45:00 23:59:59 CLS Outpatient DOUGLAS RENAE TABLE INSPECTOR [facility] RAD HOARSENESS [id number] 10/14/2018 10:18:00 23:59:59 CLS Outpatient DOUGLAS RENAE TABLE INSPECTOR [facility] RAD DEGENERATIVE DISC DISEA SE [id number] 07/20/2018 15:50:00 18:00:00 DIS Emergency TONY GIFFORD TABLE INSPECTOR [facility] ER SOA [id number] 09/26/2014 13:11:00 015 14:34:00 DIS Outpatient MATT BRITO MD [facility] CARD DDD [id number] 08/17/2014 09:39:00 23:59:59 CLS Outpatient MATT BRITO MD [facility] RAD LOW BACK PAIN [id number] 06/10/2014 14:30:00 015 15:24:00 DIS Emergency TONY GIFFORD TABLE INSPECTOR [facility] ER ALL OVER PAIN, OUT OF M EDS [id number] 06/30/2019 09:00:00 P EN Preadmit IQRA OLIVARES MD [facility] [address] RIGHT URETERAL STONE [id number] 06/28/2019 13:39:[address] Outpatient IQRA OLIVARES MD [facility] RAD [id number] 04/13/2019 07:07:00 Document Registration [id number] 04/13/2019 07:07:00 Document Registration [id number] 04/13/2019 07:07:00 Document Registration [id number] 11/19/2011 15:51:00 Document Registration [id number] 09/18/2011 12:23:00 Document Registration [id number] 09/18/2011 12:15:00 Document Registration [id number] 11/02/2010 09:28:00 Document Registration [id number] 10/30/2010 18:57:00 Document Registration [id number] 06/28/2010 20:22:00 Document Registration [id number] 09/29/2005 14:30:00 Document Registration [id number] 09/28/2005 20:41:00 Document Registration [id number] 08/26/2005 08:29:00 Document Registration [id number] 04/19/2014 15:32:00 04/19/2014 23:59: 59 CLS Outpatient PATRICE MATT DO [id number] 02/07/2012 14:26:00 02/07/2012 23:59: 59 CLS Outpatient PATRICE MATT DO [id number] 10/28/2011 18:13:00 10/28/2011 23:59:5 9 CLS Outpatient
[2019-06-30] MEDS ORDERED: cefTRIAXone FOR IV USE 1,000 MG in WATER (STERILE) FOR INJECTION 10 ML IV ONE (07:30)
--- NOTE | 2019-06-30 07:57 | Progress Note-Pre Operative ---
Pre-Operative Progress Note H&P Reviewed The H&P was reviewed, patient examined and no changes noted. Date Seen by Provider: June 30, 2019 Time Seen by Provider: 07:56 Date H&P Reviewed: June 30, 2019 Time H&P Reviewed: 07:56 Pre-Operative Diagnosis: RT RENAL STONES IQRA OLIVARES MD June 30, 2019 07:57
[2019-06-30] MEDS: LACTATED RINGERS 1,000 ML IV PRN ×2 (08:02→13:16)
[2019-06-30] MEDS ORDERED: MIDAZOLAM 2 MG/2 ML (VERSED) VIAL ONE (08:33)
[2019-06-30] MEDS ORDERED: fentaNYL INJECTION 100 MCG/2 ML AMP ONE ×2 (08:33→08:55)
--- NOTE | 2019-06-30 08:34 | Diagnostic Imaging Report ---
INDICATION: Preoperative evaluation of cardiac and pulmonary structures prior to administration of anesthesia. Right renal stone. COMPARISON: 06/28/2019 TECHNIQUE: Single frontal view of the abdomen. FINDINGS: Numerous calculi are seen in the right renal pelvis and along the right ureter, similar to the previous study. There may be mild distal migration of the proximal ureteral stones. The largest stone measures up to 17 mm in length, in the right renal pelvis. A right ureteral stent appears to be in stable position. There are calcifications in the region of the pancreatic head, likely from chronic pancreatitis. Cholecystectomy clips are noted. No distended loops of bowel are seen. No large collection of free air is seen. IMPRESSION: 1. Numerous calculi in the right renal collecting system and along the right ureter, similar to the prior exam. 2. Stable right ureteral stent. Dictated by: Dictated on workstation # [id number]
--- NOTE | 2019-06-30 08:35 | Progress Note-Post Operative ---
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
--- NOTE | 2019-06-30 08:37 | Discharge Inst-Urology ---
Discharge Inst-Urology Reconcile Patient Problems Problems Reviewed?: Yes Final Diagnosis RT RENAL STONES Patient Instructions/Follow Up Plan/Assessment/Instructions Please make appointment to been seen in office Tuesday 07/11, KUB prior to it. KUB on way home Post ESWL instructions Increase oral fluids for 48 hours and then as needed. Diet and Activity as tolerated. If questions or concerns contact your physician Or seek help at emergency department. IQRA OLIVARES MD June 30, 2019 08:37
[2019-06-30] MEDS ORDERED: fentaNYL INJECTION 100 MCG/2 ML AMP IVP ONE (09:15)
[2019-06-30] MEDS ORDERED: LIDOCAINE PF 2% 5 ML (XYLOCAINE) VIAL ONE (10:12)
[2019-06-30] MEDS ORDERED: SEVOFLURANE (ULTANE) 15 ML INHAL SOLN ONE ×4 (10:12→10:30)
[2019-06-30] MEDS ORDERED: PHENYLEPHRINE 100 MCG/ML 10 ML (ANESTHESIA) SYR ONE (10:12)
[2019-06-30] MEDS ORDERED: proPOfol 200 MG/20 ML (DIPRIVAN) VIAL IV ONE (10:12)
[2019-06-30] MEDS ORDERED: ONDANSETRON 4 MG/2 ML (SDV) Z0FRAN ONE (10:12)
[2019-06-30] MEDS ORDERED: KETOROLAC 30 MG/ML VIAL ONE (10:32)
[2019-06-30] MEDS ORDERED: FUROSEMIDE 40 MG/4 ML INJ (LASIX) ONE (10:32)
--- NOTE | 2019-06-30 10:51 | Anesthesia-General Post-Op ---
General Patient Condition Mental Status/LOC: Same as Preop Cardiovascular: Satisfactory Nausea/Vomiting: Absent Respiratory: Satisfactory Pain: Controlled Complications: Absent Post Op Complications Complications None Follow Up Care/Instructions Patient Instructions None needed. Anesthesia/Patient Condition Patient Condition Patient is doing well, no complaints, stable vital signs, no apparent adverse anesthesia problems. No complications reported per nursing. LOUISE CONTI CRNA June 30, 2019 10:51
[2019-06-30] MEDS ORDERED: morphine INJ 10 MG/ML 1ML (SYR OR VIAL) IVP ONE (11:00)
[2019-06-30] MEDS ORDERED: ONDANSETRON 4 MG/2 ML (SDV) Z0FRAN IVP PRN (11:00)
[2019-06-30] MEDS ORDERED: MEPERIDINE (DEMEROL) INJ 50 MG/ML IVP ONE (11:00)
--- NOTE | 2019-06-30 13:40 | NUR ---
PT TO XRAY VIA W/C. PT DENIES DIZZINESS WHEN SITTING UP. UNSTEADY, BUT NOT MORE THAN PRIOR TO SURGERY.
--- NOTE | 2019-06-30 15:13 | Diagnostic Imaging Report ---
INDICATION: Status post lithotripsy. TIME OF EXAM: 01:53 p.m. Correlation is made with prior radiograph from earlier same day. FINDINGS: Right-sided double-J nephroureteral stent remains in place. Numerous calculi overlie the right renal shadow in right renal pelvis. Numerous calculi along the proximal aspect of the ureteral stent are noted. There are also numerous calculi along the distal aspect of the stent. No definite left-sided urinary tract calculi are seen. Pancreatic calcifications are noted. Bowel gas pattern is stable. IMPRESSION: Stable right-sided urinary tract calculi when compared with study earlier same day. Dictated by: Dictated on workstation # [id number]
--- NOTE | 2019-06-30 16:46 | OPERATIVE REPORT ---
DATE OF SERVICE: 06/30/2019 PREOPERATIVE DIAGNOSIS: Right renal stone. POSTOPERATIVE DIAGNOSIS: Right renal stone. OPERATION PERFORMED: Right ESWL. SURGEON: Junaid Olivares MD. ANESTHESIA: General. COMPLICATIONS: None. DESCRIPTION OF PROCEDURE: Under satisfactory general anesthesia, the patient in supine position on the ESWL table. We first localized the stone that is in the UPJ or upper ureter part to completely fragment it. Then, we directed our attention to the rest of the stones until we delivered a maximum of 3000 shocks at kV of 6. The patient received 40 mg of Lasix and 30 mg of Toradol IV at the end of the procedure. She tolerated the procedure and anesthesia well and was sent to recovery room in stable condition. PLAN: We will try again for the third time to convince the patient to go to either or sent to [facility] in [place] for a percutaneous nephrolithotripsy especially now that we have stone into easier fragments to take care of. 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
== END 2019-06-30 14:20 | disposition home or self-care (01) ==
LOC: SDC 07:03
PROVIDERS: ATTEND Urology
DX: N20.0 Calculus of kidney (principal); I10 Essential (primary) hypertension; G47.33 Obstructive sleep apnea (adult) (pediatric); E03.9 Hypothyroidism, unspecified; J44.9 Chronic obstructive pulmonary disease, unspecified; F17.210 Nicotine dependence, cigarettes, uncomplicated; F41.9 Anxiety disorder, unspecified; F20.9 Schizophrenia, unspecified; F31.9 Bipolar disorder, unspecified; Z88.1 Allergy status to other antibiotic agents; Z79.899 Other long term (current) drug therapy; Z88.8 Allergy status to other drugs, medicaments and biological substances
CPT/HCPCS: 74018; 87081

== ENCOUNTER 2019-07-20 11:46 | Emergency (ER) | payer MEDICARE, MEDICAID ==
[~2019-07-20] VITALS: Ht 147.3 cm; Wt 84.3 kg
[2019-07-20] MEDS ORDERED: NS IV 500 ML 0 ML ONE (12:02)
[2019-07-20] MEDS ORDERED: NS IV 1000 ML 1,000 ML IV SCH (12:30)
--- NOTE | 2019-07-20 12:31 | ED General ---
General Chief Complaint: Abdominal/GI Problems Stated Complaint: CHEST PAIN;COUGH Source of Information: Patient Exam Limitations: No Limitations (TONY GIFFORD APRN) History of Present Illness Date Seen by Provider: Jul 20, 2019 Time Seen by Provider: 12:31 Initial Comments To ERwith reports of right upper abdominal pain. She does not have chest pain or cough. She reports a history of kidney stones on the right with intervention 3. She also reports diffuse swelling Timing/Duration: Gone Now Severity: Moderate Associated Systoms: Chest Pain (TONY GIFFORD APRN) Initial Comments She has a history of cirrhosis, reporting that she has not had any alcohol for 26 days. She does report taking all of her medications, as prescribed, including her thyroid medicine. (MISHA LENNON) Allergies and Home Medications Allergies Coded Allergies: amoxicillin (Verified Allergy, Unknown, Hives, Pt has received Rocephin in the past, 06/02/19) clavulanic acid (Verified Allergy, Unknown, Hives, 05/27/19) levofloxacin (Verified Allergy, Unknown, Hives, 05/27/19) theophylline (Verified Allergy, Unknown, Hives, 05/27/19) Uncoded Allergies: RUBBING ALCOHOL (Allergy, Unknown, 08/26/05) Home Medications Albuterol Sulfate 1 Puff Puff, 2 PUFF INH Q4H PRN for SHORTNESS OF BREATH, (Reported) Albuterol Sulfate 2.5 Mg/3 Ml Vial.neb, 2.5 MG NEB Q2H PRN for SHORTNESS OF BREATH, (Reported) Budesonide/Formoterol Fumarate 10.2 Gm Hfa.aer.ad, 2 PUFF INH BID, (Reported) Doxylamine Succinate 25 Mg Tablet, 25-50 MG PO HS PRN for SLEEP, (Reported) Furosemide 20 Mg Tablet, 20 MG PO DAILY, (Reported) Gabapentin 300 Mg Capsule, 300 MG PO TID, (Reported) Hydroxyzine HCl 50 Mg Tablet, 50 MG PO BID PRN for ANXIETY, (Reported) Levothyroxine Sodium 112 Mcg Tablet, 112 MCG PO DAILY, (Reported) Montelukast Sodium 10 Mg Tablet, 10 MG PO DAILY, (Reported) Nitrofurantoin Monohyd/M-Cryst 100 Mg Capsule, 1 TAB PO BID Prescribed by: JR BAILEY on 06/02/19 1119 Phenazopyridine HCl 200 Mg Tablet, 1 TAB PO TID Prescribed by: JR BAILEY on 06/02/19934 Tamsulosin HCl 0.4 Mg Cap, 0.4 MG PO DAILY Prescribed by: JR BAILEY on 06/02/19934 Tramadol HCl 50 Mg Tablet, 50-100 MG PO Q4H PRN for PAIN-MODERATE (5-7) Prescribed by: JR BAILEY on 06/02/19934 Patient Home Medication List Home Medication List Reviewed: Yes (TONY GIFFORD APRN) Review of Systems Review of Systems Constitutional: see HPI EENTM: see HPI Respiratory: see HPI Cardiovascular: see HPI Genitourinary: see HPI, hematuria Musculoskeletal: no symptoms reported Skin: no symptoms reported Psychiatric/Neurological: No Symptoms Reported Hematologic/Lymphatic: No Symptoms Reported Immunological/Allergic: no symptoms reported (TONY GIFFORD APRN) All Other Systems Reviewed Negative Unless Noted: Yes (MISHA LENNON) Past Rnrjpmv-Mizxne-Wjayfs Hx Past Med/Social Hx: Reviewed Nursing Past Med/Soc Hx (MISHA LENNON) Patient Social History Alcohol Beverage of Choice: Beer, Vodka Type Used: Cigarettes 2nd Hand Smoke Exposure: Yes Recent Hopitalizations: No (TONY GIFFORD APRN) Immunizations Up To Date Tetanus Booster (TDap): Unknown PED Vaccines UTD: No Date of Pneumonia Vaccine: Mar 10, 2014 Date of Influenza Vaccine: Mar 10, 2018 (TONY GIFFORD APRN) Seasonal Allergies Seasonal Allergies: Yes (TONY GIFFORD APRN) Past Medical History Surgeries: Yes (axillary gland removal, several ex laps, KIDNEY STONE) Gallbladder, Hysterectomy, Oophorectomy Respiratory: Yes (uses oxygen at 3 L by nasal cannula) Sleep Apnea, COPD Currently Using CPAP: No Currently Using BIPAP: No Cardiac: Yes Hypertension Neurological: No Female Reproductive Disorders: Endometriosis [employer] History: Hysterectomy Genitourinary: No Gastrointestinal: Yes (HEP C POSITIVE) Hepatitis Musculoskeletal: Yes Back Injury, Chronic Back Pain Endocrine: Yes Hypothyroidsim, Lupus HEENT: No Cancer: No Psychosocial: Yes Anxiety, Bipolar, Schizophrenia Integumentary: No Blood Disorders: Yes (TONY GIFFORD APRN) Physical Exam Vital Signs Vital Signs - First Documented 07/20/19 12:22 Temp 36.1 Pulse 94 Resp 20 B/P (MAP) 110/94 (99) Pulse Ox 96 O2 Delivery Room Air (MISHA LENNON) Vital Signs Capillary Refill : (TONY GIFFORD APRN) Height, Weight, BMI Height: 4'10.00" Weight: 200lbs. oz. [id number]; 40.80 BMI Method:Stated General Appearance: No Apparent Distress, WD/WN, Other (anasarca) Eyes: Bilateral Eye Normal Inspection, Bilateral Eye PERRL, Bilateral Eye EOMI Neck: Full Range of Motion, Normal Inspection Respiratory: No Accessory Muscle Use, No Respiratory Distress Cardiovascular: Regular Rate, Rhythm, Normal Peripheral Pulses Gastrointestinal: Normal Bowel Sounds, Non Tender, Soft Extremity: Normal Capillary Refill, Normal Inspection, Other (pitting edema 2+ bilateral arms and legs) Neurologic/Psychiatric: Alert, Oriented x3 Skin: Normal Color, Warm/Dry (TONY GIFFORD APRN) Extremity: Other (pitting edema 2+ bilateral arms and legs) (MISHA LENNON) Progress/Results/Core Measures Suspected Sepsis SIRS Temperature: Pulse: Respiratory Rate: Blood Pressure / Mean: (TONY GIFFORD APRN) Results/Orders Lab Results Laboratory Tests Test 07/20/19 13:16 07/20/19 14:20 Range/Units Urine Color TOBY H Urine Clarity CLOUDY Urine pH 6.5 5-9 Urine Specific [place] 1.025 H 1.016-1.022 Urine Protein 2+ H NEGATIVE Urine Glucose (UA) TRACE H NEGATIVE Urine Ketones 1+ H NEGATIVE Urine Nitrite POSITIVE H NEGATIVE Urine Bilirubin 3+ H NEGATIVE Urine Urobilinogen >=8.0 < = 1.0 MG/DL Urine Leukocyte Esterase TRACE H NEGATIVE Urine RBC (Auto) 3+ H NEGATIVE Urine RBC TNTC H /HPF Urine WBC 2-5 /HPF Urine Squamous Epithelial Cells 0-2 /HPF Urine Renal Epithelial Cells 0-2 /HPF Urine Crystals NONE /LPF Urine Bacteria FEW H /HPF Urine Casts NONE /LPF Urine Mucus NEGATIVE /LPF Urine Culture Indicated YES Urine Opiates Screen POSITIVE H NEGATIVE Urine Oxycodone Screen NEGATIVE NEGATIVE Urine Methadone Screen NEGATIVE NEGATIVE Urine Propoxyphene Screen NEGATIVE NEGATIVE Urine Barbiturates Screen NEGATIVE NEGATIVE Ur Tricyclic Antidepressants Screen NEGATIVE NEGATIVE Urine Phencyclidine Screen NEGATIVE NEGATIVE Urine Amphetamines Screen NEGATIVE NEGATIVE Urine Methamphetamines Screen NEGATIVE NEGATIVE Urine Benzodiazepines Screen NEGATIVE NEGATIVE Urine Cocaine Screen NEGATIVE NEGATIVE Urine Cannabinoids Screen NEGATIVE NEGATIVE White Blood Count 6.0 4.3-11.0 10^3/uL Red Blood Count 2.68 L 4.35-5.85 10^6/uL Hemoglobin 9.5 L 11.5-16.0 G/DL Hematocrit 26 L 35-52 % Mean Corpuscular Volume 98 80-99 FL Mean Corpuscular Hemoglobin 35 H 25-34 PG Mean Corpuscular Hemoglobin Concent 36 32-36 G/DL Red Cell Distribution Width 16.2 H 10.0-14.5 % Platelet Count 108 L 130-400 10^3/uL Mean Platelet Volume 10.2 7.4-10.4 FL Neutrophils (%) (Auto) 74 42-75 % Lymphocytes (%) (Auto) 16 12-44 % Monocytes (%) (Auto) 7 0-12 % Eosinophils (%) (Auto) 2 0-10 % Basophils (%) (Auto) 1 0-10 % Neutrophils # (Auto) 4.5 1.8-7.8 X 10^3 Lymphocytes # (Auto) 1.0 1.0-4.0 X 10^3 Monocytes # (Auto) 0.4 0.0-1.0 X 10^3 Eosinophils # (Auto) 0.1 0.0-0.3 10^3/uL Basophils # (Auto) 0.0 0.0-0.1 10^3/uL Sodium Level 127 L 135-145 MMOL/L Potassium Level 2.6 L 3.6-5.0 MMOL/L Chloride Level 83 L 98-107 MMOL/L Carbon Dioxide Level 30 21-32 MMOL/L Anion Gap 14 5-14 MMOL/L Blood Urea Nitrogen 13 7-18 MG/DL Creatinine 0.95 0.60-1.30 MG/DL Estimat Glomerular Filtration Rate 59 BUN/Creatinine Ratio 14 Glucose Level 126 H 70-105 MG/DL Calcium Level 7.5 L 8.5-10.1 MG/DL Corrected Calcium 8.8 8.5-10.1 MG/DL Total Bilirubin 7.5 H 0.1-1.0 MG/DL Aspartate Amino Transf (AST/SGOT) 62 H 5-34 U/L Alanine Aminotransferase (ALT/SGPT) 19 0-55 U/L Alkaline Phosphatase 50 40-136 U/L B-Type Natriuretic Peptide 52.1 <100.0 PG/ML Total Protein 6.1 L 6.4-8.2 GM/DL Albumin 2.4 L 3.2-4.5 GM/DL Thyroid Stimulating Hormone (TSH) 48.84 H 0.35-4.94 UIU/ML Free Thyroxine < 0.40 L 0.70-1.48 NG/DL Serum Alcohol < 10 <10 MG/DL (MISHA LENNON) My Orders Orders - MISHA LENNON Ciprofloxacin Iv 400mg/200ml (Cipro Iv S (07/20/19 16:15) Potassium Cl 10meq/50ml Ivpb (Kcl 10 Meq (07/20/19 16:30) Alcohol (07/20/19 16:32) Drug Screen Stat (Urine) (07/20/19 16:32) Ed Iv/Invasive Line Start (07/20/19 16:40) Ns (Ivpb) (Sodium Chloride 0.9%) (07/20/19 16:40) Ns Iv 500 Ml (Sodium Chloride 0.9%) (07/20/19 16:42) (MISHA LENNON) Medications Given in ED Current Medications Medications Dose Ordered Sig/Jose Antonio Route Start Time Stop Time Status Last Admin Dose Admin Ciprofloxacin/ Dextrose 200 ml @ 200 mls/hr ONCE ONCE IV 07/20/19 16:15 07/20/19 17:14 07/20/19 16:57 200 MLS/HR Fentanyl Citrate 25 mcg ONCE PRN IVP 07/20/19 12:30 07/20/19 16:48 25 MCG Sodium Chloride 500 ml @ ud STK-MED ONCE .ROUTE 07/20/19 16:42 07/20/19 16:45 DC 07/20/19 16:48 100 MLS/HR (MISHA LENNON) Vital Signs/I&O 07/20/19 12:22 Temp 36.1 Pulse 94 Resp 20 B/P (MAP) 110/94 (99) Pulse Ox 96 O2 Delivery Room Air (MISHA LENNON) Vital Signs/I&O Capillary Refill : (TONY GIFFORD APRN) Progress Note : Progress Note 1530 Assumed care of patient. Reviewed labs, diagnostic studies and previous urology surgeries. Patient reports pain has improved. Will give IV K+ 20 mEq IV for K+ 2.6; Cipro IV for UTI. Patient states she wants to be DNR, on Comfort Care if this will require a large, aggressive surgery/treatment. She doesn't want to leave her family with no money and lots of medical bills. Cipro 400 mg IV. [address] Olivares, can not perform further urology procedures here. Patient never followed up with Dr. Olivares after her last cystoscopy. Spoke to patient and family, agreeable to consult with Urologist at [facility] in [place], [place]. [address] Patient has no complaints at this time, awaiting bed placement at [facility]. Taking ice chips, no n/v. (MISHA LENNON) Diagnostic Imaging Diagonstic Imaging: Xray Plain Films/CT/US/NM/MRI: abdomen Comments NAME: PORFIRIO FELIZ [facility] REC#: [id number] PT STATUS: REG ER : 1955 PHYSICIAN: TONY GIFFORD APRN ADMIT DATE: 07/20/19/ER Draft Date of Exam:07/20/19 ABDOMEN/KUB 1VIEW HISTORY: Chest pain, cough, abdominal pain. TECHNIQUE: Frontal view of the abdomen. COMPARISON: 06/30/2019. FINDINGS: No distended loops of small bowel are seen. The bowel gas pattern is nonspecific. Irregular calcifications are seen in the region of the pancreatic head, consistent with chronic pancreatitis. The right ureteral stent appears displaced distally, coiled further into the bladder and with the proximal portion at the mid ureter. Numerous calculi are seen in the region of the right kidney and proximal right ureter. Cholecystectomy clips are noted. IMPRESSION: 1. The right ureteral stent appears displaced distally with the proximal tip at the mid ureter. Numerous renal calculi and proximal ureteral calculi are seen. 2. Calcifications about the pancreatic head, consistent with chronic pancreatitis. Dictated on workstation # [id number] Dict: 07/20/19 1402 Trans: 07/20/19 1415 [id number] Interpreted by: SERA HANKINS MD Electronically signed by: Reviewed: Reviewed by Me Diagonstic Imaging: Xray Plain Films/CT/US/NM/MRI: chest Comments NAME: PORFIRIO FELIZ [facility] REC#: [id number] PT STATUS: REG ER : 1955 PHYSICIAN: TONY GIFFORD APRN ADMIT DATE: 07/20/19/ER Draft Date of Exam:07/20/19 CHEST 1 VIEW, AP/PA ONLY INDICATION: Cough and chest pain. 5 frontal chest obtained at 2:00 hours p.m. compared to 05/18/2019. Heart and mediastinal silhouette are normal in appearance. Lungs are clear. There is no pneumothorax or pleural fluid. IMPRESSION: Negative chest. Dictated on workstation # [id number] Dict: 07/20/19 1358 Trans: 07/20/19 1401 [facility] [id number] Interpreted by: FELIX WIGGINS MD Electronically signed by: [facility] Imaging: CT Plain Films/CT/US/NM/MRI: abdomen, pelvis Comments NAME: PORFIRIO FELIZ REC#: [id number] PT STATUS: REG ER : 1955 PHYSICIAN: TONY GIFFORD APRN ADMIT DATE: 07/20/19/ER Signed Date of Exam:07/20/19 CT ABD/PELVIS WO(KIDNEY STONE) PROCEDURE: CT urinary tract, rule out kidney stone. TECHNIQUE: Multiple contiguous axial images were obtained through the abdomen and pelvis without the use of intravenous contrast. Auto Exposure Controls were utilized during the CT exam to meet ALARA standards for radiation dose reduction. INDICATION: History of kidney stones. Dark urine. COMPARISON: CT abdomen and pelvis on 05/18/2019. FINDINGS: The heart is unremarkable. Dependent atelectasis is seen in the lung bases. An ureteral stent is visualized in the distal aspect of the right ureter with the majority of the stent within the lumen of the bladder. There are numerous stacked calculi throughout the right ureter. Calculi are also visualized in the right renal pelvis. The largest measures approximately 1.0 cm. Nonobstructing calculi are also seen in the right kidney. There is moderate right-sided hydroureteronephrosis. No hydronephrosis or renal calculi seen on the left. The urinary bladder is decompressed with [place] in place. Cirrhotic morphology of the liver is again noted with a shrunken appearance and micronodular contour. A moderate amount of ascites is seen in the abdomen and pelvis. The spleen is unremarkable. The gallbladder is surgically absent. Calcifications are again seen in the head of the pancreas, likely representing sequelae of chronic pancreatitis. No significant peripancreatic inflammatory changes are seen. The adrenal glands are unremarkable. The bowel loops are nondilated. Scattered diverticuli are seen in the descending and sigmoid colon. There is no free air. No acute osseous abnormalities. There is calcified aortic and iliac atherosclerotic plaque without aneurysm. There is no free air, loculated collection, or adenopathy in the pelvis. IMPRESSION: 1. Development of numerous stacked urolithiasis in the right ureter which have pushed a right ureteral stent into the bladder. Associated moderate right-sided hydronephrosis is present. Additional calculi are seen in the right renal pelvis and calyces of the right kidney. 2. Cirrhotic morphology of the liver. A moderate amount of ascites is present. 3. Calcifications within the head of pancreas, likely representing sequelae of chronic pancreatitis. Dictated by: (MISHA LENNON) Departure Impression Primary Impression: Right ureteral calculus Additional Impressions: Ascites Qualified Codes: R18.8 - Other ascites Hypothyroid Qualified Codes: E03.9 - Hypothyroidism, unspecified Disposition: XFER SHT-TRM HOSP Condition: Stable Transfer Transfer Reason: Exceeds level of care Time Spoke to Accepting Phy: 16:15 Transfer Progress Notes Spoke to Dr. Tamayo (urology), agreed to accept patient with plans for surgery tomorrow. Spoke to Dr. Dey, agreed to accept patient for medical care. Method of Transfer: EMS (MISHA LENNON) Departure-Patient Inst. Referrals: [facility] (PCP/Family) Primary Care Physician Copy Copies To 1: IQRA OLIVARES MD, PETER J APRN Jul 20, 2019 12:31 MISHA LENNON Jul 20, 2019 15:33
[2019-07-20] MEDS: fentaNYL INJECTION 100 MCG/2 ML AMP IVP PRN ×2 (13:08→16:48)
[2019-07-20 13:31] LABS: CLARITY,URINE CLOUDY; COLOR,URINE AMBER; GLUCOSE, URINE (UA) TRACE (NEGATIVE); KETONES,URINE 1+ (NEGATIVE); LEUKOCYTE ESTERASE ,URINE TRACE (NEGATIVE); NITRITE,URINE POSITIVE (NEGATIVE); PH,URINE 6.5 (5-9); PROTEIN,URINE 2+ (NEGATIVE)
[2019-07-20 13:43] LABS: RBC,URINE TNTC /HPF
[2019-07-20 13:44] LABS: BACTERIA,URINE FEW /HPF; RENAL EPITHELIAL CELLS,URINE 0-2 /HPF; SQUAMOUS EPITHELIAL CELL,UR 0-2 /HPF
--- OUTSIDE RECORDS SUMMARY | 2019-07-20 13:52 | XMS REPORT ---
Author Author [employer]. label stamper [facility] [employer] [facility] Address [address] [address] Care Team Providers Care Trim Setter Helper Name Role Phone JENNIFER BEARD Unavailable Unavailable Migration, Doctor Unavailable Unavailable Migration, Doctor Unavailable Unavailable Migration, Doctor Unavailable Unavailable Migration, Doctor Unavailable Unavailable Migration, Doctor Unavailable Unavailable Migration, Doctor Unavailable Unavailable Migration, Doctor Unavailable Unavailable Migration, Doctor Unavailable Unavailable Migration, Doctor Unavailable Unavailable Migration, Doctor Unavailable Unavailable Migration, Doctor Unavailable Unavailable Migration, Doctor Unavailable Unavailable Migration, Doctor Unavailable Unavailable TONY GIFFODR OIL BURNER TECHNICIAN Unavailable Unavailable SHAWNEE RAY, KHARI Fuentes Unavailable Unavailable TONY GIFFORD APRN Unavailable Unavailable MADL, CHARLEE PRIETO Unavailable Unavailable DOUGLAS RENAE Unavailable Unavailable DOUGLAS RENAE OIL BURNER TECHNICIAN Unavailable Unavailable DARYL RAY, MATT Raygoza Unavailable Unavailable JONATHON RAY, IZABELLA Silva Unavailable Unavailable KIM DO, ANUSHA S Unavailable Unavailable KIM DO, ANUSHA S Unavailable Unavailable Unavailable Unavailable FAUSTINO DODSON, KHARI Eller Unavailable Unavailable SUE POTTS Unavailable Unavailable NOLVIA RAY, ORTIZ Bravo Unavailable Unavailable SHAKA DO, PATRICE K Unavailable Unavailable SUNNY RAY, KALPESH Bravo Unavailable Unavailable ELIO RAY, DAVIE Mckeon Unavailable Unavailable Migration, Doctor Unavailable Unavailable SUE MCMANUS Unavailable SHERRI RAY, SENA Raygoza Unavailable Unavailable IQRA OLIVARES MD Unavailable Unavailable Migration, Doctor Unavailable Unavailable Unavailable Unavailable Unavailable Unavailable Unavailable Unavailable Allergies Normalized Allergy Reported Date of Reaction(s) Care Provider Facility Allergy Type classification allergen Allergy Onset Drug Allergy Penicillins Amoxicillin 05-27-2019 - Heidi Gordon MINDI GARNER, [facility] Via (25 sources.) (antibiotic) Pt has r DO [facility] (10058) Drug Allergy Clavulanate Clavulanate 05-27-2019 - KELSIE Gu Via (25 sources.) DO [facility] (07637) Drug Allergy Quinolones levoFLOXacin 05-27-2019 - Hivalicia KIM [facility] Via (25 sources.) (antibiotic) DO [facility] (70652) MA (8 Unclassified NKANo Known 09-29-2005 - no information PE CARDENAS [facility] Via sources.) Allergies [facility] ([address]390) no information Unclassified RUBBING 08-26-2005 - no informatio n TONY GIFFORD [facility] Via (20 sources.) ALCOHOL [facility] (34089) Drug Allergy Theophylline Theophylline 05-27-2019 - Hiv MIN AZUL KIM [facility] Via (25 sources.) DO [facility] (86393) Medications The data below is from unstructured [...] No Known Medications Problems Problem Normalized Date Last Normalized Normalized Provider Fa cility Classification Problem(s) Recorded Problem Problem Sta tus Duration Abdominal pain Abdominal Episodic Active ORTIZ DE SOUZA [facility] Via (2 sources.) pain, other , [place] specified site [facility] ([address]752) Residual Acquired 06-15-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 ANUSHA KIM [facility] Via codes; absence of DO [place] unclassified both cervix Hospital - (22 sources.) and uterus [place] ([address]) Residual Acquired 06-29-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 IQRA OLIVARES [facility] Via codes; absence of [place] unclassified other Hospital - (5 sources.) [facility] parts of (21017) digestive tract Alcohol-relate Alcohol 06-15-2019 - Chronic Active ANUSHA COLLINS [facility] Via d disorders dependence DO [place] (22 sources.) with Hospital - [facility], [place] unspecified ([address]) Translations: [ Alcohol abuse, - Alcohol abuse F10.10] Allergic Allergy status 06-29-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 TONY LEDEZMA [facility] Via reactions (20 to other [place] sources.) drugs, Hospital - medicaments [place] and biological (79296) substances status Translations: [ ALLERGY STATUS TO OTHER ANTIBIOTIC AGENT, ALLERGY STATUS TO PENICILLIN, ALLERGY STATUS TO OTH DRUG/MEDS/BIOL SUB] 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-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 ANUSHA KIM , [facility] 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 (22 gland, [place] sources.) unspecified (43910) Mood disorders Bipolar 06-15-2019 - Chronic Active ANUSHA GAR DENNIS , [facility] Via (22 sources.) disorder, DO [place] unspecified Hospital - Translations: [place] [ BIPOLAR (90557) DISORDER, UNSPECIFIED] Chronic Bronchitis, 06-15-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 ANUSHA KIM , [facility] Via obstructive not specified DO [facility] pulmonary as acute or Hospital - disease and chronic [place] bronchiectasis Translations: (61428) (22 sources.) [ - Bronchitis J40] Calculus of Calculus of 06-29-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 TONY LEDEZMA , [facility] Via urinary tract kidney JAMIE [place] (23 sources.) Translations: Hospital - [ CALCULUS OF [place] URETER] (65039) Other nervous Chronic pain Chronic Active MATT BRITO , [facility] Via system syndrome [place] disorders (20 Hospital - sources.) [place] (87648) 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 IQRACHICA GUZMAN L , [facility] Via codes; other enabling [place] unclasscallie machines and Hospital - (10 sources.) devices [place] (11939) 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 TONY GIFFORD , [facility] Via failure; supplemental JAMIE [place] insufficiency; oxygen Hospital - arrest (adult) [place] (2 sources.) (93363) Other bone Disorder of Episodic Active KHARI HARMON [facility] V ia disease and bone and , WEST [place] musculoskeleta cartilage, Hospital - l deformities unspecified [place] (1 source.) (82130) Immunizations Encounter for 07-15-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 IQRA OLIVARES , [facility] Via and screening screening for [place] for infectious other viral Hospital - disease (2 diseases [place] sources.) (36622) Residual Family history 06-29-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 IQRA CRAWLEY [place] , [facility] Via codes; of diabetes [place] unclasscallie mellitus Hospital - (5 sources.) [place] ([address]) Residual Family history 06-29-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 [place]QRACHICA [place]RAWLEY [place] , [facility] Via codes; of malignant [place] unclassified neoplasm of Hospital - (5 sources.) bladder [place] ([address]214) Residual Family history 06-29-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 IQRA [place]W [place] , [facility] Via codes; of malignant [place] unclassified neoplasm of Hospital - (5 sources.) other organs [place] or systems (83672) Residual Family history 06-29-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 IQRA [place]W [place] , [facility] Via codes; of malignant [place] unclassified neoplasm of Hospital - (5 sources.) prostate [place] (16420) Genitourinary Hematuria, Episodic Active TONY GIFFORD [facility] Via symptoms and unspecified JAMIE Jollye ill-defined Hospital - conditions (2 [place] sources.) (69558) Lymphadenitis Localized Episodic Active IZABELLA HOLT [facility] Via (13 sources.) enlarged lymph , [place] nodes Hospital - [place] (18492) Other group home Episodic Active TONY GIFFORD [facility] Via aftercare (20 (current) use [place] sources.) of inhaled Hospital - steroids [place] (56399) Other group home 06-29-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 IQRA OLIVARES [facility] Via aftercare (5 (current) use [place] sources.) of opiate Hospital - analgesic [place] (12355) Other group home Episodic Active TONY GIFFORD [facility] Via aftercare (15 (current) use JAMIE [place] sources.) of systemic Hospital - steroids [place] (27901) Other Long-term Episodic Active MATT BRITO [facility] Via aftercare (20 (current) use [place] sources.) of other Hospital - medications [place] (35881) Spondylosis; Lumbago 06-15-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 MATT Barclay , [facility] Via intervertebral Translations: [place] disc [ BACKACHE Hospital - disorders; NOS, [place] other back CERVICALGIA, (63728) problems (20 DORSALGIA, sources.) UNSPECIFIED] Noninfectious Noninfective Episodic Active TONY GIFFORD , [facility] Via gastroenteriti gastroenteriti JAMIE [place] s (2 sources.) s and colitis, Hospital - unspecified [place] (63294) Residual Obstructive 06-29-2019 - Chronic Active IQRA ELISE , [facility] Via codes; sleep apnea [place] unclassified (adult) Hospital - (15 sources.) (pediatric) [place] (29926) Other nervous Other acute Episodic Active TONY GIFFORD , [facility] Via system postprocedural OIL BURNER TECHNICIANKaterine [place] disorders (13 pain Hospital - sources.) [place] (08080) Other Other ascites Episodic Active TONY GIFFORD , [facility] Via gastrointestin JAMIE [place] al disorders Hospital - (2 sources.) [place] (14270) Other Other bursal Episodic Active DOUGLAS OC , [facility] V ia connective cyst, other OIL BURNER TECHNICIAN [place] tissue disease site Hospital - (17 sources.) [place] (71226) Other nervous Other chronic 06-15-2019 - Chronic Active ANUSHAMichael KIM , [facility] Via system pain DO [place] disorders (22 Hospital - sources.) [place] (80875) Diseases of Other diseases 06-15-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 DOUGLAS RENAE , [facility] Via mouth; of salivary OIL BURNER TECHNICIANKaterine [place] excluding glands Hospital - dental (34 Translations: [place] sources.) [ (22390) SIALOADENITIS, UNSPECIFIED] Spondylosis; Other Chronic Active MATT BRITO , [facility] V ia intervertebral intervertebral [place] disc disc Hospital - disorders; degeneration, [place] other back lumbosacral (44394) problems (37 region sources.) Translations: [ LUMB/LUMBOSAC DISC DEGEN, LUMBOSACRAL SPONDYLOSIS, Degenerative disc disease at L5-S1 level, - Degenerative disc disease at L5-S1 level M51.36] Pancreatic Other Episodic Active IQRA ELISE , [facility] Via disorders (not specified [place] diabetes) (3 diseases of Hospital - sources.) pancreas [place] (11468) Residual Other 07-15-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 IQRA ELISE , [facility] Via codes; specified [place] unclasscallie postprocedural Hospital - (2 sources.) states [place] (88512) Other Pain in joint, Episodic Active SUE MCMANUS , [facility] Via non-traumatic pelvic region BONE TENDER [place] joint and thigh Hospital - disorders (1 [place] source.) (58463) Other Pain in joint, Episodic Active TONY BARFIELDES , [facility] Via non-traumatic shoulder OIL BURNER TECHNICIANKaterine [place] joint region Hospital - disorders (20 [place] sources.) (68648) Screening and Personal 06-15-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 ANUSHA GARN ER , [facility] Via history of history of DO [place] mental health nicotine Hospital - and substance dependence [place] abuse codes Translations: (50891) (22 sources.) [ PERSONAL HISTORY OF OTHER MENTAL AND BEH] Other Personal Episodic Active TONY GIFFORD [facility] Via gastrointestin history of [place] al disorders other diseases Hospital - (20 sources.) of the [place] digestive (04672) system Schizophrenia Schizophrenia, 06-15-2019 - Chronic Active MIND I KIM , [facility] Via and other unspecified DO [place] psychotic Translations: Hospital - disorders (22 [ [place] sources.) SCHIZOPHRENIA (28842) NOS-UNSPEC] Other lower Shortness of Episodic Active DAVIE BALLARD , [facility] Via respiratory breath [place] disease (1 Hospital - source.) [place] (79336) Other lower Shortness of Episodic Active TONY GIFFORD [facility] V ia respiratory breath [place] disease (20 Hospital - sources.) [place] (64877) Other lower Solitary 06-15-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 ANUSHA KIM , [facility] Via respiratory pulmonary DO [place] disease (22 nodule Hospital - sources.) [place] (33207) Other Synovial cyst, Episodic Active MATTShiva BRITO , [facility] Via connective unspecified [place] tissue disease Hospital - (20 sources.) [place] (98968) Systemic lupus Systemic lupus 06-15-2019 - Chronic Active MIN AZUL KIM , [facility] Via erythematosus erythematosus, DO [place] and connective unspecified Hospital - tissue Translations: [place] disorders (22 [ SYST LUPUS (78322) sources.) ERYTHEMATOSIS, - Lupus M32.9] Other liver Unspecified 06-29-2019 - Chronic Active TONY LEDEZMA , [facility] Via diseases (7 cirrhosis of OIL BURNER TECHNICIAN [place] sources.) liver [facility] [place] (18293) Urinary tract Urinary tract Episodic Active ORTIZ DE SOUZA [facility] Via infections (2 infection, , [facility] sources.) site not Hospital - specified [place] Translations: (93410) [ PYELONEPHRITIS NOS] Procedures The data below [...] Time Fa cility (Normalized) (Normalized) (Medline Reference) not yet categorized on 2019-06-30 no information NAME: PORFIRIO FELIZ (no code) PENDING LOCATI ON J ~MED REC#: [facility] [id number]) [id number] ~ ~PHYSICIAN: IQRA OLIVARES MD ~Post-Operative Progess Note ~Surgeon (s)/Pneumatic Riveter (s) ~Surgeon ~IQRA OLIVARES MD ~Pneumatic Riveter: NONE ~ ~Pre-Operative Diagnosis ~RT RENAL STONES ~ ~Post-Operative Diagnosis ~ ~SAME ~ ~Procedure Operative Findings ~Date of Procedure ~06/30/19 ~Procedure Performed/Findin gs ~RT ESWL ~Anesthesia Type ~GENERAL ~ ~Estimated Blood Loss ~Estimated blood loss (mL): NONE ~ ~Specimens/Packi ng ~Specimens Removed ~NONE ~Packing: ~NONE ~ ~ ~ ~IQRA OLIVARES MD June 30, 2019 08:35 ~ ~ ~<Created by IQRA OLIVARES MD> ~<Electronically signed by IQRA OLIVARES MD> 06/30/19 1012 ~ ~ no information NAME: PORFIRIO FELIZ (no code) PENDING LOCATI ON J ~MED REC#: [id number] ~ ~PHYSICIAN: LOUISE CONTI CRNA ~General ~Patient Condition ~Mental Status/LOC: Same as Preop ~Cardiovascular: Satisfactory ~Nausea/Vomiting : Absent ~Respiratory: Satisfactory ~Pain: Controlled ~Complications: Absent ~ ~Post Op Complications ~Complications ~None ~ ~Follow Up Care/Instruction s ~Patient Instructions ~None needed. ~ ~Anesthesia/Blanka ent Condition ~Patient Condition ~Patient is doing well, no complaints, stable vital signs, no apparent adverse anesthesia problems. ~ ~No complications reported per nursing. ~ ~ ~ ~LOUISE CONTI ELEMENT WINDING MACHINE TENDER June 30, 2019 10:51 ~ ~ ~<Created by LOUISE CONTI ELEMENT WINDING MACHINE TENDER> ~<Electronically signed by LOUISE CONTI ELEMENT WINDING MACHINE TENDER> 06/30/19 1051 ~ ~ laboratory on 2019-06-30 MRSA isol Org Negative (no code) 06-30-2019 PENDING LOCA TION specific cx Ql 03:25-0400 S ([id number]) (Unsp spec) laboratory on 2019-06-25 Coronavirus Ab Negative (no code) [facility] Via [facility] (S) [facility] (99625) Coronavirus Ab Negative (no code) 06-25-2019 PENDING LOC ATION Qn (S) 08:55-0400 [facility] (48829) not yet categorized on 2019-06-15 no information NAME: PORFIRIO FELIZ (no code) [id number][facility] [id number] ~ ~PHYSICIAN: IQRA OLIVARES MD ~Post-Operative Progess Note ~Surgeon (s)/Pneumatic Riveter (s) ~Surgeon ~IQRA OLIVARES MD ~Pneumatic Riveter: NONE ~ ~Pre-Operative Diagnosis ~RT RENAL STONE ~ ~Post-Operative Diagnosis ~ ~SAME ~ ~Procedure Operative Findings ~Date of Procedure ~06/15/19 ~Procedure Performed/Findin gs ~RT ESWL ~Anesthesia Type ~GENERAL ~ ~Estimated Blood Loss ~Estimated blood loss (mL): NONE ~ ~Specimens/Packi ng ~Specimens Removed ~NONE ~Packing: ~NONE ~ ~ ~ ~IQRA OLIVARES MD June 15, 2019 10:32 ~ ~ ~<Created by IQRA OLIVARES MD> ~<Electronically signed by IQRA OLIVARES MD> 06/15/19 1033 ~ ~ no information NAME: PORFIRIO FELIZ (no code) PENDING LOCATI ON J MED REC#: [facility] ([id number]) [id number] ~ ~PHYSICIAN: MELYSSA CUADRA DO ~General ~Patient Condition ~Mental Status/LOC: Same as Preop ~Cardiovascular: Satisfactory ~Nausea/Vomiting : Absent ~Respiratory: Satisfactory ~Pain: Controlled ~Complications: Absent ~ ~Post Op Complications ~Complications ~None ~ ~Follow Up Care/Instruction s ~Patient Instructions ~None needed. ~ ~Anesthesia/Blanka ent Condition ~Patient Condition ~Patient was seen after the procedure and she was doing well, no complaints, stable vital signs, no ~apparent adverse anesthesia problems. ~ ~ ~ ~BARBARA CUADRA SE, DO June 15, 2019 14:43 ~ ~ ~<Created by DESTINY CUADRA DO> ~<Electronically signed by DESTINY CUADRA DO> 06/15/19 1443 ~ ~ laboratory on 2019-06-15 MRSA isol Org Negative (no code) 06-15-2019 PENDING LOCA TION specific cx Ql 06:00-0400 [facility] ([id number]) (Unsp spec) laboratory on 2019-06-14 Coronavirus Ab Negative (no code) 06-14-2019 PENDING LOC ATION Qn (S) 10:30-0400 S (39501) not yet categorized on 2019-06-02 no information NAME: PORFIRIO FELIZ (no code) PENDING LOCATI ON J ~MED REC#: [facility] ([id number]) [id number] ~ ~PHYSICIAN: IQRA OLIVARES MD ~Post-Operative Progess Note ~Surgeon (s)/Pneumatic Riveter (s) ~Surgeon ~IQRA OLIVARES MD ~Pneumatic Riveter: NONE ~ ~Pre-Operative Diagnosis ~RT RENAL PELVIC STONE ~ ~Post-Operative Diagnosis ~ ~SAME ~ ~Procedure Operative Findings ~Date of Procedure ~06/02/19 ~Procedure Performed/Findin gs ~CYSTOSCOPY, RT RENAL STONE MANIPULATION, INSERTION OF STENT AND RT ESWL ~Anesthesia Type ~GENERAL ~ ~Estimated Blood Loss ~Estimated blood loss (mL): NONE ~ ~Specimens/Packi ng ~Specimens Removed ~NONE ~Packing: ~NONE ~ ~ ~ ~IQRA OLIVARES MD Jun 02, 2019 07:42 ~ ~ ~<Created by IQRA OLIVARES MD> ~<Electronically signed by IQRA OLIVARES MD> 06/02/19 0742 ~ ~ no information NAME: PORFIRIO FELIZ (no code) PENDING LOCATI ON J ~MED REC#: [facility] ([id number]) [id number] ~ ~PHYSICIAN: HAL FITCH ELEMENT WINDING MACHINE TENDER ~General ~Patient Condition ~Mental Status/LOC: Same as Preop ~Cardiovascular: Satisfactory ~Nausea/Vomiting : Absent ~Respiratory: Satisfactory ~Pain: Controlled ~Complications: Absent ~ ~Post Op Complications ~Complications ~None ~ ~Follow Up Care/Instruction s ~Patient Instructions ~None needed. ~ ~Anesthesia/Blanka ent Condition ~Patient Condition ~Patient is doing well, no complaints, stable vital signs, no apparent adverse anesthesia problems. ~ ~No complications reported per nursing. ~ ~ ~ ~HAL FITCH ELEMENT WINDING MACHINE TENDER Jun 02, 2019 10:16 ~ ~ ~<Created by HAL FITCH ELEMENT WINDING MACHINE TENDER> ~<Electronically signed by HAL FITCH ELEMENT WINDING MACHINE TENDER> 06/02/19 1016 ~ ~ laboratory on 2019-06-02 MRSA isol Org Negative (no code) 06-02-2019 PENDING LOCA TION specific cx Ql 02:50-0400 [facility] ([id number]) (Unsp spec) not yet categorized on 2019-05-18 Arterial patency YES-POS (no code) 05-18-2019 PENDING L OCATION Wrist artery 14:25-0400 [facility] ([id number]) --pre arterial puncture Body site RIGHT RADIAL (no code) 05-18-2019 PENDING LOCAT ION 14:25-0400 [facility] (72706) COLONY COUNT 50,000 CFU/ML (no code) 05-18-2019 PENDING LOC ATION 15:50-0400 [facility] (85034) Inhaled oxygen ROOM AIR (no code) 05-18-2019 PENDING LOC ATION flow rate 14:25-0400 [facility] (65643) SUSCEPTIBILITY NO FURTHER (no code) 05-18-2019 PENDING LOC ATION TESTING 15:50-0400 [facility] ([id number]) Ventilation mode NO (no code) 05-18-2019 PENDING L OCATION Ventilator 14:25-0400 [facility] ([id number]) laboratory on 2019-05-18 Bacteria [id number] (no code) 05-18-2019 PENDING LOCATI ON identified Cx 15:50-0400 [facility] (27918) Nom (U) Bacteria LM Ql TRACE (no code) 05-18-2019 PENDING LOC ATION (Urine sed) 15:50-0400 [facility] (72650) Base excess Calc 4.3 mmol/L (H) -2 - 2 mmol/L 05-18-2019 PENDING LOCATION (Bld) 14:25-0400 [facility] (99403) [Moles/Vol] Bilirubin Ql (U) 2+ (A) 05-18-2019 PENDING L OCATION 15:50-0400 [facility] (44960) Casts LM Ql NONE (no code) 05-18-2019 PENDING LOCATI ON (Urine sed) 15:50-0400 [facility] (51330) Clarity (U) TURBID (no code) 05-18-2019 PENDING LOCATI ON 15:50-0400 [facility] ([id number]) CO2 (Bld) 38 mm[Hg] (NEG) 35 - 45 mm[Hg] 05-18-2019 PENDING LOCATION [Partial 14:25-0400 [facility] (48130) pressure] CO2 [Moles/Vol] 28.9 mmol/L (NEG) 23 - 29 mmol/L 05-18-2019 PENDING LOCATION 14:25-0400 [facility] (01714) Color (U) RED (A) 05-18-2019 PENDING LOCATI ON 15:50-0400 [facility] (42300) Crystals LM Ql NONE (no code) 05-18-2019 PENDING LOC ATION (Urine sed) 15:50-0400 [facility] ([id number]) Glucose Auto TRACE (A) 05-18-2019 PENDING LOCAT ION test strip Ql 15:50-0400 [facility] ([id number]) (U) HCO3 (Bld) 28 mmol/L (H) 22 - 28 mmol/L 05-18-2019 PENDIN G LOCATION [Moles/Vol] 14:25-0400 [facility] (86744) Ketones Auto TRACE (A) 05-18-2019 PENDING LOCAT ION test strip Ql 15:50-0400 [facility] (63694) (U) Leukocyte 2+ (A) 05-18-2019 PENDING LOCATI ON esterase Test 15:50-0400 [facility] (95542) strip Ql (U) Mucus Ql (Urine Negative (no code) 05-18-2019 PENDING LO CATION sed) 15:50-0400 [facility] (85098) Nitrite Ql (U) Positive (A) 05-18-2019 PENDING LOC ATION 15:50-0400 [facility] (50199) Oxygen (Bld) 148 mm[Hg] (H) 75 - 100 mm[Hg] 05-18-2019 PE NDING LOCATION [Partial 14:25-0400 [facility] (40942) pressure] pH (U) 6.5 [pH] (no code) 4.6 - 8 [pH] 05-18-2019 PENDING L OCATION 15:50-0400 [facility] (39938) pH adjusted to 7.48 (H) 05-18-2019 PENDING LOC ATION patient's actual 14:25-0400 [facility] (98039) temperature (BldA) Protein Ql (U) 2+ (A) 05-18-2019 PENDING LOC ATION 15:50-0400 [facility] (88997) RBC LM.HPF TNTC (A) 05-18-2019 PENDING LOCATI ON (Urine sed) 15:50-0400 [facility] (08539) [#/Area] RBC Ql (U) 3+ (A) 05-18-2019 PENDING LOCATI ON 15:50-0400 [facility] (74618) SaO2% (BldA) 100 (NEG) 05-18-2019 PENDING LOCAT ION [Mass fraction] 14:25-0400 [facility] (14619) Specific gravity 1.025 (A) 05-18-2019 PENDING L OCATION (U) [Rel 15:50-0400 [facility] (76426) density] Urinalysis YES (no code) 05-18-2019 PENDING LOCATI ON complete W 15:50-0400 [facility] ([id number]) Reflex Culture panel - Urine Urobilinogen (U) mg/dL (no code) 05-18-2019 PENDING L OCATION [Mass/Vol] 15:50-0400 [facility] (04706) WBC LM.HPF no information (A) 05-18-2019 PENDING LOC ATION (Urine sed) 15:50-0400 [facility] ([id number]) [#/Area] laboratory on 2019-04-09 Albumin 3.1 g/dL (L) 3.4 - 5.4 g/dL [facility] [Mass/Vol] [facility] (86455) Albumin/Globulin 0.9 {ratio} (L) 1 - 2.5 {ratio} Comm [facility] [Mass ratio] [facility] (92960) ALP [Catalytic 82 U/L (N) 44 - 147 U/L [facility] activity/Vol] [facility] (53862) ALT [Catalytic 44 U/L (H) 4 - 40 U/L [facility] activity/Vol] [facility] (68358) AST [Catalytic 88 U/L (H) 10 - 34 U/L [facility] activity/Vol] [facility] (54749) Bilirubin 1.4 mg/dL (H) 0.1 - 1.2 mg/dL [facility] [Mass/Vol] [facility] (53910) Calcium 9.0 mg/dL (N) 8.5 - 10.2 mg/dL [facility] [Mass/Vol] [facility] (86283) Chloride 103 mmol/L (N) 95 - 106 mmol/L [facility] [Moles/Vol] [facility] (70594) CO2 [Moles/Vol] 28 mmol/L (N) 23 - 29 mmol/L [facility] (55199) Creatinine 0.85 mg/dL (N) [facility] h [Mass/Vol] [facility] (85318) GFR/1.73 sq M 85 (N) 90 - 120 [facility] predicted among mL/min/{1.73_m2} mL/min/{1.73_m2} [place] [facility] blacks MDRD [facility] (S/P/Bld) [Vol (81310) rate/Area] GFR/1.73 sq 73 (N) 90 - 120 [facility] M.predicted MDRD mL/min/{1.73_m2} mL/min/{1.73_m2} [facility] (S/P/Bld) [Vol [facility] rate/Area] (49845) Globulin (S) 3.4 g/dL (N) 2 - 3.5 g/dL [facility] [Mass/Vol] [facility] (12721) Glucose 143 mg/dL (H) 60 - 125 mg/dL [facility] [Mass/Vol] [facility] (13561) Natriuretic 262 pg/mL (H) 0 - 100 pg/mL [facility] peptide B (Bld) [facility] [Mass/Vol] [facility] (48550) Potassium 4.0 mmol/L (N) 3.7 - 5.2 mmol/L [facility] [Moles/Vol] [facility] (02503) Protein 6.5 g/dL (N) 6.4 - 8.3 g/dL [facility] [Mass/Vol] [facility] (58351) Sodium 138 mmol/L (N) 135 - 145 mmol/L [facility] [Moles/Vol] [facility] (95840) Urea nitrogen 6 mg/dL (L) 7 - 20 mg/dL [facility] [Mass/Vol] [facility] (57736) Urea 7 mg/mg (N) 6 - 22 mg/mg [facility] alth nitrogen/Creatin [facility] [Mass ratio] [facility] () laboratory on 2019-03-19 Albumin 3.4 g/dL (L) 3.4 - 5.4 g/dL [facility] Hospital [Mass/Vol] [facility] ([id number]) Albumin/Globulin 1.3 {ratio} (N) 1 - 2.5 {ratio} [facility] [Mass ratio] [facility] (49001) ALP [Catalytic 79 U/L (N) 44 - 147 U/L [facility] activity/Vol] [facility] (15809) ALT [Catalytic 77 U/L (H) 4 - 40 U/L [facility]Vol[facility] (89219) AST [Catalytic 87 U/L (H) 10 - 34 U/L [facility] activity/Vol] [facility] (81990) Bilirubin 1.0 mg/dL (N) 0.1 - 1.2 mg/dL [facility] [Mass/Vol] [facility] (90950) Calcium 9.0 mg/dL (N) 8.5 - 10.2 mg/dL [facility] [Mass/Vol] [facility] () Chloride 102 mmol/L (N) 95 - 106 mmol/L [facility] [Moles/Vol] [facility] (91961) CO2 [Moles/Vol] 28 mmol/L (N) 23 - 29 mmol/L [facility] it Health [facility] (03289) Creatinine 1.11 mg/dL (H) [facility] [[facility] (29427) GFR/1.73 sq M 61 (N) 90 - 120 [facility] predicted among mL/min/{1.73_m2} mL/min/{1.73_m2} [facility] blacks MDRD [facility] (S/P/Bld) [Vol (80949) rate/Area] GFR/1.73 sq 53 (L) 90 - 120 [facility] th M.predicted MDRD mL/min/{1.73_m2} mL/min/{1.73_m2} [facility] (S/P/Bld) [Vol [facility] rate/Area] ([id number]) Globulin (S) 2.6 g/dL (N) 2 - 3.5 g/dL [facility]alth [Mass/Vol] [facility] (58230) Glucose 129 mg/dL (H) 60 - 125 mg/dL [facility] [Mass/Vol] [facility] (36114) Natriuretic 210 pg/mL (H) 0 - 100 pg/mL [facility] peptide B (Bld) [facility] [Mass/Vol] [facility] () Potassium 3.7 mmol/L (N) 3.7 - 5.2 mmol/L [facility] [Moles/Vol] [facility] (94173) Protein 6.0 g/dL (L) 6.4 - 8.3 g/dL [facility] [Mass/Vol] [facility] (22105) Sodium 137 mmol/L (N) 135 - 145 mmol/L [facility] [Moles/Vol] [facility] (08328) Urea nitrogen 20 mg/dL (N) 7 - 20 mg/dL [facility] [Mass/Vol] [facility] (93281) Urea 18 mg/mg (N) 6 - 22 mg/mg [facility] alth nitrogen/Creatin [facility] [Mass ratio] [facility] (45717) not yet categorized on 2018-11-02 COMMENT no information (no code) [facility] (63800) laboratory on 2018-11-02 CRP [Mass/Vol] 4.8 mg/L (N) 0 - 8 mg/L [facility] ealth [facility] (94647) ESR (Bld) 25 mm/h (N) [facility] h [Velocity] [facility] (96912) HAV IgM IA Ql NON-REACTIVE (N) [facility] (91157) HBV core IgM IA NON-REACTIVE (N) [facility] Ql [facility] (61349) HBV surface Ag NON-REACTIVE (N) [facility] IA Ql [facility] (72701) HCV Ab IA Ql REACTIVE (A) [facility] (24387) HCV Ab 24.90 {ratio} (H) 0 - 3 {ratio} [facility] Signal/Cutoff [place] [facility] [Rel units/Vol] [facility] (92189) HCV genotype 3 (no code) [facility] HIPOLITO+probe Nom [facility] (02108) HCV RNA 4.87 (H) [facility] HIPOLITO+probe [Log [facility] units/Vol] [facility] (05632) HCV RNA 5.36 (H) [facility] HIPOLITO+probe [Log [facility] units/Vol] [facility] (54222) HCV RNA 09671 (H) [facility] HIPOLITO+probe Qn [facility] (48700) HCV RNA 886660 (H) [facility] HIPOLITO+probe Qn [facility] (90035) Nuclear Ab IF Ql Negative (N) [facility] (S) [facility] (42041) Rheumatoid [IU]/mL (N) 0 - 15 [IU]/mL [facility] factor Qn [facility] (62264) TSH Qn 53.93 m[IU]/L (H) 0.4 - 4 m[IU]/L [facility] (12402) laboratory on 2018-09-03 Albumin 3.9 g/dL (N) 3.4 - 5.4 g/dL [facility] [Mass/Vol] [facility] (91765) Albumin/Globulin 1.1 {ratio} (N) 1 - 2.5 {ratio} [facility] [Mass ratio] [facility] (71571) ALP [Catalytic 59 U/L (N) 44 - 147 U/L [facility] activity/Vol] [facility] (00327) ALT [Catalytic 64 U/L (H) 4 - 40 U/L [facility] ealt activity/Vol] [facility] (84891) AST [Catalytic 162 U/L (H) 10 - 34 U/L [facility] activity/Vol] [facility] (76710) Bilirubin 1.5 mg/dL (H) 0.1 - 1.2 mg/dL [facility] [Mass/Vol] [facility] (24410) Calcium 9.5 mg/dL (N) 8.5 - 10.2 mg/dL [facility] [Mass/Vol] [facility] (50056) Chloride 106 mmol/L (N) 95 - 106 mmol/L [facility] [Moles/Vol] [facility] (40441) Cholesterol 170 mg/dL (N) 180 - 200 mg/dL [facility] [Mass/Vol] [facility] (81355) Cholesterol in 50 mg/dL (L) [facility] h HDL [Mass/Vol] [facility] (98151) Cholesterol in 105 mg/dL (H) 0 - 100 mg/dL [facility] LDL [Mass/Vol] [facility] (28312) Cholesterol non 120 mg/dL (N) [facility] th HDL [Mass/Vol] [facility] (23254) Cholesterol.tota 3.4 {ratio} (N) [facility] l/Cholesterol in [facility] HDL [Mass ratio] [facility] (05595) CO2 [Moles/Vol] 26 mmol/L (N) 23 - 29 mmol/L [facility] (94621) Creatinine 1.18 mg/dL (H) [facility] [Mass/Vol] [facility] (67192) Free T4 0.1 ng/dL (L) 0.9 - 2.2 ng/dL [facility] [Mass/Vol] [facility] (38909) GFR/1.73 sq M 57 (L) 90 - 120 [facility] predicted among mL/min/{1.73_m2} mL/min/{1.73_m2} [facility] blacks MDRD [facility] (S/P/Bld) [Vol (47339) rate/Area] GFR/1.73 sq 49 (L) 90 - 120 [facility] th .predicted MDRD mL/min/{1.73_m2} mL/min/{1.73_m2} [facility] (S/P/Bld) [Vol [facility] rate/Area] (07582) Globulin (S) 3.5 g/dL (N) 2 - 3.5 g/dL [facility] ealth [Mass/Vol] [facility] (45684) Glucose 99 mg/dL (N) 60 - 125 mg/dL [facility] [Mass/Vol] [facility] (33377) Potassium 4.2 mmol/L (N) 3.7 - 5.2 mmol/L [facility] [Moles/Vol] [facility] () Protein 7.4 g/dL (N) 6.4 - 8.3 g/dL [facility] [Mass/Vol] [facility] (36033) Sodium 139 mmol/L (N) 135 - 145 mmol/L [facility] [Moles/Vol] [facility] (99421) Triglyceride 63 mg/dL (N) 0 - 150 mg/dL [facility] [Mass/Vol] [facility] (14899) TSH Qn 145.76 m[IU]/L (H) 0.4 - 4 m[IU]/L [facility] (81942) Urea nitrogen 9 mg/dL (N) 7 - 20 mg/dL [facility] [Mass/Vol] [facility] (13662) Urea 8 mg/mg (N) 6 - 22 mg/mg [facility] nitrogen/Creatin [facility] [Mass ratio] [facility] (62343) Vital Signs Vital Sign Value Interpretation Reference Date Time Care Prov ider Facility (Normalized) (Normalized) Range Body 37.2 (no code) 05-18-2019 no name PENDING temperature 14:25-0400 LOCATION [facility] ([id number]) Interventions No Information Plan of Treatment No Information Goals No Information Social History No Information Functional Status No Information Mental Status No Information Encounters Encounter Normalized Encounter Encounter Diagnosis Care Provi chrissie Organization Date Type 05-18-2019 Emergency department no information SENA POLANCO MD (no [facility] - patient visit phone) [facility] 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) TONY (no phone) Jaret GIFFORD APRN (no phone) 03-09-2019 Emergency department no information no name no organization name patient visit 03-02-2019 Emergency department no information TONY KEYN (no [facility] - patient visit phone) [facility] 03-02-2019 (no phone) 07-20-2018 Emergency department no information no name no organization name - patient visit 07-20-2018 07-20-2018 Emergency department no information TONY KEYN (no [facility] - patient visit phone) [facility] 07-20-2018 (no phone) 06-10-2014 Emergency department no information no name no organization name - patient visit 06-10-2014 06-10-2014 Emergency department no information TONY KEYN (no [facility] - patient visit phone) [facility] 06-10-2014 (no phone) 11-19-2011 Emergency department no information DAVIE BALLARD MD (no [facility] - patient visit phone) [facility] 11-19-2011 (no phone) 10-30-2010 Emergency department no information DAVIE BALLARD MD (no [facility] - patient visit phone) [facility] 10-30-2010 (no phone) 06-28-2010 Emergency department no information ORTIZ DE SOUZA MD (no [facility] - patient visit phone) [facility] 06-28-2010 (no phone) 03-10-2019 Evaluation and no information ANUSHA KIM DO (no [facility] - management of phone) [facility] 03-12-2019 inpatient (no phone) 03-09-2019 Evaluation and no information ANUSHA KIM DO (no [facility] management of phone) [facility] inpatient (no phone) 03-09-2019 Evaluation and no information ANUSHA KIM DO (no [facility] management of phone) [facility] inpatient (no phone) 11-02-2010 Evaluation and no information PATRICE MATT DO (no [facility] - management of phone) [facility] 11-07-2010 inpatient (no phone) 06-30-2019 Patient encounter no information IQRA OLIVARES MD ( no [facility] - procedure phone) [facility] 06-30-2019 (no phone) 06-28-2019 Patient encounter no information IQRA OLIVARES MD ( no [facility] procedure phone) [facility] (no phone) 06-25-2019 Patient encounter no information IQRA OLIVARES MD ( no [facility] - procedure phone) [facility] 06-25-2019 (no phone) 06-23-2019 Patient encounter no information IQRA OLIVARES MD ( no [facility] procedure phone) [facility] (no phone) 06-15-2019 Patient encounter no information IQRA OLIVARES MD ( no [facility] - procedure phone) [facility] 06-15-2019 (no phone) 06-11-2019 Patient encounter no information IQRA OLIVARES MD ( no [facility] - procedure phone) [facility] 06-14-2019 (no phone) 06-02-2019 Patient encounter no information IQRA OLIVARES MD ( no [facility] - procedure phone) [facility] 06-02-2019 (no phone) 05-27-2019 Patient encounter no information IQRA OLIVARES MD ( no [facility] - procedure phone) [facility] 05-27-2019 (no phone) 05-26-2019 Patient encounter no information IQRA OLIVARES MD ( no [facility] procedure phone) [facility] (no phone) 05-18-2019 Patient encounter no information TONY GIFFORD APRN (no [facility] procedure phone) [facility] (no phone) 04-09-2019 Patient encounter no information DOUGLAS RENAE (no [facility] phone) (no phone) (no [facility] phone) [place] (no phone) 03-19-2019 Patient encounter no information DOUGLAS RENAE (no [facility] procedure phone) (no phone) (no [facility] phone) [place] (no phone) 03-10-2019 Patient encounter no information ANUSHA KIM DO (no [facility] - procedure phone) [facility] 03-12-2019 (no phone) 03-02-2019 Patient encounter no information no name no or ganization name procedure 03-01-2019 Patient encounter no information IZABELLA HOLT MD (no [facility] procedure phone) [facility] (no phone) 12-17-2018 Patient encounter no information no name no or ganization name procedure 11-26-2018 Patient encounter no information no name no or ganization name procedure 11-26-2018 Patient encounter no information DOUGLAS RENAE APRN (no [facility] procedure phone) [facility] (no phone) 11-17-2018 Patient encounter no information no name no or ganization name procedure 11-02-2018 Patient encounter no information no name no or ganization name procedure 11-02-2018 Patient encounter no information no name no or ganization name procedure 10-14-2018 Patient encounter no information no name no or ganization name procedure 10-14-2018 Patient encounter no information DOUGLAS RENAE APRN (no [facility] procedure phone) [facility] (no phone) 09-29-2018 Patient encounter no information no name no or ganization name procedure 09-03-2018 Patient encounter no information no name no or ganization name procedure 09-03-2018 Patient encounter no information no name no or ganization name procedure 08-25-2018 Patient encounter no information no name no or ganization name procedure 07-20-2018 Patient encounter no information no name no or ganization name procedure 07-20-2018 Patient encounter no information no name no or ganization name procedure 07-20-2018 Patient encounter no information no name no or ganization name procedure 09-26-2014 Patient encounter no information MATT BRITO MD (no [facility] - procedure phone) [facility] 09-26-2014 (no phone) 08-17-2014 Patient encounter no information no name no or ganization name procedure 08-17-2014 Patient encounter no information MATT BRITO MD (no [facility] procedure phone) [facility] (no phone) 02-16-2014 Patient encounter no information (no phone) [facility] procedure [facility] (no phone) 09-18-2011 Patient encounter no information KHARI DODSON (no [facility] procedure phone) [facility] (no phone) (no phone) 05-20-2019 Telephone encounter no information [facility] (no phone) [facility] (no phone) 05-19-2019 Telephone encounter Bronchitis, not [facility] (no phone) [facility] specified as acute or (no phone) chronic 05-18-2019 Telephone encounter no information [facility] (no phone) [facility] (no phone) 06-14-2019 no information Encounter for other no name (no phone) preprocedural examination 05-28-2019 no information Encounter for other no name (no phone) preprocedural examination no information Encounter for other no name (no phone) preprocedural examination Medical Equipment No Information Payers No Information Clinical Note Note Type Note Facility Note NAME: PORFIRIO FELIZ ~MED REC# : [id number] ~ ~PHYSICIAN: PENDING IQRA OLIVARES MD ~Pre-Operative Progress Note ~H P Re viewed ~The H P was LOCATION reviewed, patient examined and no smart es noted. 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 ~Date Seen by Provider: June 142019 ~Time Seen by Provider: 10:00 ~Date H P Reviewed : June 15, 2019 ~Time H P ([id number]) Reviewed: 10:00 ~Pre-Operative Diagnosi s: RT RENAL STONE ~ ~ ~ ~IQRA OLIVARES MD June 15, 2019 10:32 ~ ~ ~<Created by EMILEE OLIVARES MD> ~<Electronically signed by IQRA OLIVARES MD> 06/15/19 1032 ~ ~ Summary Purpose eClinicalWorks Submission Additional Source Comments This clinical document has been generated using [facility] [employer] software that has been certified by the Office of the National Coordinator for Health Information Technology (ONC 15.99.04.3023.Diam.31.00.0.872820) and the National Committee for Motion Picture Set Worker (NCQA, as an eMeasure certified technology). FOR [...] BASED ON T HE PRIMARY CLINICAL RECORDS. [employer] provides no warranty or guara ntee of the accuracy or completeness of information in this document.The followi ng information is based on time limited clinical information UNRECOGNIZED CONTENT PROVIDED BELOW FOR UNRECOGNIZED SECTION REASON FOR VISIT [id number] UNRECOGNIZED CONTENT PROVIDED BELOW FOR UNRECOGNIZED SECTION [...]
--- OUTSIDE RECORDS SUMMARY | 2019-07-20 13:52 | XMS REPORT ---
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 Name Role Phone Migration, Doctor Unavailable Unavailable PROBLEMS Type Condition ICD9-CM Code SEG96-NU Code Onset Dates Condition S tatus SNOMED Code Problem Chronic obstructive pulmonary disease, unspecified COPD ty pe J44.9 Active 72699576 Problem Hepatitis C virus infection without hepatic coma, unspecified chronicity B19.20 Active 62614349 Problem Tobacco abuse Z72.0 Active 190130 000 Problem Acquired hypothyroidism E03.9 Active 047797769 Problem Degenerative disc disease at L5-S1 level M51.36 Active 19180188 Problem Alcohol abuse F10.10 Active 114841 05 Problem Other chronic pain G89.29 Active 8 5757381 Problem Chronic diastolic congestive heart failure I50.32 Active 228736810 Problem Lupus M32.9 Active 784069799 Problem Chronic kidney disease, unspecified N18.9 Active 700466703 Problem Hypothyroidism, unspecified E03.9 Ac tive 81115171 Problem Primary osteoarthritis of right knee M17.11 Active [id number] Problem Anxiety F41.9 Active [id number] ALLERGIES No Information ENCOUNTERS Encounter Location Date Diagnosis [facility] [address] [facility] [id number] [address] [place] [phone] 09 May, 2019 [facility] [address] [facility] [id number] [address] [place] [address] May, Bronchitis J40 [facility] [address] [facility] [id number] [address] [place] [address] May, [facility] [address] [facility] [id number] [address] [place] [address] May, [facility] [address] [facility] [id number] [address] [place] [address] Apr, Chronic diastolic congestive heart failure I50.32 [facility] [address] [place] [id number] [address] [place] [id number] 04 Apr, 2019 [facility] [address] [facility] [id number] [address] [place] [address] 28 Mar, 2019 Chronic diastolic congestive heart failure I50.32 ; Tobacco abuse Z72.0 and Alcohol abuse F10.10 [facility] [address] [place] [id number] [address] [place] [address] 12 Mar, 2019 Bronchitis J40 and Edema, un specified type R60.9 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 [address] [address] 03 Mar, 2019 [place] [address] [address] Feb, [facility] [address] [place] [id number] [place] [address] 14 Feb, 2019 Bronchitis J40 and Chronic o bstructive pulmonary disease, unspecified COPD type J44.9 [facility] [id number] [place] [address] 13 Feb, 2019 Anxiety F41.9 [facility] [address] [facility] [id number] [address] [place] [address] Jan, Bronchitis J40 and Edema, un specified type R60.9 [facility] [address] [facility] [id number] [address] [place] [address] Jan, [facility] [address] [address] Dec, [facility] [address] [facility] [id number] [address] [place] [address] Dec, Neck swelling R22.1 [facility] [address] [facility] [id number] [address] [place] [address] Nov, Neck swelling R22.1 [facility] [address] [facility] [id number] [address] [place] [address] Nov, Neck swelling R22.1 [facility] [address] [facility] [id number] [address] [place] [address] Nov, [facility] [address] [facility] [id number] [address] [place] [address] Nov, [facility] [address] [facility] [id number] [address] [place] [address] Nov, Chronic kidney disease, unsp ecified N18.9 [facility] [address] [facility] [id number] [address] [place] [address] Nov, Degenerative disc disease at L5-S1 level M51.36 ; Acquired hypothyroidism E03.9 ; Hepatitis C virus infection without hepatic coma, unspecified chronicity B19.20 ; Hoarseness, persistent R49.0 and Primary osteoarthritis of right knee M17.11 [facility] [address] [facility] [id number] [address] [place] [address] Oct, Neck swelling R22.1 ; Acquir ed hypothyroidism E03.9 ; Chronic obstructive pulmonary disease, unspecified COPD type J44.9 ; Degenerative disc disease at L5-S1 level M51.[address] [facility] [address] [facility] [id number] [address] [place] [address] Oct, Lupus M32.9 ; Hypothyroidism , unspecified E03.9 and Unspecified viral hepatitis C without hepatic coma B19.20 [facility] [address] [facility] [id number] [address] [place] [address] Oct, [facility] [address] [address] Sep, [facility] [address] [address] Sep, Acquired hypothyroidism E03. 9 ; Chronic obstructive pulmonary disease, unspecified COPD type J44.9 ; Degenerative disc disease at L5-S1 level M51.36 ; Lupus M32.9 and Neck swelling R22.1 [place] [address] [address] Sep, Hypothyroidism, unspecified E03.9 ; Unspecified viral hepatitis C without hepatic coma B19.20 and Chronic kidney disease, unspecified N18.9 [place] [address] [address] Aug, Chronic obstructive pulmonar y disease, unspecified COPD type J44.9 ; Acquired hypothyroidism E03.9 ; Long-term use of high-risk medication Z79.899 ; Hepatitis C virus infection without hepatic coma, unspecified chronicity B19.[address]0 [facility] [address] [address] Aug, Chronic obstructive pulmonar y disease, unspecified COPD type J44.9 ; Tobacco abuse Z72.0 ; Acquired hypothyroidism E03.9 ; Long-term use of high- risk medication Z79.899 and Hepatitis C virus infection without hepatic coma, unspecified chronicity B19.20 [facility] [address] [place] [id number] [address] [place] [address] Jul, COPD exacerbation J44.1 and Pneumonia due to infectious organism, unspecified laterality, unspecified part of lung J18.9 [facility] [address] [address] Oct, Shoulder impingement 726.2 [facility] [address] [address] Aug, SLAP (superior glenoid labru m lesion) 840.7 and Shoulder impingement 726.2 [facility] [address] [facility] [id number] [address] [place] [address] Jul, Type 2 superior labrum exten ding from anterior to posterior (SLAP) lesion of left shoulder 840.7 [facility] [address] [facility] [id number] [address] [place] [address] June, Unspecified hypothyroidism [address] [facility] [address] [place] [id number] [place] [address] June, Unspecified hypothyroidism 2 44.9 ; Chronic pain 338.29 ; Arthritis 716.90 ; Chronic kidney disease 585.9 ; Hepatitis C 070.70 ; Tear of left glenoid labrum 840.8 and COPD (chronic obstructive pulmonary disease) 496 [facility] [address] [place] [id number] [place] [address] June, Laceration 879.8 [facility] [address] [address] June, Osteoarthritis 715.90 and Ch ronic obstructive airway disease [address] [facility] [address] [place] [id number] [place] [address] May, [facility] [address] [place] [id number] [address] [place] [address] May, [facility] [address] [place] [id number] [address] [place] [address] Apr, [facility] [address] [place] [id number] [address] [place] [address] Apr, [facility] [address] [place] [id number] [address] [place] [address] Apr, [facility] [address] [place] [id number] [address] [place] [address] Apr, [facility] [address] [place] [id number] [address] [place] [address] Oct, [facility] [address] [id number] [address] [place] [address], [place] [address] 11 Oct, 2013 [facility] [address] [id number] [address] [place] [address], [place] [address] Nov, [facility] [address] [id number] [address] [place] [address], [place] [address] Nov, [facility] [address] [id number] [address] [place] [address], [place] [address] Nov, [facility] [address] [id number] [address] [place] [address], [place] [address] Nov, [facility] [address] [id number] [address] [place] [address], [place] [address] Sep, [facility] [address] [id number] [address] [place] [address], [place] [address] May, [facility] [address] [id number] [address] [place] [address], [place] [address] Mar, [facility] [address] [id number] [address] [place] [address], [place] [address] Feb, [facility] [address] [id number] [address] [place] [address], [place] [address] Feb, [facility] [address] [id number] [address] [place] [address], [place] [address] Feb, [facility] [address] [id number] [address] [place] [address], [place] [address] Jan, [facility] [address] [id number] [address] [place] [address], [place] [address] Jan, [facility] [address] [id number] [address] [place] [address], [place] [address] Dec, [facility] [address] [id number] [address] [place] [address], [place] [address] Dec, [facility] [address] [id number] [address] [place] [address], [place] [address] 30 Nov, 2011 [facility] [address] [id number] [address] [place] [address], [place] [address] 30 Nov, 2011 [facility] [address] [id number] [address] [place] [address], [place] [address] 23 Nov, 2011 [facility] [address] [id number] [address] [place] [address], [place] [address] 19 Nov, 2011 [facility] [address] [id number] [address] [place] [address], [place] [address] 19 Nov, 2011 [facility] [address] [id number] [address] [place] [address], [place] [address] 18 Nov, 2011 [facility] [address] [id number] [address] [place] [address], [place] [address] 10 Nov, 2011 [facility] [address] [id number] [address] [place] [address], [place] [address] 10 Nov, 2011 [facility] [address] [id number] [address] [place] [address], [place] [address] 03 Nov, 2011 [facility] [address] [id number] [address] [place] [address], [place] [address] 27 Oct, 2011 [facility] [address] [id number] [address] [place] [address], [place] [address] 17 Oct, 2011 [facility] [address] [id number] [address] [place] [address], [place] [address] 10 Oct, 2011 [facility] [address] [id number] [address] [place] [address], [place] [address] 07 Sep, 2011 [facility] [address] [id number] [address] [place] [address], [place] [address] 06 Oct, 2011 [facility] [address] [id number] [address] [place] [address], [place] [address] 29 Sep, 2011 [facility] [address] [id number] [address] [place] [address], [place] [address] 22 Sep, 2011 [facility] [address] [id number] [address] [place] [address], [place] [address] 16 Sep, 2011 [facility] [address] [id number] [address] [place] [address], [place] [address] 15 Sep, 2011 [facility] [address] [id number] [address] [place] [address], [place] [address] Sep, [facility] [address] [id number] [address] [place] [address], [place] [address] Sep, [facility] [address] [id number] [address] [place] [address], [place] [address] Sep, [facility] [address] [id number] [address] [place] [address], [place] [address] Sep, [facility] [address] [id number] [address] [place] [address], [place] [address] Sep, [facility] [address] [id number] [address] [place] [address], [place] [address] June, [facility] [address] [id number] [address] [place] [address], [place] [address] June, [facility] [address] [id number] [address] [place] [address], [place] [address] Mar, [facility] [address] [id number] [address] [place] [address], [place] [address] Feb, [facility] [address] [id number] [address] [place] [address], [place] [address] Feb, [facility] [address] [id number] [address] [place] [address], [place] [address] Feb, [facility] [address] [id number] [address] [place] [address], [place] [address] Feb, [facility] [address] [id number] [address] [place] [address], [place] [address] Oct, [facility] [address] [id number] [address] [place] [address], [place] [address] Jul, [facility] [address] [facility] [id number] [address] [place] [address] Dec, [facility] [address] [facility] [id number] [address] [place] [address] Mar, [facility] [address] [facility] [id number] [address] [place] [address] Nov, [facility] [address] [facility] [id number] [address] [place] [address] Nov, [facility] [address] [facility] [id number] [address] [place] [address] 10 Oct, 2008 IMMUNIZATIONS No Known Immunizations [...]
--- OUTSIDE RECORDS SUMMARY | 2019-07-20 13:54 | XMS REPORT | Continuity of Care Document ---
Author Organization Unknown Address Unknown Phone Unavailable Allergies Active Description Code Type Severity Reaction Onset Reported/Identified Relationship to Patient Clinical Status Yes RUBBING ALCOHOL RUBBING ALCOHOL Unknown N/A 08/26/2005 Yes NKANo Known Allergies NKA Miscellaneous Allergy Unknown N/A 09/29/2005 Yes rubbing alcohol OA 10/20/2008 Yes rubbing alcohol OA N/A N/A 10/20/2008 Yes amoxicillin [id number] Drug Aller gy Unknown Hives 05/27/2019 Yes clavulanic acid [id number] D rug Allergy Unknown Hives 05/27/2019 Yes levofloxacin [id number] Drug Allergy Unknown Hives 05/27/2019 Yes theophylline [id number] Drug Allergy Unknown Hives 05/27/2019 Yes amoxicillin [id number] Drug Aller gy Unknown Hives, Pt has r 06/02/2019 Medications There is no data. Problems Date Dx Coded Attending Type Code Diagnosis Diagnosed By 01/09/1599 IQRA OLIVARES MD Ot N20.0 CALCULUS OF KIDNEY 01/09/1599 IQRA OLIVARES MD Ot Z01.8 18 ENCOUNTER FOR OTHER PREPROCEDURAL EXAMIN 01/09/1599 IQRA OLIVARES MD Ot Z11.5 9 ENCOUNTER FOR SCREENING FOR OTHER VIRAL 01/10/1604 IQRA OLIVARES MD Ot Z01.8 18 ENCOUNTER FOR OTHER PREPROCEDURAL EXAMIN 01/10/1604 IQRA OLIVARES MD Ot Z11.5 9 ENCOUNTER FOR SCREENING FOR OTHER VIRAL 10/20/2008 PATRICE MATT DO 070.54 HEPATITIS, C [...] 305.1 NICOTINE DEPENDENCE 10/20/2008 PATRICE MATT DO K 493.90 ASTHMA 10/20/2008 PATRICE MATT DO K 786.2 Cough 11/22/2008 PATRICE MATT DO K 338 PAIN, NOT ELSEWHERE CLASSIFIED 11/22/2008 338 PAIN, NOT ELSEWHERE CLASSIFIED 11/22/2008 PATRICE MATT DO K 338 PAIN, NOT ELSEWHERE CLASSIFIED 03/23/2009 PATRICE [...] 709.9 Skin Lesions 05/03/2009 PATRICE MATT DO K 477.9 Rhinitis 05/03/2009 PATRICE MATT DO K [...] MATT DO 491.9 BRONCHITIS, CHRONIC UNSPEC 07/25/2010 MATT DO, PATRICE K 724.3 Sciatica 07/25/2010 491.9 BRON CHITIS, CHRONIC UNSPEC 07/25/2010 724.3 Sciatica 07/25/2010 PATRICE MATT DO K 491.9 BRONCHITIS, CHRONIC UNSPEC 07/25/2010 PATRICE MATT DO K 724.3 Sciatica 09/12/2010 NORI MATT DOA K 110.4 Dermatophytosis Of Foot 09/12/2010 PATRICE MATT DO K 789.01 Abdominal Pain Right Upper Quadrant 09/12/2010 110.4 Derm atophytosis Of Foot 09/12/2010 789.01 Abd ominal Pain Right Upper Quadrant 09/12/2010 PATRICE MATT DO K 110.4 Dermatophytosis Of Foot 09/12/2010 PATRICE MATT DO K 789.01 Abdominal Pain Right Upper Quadrant 10/30/2010 Ot 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 10/30/2010 Ot 491.21 OBS TR CHRONIC BRONCHITIS, W (ACUTE) EXAC 10/30/2010 Ot 786.05 DEMOND RTNESS OF BREATH 11/07/2010 Ot 070.70 UNS PECIFIED VIRAL HEPATITIS C WITHOUT HE 11/07/2010 Ot 244.9 HYPO THYROIDISM NOS 11/07/2010 Ot 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 11/07/2010 Ot 296.80 BIP OLAR DISORDER, UNSPECIFIED 11/07/2010 Ot 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 11/07/2010 Ot 401.9 HYPE RTENSION NOS 11/07/2010 Ot 491.21 OBS TR CHRONIC BRONCHITIS, W (ACUTE) EXAC 11/07/2010 Ot 710.0 SYST LUPUS ERYTHEMATOSIS 03/08/2011 PATRICE MATT DO K 244.9 HYPOTHYROIDISM 03/08/2011 PATRICE MATT DO K 304.30 Cannabis Dependence Unspecified Use 03/08/2011 PATRICE MATT DO K 728.85 Muscle Spasm 03/08/2011 244.9 HYPO THYROIDISM 03/08/2011 304.30 Can nabis Dependence Unspecified Use 03/08/2011 728.85 Mus alexis Spasm 03/08/2011 NORI MATT DOA K 244.9 HYPOTHYROIDISM 03/08/2011 NORI MATT DOA K 304.30 Cannabis Dependence Unspecified Use 03/08/2011 PATRICE MATT DO K 728.85 Muscle Spasm 09/14/2011 PATRICE MATT DO 300.00 ANXIETY STATE UNSPECIFIED 09/14/2011 PATRICE MATT DO K 401.1 HYPERTENSION, BENIGN ESSENTIAL 09/14/2011 NORI MATT DOA K 709.9 Unspecified Disorder Of Skin And Subcutaneous Tissue 09/14/2011 NORI MATT DOA K 719.45 PAIN IN JOINT INVOLVING PELVIC [...] OF OTHER MEDICATIONS 09/25/2011 PATRICE MATT DO 577.1 CHRONIC PANCREATITIS 09/25/2011 577.1 SOFTWARE DESIGN ANALYST SADIA PANCREATITIS 09/25/2011 PATRICE MATT DO 577.1 CHRONIC PANCREATITIS 11/19/2011 Ot 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 69 OT MED,LT,CURRENT USE 07/20/2018 MATT BRITO MD Ot [...] BREATH 07/20/2018 TONY GIFFORD APRN Ot Z79.51 COMMUNICATIONS ASSISTANT (CURRENT) USE OF INHALED STERO 07/20/2018 TONY [...] OBSTRUCTIVE PULMONARY DISEASE W 07/23/2018 TONY GIFFORD WELDING TECHNICIAN Ot R06.02 SHORTNESS OF BREATH 07/23/2018 TONY GIFFORD WELDING TECHNICIAN Ot Z79.51 DETENTION (CURRENT) USE OF INHALED STERO 07/23/2018 TONY GIFFORD WELDING TECHNICIAN Ot Z87.19 PERSONAL HISTORY OF OTHER DISEASES OF TH 07/23/2018 TONY GIFFORD WELDING TECHNICIAN Ot Z88 .8 ALLERGY STATUS TO OTH DRUG/MEDS/BIOL SUB 09/11/2018 MATT BRITO MD Ot 724. 2 LUMBAGO 09/11/2018 MATT BRITO MD Ot 727. 40 SYNOVIAL CYST NOS 10/07/2018 MATT BRITO MD Ot 724. 2 LUMBAGO 10/07/2018 MATT BRITO MD Ot 727. 40 SYNOVIAL CYST NOS 10/16/2018 DOUGLAS RENAE WELDING TECHNICIAN Ot M51.37 OTHER INTERVERTEBRAL DISC DEGENERATION, 10/16/2018 DIO RENAETA D WELDING TECHNICIAN Ot M71.38 OTHER BURSAL CYST, OTHER SITE 11/06/2018 DIO RENAETA D WELDING TECHNICIAN Ot M51.37 OTHER INTERVERTEBRAL DISC DEGENERATION, 11/06/2018 OCDIOTA D WELDING TECHNICIAN Ot M71.38 OTHER BURSAL CYST, OTHER SITE 11/19/2018 MATT BRITO MD Ot 724. 2 LUMBAGO 11/19/2018 MATT BRITO MD Ot 727. 40 SYNOVIAL CYST NOS 11/19/2018 DIO RENAETA Ioana WELDING TECHNICIAN Ot M51.37 OTHER INTERVERTEBRAL DISC DEGENERATION, 11/19/2018 KING DOUGLAS D WELDING TECHNICIAN Ot M71.38 OTHER BURSAL CYST, OTHER SITE 11/30/2018 DIO RENAETA D WELDING TECHNICIAN Ot K11 .8 OTHER DISEASES OF SALIVARY GLANDS 11/30/2018 KING DOUGLAS D WELDING TECHNICIAN Ot R49 .0 DYSPHONIA 12/10/2018 DIO RENAETA D WELDING TECHNICIAN Ot K11 .8 OTHER DISEASES OF SALIVARY GLANDS 12/10/2018 DIO RENAETA D WELDING TECHNICIAN Ot R49 .0 DYSPHONIA 03/01/2019 MATT BRITO MD Ot 724. 2 LUMBAGO 03/01/2019 MATT BRITO MD Ot 727. 40 SYNOVIAL CYST NOS 03/01/2019 OC, DOUGLAS D WELDING TECHNICIAN Ot M51.37 OTHER INTERVERTEBRAL DISC DEGENERATION, 03/01/2019 OC, DOUGLAS D WELDING TECHNICIAN Ot M71.38 OTHER BURSAL CYST, OTHER SITE 03/01/2019 OC, DOUGLAS D WELDING TECHNICIAN Ot K11 .8 OTHER DISEASES OF SALIVARY GLANDS 03/01/2019 OC, DOUGLAS D WELDING TECHNICIAN Ot R49 .0 DYSPHONIA 03/01/2019 MATT BRITO MD Ot 724. 2 LUMBAGO 03/01/2019 MATT BRITO MD Ot 727. 40 SYNOVIAL CYST NOS 03/01/2019 OC, DOUGLAS D WELDING TECHNICIAN Ot M51.37 OTHER INTERVERTEBRAL DISC DEGENERATION, 03/01/2019 OC, DOUGLAS D WELDING TECHNICIAN Ot M71.38 OTHER BURSAL CYST, OTHER SITE 03/01/2019 OC, DOUGLAS D WELDING TECHNICIAN Ot K11 .8 OTHER DISEASES OF SALIVARY GLANDS 03/01/2019 OC, DOUGLAS D WELDING TECHNICIAN Ot R49 .0 DYSPHONIA 03/01/2019 MATT BRITO MD Ot 724. 2 LUMBAGO 03/01/2019 MATT BRITO MD Ot 727. 40 SYNOVIAL CYST NOS 03/01/2019 OC, DOUGLAS D WELDING TECHNICIAN Ot M51.37 OTHER INTERVERTEBRAL DISC DEGENERATION, 03/01/2019 OC, DOUGLAS D WELDING TECHNICIAN Ot M71.38 OTHER BURSAL CYST, OTHER SITE 03/01/2019 OC, DOUGLAS D WELDING TECHNICIAN Ot K11 .8 OTHER DISEASES OF SALIVARY GLANDS 03/01/2019 OC, DOUGLAS D WELDING TECHNICIAN Ot R49 .0 DYSPHONIA 03/02/2019 MATT BRITO MD Ot 724. 2 LUMBAGO 03/02/2019 MATT BRITO MD Ot 727. 40 SYNOVIAL CYST NOS 03/02/2019 OC, DOUGLAS D WELDING TECHNICIAN Ot M51.37 OTHER INTERVERTEBRAL DISC DEGENERATION, 03/02/2019 OC, DOUGLAS D WELDING TECHNICIAN Ot M71.38 OTHER BURSAL CYST, OTHER SITE 03/02/2019 OC, DOUGLAS D WELDING TECHNICIAN Ot K11 .8 OTHER DISEASES OF SALIVARY GLANDS 03/02/2019 OC, DOUGLAS D WELDING TECHNICIAN Ot R49 .0 DYSPHONIA 03/02/2019 TONY GIFFORD APRN Ot B19.20 UNSPECIFIED VIRAL HEPATITIS C WITHOUT HE 03/02/2019 TONY GIFFORD WELDING TECHNICIAN Ot F17.210 NICOTINE DEPENDENCE, CIGARETTES, UNCOMPL 03/02/2019 TONY GIFFORD APRN Ot G89.18 OTHER ACUTE POSTPROCEDURAL PAIN 03/02/2019 TONY GIFFORD APRN Ot J44 .9 CHRONIC OBSTRUCTIVE PULMONARY DISEASE, U 03/02/2019 TONY GIFFORD APRN Ot M54 .2 CERVICALGIA 03/02/2019 TONY GIFFORD APRN Ot Z79.51 DETENTION (CURRENT) USE OF INHALED STERO 03/02/2019 TONY GIFFORD APRN Ot Z79.52 DETENTION (CURRENT) USE OF SYSTEMIC STER 03/02/2019 MATT BRITO MD Ot 724. 2 LUMBAGO 03/02/2019 MATT BRITO MD Ot 727. 40 SYNOVIAL CYST NOS 03/02/2019 DIO RENAETA Ioana WELDING TECHNICIAN Ot M51.37 OTHER INTERVERTEBRAL DISC DEGENERATION, 03/02/2019 KING DOUGLAS Ioana WELDING TECHNICIAN Ot M71.38 OTHER BURSAL CYST, OTHER SITE 03/02/2019 DIO RENAETA Ioana WELDING TECHNICIAN Ot K11 .8 OTHER DISEASES OF SALIVARY GLANDS 03/02/2019 DOUGLAS RENAE WELDING TECHNICIAN Ot R49 .0 DYSPHONIA 03/08/2019 TONY GIFFORD APRN Ot B19.20 UNSPECIFIED VIRAL HEPATITIS C WITHOUT HE 03/08/2019 TONY GIFFORD APRN Ot F17.210 NICOTINE DEPENDENCE, CIGARETTES, UNCOMPL 03/08/2019 TONY GIFFORD APRN Ot G89.18 OTHER ACUTE POSTPROCEDURAL PAIN 03/08/2019 TONY GIFFORD APRN Ot J44 .9 CHRONIC OBSTRUCTIVE PULMONARY DISEASE, U 03/08/2019 TONY GIFFORD APRN Ot M54 .2 CERVICALGIA 03/08/2019 TONY GIFFORD APRN Ot Z79.51 COMMUNICATIONS ASSISTANT (CURRENT) USE OF INHALED STERO 03/08/2019 TONY GIFFORD APRN Ot Z79.52 COMMUNICATIONS ASSISTANT (CURRENT) USE OF SYSTEMIC STER 03/09/2019 JONATHON RAY, IZABELLA Silva Ot R59 .0 LOCALIZED ENLARGED LYMPH NODES 03/09/2019 MATT BRITO MD Ot 724. 2 LUMBAGO 03/09/2019 MATT BRITO MD Ot 727. 40 SYNOVIAL CYST NOS 03/09/2019 KING DOUGLAS D WELDING TECHNICIAN Ot M51.37 OTHER INTERVERTEBRAL DISC DEGENERATION, 03/09/2019 KING DOUGLAS D WELDING TECHNICIAN Ot M71.38 OTHER BURSAL CYST, OTHER SITE 03/09/2019 OC, DOUGLAS D WELDING TECHNICIAN Ot K11 .8 OTHER DISEASES OF SALIVARY GLANDS 03/09/2019 OC, DOUGLAS D WELDING TECHNICIAN Ot R49 .0 DYSPHONIA 03/09/2019 IZABELLA HOLT MD Ot R59 .0 LOCALIZED ENLARGED LYMPH NODES 03/10/2019 MATT BRITO MD Ot 724. 2 LUMBAGO 03/10/2019 MATT BRITO MD Ot 727. 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 2 LUMBAGO 03/10/2019 MATT BRITO MD Ot 727. 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 2 LUMBAGO 03/10/2019 MATT BRITO MD Ot 727. 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 2 LUMBAGO 03/11/2019 MATT BRITO MD Ot 727. 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 2 LUMBAGO 03/11/2019 MATT BRITO MD Ot 727. 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 2 LUMBAGO 03/11/2019 MATT BRITO MD Ot 727. 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, 03/12/2019 KIM DO, ANUSHA Ot E03.9 HYPOTHYROIDISM, UNSPECIFIED 03/12/2019 KIM DO, ANUSHA Ot F10.23 9 ALCOHOL DEPENDENCE WITH WITHDRAWAL, UNSP 03/12/2019 KIM DO, ANUSHA Ot F17.21 0 NICOTINE DEPENDENCE, CIGARETTES, UNCOMPL 03/12/2019 KIM DO, ANUSHA Ot F20.9 SCHIZOPHRENIA, UNSPECIFIED 03/12/2019 KIM DO, ANUSHA Ot F31.9 BIPOLAR DISORDER, UNSPECIFIED 03/12/2019 KIM DO, ANUSHA Ot G89.29 OTHER CHRONIC PAIN 03/12/2019 KIM DO, ANUSHA Ot I10 ESSENTIAL (PRIMARY) HYPERTENSION 03/12/2019 KIM DO, ANUSHA Ot J40 BRONCHITIS, NOT SPECIFIED ACUTE OR CH 03/12/2019 KIM DO, ANUSHA Ot J43.9 EMPHYSEMA, UNSPECIFIED 03/12/2019 KIM DO, ANUSHA Ot K11.20 SIALOADENITIS, UNSPECIFIED 03/12/2019 KIM DO, ANUSHA Ot M32.9 SYSTEMIC LUPUS ERYTHEMATOSUS, UNSPECIFIE 03/12/2019 KIM DO, ANUSHA Ot M54.9 DORSALGIA, UNSPECIFIED 03/12/2019 KIM DO, ANUSHA Ot R91.1 SOLITARY PULMONARY NODULE 03/12/2019 KIM DO, ANUSHA Ot Z87.89 1 PERSONAL HISTORY OF NICOTINE DEPENDENCE 03/12/2019 KIM DO, ANUSHA Ot Z90.71 0 ACQUIRED ABSENCE OF BOTH CERVIX AND UTER 03/16/2019 DARYL RAY, MATT Raygoza Ot 724. 2 LUMBAGO 03/16/2019 MATT BRITO MD Ot 727. 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 DISC DEGENERATION, 03/16/2019 DOUGLAS RENAE WELDING TECHNICIAN Ot M71.38 OTHER BURSAL CYST, OTHER SITE 03/16/2019 DOUGLAS RENAE WELDING TECHNICIAN Ot K11 .8 OTHER DISEASES OF SALIVARY GLANDS 03/16/2019 DOUGLAS RENAE WELDING TECHNICIAN Ot R49 .0 DYSPHONIA 03/16/2019 IZABELLA HOLT [...] DO, ANUSHA Ot M54.9 DORSALGIA, UNSPECIFIED 03/22/2019 [facility], ANUSHA Ot R91.1 SOLITARY PULMONARY NODULE 03/22/2019 [facility], ANUSHA Ot Z87.89 1 PERSONAL HISTORY OF NICOTINE DEPENDENCE 03/22/2019 [facility], ANUSHA Ot Z90.71 0 ACQUIRED ABSENCE OF BOTH CERVIX AND UTER 03/22/2019 MATT BRITO MD Ot 724. 2 LUMBAGO 03/22/2019 MATT BRITO MD Ot 727. 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 DISC DEGENERATION, 03/22/2019 DOUGLAS RENAE WELDING TECHNICIAN Ot M71.38 OTHER BURSAL CYST, OTHER SITE 03/22/2019 DOUGLAS RENAE WELDING TECHNICIAN Ot K11 .8 OTHER DISEASES OF SALIVARY GLANDS 03/22/2019 DOUGLAS RENAE WELDING TECHNICIAN Ot R49 .0 DYSPHONIA 03/22/2019 JONATHON RAY, [...] CHRONIC OBSTRUCTIVE PULMONARY DISEASE, U 05/18/2019 TONY GIFFODR APRN Ot K52 .9 NONINFECTIVE GASTROENTERITIS AND COLITIS 05/18/2019 TONY GIFFORD APRN Ot K74.60 UNSPECIFIED CIRRHOSIS OF LIVER 05/18/2019 TONY GIFFORD APRN Ot N20 .0 CALCULUS OF KIDNEY 05/18/2019 GIFFORD, PETER J WELDING TECHNICIAN Ot R18 .8 OTHER ASCITES 05/18/2019GIFFORD, TONY Raygoza WELDING TECHNICIAN Ot R31 .9 HEMATURIA, UNSPECIFIED 05/18/2019 GIFFORD, TONY Raygoza WELDING TECHNICIAN Ot Z79.52 DETENTION (CURRENT) USE OF SYSTEMIC STER 05/18/2019 GIFFORD, TONY Raygoza WELDING TECHNICIAN Ot Z86.59 PERSONAL HISTORY OF OTHER MENTAL AND BEH 05/18/2019 GIFFORD, TONY Raygoza WELDING TECHNICIAN Ot Z99.81 DEPENDENCE ON SUPPLEMENTAL OXYGEN 05/20/2019 GIFFORD, TONY Raygoza WELDING TECHNICIAN Ot E03 .9 HYPOTHYROIDISM, UNSPECIFIED 05/20/2019GIFFORD, TONY Raygoza APRN Ot F31 .9 BIPOLAR DISORDER, UNSPECIFIED 05/20/2019GIFFORD, TONY Raygoza WELDING TECHNICIAN Ot I10 ESSENTIAL (PRIMARY) HYPERTENSION 05/20/2019, TONY Raygoza APRN Ot J44 .9 CHRONIC OBSTRUCTIVE PULMONARY DISEASE, U 05/20/2019, TONY Raygoza APRN Ot K52 .9 NONINFECTIVE GASTROENTERITIS AND COLITIS 05/20/2019, TONY Raygoza APRN Ot K74.60 UNSPECIFIED CIRRHOSIS OF LIVER 05/20/2019, TONY Raygoza APRN Ot N20 .0 CALCULUS OF KIDNEY 05/20/2019GIFFORD, TONY Raygoza WELDING TECHNICIAN Ot R18 .8 OTHER ASCITES 05/20/2019GIFFORD, TONY Raygoza APRN Ot R31 .9 HEMATURIA, UNSPECIFIED 05/20/2019GIFFORD, TONY Raygoza APRN Ot Z79.52 COMMUNICATIONS ASSISTANT (CURRENT) USE OF SYSTEMIC STER 05/20/2019GIFFORD, TONY Raygoza WELDING TECHNICIAN Ot Z86.59 PERSONAL HISTORY OF OTHER MENTAL AND BEH 05/20/2019GIFFORD, TONY Raygoza WELDING TECHNICIAN Ot Z99.81 DEPENDENCE ON SUPPLEMENTAL OXYGEN 05/27/2019 IQRA OLIVARES MD Ot Z01.8 18 ENCOUNTER FOR OTHER PREPROCEDURAL EXAMIN 05/27/2019 IQRA OLIVARES MD Ot K86.8 9 [...] MD Ot F31.9 BIPOLAR DISORDER, UNSPECIFIED 06/02/2019 IQRA OLIVARES MD Ot F41.9 ANXIETY DISORDER, UNSPECIFIED 06/02/2019 IQRA OLIVARES MD Ot G47.3 3 OBSTRUCTIVE SLEEP APNEA (ADULT) (PEDIATR 06/02/2019 IQRA OLIVARES MD Ot I10 ESSENTIAL (PRIMARY) HYPERTENSION 06/02/2019 IQRA OLIVARES MD Ot J44.9 CHRONIC OBSTRUCTIVE PULMONARY DISEASE, U 06/02/2019 IQRA OLIVARES MD Ot K74.6 0 UNSPECIFIED CIRRHOSIS OF LIVER 06/02/2019 IQRA OLIVARES MD Ot M19.9 0 UNSPECIFIED OSTEOARTHRITIS, UNSPECIFIED 06/02/2019 IQRA OLIVARES MD Ot M32.9 SYSTEMIC LUPUS ERYTHEMATOSUS, UNSPECIFIE 06/02/2019 IQRA OLIVARES MD Ot N20.0 CALCULUS OF KIDNEY 06/02/2019 IQRA OLIVARES MD Ot Z79.8 91 DETENTION (CURRENT) USE OF OPIATE ANALGE 06/02/2019 IQRA OLIVARES MD Ot Z79.8 99 OTHER DETENTION (CURRENT) DRUG THERAPY 06/02/2019 IQRA OLIVARES MD Ot Z80.4 2 FAMILY HISTORY OF MALIGNANT NEOPLASM OF 06/02/2019 IQRA OLIVARES MD Ot Z80.5 2 FAMILY HISTORY OF MALIGNANT NEOPLASM OF 06/02/2019 IQRA OLIVARES MD Ot Z80.8 FAMILY HISTORY OF MALIGNANT NEOPLASM OF 06/02/2019 IQRA OLIVARES MD Ot Z83.3 FAMILY HISTORY OF DIABETES MELLITUS 06/02/2019 IQRA OLIVARES MD Ot Z88.0 ALLERGY STATUS TO PENICILLIN 06/02/2019 IQRA OLIVARES MD Ot Z88.1 ALLERGY STATUS [...] NICOTINE DEPENDENCE, CIGARETTES, UNCOMPL 06/04/2019 IQRA OLIVARES MD Ot F20.9 SCHIZOPHRENIA, UNSPECIFIED 06/04/2019 IQRA OLIVARES MD, Ot F31.9 BIPOLAR DISORDER, UNSPECIFIED 06/04/2019 IQRA OLIVARES MD, Ot F41.9 ANXIETY DISORDER, UNSPECIFIED 06/04/2019 IQRA OLIVARES MD, Ot G47.3 3 OBSTRUCTIVE SLEEP APNEA (ADULT) (PEDIATR 06/04/2019 IQRA OLIVARES MD, Ot I10 ESSENTIAL (PRIMARY) HYPERTENSION 06/04/2019 IQRA OLIVARES MD, Ot J44.9 CHRONIC OBSTRUCTIVE PULMONARY DISEASE, U 06/04/2019 IQRA OLIVARES MD, Ot K74.6 0 UNSPECIFIED CIRRHOSIS OF LIVER 06/04/2019 IQRA OLIVARES MD, Ot M19.9 0 UNSPECIFIED OSTEOARTHRITIS, UNSPECIFIED 06/04/2019 IQRA OLIVARES MD, Ot M32.9 SYSTEMIC LUPUS ERYTHEMATOSUS, UNSPECIFIE 06/04/2019 IQRA OLIVARES MD, Ot N20.0 CALCULUS OF KIDNEY 06/04/2019 IQRA OLIVARES MD, Ot Z79.8 91 DETENTION (CURRENT) USE OF OPIATE ANALGE 06/04/2019 IQRA OLIVARES MD, Ot Z79.8 99 OTHER DETENTION (CURRENT) DRUG THERAPY 06/04/2019 IQRA OLIVARES MD, Ot Z80.4 2 FAMILY HISTORY OF MALIGNANT NEOPLASM OF 06/04/2019 IQRA OLIVARES MD, Ot Z80.5 2 FAMILY HISTORY OF MALIGNANT NEOPLASM OF 06/04/2019 IQRA OLIVARES MD, Ot Z80.8 FAMILY HISTORY OF MALIGNANT NEOPLASM OF 06/04/2019 IQRA OLIVARES MD, Ot Z83.3 FAMILY HISTORY OF DIABETES MELLITUS 06/04/2019 IQRA OLIVARES MD, Ot Z88.0 ALLERGY STATUS TO PENICILLIN 06/04/2019 IQRA OLIVARES MD, Ot Z88.1 ALLERGY STATUS TO OTHER ANTIBIOTIC AGENT 06/04/2019 IQRA OLIVARES MD, Ot Z88.8 ALLERGY STATUS TO OTH DRUG/MEDS/BIOL SUB 06/04/2019 IQRA OLIVARES MD, Ot Z90.4 9 ACQUIRED ABSENCE OF OTHER SPECIFIED PART 06/04/2019 IQRA OLIVARES MD, Ot 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 06/04/2019 IQRA OLIVARES MD Ot Z99.8 9 DEPENDENCE ON OTHER ENABLING MACHINES AN 06/07/2019 IQRA OLIVARES MD Ot 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 06/07/2019 IQRA OLIVARES MD, Ot N20.0 CALCULUS OF KIDNEY 06/08/2019 IQRA OLIVARES MD Ot F17.2 10 NICOTINE DEPENDENCE, CIGARETTES, UNCOMPL 06/08/2019 IQRA OLIVARES MD Ot F20.9 SCHIZOPHRENIA, UNSPECIFIED 06/08/2019 IQRA OLIVARES MD Ot F31.9 BIPOLAR DISORDER, UNSPECIFIED 06/08/2019 IQRA OLIVARES MD Ot F41.9 ANXIETY DISORDER, UNSPECIFIED 06/08/2019 IQRA OLIVARES MD, Ot G47.3 3 OBSTRUCTIVE SLEEP APNEA (ADULT) (PEDIATR 06/08/2019 IQRA OLIVARES MD Ot I10 ESSENTIAL (PRIMARY) HYPERTENSION 06/08/2019 IQRA OLIVARES MD, Ot J44.9 CHRONIC OBSTRUCTIVE PULMONARY DISEASE, U 06/08/2019 IQRA OLIVARES MD Ot K74.6 0 UNSPECIFIED CIRRHOSIS OF LIVER 06/08/2019 IQRA OLIVARES MD Ot M19.9 0 UNSPECIFIED OSTEOARTHRITIS, UNSPECIFIED 06/08/2019 IQRA OLIVARES MD Ot M32.9 SYSTEMIC LUPUS ERYTHEMATOSUS, UNSPECIFIE 06/08/2019 IQRA OLIVARES MD Ot N20.0 CALCULUS OF KIDNEY 06/08/2019 IQRA OLIVARES MD Ot Z79.8 91 COMMUNICATIONS ASSISTANT (CURRENT) USE OF OPIATE ANALGE 06/08/2019 IQRA OLIVARES MD Ot Z79.8 99 OTHER COMMUNICATIONS ASSISTANT (CURRENT) DRUG THERAPY 06/08/2019 IQRA OLIVARES MD Ot Z80.4 2 FAMILY HISTORY OF MALIGNANT NEOPLASM OF 06/08/2019 IQRA OLIVARES MD Ot Z80.5 2 FAMILY HISTORY OF MALIGNANT NEOPLASM OF 06/08/2019 IQRA OLIVARES MD, Ot Z80.8 FAMILY HISTORY OF MALIGNANT NEOPLASM OF 06/08/2019 IQRA OLIVARES MD Ot Z83.3 FAMILY HISTORY OF DIABETES MELLITUS 06/08/2019 IQRA OLIVARES MD Ot Z88.0 ALLERGY STATUS TO PENICILLIN 06/08/2019 IQRA OLIVARES MD Ot Z88.1 ALLERGY STATUS TO OTHER ANTIBIOTIC AGENT 06/08/2019 IQRA OLIVARES MD, Ot Z88.8 ALLERGY STATUS [...] Ot F20.9 SCHIZOPHRENIA, UNSPECIFIED 06/15/2019 IQRA OLIVARES MD, Ot F31.9 BIPOLAR DISORDER, UNSPECIFIED 06/15/2019 IQRA OLIVARES MD, Ot F41.9 ANXIETY DISORDER, UNSPECIFIED 06/15/2019 IQRA OLIVARES MD, Ot G47.3 3 OBSTRUCTIVE SLEEP APNEA (ADULT) (PEDIATR 06/15/2019 IQRA OLIVARES MD Ot I10 ESSENTIAL (PRIMARY) HYPERTENSION 06/15/2019 IQRA OLIVARES MD Ot J44.9 CHRONIC OBSTRUCTIVE PULMONARY DISEASE, U 06/15/2019 IQRA OLIVARES MD Ot N20.0 CALCULUS OF KIDNEY 06/15/2019 IQRA OLIVARES MD Ot Z79.8 99 OTHER COMMUNICATIONS ASSISTANT (CURRENT) DRUG THERAPY 06/15/2019 IQRA OLIVARES MD, Ot Z88.1 ALLERGY STATUS [...] IQRA OLIVARES MD Ot Z79.8 99 OTHER COMMUNICATIONS ASSISTANT (CURRENT) DRUG THERAPY 06/17/2019 IQRA OLIVARES MD Ot Z88.1 ALLERGY STATUS TO OTHER ANTIBIOTIC AGENT 06/17/2019 IQRA OLIVARES MD Ot Z88.8 ALLERGY STATUS TO OTH DRUG/MEDS/BIOL SUB 06/17/2019 IQRA OLIVARES MD Ot 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 06/17/2019 IQRA OLIVARES MD Ot Z99.8 9 DEPENDENCE ON OTHER ENABLING MACHINES AN 06/18/2019 IQRA OLIVARES MD Ot F17.2 90 NICOTINE DEPENDENCE, OTHER TOBACCO PRODU 06/18/2019 IQRA OLIVARES MD Ot F20.9 SCHIZOPHRENIA, UNSPECIFIED 06/18/2019 IQRA OLIVARES MD Ot F31.9 BIPOLAR DISORDER, UNSPECIFIED 06/18/2019 IQRA OLIVARES MD Ot F41.9 ANXIETY DISORDER, UNSPECIFIED 06/18/2019 IQRA OLIVARES MD, Ot G47.3 3 OBSTRUCTIVE SLEEP APNEA (ADULT) (PEDIATR 06/18/2019 IQRA OLIVARES MD Ot I10 ESSENTIAL (PRIMARY) HYPERTENSION 06/18/2019 IQRA OLIVARES MD, Ot J44.9 CHRONIC OBSTRUCTIVE PULMONARY DISEASE, U 06/18/2019 IQRA OLIVARES MD, Ot N20.0 CALCULUS OF KIDNEY 06/18/2019 IQRA OLIVARES MD Ot Z79.8 99 OTHER DETENTION (CURRENT) DRUG THERAPY 06/18/2019 IQRA OLIVARES MD, Ot Z88.1 ALLERGY STATUS TO OTHER ANTIBIOTIC AGENT 06/18/2019 IQRA OLIVARES MD, Ot Z88.8 ALLERGY STATUS TO OTH DRUG/MEDS/BIOL SUB 06/18/2019 IQRA OLIVARES MD, Ot 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 06/18/2019 IQRA OLIVARES MD Ot Z99.8 9 DEPENDENCE ON OTHER ENABLING MACHINES AN 06/29/2019 IQRA OLIVARES MD, Ot N20.1 CALCULUS OF URETER 06/29/2019 IQRA OLIVARES MD, Ot Z98.8 90 OTHER SPECIFIED POSTPROCEDURAL STATES 06/30/2019 IQRA OLIVARES MD Ot E03.9 HYPOTHYROIDISM, UNSPECIFIED 06/30/2019 IQRA OLIVARES MD Ot F17.2 10 NICOTINE DEPENDENCE, CIGARETTES, UNCOMPL 06/30/2019 IQRA OLIVARES MD Ot F20.9 SCHIZOPHRENIA, UNSPECIFIED 06/30/2019 IQRA OLIVARES MD Ot F31.9 BIPOLAR DISORDER, UNSPECIFIED 06/30/2019 IQRA OLIVARES MD Ot F41.9 ANXIETY DISORDER, UNSPECIFIED 06/30/2019 IQRA OLIVARES MD Ot G47.3 3 OBSTRUCTIVE SLEEP APNEA (ADULT) (PEDIATR 06/30/2019 IQRA OLIVARES MD Ot I10 ESSENTIAL (PRIMARY) HYPERTENSION 06/30/2019 IQRA OLIVARES MD, Ot J44.9 CHRONIC OBSTRUCTIVE PULMONARY DISEASE, U 06/30/2019 IQRA OLIVARES MD Ot N20.0 CALCULUS OF KIDNEY 06/30/2019 IQRA OLIVARES MD, Ot Z79.8 99 OTHER DETENTION (CURRENT) DRUG THERAPY 06/30/2019 ELISE RAY, IQRA Mckeon Ot Z88.1 ALLERGY STATUS TO OTHER ANTIBIOTIC AGENT 06/30/2019 ELISE RAY, IQRA A Ot Z88.8 ALLERGY STATUS TO OTH DRUG/MEDS/BIOL SUB 07/02/2019 IQRA OLIVARES MD Ot E03.9 HYPOTHYROIDISM, UNSPECIFIED 07/02/2019 ELISE RAY, IQRA Mckeon Ot F17.2 10 NICOTINE DEPENDENCE, CIGARETTES, UNCOMPL 07/02/2019 IQRA OLIVARES MD Ot F20.9 SCHIZOPHRENIA, UNSPECIFIED 07/02/2019 IQRA OLIVARES MD Ot F31.9 BIPOLAR DISORDER, UNSPECIFIED 07/02/2019 IQRA OLIVARES MD Ot F41.9 ANXIETY DISORDER, UNSPECIFIED 07/02/2019 IQRA OLIVARES MD Ot G47.3 3 OBSTRUCTIVE SLEEP APNEA (ADULT) (PEDIATR 07/02/2019 ELISE RAY, IQRA Mckeon Ot I10 ESSENTIAL (PRIMARY) HYPERTENSION 07/02/2019 IQRA OLIVARES MD Ot J44.9 CHRONIC OBSTRUCTIVE PULMONARY DISEASE, U 07/02/2019 IQRA OLIVARES MD Ot N20.0 CALCULUS OF KIDNEY 07/02/2019 IQRA OLIVARES MD Ot Z79.8 99 OTHER DETENTION (CURRENT) DRUG THERAPY 07/02/2019 IQRA OLIVARES MD Ot Z88.1 ALLERGY STATUS TO OTHER ANTIBIOTIC AGENT 07/02/2019 IQRA OLIVARES MD Ot Z88.8 ALLERGY STATUS TO OTH DRUG/MEDS/BIOL SUB 07/04/2019 IQRA OLIVARES MD Ot E03.9 HYPOTHYROIDISM, UNSPECIFIED 07/04/2019 ELISE RAY, IQRA Mckeon Ot F17.2 10 NICOTINE DEPENDENCE, CIGARETTES, UNCOMPL 07/04/2019 IQRA OLIVARES MD Ot F20.9 SCHIZOPHRENIA, UNSPECIFIED 07/04/2019 IQRA OLIVARES MD Ot F31.9 BIPOLAR DISORDER, UNSPECIFIED 07/04/2019 IQRA OLIVARES MD Ot F41.9 ANXIETY DISORDER, UNSPECIFIED 07/04/2019 IQRA OLIVARES MD Ot G47.3 3 OBSTRUCTIVE SLEEP APNEA (ADULT) (PEDIATR 07/04/2019 IQRA OLIVARES MD, Ot I10 ESSENTIAL (PRIMARY) HYPERTENSION 07/04/2019 IQRA OLIVARES MD Ot J44.9 CHRONIC OBSTRUCTIVE PULMONARY DISEASE, U 07/04/2019 IQRA OLIVARES MD, Ot N20.0 CALCULUS OF KIDNEY 07/04/2019 IQRA OLIVARES MD, Ot Z79.8 99 OTHER COMMUNICATIONS ASSISTANT (CURRENT) DRUG THERAPY 07/04/2019 IQRA OLIVARES MD, Ot Z88.1 ALLERGY STATUS TO OTHER ANTIBIOTIC AGENT 07/04/2019 IQRA OLIVARES MD Ot Z88.8 ALLERGY STATUS TO OTH DRUG/MEDS/BIOL SUB 07/15/2019 IQRA OLIVARES MD Ot F17.2 10 NICOTINE DEPENDENCE, CIGARETTES, UNCOMPL 07/15/2019 IQRA OLIVARES MD, Ot F20.9 SCHIZOPHRENIA, UNSPECIFIED 07/15/2019 IQRA OLIVARES MD, Ot F31.9 BIPOLAR DISORDER, UNSPECIFIED 07/15/2019 IQRA OLIVARES MD, Ot F41.9 ANXIETY DISORDER, UNSPECIFIED 07/15/2019 IQRA OLIVARES MD, Ot G47.3 3 OBSTRUCTIVE SLEEP APNEA (ADULT) (PEDIATR 07/15/2019 IQRA OLIVARES MD Ot I10 ESSENTIAL (PRIMARY) HYPERTENSION 07/15/2019 IQRA OLIVARES MD, Ot J44.9 CHRONIC OBSTRUCTIVE PULMONARY DISEASE, U 07/15/2019 IQRA OLIVARES MD Ot K74.6 0 UNSPECIFIED CIRRHOSIS OF LIVER 07/15/2019 IQRA OLIVARES MD Ot M19.9 0 UNSPECIFIED OSTEOARTHRITIS, UNSPECIFIED 07/15/2019 IQRA OLIVARES MD Ot M32.9 SYSTEMIC LUPUS ERYTHEMATOSUS, UNSPECIFIE 07/15/2019 IQRA OLIVARES MD, Ot N20.0 CALCULUS OF KIDNEY 07/15/2019 IQRA OLIVARES MD, Ot Z79.8 91 DETENTION (CURRENT) USE OF OPIATE ANALGE 07/15/2019 IQRA OLIVARES MD, Ot Z79.8 99 OTHER COMMUNICATIONS ASSISTANT (CURRENT) DRUG THERAPY 07/15/2019 IQRA OLIVARES MD Ot Z80.4 2 FAMILY HISTORY OF MALIGNANT NEOPLASM OF 07/15/2019 IQRA OLIVARES MD, Ot Z80.5 2 FAMILY HISTORY OF MALIGNANT NEOPLASM OF 07/15/2019 IQRA OLIVARES MD, Ot Z80.8 FAMILY HISTORY OF MALIGNANT NEOPLASM OF 07/15/2019 IQRA OLIVARES MD, Ot Z83.3 FAMILY HISTORY OF DIABETES MELLITUS 07/15/2019 IQRA OLIVARES MD, Ot Z88.0 ALLERGY STATUS TO PENICILLIN 07/15/2019 IQRA OLIVARES MD, Ot Z88.1 ALLERGY STATUS TO OTHER ANTIBIOTIC AGENT 07/15/2019 IQRA OLIVARSE MD, Ot Z88.8 ALLERGY STATUS TO OTH DRUG/MEDS/BIOL SUB 07/15/2019 IQRA OLIVARES MD, Ot Z90.4 9 ACQUIRED ABSENCE OF OTHER SPECIFIED PART 07/15/2019 IQRA OLIVARES MD, Ot 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 07/15/2019 IQRA OLIVARES MD, Ot Z99.8 9 DEPENDENCE ON OTHER ENABLING MACHINES AN 07/15/2019 IQRA OLIVARES MD, Ot N20.1 CALCULUS OF URETER 07/15/2019 IQRA OLIVARES MD, Ot Z98.8 90 OTHER SPECIFIED POSTPROCEDURAL STATES Procedures Code Description Performed By Lux [facility] On 51.23 LAPA ROSCOPIC CHOLECYSTECTOMY 08/30/2005 87.53 INTR AOPER CHOLANGIOGRAM 08/30/2005 94.65 DRUG DETOXIFICATION 09/28/2005 94.62 ALCO HOL DETOXIFICATION 09/29/2005 67142 UA W / CULTURE IF INDICATED 02/07/2012 [...] 7-25 CREATININE 1.18 mg/dL 0.50-0.99 eGFR NON-AFR. ZIMBABWEAN 49 mL/min/1.73m2 > OR = 60 eGFR [...] 13:14 HCV RNA, QUANTITATIVE REAL TIME PCR 36205 IU/mL NOT DETECTED HCV RNA, QUANTITATIVE REAL [...] 0.1 10*3/uL 0.0-0.1 Comprehensive metabolic panel - 01/28/20 23:15 Serum or plasma sodium measurement (moles/volume) [...] NRG Blood erythrocyte morphology finding identification [facility] Comprehensive metabolic panel - 03/11/19 05:40 [...] g/dL 3.2-4.5 CALCIUM CORRECTED 9.6 mg/dL 8.5-10.1 [facility] - 03/19/19 15:50 GLUCOSE 129 mg/dL 65-99 UREA NITROGEN (BUN) 20 mg/dL 7-25 CREATININE 1.11 mg/dL 0.50-0.99 eGFR NON-AFR. ZIMBABWEAN 53 mL/min/1.73m2 > OR = 60 eGFR [...] AST 87 U/L 10-35 ALT 77 U/L 6-29 BNP - 03/19/19 15:50 B TYPE NATRIURETIC PEPTIDE (BNP) 210 pg/mL <100 [facility] - 04/09/19 11:37 GLUCOSE 143 mg/dL 65-99 UREA NITROGEN (BUN) 6 mg/dL 7-25 CREATININE 0.85 mg/dL 0.50-0.99 eGFR NON-AFR. ZIMBABWEAN 73 mL/min/1.73m2 > OR = 60 eGFR [...] AST 88 U/L 10-35 ALT 44 U/L 6-29 BNP - 04/09/19 11:37 B TYPE NATRIURETIC [...] Lipase - 05/18/19 18:25 Lipase 164 U/L 78 Serum or plasma ethanol measurement (mas s/volume) - 05/18/19 18:25 Serum or plasma ethanol measurement (mass/volume) < mg/dL <10 Lipase - 05/18/19 18:25 Lipase 162 U/L 878 Complete urinalysis with reflex to cultu re [...] culture - 05/18/19 19:50 Bacterial urine culture [id number] NRG COLONY COUNT 50,000 CFU/ML NRG SUSCEPTIBILITY NO FURTHER TESTING NRG Methicillin resistant Staphylococcus aur eus (MRSA) screening culture - 06/02/19 06:50 Methicillin resistant Staphylococcus aureus (MRSA) scr eening culture NEG NRG Coronavirus SARS-CoV-2 SO 2019 - 0 14:30 Coronavirus Ab [Units/volume] in Serum Negative Negative Methicillin resistant Staphylococcus aur eus (MRSA) screening culture - 06/15/19 10:00 Methicillin resistant Staphylococcus aureus (MRSA) scr eening culture NEG NRG Coronavirus SARS-CoV-2 SO 2019 - 0 12:55 Coronavirus Ab [Units/volume] in Serum Negative Negative Methicillin resistant Staphylococcus aur eus (MRSA) screening culture - 06/30/19 07:25 Methicillin resistant Staphylococcus aureus (MRSA) scr eening culture NEG NRG Complete urinalysis with reflex to cultu re - 07/20/19 13:16 Urine color determination TOBY NRG Urine clarity determination CLOUDY NR G Urine pH measurement by test strip 6.5 5-9 Specific gravity of urine by test strip 1.025 1.016-1.022 Urine protein assay by test strip, semi-quantitative 2+ NEGATIVE Urine glucose detection by automated test strip TR DARLING NEGATIVE Erythrocytes detection in urine sediment by light micr oscopy 3+ NEGATIVE Urine ketones detection by automated test strip 1+ NEGATIVE Urine nitrite detection by test strip POSITIVE NEGATIVE Urine total bilirubin detection by test strip 3+ NEGATIVE Urine urobilinogen measurement by automated test strip (mass/volume) >= mg/dL < = 1.0 Urine leukocyte esterase detection by dipstick TRA CE NEGATIVE Automated urine sediment erythrocyte cou nt by microscopy (number/high power field) TNTC NRG Automated urine sediment leukocyte count by microscopy (number/high power field) [HPF] NRG Bacteria detection in urine sediment by light microsco py FEW NRG Squamous epithelial cells detection in u rine sediment by light microscopy 0-2 NRG Crystals detection in urine sediment by light microsco py NONE NRG Casts detection in urine sediment by light microscopy NONE NRG Mucus detection in urine sediment by light microscopy NEGATIVE NRG Complete urinalysis with reflex to culture YES NRG Renal epithelial cells detection in urin e sediment by light microscopy 0-2 NRG Encounters ACCT No. Visit Date/Time Discharge Status Pt. Type Provider Facility Loc./Unit Complaint [id number] 04/09/2019 11:00:00 04/09/2019 23:59: 59 CLS Outpatient DOUGLAS RENAE [facility] [id number] 04/09/2019 11:00:00 Document Registration [id number] 03/19/2019 14:40:00 Document Registration [id number] 11/02/2018 12:20:00 Document Registration [id number] 09/03/2018 10:20:00 Document Registration [id number] 06/30/2019 07:03:00 14:20:00 DIS Outpatient IQRA OLIVARES MD [facility] RIGHT URETERAL STONE [id number] 06/28/2019 13:39:00 23:59:59 CLS Outpatient IQRA OLIVARES MD Via [facility] RAD [id number] 06/25/2019 07:41:00 16:00:00 DIS Outpatient IQRA OLIVARES MD [facility] PREOP RIGHT ESWL [id number] 06/15/2019 09:08:00 13:05:00 DIS Outpatient IQRA OLIVARES MD [facility] RIGHT KIDNEY STONE [id number] 06/11/2019 07:00:00 16:05:00 DIS Outpatient IQRA OLIVARES MD [facility] PREOP RIGHT ESWL [id number] 06/02/2019 06:30:00 10:40:00 DIS Outpatient IQRA OLIVARES MD [facility] RIGHT RENAL STONE [id number] 05/27/2019 08:26:00 10:44:00 DIS Outpatient IQRA OLIVARES MD [facility] PREOP RIGHT RENAL STONE [id number] 05/26/2019 12:56:00 23:59:59 CLS Outpatient IQRA OLIVARES MD [facility] RAD RT RENAL STONES [id number] 05/18/2019 18:08:00 20:42:00 DIS Emergency TONY GIFFORD APRN [facility] ER SOB, HX COPD, INTESTINA L ISSUES [id number] 03/10/2019 15:06:00 12:15:00 DIS Inpatient JULIO DO, ANUSHA V [facility] 4TH COPD EXACERBATION,SALAV CRYS GLAND TUMORS [id number] 03/02/2019 11:57:00 01/21/2 020 12:30:00 DIS Emergency TONY GIFFORD WELDING TECHNICIAN [facility] ER NECK PAIN [id number] 03/01/2019 12:19:00 23:59:59 CLS Outpatient JONATHON RAY, IZABELLA Silva [facility] SDC ENLARGED RT UPPER CERVI SENAIT LYMPH NODE [id number] 11/26/2018 13:45:00 23:59:59 CLS Outpatient DOUGLAS RENAE WELDING TECHNICIAN [facility] RAD HOARSENESS [id number] 10/14/2018 10:18:00 23:59:59 CLS Outpatient DOUGLAS RENAE WELDING TECHNICIAN Via [facility] RAD DEGENERATIVE DISC DISEA SE [id number] 07/20/2018 15:50:00 18:00:00 DIS Emergency TONY GIFFORD APRN [facility] ER SOA [id number] 09/26/2014 13:11:00 015 14:34:00 DIS Outpatient MATT BRITO MD [facility] CARD DDD [id number] 08/17/2014 09:39:00 015 23:59:59 CLS Outpatient MATT BRITO MD [facility] RAD LOW BACK PAIN [id number] 06/10/2014 14:30:00 015 15:24:00 DIS Emergency TONY GIFFORD WELDING TECHNICIAN [facility] ER ALL OVER PAIN, OUT OF M EDS [id number] 07/20/2019 11:46:[address] Emergency SHAWNEE RAY, KHARI Fuentes [facility] ER CHEST PAIN;COUGH [id number] 04/13/2019 07:07:00 Document Registration [id number] 04/13/2019 07:07:00 Document Registration [id number] 04/13/2019 07:07:00 Document Registration [id number] 11/19/2011 15:51:00 Document Registration [id number] 09/18/2011 12:23:00 Document Registration [id number] 09/18/2011 12:15:00 Document Registration [id number] 11/02/2010 09:28:00 Document Registration [id number] 10/30/2010 18:57:00 Document Registration [id number] 06/28/2010 20:22:00 Document Registration [id number] 09/29/2005 14:30:00 Document Registration [id number] 09/28/2005 20:41:00 Document Registration [id number] 08/26/2005 08:29:00 Document Registration [id number] 04/19/2014 15:32:00 04/19/2014 23:59: 59 CLS Outpatient PATRICE MATT DO [id number] 02/07/2012 14:26:00 02/07/2012 23:59: 59 CLS Outpatient PATRICE MATT DO [id number] 10/28/2011 18:13:00 10/28/2011 23:59:5 9 CLS Outpatient
--- NOTE | 2019-07-20 14:01 | Diagnostic Imaging Report ---
INDICATION: Cough and chest pain. 5 frontal chest obtained at 2:00 hours p.m. compared to 05/18/2019. Heart and mediastinal silhouette are normal in appearance. Lungs are clear. There is no pneumothorax or pleural fluid. IMPRESSION: Negative chest. Dictated by: Dictated on workstation # [id number]
[2019-07-20 14:03] LABS: BILIRUBIN,URINE 3+ (NEGATIVE)
--- NOTE | 2019-07-20 14:15 | Diagnostic Imaging Report ---
HISTORY: Chest pain, cough, abdominal pain. TECHNIQUE: Frontal view of the abdomen. COMPARISON: 06/30/2019. FINDINGS: No distended loops of small bowel are seen. The bowel gas pattern is nonspecific. Irregular calcifications are seen in the region of the pancreatic head, consistent with chronic pancreatitis. The right ureteral stent appears displaced distally, coiled further into the bladder and with the proximal portion at the mid ureter. Numerous calculi are seen in the region of the right kidney and proximal right ureter. Cholecystectomy clips are noted. IMPRESSION: 1. The right ureteral stent appears displaced distally with the proximal tip at the mid ureter. Numerous renal calculi and proximal ureteral calculi are seen. 2. Calcifications about the pancreatic head, consistent with chronic pancreatitis. Dictated by: Dictated on workstation # [id number]
--- NOTE | 2019-07-20 14:15 | Diagnostic Imaging Report ---
PROCEDURE: CT urinary tract, rule out kidney stone. TECHNIQUE: Multiple contiguous axial images were obtained through the abdomen and pelvis without the use of intravenous contrast. Auto Exposure Controls were utilized during the CT exam to meet ALARA standards for radiation dose reduction. INDICATION: History of kidney stones. Dark urine. COMPARISON: CT abdomen and pelvis on 05/18/2019. FINDINGS: The heart is unremarkable. Dependent atelectasis is seen in the lung bases. An ureteral stent is visualized in the distal aspect of the right ureter with the majority of the stent within the lumen of the bladder. There are numerous stacked calculi throughout the right ureter. Calculi are also visualized in the right renal pelvis. The largest measures approximately 1.0 cm. Nonobstructing calculi are also seen in the right kidney. There is moderate right-sided hydroureteronephrosis. No hydronephrosis or renal calculi seen on the left. The urinary bladder is decompressed with Victoria in place. Cirrhotic morphology of the liver is again noted with a shrunken appearance and micronodular contour. A moderate amount of ascites is seen in the abdomen and pelvis. The spleen is unremarkable. The gallbladder is surgically absent. Calcifications are again seen in the head of the pancreas, likely representing sequelae of chronic pancreatitis. No significant peripancreatic inflammatory changes are seen. The adrenal glands are unremarkable. The bowel loops are nondilated. Scattered diverticuli are seen in the descending and sigmoid colon. There is no free air. No acute osseous abnormalities. There is calcified aortic and iliac atherosclerotic plaque without aneurysm. There is no free air, loculated collection, or adenopathy in the pelvis. IMPRESSION: 1. Development of numerous stacked urolithiasis in the right ureter which have pushed a right ureteral stent into the bladder. Associated moderate right-sided hydronephrosis is present. Additional calculi are seen in the right renal pelvis and calyces of the right kidney. 2. Cirrhotic morphology of the liver. A moderate amount of ascites is present. 3. Calcifications within the head of pancreas, likely representing sequelae of chronic pancreatitis. Dictated by: Dictated on workstation # [id number]
[2019-07-20 14:29] LABS: BASOPHILS % (AUTO) 1 % (0-10); EOSINOPHILS # (AUTO) 0.1 10^3/uL (0.0-0.3); EOSINOPHILS % (AUTO) 2 % (0-10); HEMATOCRIT 26 % (35-52); HEMOGLOBIN 9.5 G/DL (11.5-16.0); LYMPHOCYTES % (AUTO) 16 % (12-44); MEAN CORPUSCULAR HEMOGLOBIN 35 PG (25-34); MEAN CORPUSCULAR HGB CONC 36 G/DL (32-36); MEAN CORPUSCULAR VOLUME 98 FL (80-99); MEAN PLATELET VOLUME 10.2 FL (7.4-10.4); MONOCYTES # (AUTO) 0.4 X 10^3 (0.0-1.0); MONOCYTES % (AUTO) 7 % (0-12); NEUTROPHILS # (AUTO) 4.5 X 10^3 (1.8-7.8); NEUTROPHILS % (AUTO) 74 % (42-75); PLATELET COUNT 108 10^3/uL (130-400); RED CELL DISTRIBUTION WIDTH 16.2 % (10.0-14.5)
[2019-07-20 14:37] LABS: ALBUMIN 2.4 GM/DL (3.2-4.5); CHLORIDE 83 MMOL/L (98-107); POTASSIUM 2.6 MMOL/L (3.6-5.0); SODIUM 127 MMOL/L (135-145)
[2019-07-20 14:39] LABS: CALCIUM 7.5 MG/DL (8.5-10.1)
[2019-07-20 14:40] LABS: GLUCOSE 126 MG/DL (70-105); TOTAL PROTEIN 6.1 GM/DL (6.4-8.2)
[2019-07-20 14:41] LABS: CARBON DIOXIDE 30 MMOL/L (21-32)
[2019-07-20 14:42] LABS: BILIRUBIN,TOTAL 7.5 MG/DL (0.1-1.0)
[2019-07-20 14:43] LABS: ALKALINE PHOSPHATASE 50 U/L (40-136); CREATININE SERUM 0.95 MG/DL (0.60-1.30); GFR ESTIMATED 59
[2019-07-20 14:44] LABS: BUN/CREATININE RATIO 14
[2019-07-20 14:46] LABS: ALANINE AMINOTRANSFERASE 19 U/L (0-55)
[2019-07-20 15:09] LABS: FREE T4 (FREE THYROXINE) < 0.40 NG/DL (0.70-1.48)
[2019-07-20] MEDS ORDERED: CIPROFLOXACIN IV 400MG/200ML 200 ML IV ONE (16:15)
[2019-07-20] MEDS ORDERED: NS (IVPB) 250 ML IV ONE (16:40)
[2019-07-20] MEDS ORDERED: NS IV 500 ML 500 ML ONE (16:42)
[2019-07-20 16:49] LABS: AMPHETAMINE SCREEN, URINE NEGATIVE (NEGATIVE); BARBITURATE SCREEN URINE NEGATIVE (NEGATIVE); BENZODIAZEPINES SCREEN URINE NEGATIVE (NEGATIVE); CANNABINOID SCREEN, URINE NEGATIVE (NEGATIVE); COCAINE SCREEN URINE NEGATIVE (NEGATIVE); METHADONE STAT NEGATIVE (NEGATIVE); METHAMPHETAMINE SCREEN URINE S NEGATIVE (NEGATIVE); OPIATE SCREEN URINE POSITIVE (NEGATIVE); OXYCODONE STAT NEGATIVE (NEGATIVE); PROPOXYPHENE STAT NEGATIVE (NEGATIVE); TRICYCLIC ANTIDEPRESSANTS SCRE NEGATIVE (NEGATIVE)
[2019-07-20] MEDS: POTASSIUM CL 10MEQ/50ML IVPB 50 ML IV SCH ×2 (16:50→17:58)
[2019-07-20 19:00] VITALS: BP 111/65
== END 2019-07-20 19:00 | disposition short-term general hospital (02) ==
LOC: ER 11:46
DX: N13.2 Hydronephrosis with renal and ureteral calculous obstruction (principal); R18.8 Other ascites; E03.9 Hypothyroidism, unspecified; J44.9 Chronic obstructive pulmonary disease, unspecified; I10 Essential (primary) hypertension; F41.9 Anxiety disorder, unspecified; F31.9 Bipolar disorder, unspecified; Z88.0 Allergy status to penicillin; Z88.1 Allergy status to other antibiotic agents; Z88.8 Allergy status to other drugs, medicaments and biological substances; Z79.890 Hormone replacement therapy; Z77.22 Contact with and (suspected) exposure to environmental tobacco smoke (acute) (chronic)
CPT/HCPCS: 36415; 71045; 74018; 74176; 80053; 80306; 80320; 81000; 83880; 84439; 84443; 85025; 87088

== ENCOUNTER 2019-09-10 09:19 | Outpatient (CLI) | payer MEDICARE, MEDICAID ==
[~2019-09-10] VITALS: Ht 147.3 cm; Wt 94.4 kg
[2019-09-10 10:05] VITALS: BP 87/65
== END 2019-09-10 10:05 | disposition home or self-care (01) ==
LOC: SDC 09:19
PROVIDERS: ATTEND Nurse Practitioner Family
DX: R18.8 Other ascites (principal)
CPT/HCPCS: 49082

== ENCOUNTER 2019-09-29 09:29 | Inpatient (IN) | payer MEDICARE, MEDICAID ==
[2019-09-29] MEDS ORDERED: NS IV 1000 ML 1,000 ML ONE ×4 (09:53→17:53)
[2019-09-29] MEDS ORDERED: MEROPENEM 500 MG in WATER (STERILE) FOR INJECTION 10 ML IV ONE (12:05)
[2019-09-29] MEDS ORDERED: MEROPENEM 500 MG VIAL (MERREM) IV ONE ×3 (12:05→17:52)
[2019-09-29] MEDS ORDERED: WATER (STERILE) FOR INJECTION 10 ML ONE ×2 (12:06→17:53)
[2019-09-29] MEDS ORDERED: NS IV 1000 ML 1,000 ML IV ONE ×2 (12:26→13:40)
[2019-09-29] MEDS ORDERED: ENOXAPARIN 40 MG/0.4 ML (LOVENOX) SYR ONE (18:29)
[2019-09-29] MEDS ORDERED: MIDODRINE 10 MG (PROAMATINE) TAB PO ONE (20:12)
[2019-09-29] MEDS ORDERED: SPIRONOLACTONE 25 MG (ALDACTONE) TAB ONE (20:12)
[2019-09-29] MEDS ORDERED: LACTULOSE SYRUP 10GM/15ML (ENULOSE) 30ML UDC ONE (20:12)
[2019-09-30] VITALS (11 sets, daily range): BP systolic 106–161; BP diastolic 69–83
[2019-09-30] MEDS ORDERED: MEROPENEM 500 MG VIAL (MERREM) IV ONE ×2 (00:30→06:19)
[2019-09-30] MEDS ORDERED: WATER (STERILE) FOR INJECTION 10 ML ONE ×2 (00:31→06:19)
[2019-09-30] MEDS ORDERED: NS IV 1000 ML 1,000 ML ONE ×2 (02:27→09:32)
[2019-09-30] MEDS ORDERED: LEVOTHYROXINE 112 MCG (LEVOTHROID) TAB ONE (06:20)
[2019-09-30] MEDS: MEROPENEM 500 MG/SWFI 10 ML IV PUSH IV SCH ×6 (06:30→22:22)
[2019-09-30] MEDS: LEVOTHYROXINE 112 MCG (LEVOTHROID) TAB PO SCH (06:32)
--- NOTE | 2019-09-30 08:32 | Pulmonary Consultation ---
History of Present Illness History of Present Illness Date Seen by Provider: Sep 30, 2019 Time Seen by Provider: 08:26 Date of Admission History of Present Illness 64yo Allergies and Home Medications Allergies Coded Allergies: amoxicillin (Verified Allergy, Unknown, Hives, Pt has received Rocephin in the past, 06/02/19) clavulanic acid (Verified Allergy, Unknown, Hives, 05/27/19) levofloxacin (Verified Allergy, Unknown, Hives, 05/27/19) theophylline (Verified Allergy, Unknown, Hives, 05/27/19) Uncoded Allergies: RUBBING ALCOHOL (Allergy, Unknown, 08/26/05) Home Medications Albuterol Sulfate 1 Puff Puff, 2 PUFF INH Q4H PRN for SHORTNESS OF BREATH, (Reported) Albuterol Sulfate 2.5 Mg/3 Ml Vial.neb, 2.5 MG NEB Q2H PRN for SHORTNESS OF BREATH, (Reported) Budesonide/Formoterol Fumarate 10.2 Gm Hfa.aer.ad, 2 PUFF INH BID, (Reported) Doxylamine Succinate 25 Mg Tablet, 25-50 MG PO HS PRN for SLEEP, (Reported) Furosemide 20 Mg Tablet, 20 MG PO DAILY, (Reported) Gabapentin 300 Mg Capsule, 300 MG PO TID, (Reported) Hydroxyzine HCl 50 Mg Tablet, 50 MG PO BID PRN for ANXIETY, (Reported) Levothyroxine Sodium 112 Mcg Tablet, 112 MCG PO DAILY, (Reported) Montelukast Sodium 10 Mg Tablet, 10 MG PO DAILY, (Reported) Nitrofurantoin Monohyd/M-Cryst 100 Mg Capsule, 1 TAB PO BID Prescribed by: JR BAILEY on 06/02/19 1119 Phenazopyridine HCl 200 Mg Tablet, 1 TAB PO TID Prescribed by: JR BAILEY on 06/02/19 0935 Tamsulosin HCl 0.4 Mg Cap, 0.4 MG PO DAILY Prescribed by: JR BAILEY on 06/02/19 0935 Tramadol HCl 50 Mg Tablet, 50-100 MG PO Q4H PRN for PAIN-MODERATE (5-7) Prescribed by: JR BAILEY on 06/02/19 0935 Past Yiapkyt-Ujooch-Ftwsao Hx Patient Social History Alcohol Beverage of Choice: Beer, Vodka Type Used: Cigarettes 2nd Hand Smoke Exposure: Yes Recent Hopitalizations: No Immunizations Up To Date Tetanus Booster (TDap): Unknown PED Vaccines UTD: No Date of Pneumonia Vaccine: Mar 10, 2014 Date of Influenza Vaccine: Mar 10, 2018 Seasonal Allergies Seasonal Allergies: Yes Past Medical History Surgeries: Yes (axillary gland removal, several ex laps, KIDNEY STONE) Gallbladder, Hysterectomy, Oophorectomy Respiratory: Yes (uses oxygen at 3 L by nasal cannula) Sleep Apnea, COPD Currently Using CPAP: No Currently Using BIPAP: No Cardiac: Yes Hypertension Neurological: No Female Reproductive Disorders: Endometriosis 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 oz. 90.344345eb; 38.00 BMI Method:Stated Exam Exam Vital Signs Date Time Temp Pulse Resp B/P (MAP) Pulse Ox O2 Delivery O2 Flow Rate FiO2 09/30/19 08:16 Room Air 09/30/19 08:00 36.2 Height & Weight Height: 4'10.00" Weight: 200lbs. oz. 90.548429il; 38.00 BMI Method:Stated General Appearance: No Apparent Distress, WD/WN HEENT: PERRL/EOMI, TMs Normal Neck: Full Range of Motion, Normal Inspection, Supple Respiratory: Chest Non Tender, No Accessory Muscle Use, No Respiratory Distress, Decreased Breath Sounds Cardiovascular: Regular Rate, Rhythm Capillary Refill: Less Than 3 Seconds Gastrointestinal: normal bowel sounds, non tender, soft Extremity: Normal Capillary Refill Neurologic/Psychiatric: Alert, Oriented x3 Skin: Normal Color, Warm/Dry Lymphatic: No Adenopathy Assessment/Plan Assessment/Plan UTI -Continue Merrem for now -Await florez cultures -IVF Hx of COPD -Currently on RA -Monitor Hypokalemia -Replace Hyponatremia -Monitor Anemia with thrombocytopenia -Monitor Hx of Lung nodules -repeat CT in 1yr per radiology recommendations-- Pt should have this done 02/2020 hx of lupus, kidney stones, CKD, Hep C, cirrhosis Hx of Diastolic CHF Hx of ETOH dependance Salivary gland tumer s/p bx -Following with VERONICA Preston DO Sep 30, 2019 08:32
[2019-09-30] MEDS ORDERED: ONDANSETRON 4 MG/2 ML (SDV) Z0FRAN IVP PRN (09:30)
[2019-09-30] MEDS: NS IV 1000 ML 1,000 ML IV SCH ×2 (09:30→14:39)
[2019-09-30] MEDS ORDERED: LACTULOSE SYRUP 10GM/15ML (ENULOSE) 30ML UDC ONE (09:32)
[2019-09-30] MEDS ORDERED: GABAPENTIN 300 MG (NEURONTIN) CAP ONE (09:33)
[2019-09-30] MEDS ORDERED: FUROSEMIDE 40 MG (LASIX) TAB ONE (09:33)
[2019-09-30] MEDS ORDERED: SPIRONOLACTONE 25 MG (ALDACTONE) TAB ONE (09:33)
[2019-09-30] MEDS ORDERED: PANTOPRAZOLE 40 MG (PROTONIX) TAB PO ONE (09:33)
[2019-09-30] MEDS ORDERED: TAMSULOSIN 0.4 MG (FLOMAX) CAP PO ONE (09:34)
[2019-09-30] MEDS ORDERED: MONTELUKAST 10 MG (SINGULAIR) TAB ONE (09:34)
[2019-09-30] MEDS ORDERED: HEParin DRIP 25000 UNIT/500ML 500 ML IV SCH (09:36)
[2019-09-30] MEDS ORDERED: HEParin 1000 UNIT/ML (10ML VIAL) FOR BOLUS IV PRN (09:45)
[2019-09-30 09:47] LABS: BASOPHILS # (AUTO) 0.1 10^3/uL (0.0-0.1); BASOPHILS % (AUTO) 1 % (0-10); EOSINOPHILS # (AUTO) 0.1 10^3/uL (0.0-0.3); EOSINOPHILS % (AUTO) 2 % (0-10); HEMATOCRIT 27 % (35-52); HEMOGLOBIN 8.7 G/DL (11.5-16.0); LYMPHOCYTES # (AUTO) 0.7 X 10^3 (1.0-4.0); LYMPHOCYTES % (AUTO) 10 % (12-44); MEAN CORPUSCULAR HEMOGLOBIN 30 PG (25-34); MEAN CORPUSCULAR HGB CONC 33 G/DL (32-36); MEAN CORPUSCULAR VOLUME 91 FL (80-99); MEAN PLATELET VOLUME 9.6 FL (7.4-10.4); MONOCYTES # (AUTO) 0.8 X 10^3 (0.0-1.0); MONOCYTES % (AUTO) 12 % (0-12); NEUTROPHILS # (AUTO) 4.8 X 10^3 (1.8-7.8); NEUTROPHILS % (AUTO) 75 % (42-75); PLATELET COUNT 139 10^3/uL (130-400); RED CELL DISTRIBUTION WIDTH 15.8 % (10.0-14.5); WHITE BLOOD COUNT 6.4 10^3/uL (4.3-11.0)
[2019-09-30] MEDS: GABAPENTIN 300 MG (NEURONTIN) CAP PO SCH (09:52)
[2019-09-30] MEDS: SPIRONOLACTONE 25 MG (ALDACTONE) TAB PO SCH ×2 (09:53→22:22)
[2019-09-30] MEDS: LACTULOSE SYRUP 10GM/15ML (ENULOSE) 30ML UDC PO SCH ×3 (09:54→22:22)
[2019-09-30] MEDS: FUROSEMIDE 40 MG (LASIX) TAB PO SCH (09:54)
[2019-09-30] MEDS: MONTELUKAST 10 MG (SINGULAIR) TAB PO SCH (09:54)
[2019-09-30] MEDS: ENOXAPARIN 40 MG/0.4 ML (LOVENOX) SYR SC SCH (09:54)
[2019-09-30 10:20] LABS: CALCIUM 7.5 MG/DL (8.5-10.1); CREATININE SERUM 1.3 MG/DL (0.60-1.30); MAGNESIUM 1.6 MG/DL (1.6-2.4); PHOSPHORUS 3.3 MG/DL (2.3-4.7); POTASSIUM 4.4 MMOL/L (3.6-5.0)
[2019-09-30] MEDS ORDERED: TRAM50TA3 PO (10:32)
[2019-09-30] MEDS ORDERED: FURO40TA4 PO (10:32)
[2019-09-30] MEDS ORDERED: POTA20TA15 PO (10:32)
[2019-09-30] MEDS ORDERED: MIDO10TA PO (10:32)
[2019-09-30] MEDS ORDERED: PANT40TA3 PO (10:32)
[2019-09-30] MEDS ORDERED: LACT10SO PO (10:32)
[2019-09-30] MEDS ORDERED: POLY17PO6 PO (10:32)
[2019-09-30] MEDS ORDERED: GABA300C PO (10:32)
[2019-09-30] MEDS ORDERED: TMSL.4C PO (10:32)
[2019-09-30] MEDS ORDERED: SPIR50TA4 PO (10:32)
--- NOTE | 2019-09-30 11:20 | NUR ---
Pastoral care visit.
--- NOTE | 2019-09-30 12:12 | Progress Note ---
DURGAADI MED STUDENT 09/30/19 1212: Subjective Date Seen by a Provider: Sep 30, 2019 Time Seen by a Provider: 09:00 Subjective/Events-last exam Patient states that she feels okay this morning. She denies any pain this morning and states that she feels better than yesterday. She states that she is having no trouble breathing this morning. She also does not think she has ran a fever in the last 24 hours. During questioning she sometimes becomes confused or somewhat aggressive, she appears to have altered mental status. Focused Exam Sepsis Stage: Sepsis Possible Source: Genitouriary Time of Focused Exam: 09:05 Respiratory: Chest Non Tender, Lungs Clear, Normal Breath Sounds, No Accessory Muscle Use, No Respiratory Distress Cardiovascular: Regular Rate, Rhythm, No Murmur Peripheral Pulses: 2+ Radial Pulses (R) Skin: normal color, warm/dry Objective Exam Last Set of Vital Signs Vital Signs Date Time Temp Pulse Resp B/P (MAP) Pulse Ox O2 Delivery O2 Flow Rate FiO2 09/30/19 11:00 102 125/78 (94) 98 Room Air 09/30/19 08:00 36.2 Capillary Refill : Less Than 3 Seconds General: Alert, Other (Alert, but oriented only to Self.) Lungs: Clear to Auscultation Heart: Regular Rate, No Murmurs Abdomen: Normal Bowel Sounds, Soft Extremities: No Edema, Other (Mild edema noted bilaterally in lower extremities) Skin: No Rashes Neuro: Other (Asterixis may be slightly present, patient does not cooperate with exam well enough to be conclusive) Psych/Mental Status: Other (Patient appears to be slightly condufed and has an altered mental status) Results Lab Laboratory Tests 09/30/19 09:30: White Blood Count 6.4, Red Blood Count 2.90L, Hemoglobin 8.7L, Hematocrit 27L, Mean Corpuscular Volume 91, Mean Corpuscular Hemoglobin 30, Mean Corpuscular Hemoglobin Concent 33, Red Cell Distribution Width 15.8H, Platelet Count 139, Mean Platelet Volume 9.6, Neutrophils (%) (Auto) 75, Lymphocytes (%) (Auto) 10L, Monocytes (%) (Auto) 12, Eosinophils (%) (Auto) 2, Basophils (%) (Auto) 1, Neutrophils # (Auto) 4.8, Lymphocytes # (Auto) 0.7L, Monocytes # (Auto) 0.8, Eosinophils # (Auto) 0.1, Basophils # (Auto) 0.1, Sodium Level 131L, Potassium Level 4.4, Chloride Level 106, Carbon Dioxide Level 18L, Anion Gap 7, Blood Urea Nitrogen 17, Creatinine 1.30, Estimat Glomerular Filtration Rate 41, BUN/Creatinine Ratio 13, Glucose Level 101, Calcium Level 7.5L, Phosphorus Level 3.3, Magnesium Level 1.6, Ammonia 50H, Thyroid Stimulating Hormone (TSH) 4.42 Assessment/Plan Assessment/Plan Assess & Plan/Chief Complaint Severe Sepsis 1. Continue patient on empiric antibiotics until a sensitivity report returns, then switch to specific treatment. 2. Continue to give IV fluids and monitor patient for signs of fluid overload. 3. Continue to monitor patients temperature for any signs of fever or worsening of sepsis. Hepatic Encephalopathy 1. Continue to give patient her medications and try to produce bowel movements to remove excess ammonia 2. Continue to monitor patient for signs of worsening symptoms 3. Draw ammonia level with morning labs to ensure level is decreasing. Hyponatremia 1. Continue to check sodium with morning labs 2. Give IV fluids and continue to monitor sodium levels. 3. If no improvement, investigate other sources, especially thyroid due to hx of hypothyroidism DVT Prophylaxis 1. Pt refused her dose of enoxaparin this morning. 2. See if it is possible to get her to accept a dose later into the day 3. If patient will not consent to an injection, possibly give a medication that can be taken orally. Final Diagnosis Severe Sepsis with Hepatic encephalopathy Diagnosis/Problems Diagnosis/Problems (1) Hepatic cirrhosis due to chronic hepatitis C infection Status: Acute (2) Hepatic encephalopathy Status: Acute (3) Hypothyroidism (4) Hyponatremia (5) Nocturnal hypoxia (6) Severe sepsis (7) COPD (chronic obstructive pulmonary disease) (8) Urinary tract infection (9) DVT prophylaxis Status: Acute (10) Altered mental status (11) Hyperammonemia Supervisory-Addendum Brief Verification & Attestation Participated in pt care: history, physical Personally performed: exam, history Care discussed with: other (Attending) Procedures: n/a TUYET QUEEN MD 09/30/19 0285: Diagnosis/Problems Diagnosis/Problems (1) Severe sepsis Assessment & Plan: Suspect secondary to UTI, has history of urinary retention, started on meropenem due to allergies. Consider SBP, also covered with meropenem. Cultures pending. BP improved 09/29. (2) Urinary tract infection (3) Hepatic encephalopathy Status: Acute Assessment & Plan: Appears to have chronic problems, but is acute worsened likely secondary to suspected infection. Increased lactulose to TID, continue treating underlying infection. (4) Hepatic cirrhosis due to chronic hepatitis C infection Status: Acute (5) Hypothyroidism Assessment & Plan: TSH high normal. Continue home levothyroxine. (6) Hyponatremia Assessment & Plan: Likely due to chronic fluid overload related to cirrhosis, continue to monitor. Continue home diuretics. (7) Nocturnal hypoxia (8) COPD (chronic obstructive pulmonary disease) Assessment & Plan: Resume home inhalers, no evidence of exacerbation. (9) Altered mental status (10) Hyperammonemia (11) DVT prophylaxis Status: Acute Assessment & Plan: Enoxaparin Supervisory-Addendum Brief Verification & Attestation Participated in pt care: history, MDM, physical Personally performed: exam, history Care discussed with: Medical Student Procedures: n/a Pt seen and examined by me, I repeated history and exam and agree with student documentation of these. See problem list. ADI CALIXTO MED STUDENT Sep 30, 2019 12:12 TUYET QUEEN MD Sep 30, 2019 16:24
--- NOTE | 2019-09-30 12:32 | NUR ---
THE MED REC WAS ENTERED USING THE PHYSICIANS ORDERS FROM [facility]
[2019-09-30] MEDS: MIDODRINE 10 MG (PROAMATINE) TAB PO SCH ×2 (13:24→22:21)
--- NOTE | 2019-09-30 13:45 | Diagnostic Imaging Report ---
NAME: Tenzin Causey. : 1955. EXAMINATION: Single view chest on 09/29/2019 at 1:18 PM. INDICATION: Altered mental status. COMPARISON: Correlation is made with the prior chest of 07/20/2019. FINDINGS: The heart size is normal. The pulmonary vascularity is unremarkable. The lungs are clear. No infiltrate, effusion, or pneumothorax is detected. IMPRESSION: No acute cardiopulmonary process is detected. Dictated by: Dictated on workstation # [id number]
--- NOTE | 2019-09-30 14:25 | Diagnostic Imaging Report ---
Indication: Sepsis follow-up Portable chest 3:55 AM Heart size and pulmonary vascularity are normal. Lungs are clear. There are no effusions or pneumothoraces. IMPRESSION: Negative chest Dictated by: Dictated on workstation # [id number]
[2019-09-30] MEDS: RT-ALBUTEROL INHALER HFA (VENTOLIN HFA) 18 GM IH SCH ×2 (15:35→21:15)
[2019-09-30 17:53] LABS: CLARITY,URINE TURBID; GLUCOSE, URINE (UA) NEGATIVE (NEGATIVE); KETONES,URINE NEGATIVE (NEGATIVE); NITRITE,URINE NEGATIVE (NEGATIVE); PH,URINE 6.5 (5-9); PROTEIN,URINE 2+ (NEGATIVE)
[2019-09-30 17:54] LABS: BILIRUBIN,URINE NEGATIVE (NEGATIVE); COLOR,URINE YELLOW; LEUKOCYTE ESTERASE ,URINE 3+ (NEGATIVE); WBC,URINE TNTC /HPF
[2019-09-30 17:55] LABS: BACTERIA,URINE LARGE /HPF
[2019-09-30] MEDS ORDERED: TAMSULOSIN 0.4 MG (FLOMAX) CAP PO SCH (18:00)
[2019-09-30 18:01] LABS: INR 1.9 (0.8-1.4)
[2019-09-30 18:05] LABS: BILIRUBIN,TOTAL 1.5 MG/DL (0.1-1.0); CALCIUM 8.3 MG/DL (8.5-10.1); CREATININE SERUM 1.71 MG/DL (0.60-1.30); POTASSIUM 5.5 MMOL/L (3.6-5.0)
[2019-09-30 18:06] LABS: ALBUMIN 2.4 GM/DL (3.2-4.5); TOTAL PROTEIN 6.1 GM/DL (6.4-8.2)
[2019-09-30 18:11] LABS: HEMOGLOBIN 9.6 G/DL (11.5-16.0); MEAN PLATELET VOLUME 10.5 FL (7.4-10.4); RED CELL DISTRIBUTION WIDTH 15.6 % (10.0-14.5)
--- NOTE | 2019-09-30 18:40 | NUR ---
PT CAME DOWN FROM ICU, REPORT GIVEN TO THIS RN FROM GERARDO LAMB. PT BROUGHT DOWN IN BED, AWAKE AND ALERT TO SELF ONLY. SHE HAS NO COMPLAINTS AT THIS TIME.
--- NOTE | 2019-09-30 18:45 | NUR ---
PT REPORT GIVEN TO MISHA LAMB 4 TH FLOOR. PT TRANSFERRED TO ROOM [id number] VIA BED AT THIS TIME.
[2019-09-30] MEDS ORDERED: ADVAIR HFA 115/21 MCG INHALER 8 GM IH SCH (20:00)
[2019-10-01] VITALS: BP 117/65
[2019-10-01] MEDS: NS IV 1000 ML 1,000 ML IV SCH ×3 (01:23→14:00)
[2019-10-01] MEDS ORDERED: WATER (STERILE) FOR INJECTION 10 ML ONE (03:25)
[2019-10-01] MEDS ORDERED: MEROPENEM 500 MG VIAL (MERREM) IV ONE (03:25)
[2019-10-01] MEDS: MEROPENEM 500 MG/SWFI 10 ML IV PUSH IV SCH ×4 (03:32→10:16)
[2019-10-01 04:00] VITALS: BP 114/75
[2019-10-01] MEDS: LEVOTHYROXINE 112 MCG (LEVOTHROID) TAB PO SCH (06:16)
[2019-10-01] MEDS: RT-ALBUTEROL INHALER HFA (VENTOLIN HFA) 18 GM IH SCH (06:47)
[2019-10-01 07:00] LABS: HEMOGLOBIN 9.2 G/DL (11.5-16.0); MEAN PLATELET VOLUME 9.8 FL (7.4-10.4); RED CELL DISTRIBUTION WIDTH 15.8 % (10.0-14.5); WHITE BLOOD COUNT 6.3 10^3/uL (4.3-11.0)
[2019-10-01 07:20] LABS: ALBUMIN 2.1 GM/DL (3.2-4.5); CALCIUM 7.6 MG/DL (8.5-10.1); CREATININE SERUM 1.28 MG/DL (0.60-1.30); POTASSIUM 3.6 MMOL/L (3.6-5.0); TOTAL PROTEIN 5.5 GM/DL (6.4-8.2)
[2019-10-01 08:59] VITALS: BP 114/71
[2019-10-01] MEDS ORDERED: PANTOPRAZOLE 40 MG (PROTONIX) TAB PO SCH (09:00)
[2019-10-01] MEDS: SPIRONOLACTONE 25 MG (ALDACTONE) TAB PO SCH (09:10)
[2019-10-01] MEDS: FUROSEMIDE 40 MG (LASIX) TAB PO SCH (09:10)
[2019-10-01] MEDS: MONTELUKAST 10 MG (SINGULAIR) TAB PO SCH (09:10)
[2019-10-01] MEDS: GABAPENTIN 300 MG (NEURONTIN) CAP PO SCH (09:11)
[2019-10-01] MEDS: LACTULOSE SYRUP 10GM/15ML (ENULOSE) 30ML UDC PO SCH ×2 (09:11→13:13)
[2019-10-01] MEDS: MIDODRINE 10 MG (PROAMATINE) TAB PO SCH ×2 (09:18→13:21)
[2019-10-01] MEDS: ENOXAPARIN 40 MG/0.4 ML (LOVENOX) SYR SC SCH (09:21)
[2019-10-01] MEDS ORDERED: MEROPENEM 500 MG/SWFI 10 ML IV PUSH IV SCH ×2 (09:30)
--- NOTE | 2019-10-01 11:00 | NUR ---
EBER JUSTICE, JUSTEN WELL, 400 ML CLOUDY YELLOW URINE
[2019-10-01] MEDS ORDERED: CEFD300C3 PO (12:24)
[2019-10-01 12:28] VITALS: BP 105/68
--- NOTE | 2019-10-01 12:32 | Discharge Summary ---
Discharge Summary Hospital Course Problems/Diagnosis: (1) Hyperammonemia Status: Chronic Assessment & Plan: Improved somewhat with increased dose of lactulose and tr eatment of infection. (2) Altered mental status Assessment & Plan: Significantly improved throughout stay. Continued to have difficulty with orientation to date and intermittent speech that did not make sense, but was understandable. Suspect acute on chronic hepatic encephalopathy due to UTI. (3) Hepatic cirrhosis due to chronic hepatitis C infection Status: Acute (4) Hepatic encephalopathy Status: Acute Assessment & Plan: Increased home lactulose to TID due to minimal stool output, had diarrhea on day of d/c, so continued home BID dosing at d/c. Improved through stay, no asterixis and was more alert and oriented. (5) Hyponatremia Status: Chronic Assessment & Plan: Improved, but persistent. Na 132 at discharge. Likely secondary to cirrhosis and third spacing. (6) Hypothyroidism Status: Chronic Assessment & Plan: TSH and free T4 okay during stay. (7) Severe sepsis Status: Resolved Resolution Date/Time: 09/30/19 @ 12:29 Assessment & Plan: Hypotension initially, resolved with fluid replacement. Secondary to UTI vs SBP, suspect UTI given positive urine culture for E coli. Historically had E coli that was pansensitive, discharged on cefdinir, final sensitivity pending. (8) COPD (chronic obstructive pulmonary disease) Status: Chronic (9) Urinary tract infection Status: Acute Assessment & Plan: Treated with meropenem inpatient due to allergies, noted per chart she had tolerated ceftriaxone in past, discharged on cefdinir. Hospital Course Date of Admission: Sep 29, 2019 at 12:48 Admission Diagnosis : [facility]: [facility]19 Discharge Diagnosis: See problem list Hospital Course: See problem list Labs and Pending Lab Test: Laboratory Tests 09/30/19 13:25: Lactic Acid Level 2.33*H 10/01/19 06:16: White Blood Count 6.3, Red Blood Count 3.08L, Hemoglobin 9.2L, Hematocrit 28L, Mean Corpuscular Volume 91, Mean Corpuscular Hemoglobin 30, Mean Corpuscular Hemoglobin Concent 33, Red Cell Distribution Width 15.8H, Platelet Count 146, Mean Platelet Volume 9.8, Sodium Level 132L, Potassium Level 3.6, Chloride Level 107, Carbon Dioxide Level 18L, Anion Gap 7, Blood Urea Nitrogen 16, Creatinine 1.28, Estimat Glomerular Filtration Rate 42, BUN/Creatinine Ratio 13, Glucose Level 110H, Calcium Level 7.6L, Corrected Calcium 9.1, Total Bilirubin 1.0, Aspartate Amino Transf (AST/SGOT) 46H, Alanine Aminotransferase (ALT/SGPT) 17, Alkaline Phosphatase 65, Total Protein 5.5L, Albumin 2.1L Microbiology 09/29/19 Urine Culture - Preliminary, Resulted Escherichia coli 09/29/19 Blood Culture - Preliminary, Resulted No growth Home Meds Active Reported Miralax (Polyethylene Glycol 3350) 17 Gm Powd.pack 17 Gm PO DAILY PRN Neurontin (Gabapentin) 300 Mg Capsule 300 Mg PO HS Potassium Chloride 20 Meq Tab.er.prt 20 Meq PO Q12H Spironolactone 50 Mg Tablet 50 Mg PO BID Midodrine HCl 10 Mg Tablet 10 Mg PO TID Flomax (Tamsulosin HCl) 0.4 Mg Cap 0.4 Mg PO DAILY Furosemide 40 Mg Tablet 40 Mg PO DAILY Lactulose 10 Gm/15 Ml Solution 30 Ml PO Q12H Pantoprazole Sodium 40 Mg Tablet.dr 40 Mg PO DAILY Tramadol HCl 50 Mg Tablet 50 Mg PO Q6H PRN Albuterol Sulfate 2.5 Mg/3 Ml Vial.neb 2.5 Mg NEB Q2H PRN Proair Hfa (Albuterol Sulfate) 1 Puff Puff 2 Puff INH Q4H PRN Symbicort 160-4.5 Mcg Inhaler (Budesonide/Formoterol Fumarate) 10.2 Gm Hfa.aer.ad 2 Puff INH BID Montelukast Sodium 10 Mg Tablet 10 Mg PO HS Levothyroxine Sodium 112 Mcg Tablet 112 Mcg PO DAILY Assessment/Pt DC Instructions Discharged back to [facility]. Discharge Diet: Regular Diet Activity as Tolerated: Yes Discharge Physical Examination Allergies: Coded Allergies: amoxicillin (Verified Allergy, Unknown, Hives, Pt has received Rocephin in the past, 06/02/19) clavulanic acid (Verified Allergy, Unknown, Hives, 05/27/19) levofloxacin (Verified Allergy, Unknown, Hives, 05/27/19) theophylline (Verified Allergy, Unknown, Hives, 05/27/19) Uncoded Allergies: RUBBING ALCOHOL (Allergy, Unknown, 08/26/05) General Appearance: No Apparent Distress Respiratory: Lungs Clear, Normal Breath Sounds Cardiovascular: Regular Rate, Rhythm, No Murmur Skin: Normal Color, Warm/Dry Neurologic/Psychiatric: Alert, Disoriented (knows she is in [place], but thought hospital was [facility], oriented to year but not month and date, did know the day of the week) TUYET QUEEN MD Oct 01, 2019 12:30
--- NOTE | 2019-10-01 13:30 | NUR ---
DISCHARGE PLAN: Patient is discharged to her previous placement at [facility]. I have sent the clinical information, orders and have updated the RN. I am awaiting the time of transport. [facility] should bring a wheelchair and clothes for the patient.
--- NOTE | 2019-10-01 14:49 | NUR ---
"RD ASSESSMENT PMHx: COPD; HTN; hepatitis; hypothyroidism; CHF; CKD; ETOH dependence PT INTERACTION: Pt was awake and semi-pleasant during nutrition assessment. Pt states current appetite is good. Note avg PO intake 25-50% x1d, per chart review. Pt states following a regular diet at home, and has no issues with chewing/swallowing food. Pt states no recent issues with nausea, vomiting, constipation, or diarrhea. Note last BM was 09/30, and pt not currently on bowel regimen per chart review. Pt states no recent wt changes. Note recent 22# wt loss x3w, per chart review. ABNORMAL NUTRITION-RELATED LAB VALUES LOW: Na 132; Ca 7.6; Pro 5.5; alb 2.1 HIGH: glu 110; AST 46 Est. kcal needs: 1250 kcal | 15 kcal/kg Est. Pro needs: 67 g Pro | 0.8 g Pro/kg PES STATEMENT: Inadequate oral intake (NI-2.1) related to loss of appetite as evidenced by pt interview | avg PO intake 25-50% x1d INTERVENTION: Continue with current diet order of Regular diet. Add Ensure Enlive (vary) to meals TID, for increased kcal intake. Provides 350 kcal and 13 g Pro per serving. Encouraged pt to eat when able. Will continue to follow and reassess as pt needs, intake, and status change. MONITOR/EVALUATE: PO Intake; Plan of Care; Hydration Status; Weight Status; Lab Values Shira Stone, MS, RD, LD"
--- NOTE | 2019-10-01 14:50 | NUR ---
DISMISSED TO VIA DEANNA COUGHLIN, VIA W/C, IV DC, SITE WITHOUT REDNESS OR SWELLING, VOIDED INCONT WITH LIQUID BROWN STOOL, LOWER LEGS EDEMATOUS, COCCXY AREA SLIGHT RED, NO C/O SOB OR PAIN AT THIS TIME,REPORT CALLED TO ANDREA LAMB,
[2019-10-01 14:55] VITALS: BP 105/68
== END 2019-10-01 14:50 | DRG 871 ==
LOC: EDUNIT# 09:29 → ER 09:29 → ICU 12:48 → 4TH 09-30 18:45
PROVIDERS: ADMIT Family Medicine; ATTEND Family Medicine
DX: A41.9 Sepsis, unspecified organism (principal); K72.00 Acute and subacute hepatic failure without coma; N39.0 Urinary tract infection, site not specified; I13.0 Hypertensive heart and chronic kidney disease with heart failure and stage 1 through stage 4 chronic kidney disease, or unspecified chronic kidney disease; E87.1 Hypo-osmolality and hyponatremia; I50.32 Chronic diastolic (congestive) heart failure; J96.10 Chronic respiratory failure, unspecified whether with hypoxia or hypercapnia; R65.20 Severe sepsis without septic shock; N18.9 Chronic kidney disease, unspecified; B18.2 Chronic viral hepatitis C; K74.4 Secondary biliary cirrhosis; J44.9 Chronic obstructive pulmonary disease, unspecified; E03.9 Hypothyroidism, unspecified; D69.6 Thrombocytopenia, unspecified; G47.30 Sleep apnea, unspecified; M54.9 Dorsalgia, unspecified; J30.2 Other seasonal allergic rhinitis; F17.210 Nicotine dependence, cigarettes, uncomplicated; F41.9 Anxiety disorder, unspecified; F31.9 Bipolar disorder, unspecified; F20.9 Schizophrenia, unspecified; F10.21 Alcohol dependence, in remission; R91.8 Other nonspecific abnormal finding of lung field; Z99.81 Dependence on supplemental oxygen; Z87.442 Personal history of urinary calculi
CPT/HCPCS: 36415; 71045; 80048; 80053; 81000; 82140; 83605; 83735; 84100; 84439; 84443; 85025; 85027; 85610; 85730; 86141; 87040; 87077; 87088; 87186; 96361; 96365